=== PATIENT | male | born 1940 | race Caucasian/White ===

== ENCOUNTER 2019-11-29 11:03 | Outpatient (CLI) | payer MEDICARE, SELFPAY ==
[2019-11-29 11:53] LABS: Add Urine Microscopic? YES; Appearance Urine Clear (Clear); Bilirubin Urine Negative (Negative); Blood Urine Negative (Negative); Color Urine Straw (Yellow); Glucose Urine UA Negative (Negative); Ketones Urine Negative (Negative); Leukocyte Esterase Ur Negative LEU/UL (NEGATIVE); Mucus Urine Rare /lpf; Nitrate Urine Negative (Negative); Protein Urine 1+ mg/dL (Negative); RBC Urine 0-2 /hpf (0-2); Specific Grav Ur 1.011 (1.001-1.035); Urobilinogen Urine Negative mg/dL (<2.0); WBC Urine 0-3 /hpf (0-3)
[2019-11-29 11:54] LABS: Alanine Aminotransferase 64 U/L (4-50); Albumin Level 4.4 g/dL (3.5-5.1); Alkaline Phosphatase 71 U/L (38-126); Aspartate Amino Transferase 44 U/L (17-59); Bilirubin,Total 0.7 mg/dL (0.2-1.3); Blood Urea Nitrogen 24 mg/dL (9-20); Calcium 8.9 mg/dL (8.4-10.2); Carbon Dioxide 32 mmol/L (22-30); Chloride 99 mmol/L (98-107); Estimated Glomerular Filt Rate > 60; Glucose 104 mg/dL (75-110); Potassium 4.3 mmol/L (3.4-5.0); Sodium 137 mmol/L (137-145)
== END 2019-11-29 11:04 | disposition home or self-care (01) ==
PROVIDERS: PCP Internal Medicine; Visit Provider Internal Medicine
DX: R35.0 Frequency of micturition (principal); I10 Essential (primary) hypertension
CPT/HCPCS: 36415; 80053; 81001; 87086

== ENCOUNTER → 2019-12-20 08:16 | Outpatient (CLI) | payer MEDICARE, SELFPAY ==
--- NOTE | ~2019-12-20 | MR_ITS ---
EXAMINATION: MR lumbar spine wo con DATE: 12/20/2019 09:02 INDICATION: Low back pain. TECHNIQUE: Magnetic resonance imaging (MRI) of the lumbar spine was performed without intravenous con trast. Sequences included sagittal T2-weighted FSE, sagittal T2-weighted FS FSE, sagittal T1-weighted FSE, and axial T2-weighted FSE. COMPARISON: Lumbar spine MRI 10/18/2012 FINDINGS: There is 3 mm retrolisthesis of L1 on L2, 5 mm retrolisthesis of L2 on L3, 3 mm retrolisthe sis of L3 on L4, and 3 mm anterolisthesis of L4 on L5. There is mild chronic anterior wedging of T11- L1 vertebral bodies. There is severely decreased disc height at L2-L3, L3-L4, and L5-S1 with endplate remodeling. There is ligamentum flavum hypertrophy at the disc levels from L1-L2 through L4-L5. The distal spinal cord signal intensity is normal. The conus medullaris is at T12-L1. The following disc levels are specifically discussed: L1-L2: The disc is bulging. There is severe bilateral facet joint osteoarthritis. There is mild bilat eral neural foraminal stenosis. There is mild central canal stenosis. L2-L3: The disc is bulging and has an annular fissure. There is severe bilateral facet joint osteoart hritis. There is moderate bilateral neural foraminal stenosis. There is moderate central canal stenos is. L3-L4: The disc is bulging and has an annular fissure. There is severe bilateral facet joint osteoart hritis. There is mild right and moderate left neural foraminal stenosis. There is mild central canal stenosis. L4-L5: The disc is bulging and has an annular fissure. There is severe bilateral facet joint osteoart hritis. There is mild bilateral neural foraminal stenosis. There is severe central canal stenosis. L5-S1: The disc is bulging and has an annular fissure. There is severe right and moderate left facet joint osteoarthritis. There is mild bilateral neural foraminal stenosis. There is mild central canal stenosis. IMPRESSION: 1. Severe lumbar spondylosis, worsened from 10/18/2012. Reviewed, dictated and finalized at location A.
== END ==
PROVIDERS: Visit Provider Internal Medicine
DX: R20.0 Anesthesia of skin (principal); R20.2 Paresthesia of skin; M47.896 Other spondylosis, lumbar region
CPT/HCPCS: 72148

== ENCOUNTER 2020-12-19 14:49 | Outpatient (CLI) | payer MEDICARE, SELFPAY ==
--- NOTE | ~2020-12-19 | XR_ITS ---
XR lumbar spine 2-3V DATE: 12/19/2020 15:16 INDICATION: Back pain TECHNIQUE: Flexion and extension lateral views only COMPARISON: 12/20/2019 MRI lumbar spine FINDINGS: There is diffuse idiopathic skeletal hyperostosis of the thoracic spine. Chronic mild anterior wedging of L1. There is moderate degenerative disc disease and stable minimal retrolisthesis at L1 to and flexion an d extension. There is severe degenerative disc disease and stable mild retrolisthesis at L2-3. Mild to moderate degenerative disc disease at L3-4 and L4-5. Stable grade 1 anterolisthesis at L4-5, likely secondary to prominent degenerative change at the apop hyseal joints. Severe degenerative disc disease at L5-S1. No fracture or bone destruction of the lumbar spine is evident. IMPRESSION: Diffuse idiopathic skeletal hyperostosis of the thoracic spine Multilevel degenerative disc disease of the lumbar spine, most severe at L2-3 Grade 1 anterolisthesis at L4-5, likely due to degenerative change at the apophyseal joints Reviewed, dictated and finalized at location A. IMPRESSION: Diffuse idiopathic skeletal hyperostosis of the thoracic spine Multilevel degenerative disc disease of the lumbar spine, most severe at L2-3 Grade 1 anterolisthesis at L4-5, likely due to degenerative change at the apoph yseal joints
== END 2020-12-19 14:50 | disposition home or self-care (01) ==
PROVIDERS: Visit Provider Internal Medicine
DX: M47.817 Spondylosis without myelopathy or radiculopathy, lumbosacral region (principal)
CPT/HCPCS: 72100

== ENCOUNTER 2020-12-27 09:11 | Emergency (ER) | payer MEDICARE, SELFPAY ==
--- NOTE | ~2020-12-27 | XR_ITS ---
XR foot RT min 3V 12/27/2020 09:42 Indication: Crush injury to the right foot. Right foot pain. Procedure: 4 views right foot Comparison: No prior studies for comparison. Findings: There is mild osteoarthritis of the first MTP and IP joints. There is a healed second metat arsal fracture. There are degenerative calcaneal enthesophytes. There are fractures involving the med ial base of the second, fourth and fifth proximal phalanges. There is moderate soft tissue swelling a long the plantar aspect of the foot at the metatarsophalangeal level. Lisfranc joint is intact. Impression: 1: Mildly displaced fractures medial base right second, fourth and fifth proximal phalanges. Reviewed, dictated and finalized at location A. Impression: 1: Mildly displaced fractures medial base right second, fourth and fifth proxim al phalanges.
[2020-12-27 09:21] VITALS: BP 131/77; PULSE 55; RESP 17; TEMP 37; O2SAT 95
--- NOTE | 2020-12-27 09:40 | PC.NURSE ---
While undressing pt for assessment, pt states oh you look young, thanks for asking to take my pants off. That made my whole day. Pt informed that that those statements are not appropriate and will not be tolerated. Pt states I was just joking.
--- NOTE | 2020-12-27 10:27 | ED.LOWEXIN ---
HPI - Extremity Injury (Lower) General Chief Complaint: Extremity Injury, Lower <Katrin Maldonado PA-C - Last Filed: 12/27/20 11:47> Stated Complaint: R foot injury <REGLA Marrero Last Filed: 12/27/20 11:47> Time Seen by Provider: 12/27/20 09:37 <REGLA Marrero Last Filed: 12/27/20 11:47> Source: patient <REGLA Marrero Last Filed: 12/27/20 11:47> Mode of arrival: wheelchair <REGLA Marrero Last Filed: 12/27/20 11:47> Limitations: no limitations <REGLA Marrero Last Filed: 12/27/20 11:47> History of Present Illness HPI Narrative: This is an 80-year-old male that presents to the emergency department for right foot pain after an injury today. Reports he got the foot caught between a bucket and the machine of a skid rack loader. Reports bruising, pain and swelling to the area. Reports decreased range of motion and sensation in the foot. He is unsure if he is up to date on tetanus vaccine. Denies fever. <REGLA Marrero Last Filed: 12/27/20 11:47> Related Data Home Medications: Home Medications Medication Instructions Recorded Confirmed brimonidine 0.2 %-timolol 0.5 % 1 drop EACH EYE Q12H 04/21/19 12/20/20 eye drops latanoprost 0.005 % eye drops 1 drop EACH EYE DAILY 04/21/19 12/20/20 prednisolone acetate 1 % eye 1 drop EACH EYE Q12H 04/21/19 12/20/20 drops,suspension <REGLA Marrero Last Filed: 12/27/20 11:47> Allergies/Adverse Reactions: Allergies Allergy/AdvReac Type Severity Reaction Status Date / Time No Known Allergies Allergy Unknown Verified 12/19/20 14:09 <REGLA Marrero Last Filed: 12/27/20 11:47> Review of Systems Review of Systems: CONSTITUTIONAL: Denies fever SKIN: Reports laceration MUSCULOSKELETAL: Reports joint pain, and myalgia. NEUROLOGIC: Reports numbness <Katrin Maldonado PA-C - Last Filed: 12/27/20 11:47> All systems reviewed & are unremarkable except as noted in HPI and below <Katrin Maldonado PA-C - Last Filed: 12/27/20 11:47> [facility] Past Medical History Medical History: Medical History (Updated 12/27/20 @ 11:44 by Katrin Maldonado PA-C) Abnormal finding of blood chemistry Anxiety with depression Benign essential hypertension Blepharitis of both eyes BMI 29.0-29.9,adult BMI 30.0-30.9,adult BMI 31.0-31.9,adult Chronic back pain Chronic pain CKD (chronic kidney disease) Cognitive dysfunction Colon cancer screening DJD (degenerative joint disease), multiple sites Encounter for general adult medical examination w/o abnormal findings Encounter for Medicare annual wellness exam Encounter for special screening examination for neoplasm of prostate Glaucoma Hearing loss History of colon polyps Hyperlipidemia Hypogonadism in male Hypothyroidism (acquired) Insomnia Non-healing skin lesion On longterm drug therapy Pre-diabetes Proteinuria Urinary frequency Urinary incontinence Urine abnormality Vertigo <Katrin Maldonado PA-C - Last Filed: 12/27/20 11:47> Family History Family History: Family History Sibling Family history of malignant neoplasm of stomach Family history of malignant neoplasm Carcinoma of colon Family history of malignant neoplasm of breast in first degree relative Family history of malignant neoplasm of ovary Family history of diabetes mellitus in first degree relative Diabetes mellitus Father Family history of diabetes mellitus in first degree relative Mother Family history of malignant neoplasm of bone Other Family history of osteoarthritis <Katrin Maldonado PA-C - Last Filed: 12/27/20 11:47> Social History Social History: Social History Smoking status: Never smoker Second hand tobacco smoke exposure: No Alcohol intake: never Gender identity (if verbalized by the patient): Male <Katrin
[2020-12-27] MEDS: TETANUS,DIPHTHERIA,AC PERTUSSIS ADULT (0.5 ML) BOOSTRIX IM (10:54)
--- NOTE | 2020-12-27 10:55 | PC.NURSE ---
attempted to medicate pt, pt yelling at myself for no one getting him water. pt states I mentioned that i have extreme dry mouth and none of you will get me anything for it. Pt informed that due to his injury he cannot have water per the edp, pt begins yelling about getting him a sponge, I informed pt that yelling at staff is not acceptable and will not be tolerated, I then exited the room and informed the relief charge nurse and pa. USMAN Wilkes states oh, I forgot I told him he could have a sponge. ED relief charge nurse carol at bedside with pt.
[2020-12-27] MEDS: MORPHINE SULFATE INJ (*CRX) 10 MG/ML AMP 5 MG IM (11:37)
[2020-12-27] MEDS: ceFAZolin SODIUM 1 GM VIAL IM (11:37)
[2020-12-27] MEDS: ceFAZolin SODIUM 1 GM VIAL (11:37)
[2020-12-27] MEDS: ONDANSETRON HCL ODT 4 MG TABLET PO (11:37)
--- NOTE | 2020-12-27 11:37 | PC.NURSE ---
Provider at bedside cleansing wound and dressing, post op shoe applied by nirav tejeda.
[2020-12-27 12:06] VITALS: BP 124/77; PULSE 75; RESP 16; O2SAT 97
== END 2020-12-27 12:06 | disposition short-term general hospital (02) ==
PROVIDERS: Emergency Provider General Practice; PCP Internal Medicine
DX: S97.81XA Crushing injury of right foot, initial encounter (principal); S92.511B Displaced fracture of proximal phalanx of right lesser toe(s), initial encounter for open fracture; Z23 Encounter for immunization; I12.9 Hypertensive chronic kidney disease with stage 1 through stage 4 chronic kidney disease, or unspecified chronic kidney disease; N18.9 Chronic kidney disease, unspecified; E78.5 Hyperlipidemia, unspecified; R73.03 Prediabetes; H40.9 Unspecified glaucoma; Z86.010 Personal history of colon polyps; W31.89XA Contact with other specified machinery, initial encounter
CPT/HCPCS: 12001; 73630; 90471; 90715; 96372; 99285; A9270; J0690; J2270; J2405

== ENCOUNTER 2021-04-29 06:44 | Outpatient (CLI) | payer MEDICARE, SELFPAY ==
--- NOTE | ~2021-04-29 | MR_ITS ---
EXAMINATION: MR lumbar spine wo [facility] EXAM DATE: 04/29/2021 08:01 INDICATION: Lumbar stenosis, low back pain, bilateral hip pain, right leg pain. TECHNIQUE: Multi-sequential, multiplanar MR images of the lumbar spine were obtained without contrast . Sagittal T1, T2, T2 fat saturation images. Axial T2 weighted images. Comparison is made to prior examination from 12/20/2019. FINDINGS: There is severe disc disease L2-3, moderate to severe at L1-2, L5-S1, moderate at L3-4. The re is 2 mm retrolisthesis L1 on L2, 3 mm retrolisthesis L2 on L3 and L3 on L4, 2-3 mm anterolisthesis L4 on L5. No spondylolysis suspected. The conus medullaris terminates at the L1/2 level and has norm al signal intensity and morphology. Paraspinal soft tissue is unremarkable. Level by level evaluation: T12-L1: Disc does not extend beyond the endplate margin. Facet arthropathy: Mild. Neural foraminal stenosis: No stenosis. Central canal stenosis: No stenosis. L1-L2: There is a moderate diffuse disc bulge with moderate-sized superimposed right central extrusio n, inferior migration could be affecting traversing L2 nerve root. Facet arthropathy: Moderate. Neural foraminal stenosis: Moderate right, mild to moderate left. Central canal stenosis: Moderate to severe right lateral recess from the extrusion, mild to moderate overall. L2-L3: There is a large diffuse disc bulge. Facet arthropathy: Moderate . Ligamentum flavum enlargement . Neural foraminal stenosis: Moderate bilateral. Central canal stenosis: Moderate. L3-L4: There is a mild to moderate diffuse disc bulge. Facet arthropathy: Moderate . Ligamentum flavum enlargement. Neural foraminal stenosis: Mild to moderate left, mild right. Central canal stenosis: Mild to moderate. L4-L5: There is a moderate to large diffuse disc bulge. Facet arthropathy: Severe . Ligamentum flavum enlargement. Neural foraminal stenosis: Mild to moderate bilateral. Central canal stenosis: Severe. L5-S1: There is a moderate to large diffuse disc bulge. Facet arthropathy: Moderate. Neural foraminal stenosis: Moderate bilateral, left greater than right. Central canal stenosis: Mild to moderate. Progression of the disc disease, with development of the L1-2 right central extrusion described above . IMPRESSION: 1. L4-5 severe central canal stenosis. 2. L1-2 right central extrusion, inferior migration causing moderate to severe right lateral recess stenosis. 3. Spondylosis as detailed above. Reviewed, dictated and finalized at location A. CTOR COST
--- NOTE | ~2021-04-29 | XR_ITS ---
EXAMINATION: XR lumbar spine min 4V DATE: 04/29/2021 08:03 INDICATION: Lumbar stenosis. TECHNIQUE: 4 views of the lumbar spine standing including flexion and extension views were obtained. COMPARISON: Lumbar spine radiographs 12/19/2020 FINDINGS: There is 16 degrees levoscoliosis of thoracolumbar spine. There is 3 mm retrolisthesis of L 1 on L2 and L2 on L3 and 4 mm anterolisthesis of L4 on L5. There is mild chronic anterior wedging of T11 and L1 vertebral bodies. There is moderately decreased disc height at L1-L2, severely decreased d isc height at L2-L3, mildly decreased disc height at L3-L4, and severely decreased disc height at L5- S1 with endplate remodeling. There is no abnormal motion with flexion or extension. IMPRESSION: 1. Severe lumbar spondylosis, stable from 12/19/2020. 2. Thoracolumbar levoscoliosis. Reviewed, dictated and finalized at location A. L ROOFER
== END 2021-04-29 06:45 | disposition home or self-care (01) ==
LOC: ANHIMG 06:47
PROVIDERS: PCP Internal Medicine; Visit Provider Neurological Surgery
DX: M48.061 Spinal stenosis, lumbar region without neurogenic claudication (principal); M47.896 Other spondylosis, lumbar region; M51.26 Other intervertebral disc displacement, lumbar region
CPT/HCPCS: 72110; 72148

== ENCOUNTER 2021-06-10 16:05 | Outpatient (CLI) | payer MEDICARE, SELFPAY ==
[2021-06-10 16:40] LABS: Basophils Percent Auto 0.3 % (0.2-1.2); Eosinophils Absolute Auto 0.4 K/mm3 (0-0.3); Eosinophils Percent Auto 4.8 % (0-4.4); Hematocrit 48.1 % (42.0-52.0); Hemoglobin 16.1 g/dL (14.0-18.0); Immature Granulocyte Absolute 0.03 K/mm3 (0.00-0.031); Immature Granulocyte Percent A 0.4 % (0-0.5); Lymphocytes Absolute Auto 1.33 K/mm3 (0.9-3.2); Lymphocytes Percent Auto 17.8 % (18.3-44.2); Mean Corpuscular HGB Conc 33.5 g/dl (32-36); Mean Corpuscular Hemoglobin 32.7 pg (26-34); Mean Corpuscular Volume 97.8 fl (80-100); Mean Platelet Volume 9.1 fl (7.4-10.4); Monocytes Absolute Auto 0.6 K/mm3 (0.1-0.6); Monocytes Percent Auto 7.8 % (2.6-8.5); Neutrophils Absolute Auto 5.2 K/mm3 (1.3-6.7); Neutrophils Percent Auto 68.9 % (45.5-73.1); Platelet Count Result 156 k/mm3 (150-375); Red Blood Count 4.92 M/mm3 (4.6-6.20); Red Cell Distribution Width 13.3 % (11.5-14.5); White Blood Count 7.5 K/mm3 (4.5-10.0)
[2021-06-10 16:43] LABS: Add Urine Microscopic? NO; Appearance Urine Clear (Clear); Bilirubin Urine Negative (Negative); Blood Urine Negative (Negative); Color Urine Straw (Yellow); Glucose Urine UA Negative (Negative); Ketones Urine Negative (Negative); Leukocyte Esterase Ur Negative LEU/UL (Negative); Nitrate Urine Negative (Negative); Protein Urine Negative (Negative); Urobilinogen Urine Negative mg/dL (<2.0)
[2021-06-10 16:49] LABS: Specific Grav Ur 1.002 (1.001-1.035)
[2021-06-10 16:50] LABS: Alanine Aminotransferase 39 U/L (4-50); Albumin Level 4.6 g/dL (3.5-5.1); Alkaline Phosphatase 66 U/L (38-126); Anion Gap 9 mmol/L (8-16); Aspartate Amino Transferase 38 U/L (17-59); Bilirubin,Total 0.6 mg/dL (0.2-1.3); Blood Urea Nitrogen 15 mg/dL (9-20); Calcium 9.3 mg/dL (8.4-10.2); Carbon Dioxide 30 mmol/L (22-30); Chloride 98 mmol/L (98-107); Cholesterol 126 mg/dL (0-200); Estimated Glomerular Filt Rate 45; Glucose 122 mg/dL (65-110); HDL Direct 40 mg/dL; Potassium 4.1 mmol/L (3.4-5.0); Sodium 137 mmol/L (137-145); Triglycerides 148 mg/dL (<150)
[2021-06-10 17:01] LABS: LDL Cholesterol Direct 62 mg/dL
[2021-06-10 17:57] LABS: Folic Acid > 20.0 ng/mL (2.76->20)
[2021-06-10 18:15] LABS: Free T4 Free Thyroxine 0.86 ng/mL (0.78-2.19); Vitamin D 25 Hydroxy 53.3 ng/mL
[2021-06-10 18:31] LABS: Hemoglobin A1C 5.9 % (<5.7)
[2021-06-13 23:52] LABS: Testosterone Total 1492 ng/dL (250-1100)
== END 2021-06-10 16:06 | disposition home or self-care (01) ==
PROVIDERS: PCP Internal Medicine; Visit Provider Internal Medicine
DX: E03.9 Hypothyroidism, unspecified (principal); R25.1 Tremor, unspecified; I10 Essential (primary) hypertension; R73.03 Prediabetes; E78.2 Mixed hyperlipidemia; Z79.899 Other long term (current) drug therapy; E55.9 Vitamin D deficiency, unspecified; E53.8 Deficiency of other specified B group vitamins
CPT/HCPCS: 36415; 80053; 80061; 81003; 82306; 82607; 82746; 83036; 84403; 84439; 84443; 85025

== ENCOUNTER 2021-09-04 13:52 | Outpatient (CLI) | payer MEDICARE, SELFPAY ==
--- NOTE | ~2021-09-04 | MR_ITS ---
EXAMINATION: MR brain/brain stem wo/w con DATE: 09/04/2021 15:17 INDICATION: Other amnesia. TECHNIQUE: Magnetic resonance imaging (MRI) of the brain and brainstem was performed without and with 16 mL MultiHance intravenous contrast. Sequences included sagittal and axial T1-weighted FSE, axial diffusion-weighted FS EPI, axial T2*-weighted GRE, axial T2-weighted FLAIR Propeller, and axial T2-we ighted Propeller. Postcontrast sequences included axial and coronal T1-weighted FSE. Apparent diffusi on coefficient (ADC) maps were created. COMPARISON: Brain MRI 11/19/2010 FINDINGS: There are scattered areas of nonspecific increased T2-weighted signal intensity in the cere bral white matter. There is no intracranial hemorrhage, acute infarction, or abnormal intracranial ma ss lesion. The ventricles are normal in size. There are likely changes of ocular lens replacement celsa geries. There is mild mucosal thickening in the paranasal sinuses. IMPRESSION: 1. Worsened moderate nonspecific cerebral white matter disease, which likely represents chronic small vessel ischemic disease. Reviewed, dictated and finalized at location A. IMPRESSION: 1. Worsened moderate nonspecific cerebral white matter disease, which likely re presents chronic small vessel ischemic disease.
[2021-09-04 14:31] LABS: Alanine Aminotransferase 42 U/L (4-50); Albumin Level 4.2 g/dL (3.5-5.1); Alkaline Phosphatase 69 U/L (38-126); Anion Gap 4 mmol/L (8-16); Aspartate Amino Transferase 44 U/L (17-59); Bilirubin,Total 0.4 mg/dL (0.2-1.3); Blood Urea Nitrogen 16 mg/dL (9-20); Calcium 8.8 mg/dL (8.4-10.2); Carbon Dioxide 32 mmol/L (22-30); Chloride 100 mmol/L (98-107); Estimated Glomerular Filt Rate 58; Glucose 146 mg/dL (65-110); Potassium 3.9 mmol/L (3.4-5.0); Sodium 136 mmol/L (137-145)
[2021-09-04 15:03] LABS: Prostate Specific Antigen 1.1 ng/mL (< OR = 4.0)
[2021-09-04 15:07] LABS: Free T4 Free Thyroxine 1.02 ng/mL (0.78-2.19)
[2021-09-04 15:38] LABS: Folic Acid 19.9 ng/mL (2.76->20)
[2021-09-09 11:17] LABS: Vitamin B1 27 nmol/L (8-30)
[2021-09-10 11:21] LABS: Vitamin B2 18.9 nmol/L (6.2-39.0)
== END 2021-09-04 13:53 | disposition home or self-care (01) ==
PROVIDERS: PCP Internal Medicine; Visit Provider Internal Medicine
DX: R41.3 Other amnesia (principal); F09 Unspecified mental disorder due to known physiological condition; E03.9 Hypothyroidism, unspecified; E53.8 Deficiency of other specified B group vitamins; Z79.899 Other long term (current) drug therapy; E34.9 Endocrine disorder, unspecified; Z12.5 Encounter for screening for malignant neoplasm of prostate; R93.0 Abnormal findings on diagnostic imaging of skull and head, not elsewhere classified
CPT/HCPCS: 36415; 70553; 80053; 82607; 82746; 84153; 84252; 84425; 84439; 84443; A9577; G0103

== ENCOUNTER 2021-09-09 00:01 | Day surgery (SDC) | payer MEDICARE, SELFPAY ==
[2021-08-30 08:59] VITALS: BMI 29.9
[2021-09-09 09:44] VITALS: BP 163/94; PULSE 70; RESP 18; TEMP 36.6; O2SAT 95
[2021-09-09] MEDS: LACTATED RINGERS 1,000 ML 150 ML IV CONT (09:52)
--- NOTE | 2021-09-09 10:26 | WPDGICN ---
Assessment and Plan Assessment and plan (1) History of colon polyps: Code(s): Z86.010 - Personal history of colonic polyps Status: Acute Assessment and Plan: Patient has a prior history of colon polyps. Most recently 2019. Plan is for surveillance colonoscopy at this time. Further recommendations will be given after colonoscopy. GI Consult Note Consult date/time: 09/09/21 10:26 HPI: oSuleymane Powers is a 80 year old male Presents for screening colonoscopy. Patient's current weight appetite bowel movements are normal. He denies abdominal pain. He has had no bleeding. Patient has a prior history of colon polyps. Most recent colonoscopy by Dr. Neville García in 2019 revealed adenomatous colon polyps. Patient presents today for some surveillance colonoscopy. Review of Systems Review of Systems: All systems reviewed & are unremarkable except as noted in HPI and below PMFSH Past Medical History Medical History (Updated 09/09/21 @ 10:27 by Neville Obregon MD) Abnormal finding of blood chemistry Anxiety with depression Balance problem Benign essential hypertension Blepharitis of both eyes BMI 29.0-29.9,adult BMI 30.0-30.9,adult BMI 31.0-31.9,adult BMI 32.0-32.9,adult Chronic back pain Chronic pain CKD (chronic kidney disease) Cognitive dysfunction Colon cancer screening DJD (degenerative joint disease), multiple sites Encounter for general adult medical examination w/o abnormal findings Encounter for Medicare annual wellness exam Encounter for special screening examination for neoplasm of prostate Follow up Glaucoma Hearing loss History of colon polyps Hyperlipidemia Hypogonadism in male Hypothyroidism (acquired) Insomnia Itchy skin Memory loss Non-healing skin lesion On retirement drug therapy Pre-diabetes Proteinuria Testosterone deficiency Urinary frequency Urinary incontinence Urine abnormality Vertigo Family History Family History Sibling Family history of malignant neoplasm of stomach Family history of malignant neoplasm Carcinoma of colon Family history of malignant neoplasm of breast in first degree relative Family history of malignant neoplasm of ovary Family history of diabetes mellitus in first degree relative Diabetes mellitus Father Family history of diabetes mellitus in first degree relative Mother Family history of malignant neoplasm of bone Other Family history of osteoarthritis Social History Social History Smoking status: Never smoker Second hand tobacco smoke exposure: No Alcohol intake: current Alcohol use details: 1 drink monthly Living arrangements: alone Gender identity (if verbalized by the patient): Male Spiritual care concerns: No Meds Home Medications and Allergies Home Medications Medication Instructions Recorded Confirmed Type brimonidine 0.2 %-timolol 0.5 % 1 drop EACH EYE Q12H 04/21/19 08/30/21 History eye drops latanoprost 0.005 % eye drops 1 drop EACH EYE DAILY 04/21/19 08/30/21 History Namzaric 14 mg-10 mg capsule 1 cap PO DAILY #90 ea NS 10/18/20 08/30/21 Rx sprinkle,extended release levothyroxine 125 mcg tablet 125 mcg PO DAILY #90 tablet 11/05/20 08/30/21 Rx diclofenac sodium 75 mg 75 mg PO BID PRN #180 tablet 03/13/21 08/30/21 Rx tablet,delayed release syringe with needle 3 mL 23 x 1 #9 each 03/20/21 08/08/21 Rx trazodone 50 mg tablet See Rx Instructions .ROUTE 04/01/21 08/30/21 Rx .COMPLEX #90 tablet cyanocobalamin (vitamin B-12) 1,000 mcg IM MONTHLY #3 ml 05/03/21 08/30/21 Rx 1,000 mcg/mL injection solution gabapentin 100 mg capsule 200 mg PO TID #180 cap 06/20/21 08/30/21 Rx lorazepam 0.5 mg tablet 0.5 mg PO TID PRN #30 tablet 07/02/21 08/30/21 Rx testosterone cypionate 200 mg/mL 200 mg IM .Q2W #2 ml 07/30/21 08/30/21 Rx intramuscular oil mirabegron 25 mg tablet,extended 25
--- NOTE | 2021-09-09 10:42 | WPDANESEPPF ---
Anes - Initial Pre Proc Eval Procedure: Operation Date: 09/09/21 11:30 Proposed Procedures p Screening Colonoscopy - Neville Obregon MD Date/Time: 09/09/21 10:42 Surgeon: Neville Obregon MD Pre Op Diagnosis: hx of colon polyps Patient Data Age: 80 Gender: M Height: 1.68 m Weight: 85.1 kg Last Vital Signs Temp 97.8 F 09/09/21 09:44 Pulse 70 09/09/21 09:44 Resp 18 09/09/21 09:44 BP 163/94 H 09/09/21 09:44 Pulse Ox 95 09/09/21 09:44 Allergies Allergy/AdvReac Type Severity Reaction Status Date / Time No Known Allergies Allergy Unknown Verified 09/09/21 09:39 Home Medications Medication Instructions Recorded Confirmed Type brimonidine 0.2 %-timolol 0.5 % 1 drop EACH EYE Q12H 04/21/19 08/30/21 History eye drops latanoprost 0.005 % eye drops 1 drop EACH EYE DAILY 04/21/19 08/30/21 History Namzaric 14 mg-10 mg capsule 1 cap PO DAILY #90 ea NS 10/18/20 08/30/21 Rx sprinkle,extended release levothyroxine 125 mcg tablet 125 mcg PO DAILY #90 tablet 11/05/20 08/30/21 Rx diclofenac sodium 75 mg 75 mg PO BID PRN #180 tablet 03/13/21 08/30/21 Rx tablet,delayed release syringe with needle 3 mL 23 x 1 #9 each 03/20/21 08/08/21 Rx trazodone 50 mg tablet See Rx Instructions .ROUTE 04/01/21 08/30/21 Rx .COMPLEX #90 tablet cyanocobalamin (vitamin B-12) 1,000 mcg IM MONTHLY #3 ml 05/03/21 08/30/21 Rx 1,000 mcg/mL injection solution gabapentin 100 mg capsule 200 mg PO TID #180 cap 06/20/21 08/30/21 Rx lorazepam 0.5 mg tablet 0.5 mg PO TID PRN #30 tablet 07/02/21 08/30/21 Rx testosterone cypionate 200 mg/mL 200 mg IM .Q2W #2 ml 07/30/21 08/30/21 Rx intramuscular oil mirabegron 25 mg tablet,extended 25 mg PO DAILY 08/29/21 08/30/21 History release 24 hr amlodipine 10 mg PO DAILY 08/30/21 08/30/21 History atorvastatin 40 mg PO DAILY 08/30/21 08/30/21 History timolol maleate 1 drp EACH EYE Q12H 08/30/21 08/30/21 History tramadol 50 mg tablet See Rx Instructions PO Q6H PRN 08/30/21 09/09/21 Rx #120 tablet valsartan 320 mg PO DAILY 08/30/21 08/30/21 History ascorbic acid (vitamin C) 1,000 mg 1 g PO DAILY 09/03/21 09/09/21 History tablet docusate sodium 250 mg capsule 250 mg PO DAILY 09/03/21 09/09/21 History lactulose 10 gram/15 mL oral 10 g PO DAILY 09/03/21 09/09/21 History solution magnesium citrate 125 mg capsule 125 mg PO DAILY 09/03/21 09/09/21 History vitamin B complex 1 tablet PO DAILY 09/03/21 09/09/21 History Patient hx anesthesia problems: none Family hx anesthesia problems: none Results Review: All pre-operative results and documents have been reviewed as part of the pre-operative evaluation. [facility] Past Medical History Medical History (Updated 09/09/21 @ 10:27 by Neville Obregon MD) Abnormal finding of blood chemistry Anxiety with depression Balance problem Benign essential hypertension Blepharitis of both eyes BMI 29.0-29.9,adult BMI 30.0-30.9,adult BMI 31.0-31.9,adult BMI 32.0-32.9,adult Chronic back pain Chronic pain CKD (chronic kidney disease) Cognitive dysfunction Colon cancer screening DJD (degenerative joint disease), multiple sites Encounter for general adult medical examination w/o abnormal findings Encounter for Medicare annual wellness exam Encounter for special screening examination for neoplasm of prostate Follow up Glaucoma Hearing loss History of colon polyps Hyperlipidemia Hypogonadism in male Hypothyroidism (acquired) Insomnia Itchy skin Memory loss Non-healing skin lesion On long-term drug therapy Pre-diabetes Proteinuria Testosterone deficiency Urinary frequency Urinary incontinence Urine abnormality Vertigo Family History Family History Sibling Family history of malignant neoplasm of stomach Family history of malignant neoplasm Carcinoma of colon Family history of malignant neoplasm of breast in first degree relative Family history of malignant neoplasm of ovary
[2021-09-09 11:20] VITALS: BP 130/76; PULSE 64; RESP 18; O2SAT 95
[2021-09-09 11:30] VITALS: BP 151/74; PULSE 67; RESP 24; O2SAT 96
[2021-09-09 11:40] VITALS: BP 169/88; PULSE 65; RESP 19; O2SAT 97
== END 2021-09-09 11:56 | disposition home or self-care (01) ==
PROVIDERS: PCP Internal Medicine; Visit Provider Internal Medicine Gastroenterology
PROC: 0DJD8ZZ Inspection of Lower Intestinal Tract, Via Natural or Artificial Opening Endoscopic (ICD-10-PCS; CPT 45378; principal; 2021-09-09 11:30)
DX: Z12.11 Encounter for screening for malignant neoplasm of colon (principal); Z86.010 Personal history of colon polyps; K57.30 Diverticulosis of large intestine without perforation or abscess without bleeding; K64.8 Other hemorrhoids; I12.9 Hypertensive chronic kidney disease with stage 1 through stage 4 chronic kidney disease, or unspecified chronic kidney disease; N18.9 Chronic kidney disease, unspecified; E03.9 Hypothyroidism, unspecified; M19.90 Unspecified osteoarthritis, unspecified site; M54.9 Dorsalgia, unspecified; G89.29 Other chronic pain; R73.03 Prediabetes; H40.9 Unspecified glaucoma; F41.9 Anxiety disorder, unspecified; F32.A Depression, unspecified
CPT/HCPCS: G0105; J2704; J7120

== ENCOUNTER → 2021-12-25 16:14 | Outpatient (CLI) | payer MEDICARE, SELFPAY ==
--- NOTE | ~2021-12-25 | MR_ITS ---
EXAMINATION: MR lumbar spine wo con DATE: 12/25/2021 16:54 INDICATION: Lumbar spinal stenosis with neurogenic claudication. TECHNIQUE: Magnetic resonance imaging (MRI) of the lumbar spine was performed without intravenous con trast. Sequences included sagittal T2-weighted FSE, sagittal T2-weighted FS FSE, sagittal T1-weighted FSE, and axial T2-weighted FSE. COMPARISON: 04/29/2021 FINDINGS: 3-4 mm retrolisthesis L1 on L2 and L2 on L3, 3 mm retrolisthesis L3 on L4 and 2-3 mm anterolisthesis L4 on L5. No significant change in chronic anterior wedging with 20% anterior vertebral body height l oss at T1 and L1 and 10% anterior vertebral body height loss at T12. There disc height loss at L2-L3, moderate to severe disc height loss at L5-S1 and L1-L2, latter with right-sided predominance. Modera te left-sided and posterior predominant disc height loss at L3-L4. Mild disc height loss at L4-L5. Th ere are prominent fibrofatty and fibrovascular degenerative endplate changes at multiple endplates gr eatest at L1-L2 and L2-L3. The conus medullaris terminates at L1. There is normal signal in the cauda l spinal cord. 7 mm T2 hyperintense cyst at the upper pole of the right kidney. Paravertebral soft ti ssues are otherwise unremarkable. The following disc levels are specifically discussed: T12-L1: The disc does not extend beyond the endplate margin. There is mild bilateral facet joint oste oarthritis. There is no neural foraminal stenosis. There is no central canal stenosis. L1-L2: Disc is bulging with annular fissure and superimposed small left paracentral disc extrusion wi th disc material extending up to 7 mm caudal to the level of the superior endplate of L1. There is hy pertrophy of the ligamentum flavum. There is mild right and moderate left facet joint osteoarthritis. There is moderate left and moderate to severe right neural foraminal stenosis. There is severe centr al canal stenosis. L2-L3: Disc is bulging. There is hypertrophy of the ligamentum flavum. There is moderate bilateral fa cet joint osteoarthritis. There is moderate bilateral neural foraminal stenosis. There is severe cent ral canal stenosis. L3-L4: Disc is bulging. There is mild hypertrophy of the ligamentum flavum. There is moderate right a nd moderate to severe left facet joint osteoarthritis. There is moderate left and mild to moderate ri ght neural foraminal stenosis. There is mild to moderate central canal stenosis. L4-L5: Disc is bulging. There is hypertrophy of the ligamentum flavum. There is severe bilateral face t joint osteoarthritis. There is moderate left and mild to moderate right neural foraminal stenosis. There is severe central canal stenosis. L5-S1: Disc is bulging. There is mild hypertrophy of the ligamentum flavum. There is moderate left an d moderate to severe right facet joint osteoarthritis. There is moderate bilateral neural foraminal s tenosis. There is mild to moderate central canal stenosis. IMPRESSION: 1. Interval progression of her multilevel lumbar spondylosis with severe central canal stenosis at L1 -L2, L2-L3 and L4-L5. Reviewed, dictated and finalized at location A. IMPRESSION: 1. Interval progression of her multilevel lumbar spondylosis with severe centra l canal stenosis at L1-L2, L2-L3 and L4-L5.
== END ==
PROVIDERS: PCP Internal Medicine; Visit Provider Pain Medicine Pain Medicine
DX: M48.062 Spinal stenosis, lumbar region with neurogenic claudication (principal); M47.896 Other spondylosis, lumbar region
CPT/HCPCS: 72148

== ENCOUNTER → 2022-04-22 14:46 | Outpatient (CLI) | payer MEDICARE, SELFPAY ==
--- NOTE | ~2022-04-22 | XR_ITS ---
EXAM: XR ankle RT min 3V, [id number] DATE: 04/22/2022 15:33 HISTORY: no injury right foot and ankle pain . COMPARISON: X-ray foot 12/27/2020. FINDINGS: Normal mineralization. Oblique mildly displaced intra-articular fractures of the posterior medial aspects of the second through fourth right proximal phalanges. No lytic or blastic lesion. Ac hilles and plantar enthesopathy. Moderate degenerative changes in the tibiotalar joint. Mild degenera tive change in multiple midfoot joints and the first MTP joint. No erosion or periosteal change. Soft tissue swelling over the forefoot. Small ankle joint effusion. IMPRESSION: Oblique, mildly displaced, intra-articular fractures of the posterior medial aspect of th e second through fourth right proximal phalanges. Reviewed, dictated and finalized at location K. PRESIDENT OF PROCUREMENT IMPRESSION: Oblique, mildly displaced, intra-articular fractures of the posteri or medial aspect of the second through fourth right proximal phalanges.
== END ==
PROVIDERS: PCP Internal Medicine; Visit Provider Internal Medicine
DX: S92.511A Displaced fracture of proximal phalanx of right lesser toe(s), initial encounter for closed fracture (principal); T14.90XA Injury, unspecified, initial encounter
CPT/HCPCS: 73610; 73630

== ENCOUNTER 2022-10-08 08:16 | Outpatient (CLI) | payer MEDICARE, SELFPAY ==
--- NOTE | 2022-10-08 11:00 | NEURO_ITS ---
Impression: Patient reports a history of balance issues. 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 # Clinical correlation recommended. Nerve Conduction Studies Anti Sensory Summary Table Stim Site NR Peak (ms) P-T Amp (?V) Site1 Site2 Delta-P (ms) Dist (cm) Moy (m/s) Left Sup Fibular Anti Sensory (Ant Lat Mall) 14 cm 4.2 3.0 14 cm Ant Lat Mall 4.2 16.0 38 Right Sup Fibular Anti Sensory (Ant Lat Mall) 14 cm 4.2 6.1 14 cm Ant Lat Mall 4.2 16.0 38 Left Sural Anti Sensory (Lat Mall) Calf 4.1 10.9 Calf Lat Mall 4.1 16.0 39 Right Sural Anti Sensory (Lat Mall) Calf 4.2 5.8 Calf Lat Mall 4.2 16.0 38 Motor Summary Table Stim Site NR Onset (ms) O-P Amp (mV) Site1 Site2 Delta-0 (ms) Dist (cm) Moy (m/s) Left Peroneal Motor (Vastus Med) Ankle 5.1 1.5 Popit Ankle 10.7 39.0 36 Popit 15.8 1.2 B Fib Ankle 8.6 31.0 36 B Fib 13.7 1.2 Right Peroneal Motor (Vastus Med) Ankle 5.1 1.1 Popit Ankle 10.6 41.0 39 Popit 15.7 0.8 B Fib Ankle 8.3 30.0 36 B Fib 13.4 0.9 Left Tibial Motor (Abd Torres Brev) Ankle 4.7 1.5 Knee Ankle 10.6 41.0 39 Knee 15.3 1.3 Right Tibial Motor (Abd Torres Brev) Ankle 4.8 2.6 Knee Ankle 11.1 41.0 37 Knee 15.9 1.7 F Wave Studies NR F-Lat (ms) L-R F-Lat (ms) Left Peroneal (Mrkrs) (EDB) 62.97 1.15 Right Peroneal (Mrkrs) (EDB) 64.12 1.15 Left Tibial (Mrkrs) (Abd Hallucis) 64.68 0.24 Right Tibial (Mrkrs) (Abd Hallucis) 64.44 0.24 EMG Side Muscle Nerve Root Ins Act Fibs Amp Dur Recrt Comment Right AntTibialis Dp Br Fibular L4-5 Nml Nml Nml Nml Nml Right Gastroc Tibial S1-2 Nml Nml Nml Nml Reduced Right Fibularis Long Sup Br Fibular L5-S1 Nml Nml Nml Nml Nml Right Flex Dig Long Tibial L5-S2 Nml Nml Nml Nml Reduced Right Ext Dig Brev Dp Br Fibular L5, S1 Nml Nml Nml Nml Reduced Left AntTibialis Dp Br Fibular L4-5 Nml Nml Nml Nml Nml Left Gastroc Tibial S1-2 Nml Nml Nml Nml Reduced Left Fibularis Long Sup Br Fibular L5-S1 Nml Nml Nml Nml Nml Left Flex Dig Long Tibial L5-S2 Nml Nml Nml Nml Reduced Left Ext Dig Brev Dp Br Fibular L5, S1 Nml Nml Nml Nml Reduced MTDD
== END 2022-10-08 08:17 | disposition home or self-care (01) ==
PROVIDERS: PCP Internal Medicine; Visit Provider Student in an Organized Health Care Education/Training Program
DX: G62.9 Polyneuropathy, unspecified (principal)
CPT/HCPCS: 95886; 95910

== ENCOUNTER 2022-10-10 09:19 | Outpatient (CLI) | payer MEDICARE, SELFPAY ==
--- NOTE | ~2022-10-10 | MR_ITS ---
MRI of the brain Clinical History: Multiple falls, poor balance Technique: Axial and sagittal T1-weighted images were acquired. These were followed by axial T2-weigh shakira, diffusion weighted, gradient, and FLAIR images. COMPARISON: 09/04/2021 Findings: There is no acute infarct, intracranial hemorrhage, or mass lesion. There are moderate comfort advisor valentino white matter changes in the periventricular white matter bilaterally. Ventricles and subarachnoid spaces are mildly dilated. Orbits are unremarkable. Paranasal sinuses and mastoid air cells are clear. Major intracranial flow voids are intact. Sagittal midline structures are intact. IMPRESSION: No acute intracranial abnormality. Moderate chronic microvascular ischemic change. Reviewed, dictated and finalized at location .
== END 2022-10-10 09:20 | disposition home or self-care (01) ==
LOC: ANHIMG 09:21
PROVIDERS: PCP Internal Medicine; Visit Provider Student in an Organized Health Care Education/Training Program
DX: R26.89 Other abnormalities of gait and mobility (principal); I67.82 Cerebral ischemia
CPT/HCPCS: 70551

== ENCOUNTER 2022-12-15 12:47 | Outpatient (CLI) | payer MEDICARE, SELFPAY ==
[2022-12-15 13:05] LABS: Basophils Absolute Auto 0.1 K/mm3 (0.0-0.1); Basophils Percent Auto 0.8 % (0.2-1.2); Eosinophils Absolute Auto 0.2 K/mm3 (0-0.3); Hematocrit 51.3 % (42.0-52.0); Hemoglobin 17.3 g/dL (14.0-18.0); Immature Granulocyte Absolute 0.02 K/mm3 (0.00-0.031); Immature Granulocyte Percent A 0.3 % (0-0.5); Immature Platelet Fraction Pct 1.6 % (0.9-11.2); Lymphocytes Absolute Auto 1.37 K/mm3 (0.9-3.2); Lymphocytes Percent Auto 17.6 % (18.3-44.2); Mean Corpuscular HGB Conc 33.7 g/dl (32-36); Mean Corpuscular Hemoglobin 32.5 pg (26-34); Mean Corpuscular Volume 96.2 fl (80-100); Monocytes Absolute Auto 0.6 K/mm3 (0.1-0.6); Monocytes Percent Auto 7.1 % (2.6-8.5); Neutrophils Absolute Auto 5.5 K/mm3 (1.3-6.7); Neutrophils Percent Auto 71.2 % (45.5-73.1); Platelet Count Result 136 k/mm3 (150-375); Red Blood Count 5.33 M/mm3 (4.6-6.20); Red Cell Distribution Width 12.5 % (11.5-14.5); White Blood Count 7.8 K/mm3 (4.5-10.0)
[2022-12-15 15:04] LABS: Alanine Aminotransferase 28 U/L (6-50); Albumin Level 4.2 g/dL (3.5-5.1); Alkaline Phosphatase 69 U/L (38-126); Anion Gap 3 mmol/L (8-16); Aspartate Amino Transferase 29 U/L (17-59); Bilirubin,Total 0.7 mg/dL (0.2-1.3); Blood Urea Nitrogen 18 mg/dL (9-20); Carbon Dioxide 37 mmol/L (22-30); Chloride 98 mmol/L (98-107); Estimated Glomerular Filt Rate 42; Glucose 103 mg/dL (65-110); Potassium 4.9 mmol/L (3.4-5.0); Sodium 138 mmol/L (137-145)
[2022-12-15 18:31] LABS: Immunoglobulin A 152 mg/dL (70-400); Immunoglobulin G 929 mg/dL (700-1600)
[2022-12-15 20:13] LABS: Immunoglobulin M < 25 mg/dL (40-230)
[2022-12-18 11:59] LABS: Albumin 4.1 g/dL (3.8-4.8); Alpha 1 Globulin 0.3 g/dL (0.2-0.3); Alpha 2 Globulin 0.7 g/dL (0.5-0.9); Beta 1 Globulin 0.4 g/dL (0.4-0.6); Gamma Globulin 0.9 g/dL (0.8-1.7); Protein, Total 6.6 g/dL (6.1-8.1)
[2022-12-19 20:43] LABS: Kappa\\Lambda Light Chains 27.49 (0.26-1.65); Lambda Light Chain 13.6 mg/L (5.7-26.3)
== END 2022-12-15 12:48 | disposition home or self-care (01) ==
LOC: ANHLAB 12:51
PROVIDERS: PCP Internal Medicine; Visit Provider Internal Medicine Hematology & Oncology
DX: D72.9 Disorder of white blood cells, unspecified (principal)
CPT/HCPCS: 36415; 80053; 82784; 83883; 84155; 84165; 85025; 85055

== ENCOUNTER 2022-12-17 14:36 | Outpatient (CLI) | payer MEDICARE, SELFPAY ==
--- NOTE | ~2022-12-17 | XR_ITS ---
EXAMINATION: XR bone survey comp/metastic DATE: 12/17/2022 15:40 INDICATION: Plasma cell disorder. TECHNIQUE: 32 views of a skeletal survey were obtained. COMPARISON: None. FINDINGS: The chest demonstrates clear lungs without pneumonia, pleural effusion, or pneumothorax. Th e heart size is normal. There is internal fixation of right humerus. There is an old healed fracture deformity of distal right radius. There are old healed right rib fractures. There are changes of post erior fusion procedure at L4-L5. IMPRESSION: 1. No lytic lesions of bone to suggest multiple myeloma. Reviewed, dictated and finalized at location A.
== END 2022-12-17 14:37 | disposition home or self-care (01) ==
LOC: ANHIMG 14:42
PROVIDERS: PCP Internal Medicine; Visit Provider Internal Medicine Hematology & Oncology
DX: D72.9 Disorder of white blood cells, unspecified (principal)
CPT/HCPCS: 77075

== ENCOUNTER 2023-01-08 09:33 | Outpatient (CLI) | payer MEDICARE, SELFPAY ==
[2023-01-08 10:23] LABS: Iron 115 ug/dL (49-181)
[2023-01-08 10:32] LABS: Percent Iron Saturation 34 % (20-50)
== END 2023-01-08 09:34 | disposition home or self-care (01) ==
LOC: ANHLAB 09:33
PROVIDERS: PCP Internal Medicine; Visit Provider Internal Medicine
DX: E29.1 Testicular hypofunction (principal); R53.83 Other fatigue
CPT/HCPCS: 36415; 82728; 83540; 83550

== ENCOUNTER → 2023-02-10 12:48 | Outpatient (CLI) | payer MEDICARE, SELFPAY ==
--- NOTE | ~2023-02-10 | US_ITS ---
US soft tissue LE LT 02/10/2023 13:06 Indication: Left lower extremity pain in the popliteal fossa post twisting injury Procedure: High-resolution Limited ultrasound of the left popliteal fossa Comparison: No prior studies for comparison. Findings: In the area of palpable concern there is a hypoechoic mass with internal debris measuring 4 .4 x 1.9 x 1.1 cm. No internal vascularity. There is mobile debris internally. Impression: 1: Complex partially cystic mass of the left popliteal fossa measuring 4.4 x 1.9 x 1.1 cm with multip le internal debris. Differential diagnosis includes complicated Brennan's cyst and posttraumatic hemato ma/seroma. Recommend follow-up ultrasound as clinically indicated to assess for interval change. Reviewed, dictated and finalized at location B. Impression: 1: Complex partially cystic mass of the left popliteal fossa measuring 4.4 x 1. 9 x 1.1 cm with multiple internal debris. Differential diagnosis includes compl icated Brennan's cyst and posttraumatic hematoma/seroma. Recommend follow-up ultr asound as clinically indicated to assess for interval change.
--- NOTE | ~2023-02-10 | XR_ITS ---
Left Knee Technique: AP, lateral, and sunrise views were obtained. Clinical History: Pain Findings: No fracture or dislocation is seen. Osseous alignment is anatomic. There is mild tricompart mental degenerative change. Soft tissues are unremarkable. No joint effusion is seen. Impression: Mild tricompartmental degenerative change. Reviewed, dictated and finalized at [facility]. Impression: Mild tricompartmental degenerative change.
== END ==
PROVIDERS: PCP Internal Medicine; Visit Provider Internal Medicine
DX: M25.562 Pain in left knee (principal); M71.22 Synovial cyst of popliteal space [Baker], left knee
CPT/HCPCS: 73562; 76882

== ENCOUNTER 2023-02-13 15:27 | Outpatient (CLI) | payer MEDICARE, SELFPAY ==
--- NOTE | ~2023-02-13 | MR_ITS ---
MRI of the thoracic spine Clinical History: Preoperative evaluation Technique: Axial T2-weighted and gradient images, and sagittal T1-weighted, T2-weighted, and STIR carin ges were acquired. Findings: There is no acute fracture or subluxation of the thoracic spine. There is intraosseous kavya ngioma in the T7 vertebral body. There are probable chronic compression deformity versus Schmorl's no de at the superior plate region of T11. Intervertebral disc spaces are relatively well preserved thro ughout the thoracic spine, there is minimal degenerative disc change. No significant disc bulge or herniation seen at any thoracic level. No spinal canal stenosis or cord compression seen. No epidural mass or collection identified. No abnormal signal seen in the spinal cord. Paravertebral soft tissues are unremarkable. Impression: Mild chronic compression deformity versus Schmorl's node at T11. Intraosseous hemangioma of T7. Reviewed, dictated and finalized at [facility]. Impression: Mild chronic compression deformity versus Schmorl's node at T11. Intraosseous hemangioma of T7.
--- NOTE | ~2023-02-13 | MR_ITS ---
MRI of the lumbar spine Clinical History: Preoperative evaluation Technique: Axial T2-weighted images, and sagittal T1-weighted, T2-weighted, and and T2 fat-sat images were acquired. Following intravenous administration of 17 cc MultiHance gadolinium, T1-weighted fat- sat imaging was performed in the axial and sagittal planes. COMPARISON: 12/25/2021 Findings: There is posterior fusion hardware from L4 to L5, with bilateral rods and transpedicular sc rews present. There is probable laminectomy defect of L4 and L5. There is a 5 mm retrolisthesis of L2 over L3. There is severe degenerative disc change at L1-L2 and L 2-L3, with extensive reactive marrow edema in the L1, L2, L3 vertebral bodies. At L1-L2, there is diffuse disc bulge and moderate to advanced facet arthropathy, with moderate to se jhoan spinal canal stenosis/thecal sac compression. There is severe bilateral neural foraminal narrowi ng, right worse than left. At L2-L3, disc bulge and severe facet arthropathy result in severe spinal canal stenosis/thecal sac c ompression. There is severe bilateral neural foraminal narrowing, left worse than right. At L3-L4, disc bulge and severe facet arthropathy result in severe spinal canal stenosis/thecal sac c ompression. There is severe left neural foraminal, right, and moderate to severe right neural foramin al, right. At L4-L5, there is mild disc bulge. There is posterior decompression. No central canal stenosis. Ther e is mild bilateral neural foraminal narrowing. At L5-S1, there is diffuse disc bulge with facet arthropathy. There is posterior decompression. No ce ntral canal stenosis. There is severe left neural foraminal narrowing, and moderate to advanced right neural foraminal narrowing. Paravertebral soft tissues are unremarkable, aside from expected postoperative change. No suspicious postcontrast enhancement identified. Impression: Severe degenerative spondylosis, especially from L1 through L4. Posterior fusion and decompression at L4-L5, as detailed above. 5 mm retrolisthesis of L2 over L3. Reviewed, dictated and finalized at [facility]. Impression: Severe degenerative spondylosis, especially from L1 through L4. Posterior fusion and decompression at L4-L5, as detailed above. 5 mm retrolisthesis of L2 over L3.
== END 2023-02-13 15:28 | disposition home or self-care (01) ==
PROVIDERS: PCP Internal Medicine; Visit Provider Pain Medicine Pain Medicine
DX: Z01.818 Encounter for other preprocedural examination (principal); M47.816 Spondylosis without myelopathy or radiculopathy, lumbar region; D18.09 Hemangioma of other sites
CPT/HCPCS: 72146; 72158; A9577

== ENCOUNTER → 2023-02-18 11:49 | Outpatient (CLI) | payer MEDICARE, SELFPAY ==
--- NOTE | ~2023-02-18 | MR_ITS ---
MRI of the left knee Clinical history: Synovial cyst Technique: Coronal proton density and proton density-weighted images, sagittal proton-density and T2 fat-sat images, and axial proton-density fat-saturated images were acquired. Findings: Anterior and posterior cruciate ligaments are intact. Medial collateral ligament and the la teral collateral ligament complex are intact. Popliteus tendon is intact. There is probable radial tear near the posterior root area of the lateral meniscus. There is complex tearing of the posterior horn and body of the medial meniscus. There is with extensive moderate chondral malacia of the medial compartment. Articular cartilage in t he lateral compartment and along the femoral trochlea is relatively well-preserved. There is extensiv e moderate to high-grade chondromalacia patella. Small tricompartmental osteophytes are present. Extensor mechanism is intact. Moderate joint effusion present. Small Brennan's cyst is present, with 8 mm loose body within the Brennan's cyst. There is extensive subcutaneous soft tissue edema about the kn ee. Impression: Complex tearing of the posterior horn and body medial meniscus. Radial tear at the posterior root of the lateral meniscus. Gtrh-fz-biwqojhc tricompartmental osteoarthritis, as above. Moderate joint effusion with small Brennan's cyst. 8 mm loose body within the Brennan's cyst. Reviewed, dictated and finalized at location M. Impression: Complex tearing of the posterior horn and body medial meniscus. Radial tear at the posterior root of the lateral meniscus. [id number] tricompartmental osteoarthritis, as above. Moderate joint effusion with small Brennan's cyst. 8 mm loose body within the Omid er's cyst.
== END ==
PROVIDERS: PCP Internal Medicine; Visit Provider Internal Medicine
DX: M17.12 Unilateral primary osteoarthritis, left knee (principal); S83.282A Other tear of lateral meniscus, current injury, left knee, initial encounter; S83.232A Complex tear of medial meniscus, current injury, left knee, initial encounter; X58.XXXA Exposure to other specified factors, initial encounter; M25.462 Effusion, left knee
CPT/HCPCS: 73721

== ENCOUNTER 2023-05-01 08:51 | Outpatient (CLI) | payer MEDICARE, SELFPAY ==
--- NOTE | ~2023-05-01 | XR_ITS ---
XR chest 2V 05/01/2023 10:03 Indication: Preop screening Procedure: PA and lateral views of the chest Comparison: Comparison to multiple prior studies sequentially, with oldest reviewed study dated 03/01. Findings: Heart size normal. No focal air space disease, pulmonary edema, pleural effusion or suspect ed pneumothorax. No acute osseous abnormality. Impression: 1: No acute cardiopulmonary disease. Reviewed, dictated and finalized at location B. REMOVAL OPERATOR Impression: 1: No acute cardiopulmonary disease.
--- NOTE | 2023-05-01 09:39 | ECG_ITS ---
Measurements Intervals [place] Rate: 48 P: 59 MN: 158 QRS: -35 QRSD: 126 T: -65 QT: 483 QTc: 434 Interpretive Statements SINUS BRADYCARDIA LEFT ANTERIOR SUPERIOR HEMIBLOCK ABNORMAL ECG COMPARED TO ECG 03/31/2019 18:20:43 HEART RATE IS REDUCED/NO OTHER DIFFERENCE Electronically Signed On 05-01-2023 13:29:45 METER MAKER by Frandy Chu M.D.
[2023-05-01 09:57] LABS: Basophils Absolute Auto 0.1 K/mm3 (0.0-0.1); Basophils Percent Auto 0.8 % (0.2-1.2); Eosinophils Absolute Auto 0.3 K/mm3 (0-0.3); Eosinophils Percent Auto 4.9 % (0-4.4); Hematocrit 49.4 % (42.0-52.0); Hemoglobin 16.5 g/dL (14.0-18.0); Immature Granulocyte Absolute 0.02 K/mm3 (0.00-0.031); Immature Granulocyte Percent A 0.3 % (0-0.5); Immature Platelet Fraction Pct 2.1 % (0.9-11.2); Lymphocytes Absolute Auto 0.95 K/mm3 (0.9-3.2); Lymphocytes Percent Auto 15.1 % (18.3-44.2); Mean Corpuscular HGB Conc 33.4 g/dl (32-36); Mean Corpuscular Hemoglobin 32.7 pg (26-34); Mean Corpuscular Volume 97.8 fl (80-100); Mean Platelet Volume 9.2 fl (7.4-10.4); Monocytes Absolute Auto 0.5 K/mm3 (0.1-0.6); Monocytes Percent Auto 8.6 % (2.6-8.5); Neutrophils Absolute Auto 4.4 K/mm3 (1.3-6.7); Neutrophils Percent Auto 70.3 % (45.5-73.1); Platelet Count Result 140 k/mm3 (150-375); Red Blood Count 5.05 M/mm3 (4.6-6.20); Red Cell Distribution Width 13.2 % (11.5-14.5); White Blood Count 6.3 K/mm3 (4.5-10.0)
[2023-05-01 10:04] LABS: Cholesterol 127 mg/dL (0-200); HDL Direct 51 mg/dL; Triglycerides 78 mg/dL (<150)
[2023-05-01 10:05] LABS: Alanine Aminotransferase 46 U/L (6-50); Albumin Level 4.3 g/dL (3.5-5.1); Alkaline Phosphatase 77 U/L (38-126); Anion Gap 10 mmol/L (8-16); Aspartate Amino Transferase 50 U/L (17-59); Bilirubin,Total 0.7 mg/dL (0.2-1.3); Blood Urea Nitrogen 17 mg/dL (9-20); Calcium 9.1 mg/dL (8.4-10.2); Carbon Dioxide 31 mmol/L (22-30); Chloride 99 mmol/L (98-107); Estimated Glomerular Filt Rate 53; Glucose 102 mg/dL (65-110); Potassium 3.9 mmol/L (3.4-5.0); Sodium 140 mmol/L (137-145)
[2023-05-01 10:10] LABS: INR 0.9; Partial Thromboplastin Time 26.2 SECONDS (22.3-36.8); Prothrombin Time 12.8 Seconds (11.1-14.7)
[2023-05-01 10:15] LABS: LDL Cholesterol Direct 61 mg/dL
[2023-05-01 10:37] LABS: Prostate Specific Antigen 1.1 ng/mL (< OR = 4.0)
[2023-05-01 10:44] LABS: Hemoglobin A1C 5.6 % (<5.7)
[2023-05-01 10:58] LABS: Free T4 Free Thyroxine 1.35 ng/mL (0.78-2.19)
== END 2023-05-01 08:52 | disposition home or self-care (01) ==
PROVIDERS: PCP Internal Medicine; Referring Provider Anesthesiology Pain Medicine; Visit Provider Urology
DX: E11.9 Type 2 diabetes mellitus without complications (principal); D69.6 Thrombocytopenia, unspecified; E53.8 Deficiency of other specified B group vitamins; M48.062 Spinal stenosis, lumbar region with neurogenic claudication; E03.9 Hypothyroidism, unspecified; E78.2 Mixed hyperlipidemia; Z79.899 Other long term (current) drug therapy; Z12.5 Encounter for screening for malignant neoplasm of prostate; I12.9 Hypertensive chronic kidney disease with stage 1 through stage 4 chronic kidney disease, or unspecified chronic kidney disease; N18.9 Chronic kidney disease, unspecified
CPT/HCPCS: 36415; 71046; 80053; 80061; 83036; 84153; 84439; 84443; 85025; 85055; 85610; 85730; 93005; G0103

== ENCOUNTER 2023-05-19 00:36 | Day surgery (SDC) | payer MEDICARE, SELFPAY ==
[2023-05-14 11:03] VITALS: BMI 28.6
--- NOTE | 2023-05-14 11:14 | PC.NURSE ---
Report to the Outpatient Waiting Room, entrance under the green pavilion located off [facility], at time ___0700____ on date __05/19/23 . Planned Procedure Time: __0900 . Time changes happen often and if your time is changed the preop area will call you the afternoon before. - You and your visitor will be asked to self-screen and do not enter if you have any COVID symptoms. - A mask is optional within the hospital at this time. Patients may have clear liquids (water, carbonated beverages, clear teas, apple juice) until 3 hours prior to surgery (0600 AM) with a maximum of 20 ounces. - No food from midnight until time of surgery - Infants may have breast milk until 4 hours before surgery, infant formula 6 hours prior to surgery. - Children will be allowed to drink immediately following surgery. If applicable, please bring a bottle or sippy cup to assist with drinking. Juice, water, soda, and popsicles are readily available. For infants on formula, please bring formula the day of surgery. Pacifiers are allowed. Take the following medications with a SIP of water the morning of surgery: _GABAPENTIN, LEVOTHYROXINE, EYE DROPS, BACLOFEN, TRAMADOL, & TYLENOL IF NEEDED_ DO NOT STOP ANY OF YOUR OTHER PRESCRIPTION MEDICATIONS PRIOR TO SURGERY ?EXCEPT THE FOLLOWING Medications to discontinue DR. GARCIA/DR. GARDUNO - _ASPIRIN 7 DAYS PRIOR TO SURGERY, CAREGIVER STATES LAST DOSE TAKEN WAS 05/12/23_ Medications to discontinue ANESTHESIA - MULTIVITAMIN 3 DAYS PRIOR TO SURGERY, Date to take last dose 05/15/23_ Please no make-up, nail upper sorbian, hairspray, perfume, deodorant, or body powder the day of surgery. No jewelry (including any body piercings) or valuables the day of surgery, leave them at home. Please take a shower or bath the night before, or the morning of, surgery with an antibacterial soap. Wear comfortable, loose fitting clothing. Children are encouraged to wear pajamas. - Jewelry must be removed prior to entering the operating room. Rings and piercings that are not removed may be cut off. - The hospital will not accept responsibility for valuables. - Please leave all valuables, including medications, at home the day of surgery. If you are going home after surgery, a licensed cart driver must drive you home. - NO public transportation without another adult if you receive anesthesia. - We recommend that an adult stay with you for 24 hours following discharge. - We also recommend that you do not drive, make important decision, drink alcoholic beverages, or take any drugs that were not prescribed by your health care provider for at least 24 hours after your discharge time. For Pediatric surgeries, we recommend two adults accompany the child home. Follow any additional instructions given to you from your surgeon. If you or anyone in your household have experienced Covid symptoms in the past week, please notify your surgeon or the nurse liaison at the phone number below for possible testing. Telephone instructions given to _PT'S CAREGIVER - KRISTY_and asked if any additional questions and then verbalized understanding. Patient advised to call surgeon office or pre surgery nurse liaison [phone] if any additional questions.
[2023-05-19] VITALS (12 sets, daily range): BP systolic 140–176; BP diastolic 67–100; PULSE 45–57; RESP 12–20; TEMP 36.1–36.4; O2SAT 97–100
--- NOTE | ~2023-05-19 | XR_ITS ---
EXAMINATION: XR fluoroscopy no charge DATE: 05/19/2023 12:12 INDICATION: Spinal stenosis. TECHNIQUE: 13 intraoperative fluoroscopic views of the lumbar spine were obtained. I was not present. Fluoroscopy exposure time was 12 minutes 55 seconds. COMPARISON: Lumbar spine MRI 02/13/2023 FINDINGS: There are changes of posterior fusion procedure at L4-L5 with pedicle screws. There is emilie re lumbar spondylosis. There is mild chronic height loss of L1-L3 vertebral bodies. Images demonstrat e instruments overlying the lumbar spine. IMPRESSION: 1. Severe lumbar spondylosis. 2. Posterior fusion procedure at L4-L5. Reviewed, dictated and finalized at location E. CONDITIONING UNIT TESTER
--- NOTE | 2023-05-19 06:25 | WPDHPUPDATE1 ---
History and Physical Update Update Date/Time: 05/19/23 06:25 History and Physical has been reviewed, including an updated exam of the patient. There are NO changes in the patient's condition. Risks, benefits, and alternatives have been discussed and questions answered. Patient agrees to proceed with procedure.
[2023-05-19] MEDS: LACTATED RINGERS 1,000 ML 30 ML IV CONT ×2 (09:30→12:12)
--- NOTE | 2023-05-19 09:39 | WPDANESEPPF ---
Anes - Initial Pre Proc Eval Procedure: Operation Date: 05/19/23 11:15 Proposed Procedures p Bilateral L1-2, L2-3, L3-4 Minimally Invasive Lumbar Decompression Under Fluoroscopic Guidance with Possible Epidurogram, Intraosseous Vertebral Body Bone Biopsy at L2 for Pathlologic Diagnosis Under Fluoroscopic Guidance - Tacho Hart MD Date/Time: 05/19/23 09:39 Surgeon: Tacho Hart MD Pre Op Diagnosis: spinal stenosis Patient Data Age: 82 Gender: M Height: 1.73 m Weight: 85.45 kg Allergies Allergy/AdvReac Type Severity Reaction Status Date / Time No Known Allergies Allergy Unknown Verified 05/14/23 10:48 Home Medications Medication Instructions Recorded Confirmed Type brimonidine 0.2 %-timolol 0.5 % 1 drop ophthalmic (eye) Q12H 04/21/19 05/14/23 History eye drops (Combigan) latanoprost 0.005 % eye drops 1 drop ophthalmic (eye) DAILY 04/21/19 05/14/23 History timolol maleate 0.5 % eye drops 1 drp EACH EYE Q12H 08/30/21 05/14/23 History docusate sodium 250 mg capsule 250 mg PO BID 09/03/21 05/14/23 History (Stool Softener) ascorbic acid (vitamin C) 500 mg 500 mg PO DAILY 09/25/21 05/14/23 History capsule diphenhydramine HCl 25 mg capsule 25 mg PO QHS PRN Sleep 06/04/22 05/14/23 History (Benadryl) melatonin 10 mg capsule 10 mg PO QHS 06/04/22 05/14/23 History tramadol 50 mg tablet 50 mg PO Q6H PRN pain #90 tabs 03/26/23 05/14/23 Rx cyanocobalamin (vitamin B-12) See Rx Instructions .Route 04/09/23 05/14/23 Rx 1,000 mcg/mL injection solution .COMPLEX #3 mL syringe with needle 3 mL 18 x 1 #6 ea 04/09/23 Rx 1/2 (BD Luer-Maco Syringe) syringe with needle, safety 3 mL #9 ea 04/09/23 Rx 23 gauge x 1 (UltiCare Safety Syringe) testosterone cypionate 200 mg/mL 200 mg IM .every 2 weeks #10 mL 04/09/23 05/14/23 Rx intramuscular oil atorvastatin 40 mg tablet See Rx Instructions .Route 05/11/23 05/14/23 Rx .COMPLEX #90 tabs baclofen 10 mg tablet 10 mg PO TID PRN muscle spasm #90 05/11/23 05/14/23 Rx tabs donepezil 10 mg tablet See Rx Instructions .Route 05/11/23 05/14/23 Rx .COMPLEX #90 tabs gabapentin 300 mg capsule 300 mg PO QID 05/11/23 05/14/23 History memantine 28 mg capsule See Rx Instructions .Route 05/11/23 05/14/23 Rx sprinkle,extended release 24hr .COMPLEX #90 caps pseudoephedrine HCl 120 mg 120 mg PO DAILY #30 tabs 05/11/23 05/14/23 Rx tablet,extended release valsartan 320 mg tablet See Rx Instructions .Route 05/11/23 05/14/23 Rx .COMPLEX #90 tabs levothyroxine 125 mcg tablet See Rx Instructions .Route 05/12/23 05/14/23 Rx .COMPLEX #90 tabs solifenacin 10 mg tablet See Rx Instructions .Route 05/12/23 05/14/23 Rx .COMPLEX #90 tabs Qunol Sleep 1 tab-cap HS 05/14/23 05/14/23 History acetaminophen 500 mg tablet 1,000 mg PO Q6H PRN Pain 05/14/23 05/14/23 History aspirin 81 mg capsule 81 mg PO DAILY 05/14/23 05/14/23 History coenzyme Q10 100 mg capsule 100 mg PO DAILY 05/14/23 05/14/23 History (CoQ-10) magnesium 200 mg tablet 400 mg PO DAILY 05/14/23 05/14/23 History multivitamin 1 tablet PO DAILY 05/14/23 05/14/23 History amino acids 1 tablet PO DAILY 05/15/23 05/15/23 History cholecalciferol (vitamin D3) 125 125 mcg PO DAILY 05/15/23 05/15/23 History mcg (5,000 unit) tablet (Vitamin D3) Patient hx anesthesia problems: none Family hx anesthesia problems: none Results Review: All pre-operative results and documents have been reviewed as part of the pre-operative evaluation. [facility] Past Medical History Medical History Abnormal finding of blood chemistry Anxiety with depression Balance problem Benign essential hypertension Blepharitis of both eyes BMI 26.0-26.9,adult BMI 29.0-29.9,adult BMI 30.0-30.9,adult BMI 31.0-31.9,adult BMI 32.0-32.9,adult Bunion of right foot Chronic back pain Chronic pain CKD (chronic kidney disease) Cognitive dysfunction Colon cancer screening D
[2023-05-19] MEDS: ceFAZolin 2 GM/D5W 50 ML 2 GM/50 ML BAG IVPB (10:00)
[2023-05-19] MEDS: BUPIVACAINE/EPINEPHRINE 0.5% 50 ML VIAL 40 ML INFILTRATE (10:37)
[2023-05-19] MEDS: DICLOFENAC SODIUM 0.1% OPHTH SOLN 2.5 ML BOTTLE 1 DROP EACH EYE (13:30)
[2023-05-19] MEDS: PROPARACAINE HCL 0.5% 15 ML OPHTH SOLN 1 DROP EACH EYE (13:30)
--- NOTE | 2023-05-20 01:49 | W.PM.PROC2 ---
Procedure Note - Detailed Date of Procedure 05/20/23 Pre-op Diagnosis lumbar spinal stenosis with neurogenic claudication, abnormal findings on diagnostic imaging at L2 vertebral body pathologic fracture L2 Post-op Diagnosis Same Procedure Performed 1. Intraosseous transpedicular core bone biopsy of vertebral body at L2. 2. Bilateral L1-2, L2-3, L3-4 minimally invasive lumbar decompression under fluoroscopic guidance. Surgeon Tacho Hart MD Anesthesia General and Local Indications Patient with chronic, disabling and recalcitrant low back and lower extremity pain secondary to spinal stenosis with ligamentum flavum hypertrophy on MRI at L1-2, L2-3, L3-4 resulting in neurogenic claudication unresponsive to conservative therapies (PT, Injections, opioid and non-opioid analgesics, time, rest and cognitive/behavioral modifications) over the past 1-2 years. 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 Description of Procedure INFORMED CONSENT: Risks, benefits, and alternatives to the procedure were discussed in detail with the patient who expressed explicit understanding and consent to proceed. Risks discussed with the patient included but were not limited to risk of serious local or systemic infection, bleeding/bruising, epidural hematoma, dural puncture or tear resulting in CSF leak and acute or chronic post-dural puncture headache, scarring/deformity, immediate or delayed allergic reaction, decreased mobility, failure to treat pain, inadvertent neurologic injury resulting in increased pain, weakness/paralysis or numbness, inadvertent organ injury, need for additional surgery, allergic reaction, heart attack, stroke, seizure, coma, . Anesthetic risks were also briefly discussed by myself and the v belt coverer. The patient expressed understanding and consent to proceed, agreeing that potential benefits outweigh risk of harm. All materials required for the procedure were immediately available prior to procedure start. Site and side were confirmed with the patient, compared carefully to the patient chart and consent, and marked prior to transport to the operating room. Appropriate time out procedure was performed per protocol prior to procedure start. PROCEDURE IN DETAIL: The patient was brought to the operative suite and placed in the supine position. Appropriate ASA standard monitors were attached. Anesthesia was initiated without difficulty or event. Eyes were protected. Patient was transitioned to the prone position. Pressure points were padded with joints in neutral position. When appropriate, breasts and genitals were evaluated and protected. Eyes were checked and were free from undue pressure. Skin overlying the procedure site was marked with sterile marker. Surgical area was prepared in a typical sterile fashion with ChloraPrep and allowed to dry for at least 3 minutes prior to sterilely draping the surgical site. The lumbar spine was identified in the AP fluoroscopic view with slight cephalad tilt perfectly aligning the endplates at the targeted level with spinous processes bisecting the transpedicular plane. ?Fluoroscopy in the AP and lateral position was? used with perfect linear projections at the L2 level. Attention was turned to placement of a Jamshidi bone biopsy trocar to be introduced from a leftward approach (transpedicular approach) via a small stab skin incision using a #11 scalpel following adequate anesthesia via infiltration of a 1:1 admixture of 2% PF lidocaine with epinephrine and 0.5% PF bupivacaine through a 2 inch 27-gauge needle after negative aspiration and extended to periosteum with a 5.0 inch 20g Quincke spinal needle. An 8-gauge Jamshidi trocar with a teja tip was introduced through the skin and docked on the left posterior pedicle of L2 in t
== END 2023-05-19 15:16 | disposition home or self-care (01) ==
PROVIDERS: PCP Internal Medicine; Visit Provider Anesthesiology Pain Medicine
PROC: (CPT 0275T; principal; 2023-05-19 11:15)
DX: M48.062 Spinal stenosis, lumbar region with neurogenic claudication (principal); Z00.6 Encounter for examination for normal comparison and control in clinical research program; F41.8 Other specified anxiety disorders; I12.9 Hypertensive chronic kidney disease with stage 1 through stage 4 chronic kidney disease, or unspecified chronic kidney disease; N18.9 Chronic kidney disease, unspecified; E03.9 Hypothyroidism, unspecified; H40.9 Unspecified glaucoma; R73.03 Prediabetes; G25.81 Restless legs syndrome; Z79.890 Hormone replacement therapy
CPT/HCPCS: 0275T; 20225; 88307; 88311; 99199; A9270; C1889; J0330; J0690; J1100; J2250; J2405; J2704; J3010; J7120

== ENCOUNTER 2023-06-30 07:33 | Day surgery (SDC) | payer MEDICARE, SELFPAY ==
--- NOTE | ~2023-06-30 | XR_ITS ---
EXAMINATION: XR fluoroscopy no charge DATE: 06/30/2023 9:45 STRUCTURER INDICATION: NASH SI JT INJ . TECHNIQUE: 9 fluoroscopic images of the bilateral SI joints were obtained during bilateral SI joints injection performed by the surgeon. I was not present during the procedure. Fluoroscopy exposure time was 15.7 seconds. Air Kerma 7.35 mGy. COMPARISON: None FINDINGS: Injection needles approach the bilateral SI joints, followed by contrast injection. IMPRESSION: Fluoroscopic documentation of bilateral SI joint injection. Please refer to the operative note for co mplete procedural details . Reviewed, dictated and finalized at location K. CTURER IMPRESSION: Fluoroscopic documentation of bilateral SI joint injection. Please refer to the operative note for complete procedural details .
[2023-06-30 09:20] VITALS: BP 183/92; PULSE 53; RESP 20; TEMP 37; O2SAT 97
--- NOTE | 2023-06-30 09:21 | WPDHPUPDATE1 ---
History and Physical Update Update Date/Time: 06/30/23 09:21 History and Physical has been reviewed, including an updated exam of the patient. There are NO changes in the patient's condition. Risks, benefits, and alternatives have been discussed and questions answered. Patient agrees to proceed with procedure.
--- NOTE | 2023-06-30 09:22 | W.PM.PROC2 ---
Procedure Note - Detailed Date of Procedure 06/30/23 Pre-op Diagnosis Sacroiliitis, Low back pain Post-op Diagnosis Same Procedure Performed Bilateral intra-articular sacroiliac joint steroid injection under fluoroscopic guidance with contrast control. Surgeon Tacho Hart MD Anesthesia Local Description of Procedure INFORMED CONSENT: Risks, benefits and alternatives to the procedure were discussed in detail with the patient who expressed explicit understanding and consent to proceed. Patient was informed verbally and in written form regarding the risks associated with the procedure including the low risk of serious infection, bleeding/bruising, allergic reaction, nerve or organ injury, paralysis, procedural site pain or discomfort, worsening pain and/or mobility, failure to treat and/or disfigurement. The patient expressed explicit understanding and consent to proceed. All materials required for the procedure were available prior to procedure start. Site and side were marked prior to procedure and confirmed in the presence of the patient. PROCEDURE IN DETAIL: The patient was brought to the procedural suite and placed in the prone position. Patient was made comfortable with use of pillows under the head/chest, hips and ankles. Skin overlying the injection site on the affected side(s) was prepared broadly with ChloraPrep applicator and draped in a sterile manner. Aseptic technique was used throughout. The SI joint was identified in the AP view and contralateral oblique angulation with caudal tilt was utilized to optimize visualization of the inferior and medial joint line representing the posterior portion of the joint. Local anesthesia was established by infiltration with approximately 5 mL of 2% lidocaine via a 1-1/2 inch 27-gauge needle. A 22-gauge 3.5 inch Quincke spinal needle was advanced until the needle entered the inferior third of the joint space approximately 1cm cephalad from its most inferior point. In the AP view, 0.5 mL of Omnipaque 300 contrast medium was injected after negative aspiration for CSF, blood or other bodily fluid, showing appropriate intra-articular spread of contrast without evidence of intravascular, perineural or intrathecal placement. A 1.0 mL solution containing 3.0 mg of betamethasone in 0.5% PF bupivacaine was injected after repeat negative aspiration. Appropriate spread of the injectate was confirmed with washout of previous injected contrast. No parasthesias were elicited. Needle was removed completely intact without difficulty. The same exact procedure was repeated for all remaining levels on the contralateral side, left SI joint, modified as necessary to accommodate for the new target location with identical findings/results and no evidence of complication. Images were saved and documented in the patient chart. Patient's skin was cleansed and sterile bandage applied. The patient tolerated the procedure well. The patient was transported to the recovery area in stable condition where they were observed for an appropriate amount of time prior to discharge, without evidence of complication. The patient was instructed to avoid excessive activity for the next 48 hours, including climbing and frequent use of stairs. Showers only for 48 hours. They were instructed not to drive or operate heavy machinery for 24 hours. They are to monitor for severe headaches, fevers, chills, night sweats, erythema/swelling at the site or any other signs of infection, bleeding/bruising, bowel or bladder changes as well as new pain, weakness or numbness in the upper or lower extremity. Should they notice these changes, they are instructed to call our office immediately or report directly to the nearest Emergency Department if no answer or if after posted office hours. COMPLICATIONS: None COMMENTS: None CONTRAST WASTED: 29.0 mL Omnipaque 300. Complications None Condition Stable Disposition Same day [facility] Billing Surgery - Charge Forward:
[2023-06-30 09:55] VITALS: BP 178/87; PULSE 48; RESP 17; O2SAT 95
[2023-06-30] MEDS: BETAMETHASONE SODIUM PHOSPHATE PF INJ 6 MG/ML VIAL INFILTRATE (10:00)
[2023-06-30 10:01] VITALS: BP 167/88; PULSE 47; RESP 10; O2SAT 96
[2023-06-30] MEDS: LIDOCAINE HCL 1% PF INJ 5 ML VIAL AFFCTD EYE (10:02)
[2023-06-30] MEDS: BUPivacaine HCL 0.5% 10 ML AMP INFILTRATE (10:02)
[2023-06-30 10:08] VITALS: BP 184/95; PULSE 47; RESP 16; O2SAT 97
== END 2023-06-30 10:25 | disposition home or self-care (01) ==
PROVIDERS: PCP Internal Medicine; Visit Provider Anesthesiology Pain Medicine
PROC: (CPT G0260; principal; 2023-06-30 09:45)
DX: M46.1 Sacroiliitis, not elsewhere classified (principal); M54.59 Other low back pain
CPT/HCPCS: G0260 ×2; 27096; 99199

== ENCOUNTER 2023-10-13 08:42 | Day surgery (SDC) | payer MEDICARE, SELFPAY ==
[2023-10-09 09:04] VITALS: BMI 30.7
--- NOTE | ~2023-10-13 | XR_ITS ---
EXAMINATION: XR fluoroscopy no charge DATE: 10/13/2023 9:40 CDT INDICATION: NASH SI JT INJ . TECHNIQUE: 7 fluoroscopic images and cine clip of the SI joints were obtained during bilateral SI umu nt injections, performed by Tacho Hart MD. I was not present during the procedure. Fluoroscopy exposure time was 20.1 seconds. Air Kerma a 0.05 mGy. COMPARISON: None FINDINGS/IMPRESSION: Fluoroscopic documentation of bilateral SI joint injection. Please refer to the operative note for co mplete procedural details . Reviewed, dictated and finalized at location K.
--- NOTE | 2023-10-13 06:03 | PM.HPGS ---
History of Present Illness History of Present Illness Consent: Risks, benefits, and alternatives have been discussed and questions answered. Patient agrees to proceed with procedure. Chief complaint: Sacroiliitis Narrative: Souleymane Powers is a 83 year old male with chronic, recalcitrant and disabling bilateral sacral low back pain secondary to degenerative spondylosis /sacroiliitis with failure to respond to aggressive conservative measures including PT, oral and topical analgesics, opioid and nonopioid analgesics, rest, time and activity/behavioral modification over the past 1-2 years who presents for diagnostic/prognostic intra-articular blocks of the bilateral SI joints (#1) under fluoroscopic guidance and with contrast control. Review of Systems Review of Systems: Patient denies any new infectious, allergic, cardiopulmonary, neurologic or constitutional symptoms or changes in activity tolerance or exercise capacity including new or progressive SOB/GRIJALVA, peripheral edema, productive cough, dysuria, nausea/vomiting, diarrhea, weight change, fevers/chills/night sweats, new or progressive neurologic deficit, cognitive or mood changes since last seen, except as documented in the HPI. All systems reviewed & are unremarkable except as noted in HPI and below PMFSH Past Medical History Medical History Abnormal finding of blood chemistry Anxiety with depression Balance problem Benign essential hypertension Blepharitis of both eyes BMI 26.0-26.9,adult BMI 29.0-29.9,adult BMI 30.0-30.9,adult BMI 31.0-31.9,adult BMI 32.0-32.9,adult Bunion of right foot Chronic back pain Chronic pain CKD (chronic kidney disease) Cognitive dysfunction Colon cancer screening DJD (degenerative joint disease), multiple sites Elbow pain, left Encounter for general adult medical examination w/o abnormal findings Encounter for Medicare annual wellness exam Encounter for routine adult health examination with abnormal findings Encounter for special screening examination for neoplasm of prostate Erythrocytosis Follow up Frequent sinus infections Glaucoma Hearing loss History of colon polyps Hyperlipidemia Hypogonadism in male Hypothyroidism (acquired) Insomnia Itchy skin Left knee DJD Memory loss Non-healing skin lesion On intermodal customer service drug therapy Pedal edema Personal history of COVID-19 Pre-diabetes Prostate cancer screening Proteinuria RLS (restless legs syndrome) Sinus drainage Skin cancer screening Testosterone deficiency Urinary frequency Urinary incontinence Urine abnormality Vertigo Surgical History Surgical History History of back surgery History of shoulder surgery Family History Family History Sibling Family history of malignant neoplasm of stomach Family history of malignant neoplasm Carcinoma of colon Family history of malignant neoplasm of breast in first degree relative Family history of malignant neoplasm of ovary Family history of diabetes mellitus in first degree relative Diabetes mellitus Father Family history of diabetes mellitus in first degree relative Mother Family history of malignant neoplasm of bone Other Family history of osteoarthritis Social History Social History Smoking status: Never smoker Second hand tobacco smoke exposure: No Alcohol intake: current Alcohol use details: does not use Substance use: never Substance use type: does not use Lack of Transportation: No Lack of Food: Never True Current Housing: I Have Housing Concerned About Future Housing: No Difficulty Paying Gas/Electric Bills: No Difficulty Paying for Meds: No Currently Unemployed: No Education: High School Diploma/GED Difficulty w/ Childcare or Family Care: Decline to Answer
--- NOTE | 2023-10-13 06:07 | WPDHPUPDATE1 ---
History and Physical Update Update Date/Time: 10/13/23 06:07 History and Physical has been reviewed, including an updated exam of the patient. There are NO changes in the patient's condition. Risks, benefits, and alternatives have been discussed and questions answered. Patient agrees to proceed with procedure.
--- NOTE | 2023-10-13 06:08 | W.PM.PROC2 ---
Procedure Note - Detailed Date of Procedure 10/13/23 Pre-op Diagnosis Sacroiliitis, Lumbosacral Spondylosis, Chronic Low Back Pain Post-op Diagnosis Same Procedure Performed Diagnostic/Prognostic Block of the Bilateral Sacroiliac Joints by Intra-Articular Injection of Local Anesthetic Under Fluoroscopic Guidance and With Contrast Control. Surgeon Tacho Hart MD Anesthesia Local ([Local anesthetic infiltration] in the prone position.) Description of Procedure INFORMED CONSENT: Risks, benefits and alternatives to the procedure were discussed in detail with the patient who expressed explicit understanding and consent to proceed. Patient was informed verbally and in written form regarding the risks associated with the procedure including the low risk of serious infection, bleeding/bruising, allergic reaction, local anesthetic toxicity, nerve or organ injury, paralysis, procedural site pain or discomfort, worsening pain and/or mobility, failure to treat and/or disfigurement. The patient expressed explicit understanding and consent to proceed. All materials required for the procedure were available prior to procedure start. Site and side were marked prior to procedure and confirmed in the presence of the patient. PROCEDURE IN DETAIL: The patient was brought to the procedural suite and placed in the prone position. Patient was made comfortable with use of pillows under the head/chest, hips and ankles. Skin overlying the injection site on the affected side was prepared broadly with ChloraPrep applicator and draped in a sterile manner. Aseptic technique was used throughout. The SI joint was identified in the AP view and contralateral oblique angulation with caudal tilt was utilized to optimize visualization of the inferior and medial joint line representing the posterior joint space. Local anesthesia was established by infiltration with approximately 5 mL of 2% PF lidocaine via a 1-1/2 inch 27-gauge needle. A 22-gauge 3.5 inch Quincke spinal needle was advanced until the needle entered the inferior third of the posterior joint space approximately 1cm cephalad from its most inferior point. Appropriate final needle position was confirmed in the AP, lateral and oblique views. In the oblique view, 0.5 mL of Omnipaque 300 contrast medium was injected after negative aspiration for CSF, blood or other bodily fluid, showing appropriate intra-articular spread of contrast without evidence of intravascular, perineural or intrathecal placement. 1.5 mL of 0.5% PF bupivacaine was injected after repeat negative aspiration. Appropriate spread of the injectate was confirmed with washout of previous injected contrast. No parasthesias were elicited. Needle was removed completely intact without difficulty. The same exact procedure was repeated for all remaining levels on the contralateral side, left SI joint, modified as necessary to accommodate for the new target location with identical findings/results and no evidence of complication. Images were saved and documented in the patient chart. Patient's skin was cleansed and sterile bandage applied. The patient tolerated the procedure well. The patient was transported to the recovery area in stable condition where they were observed for an appropriate amount of time prior to discharge, without evidence of complication. The patient was instructed to avoid excessive activity for the next 48 hours, including climbing and frequent use of stairs. Showers only for 48 hours. They were instructed not to drive or operate heavy machinery for 24 hours. They are to monitor for severe headaches, fevers, chills, night sweats, erythema/swelling at the site or any other signs of infection, bleeding/bruising, bowel or bladder changes as well as new pain, weakness or numbness in the upper or lower extremity. Should they notice these changes, they are instructed to call our office immediately or report directly to the nearest Emergency Department if no answer or
[2023-10-13 09:17] VITALS: BP 179/106; PULSE 47; RESP 14; TEMP 37.2; O2SAT 98
[2023-10-13 09:19] VITALS: BMI 31.4
[2023-10-13 09:44] VITALS: BP 176/86; PULSE 50; RESP 15; O2SAT 96
[2023-10-13 09:50] VITALS: BP 174/89; PULSE 48; RESP 14; O2SAT 96
[2023-10-13] MEDS: BUPivacaine HCL 0.5% 10 ML AMP 5 ML INFILTRATE (09:50)
[2023-10-13] MEDS: LIDOCAINE HCL 1% PF INJ 5 ML VIAL INFILTRATE (09:51)
[2023-10-13 09:55] VITALS: BP 165/97; PULSE 45; RESP 16; O2SAT 97
== END 2023-10-13 10:05 | disposition home or self-care (01) ==
PROVIDERS: PCP Internal Medicine; Visit Provider Anesthesiology Pain Medicine
PROC: (CPT G0260; principal; 2023-10-13 10:00)
DX: M46.1 Sacroiliitis, not elsewhere classified (principal); M47.817 Spondylosis without myelopathy or radiculopathy, lumbosacral region; M54.59 Other low back pain
CPT/HCPCS: G0260 ×2; 27096; 99199

== ENCOUNTER 2024-01-14 10:21 | Outpatient (CLI) | payer MEDICARE, SELFPAY ==
[2024-01-14 10:39] LABS: Basophils Absolute Auto 0.1 K/mm3 (0.0-0.1); Basophils Percent Auto 0.7 % (0.2-1.2); Eosinophils Absolute Auto 0.2 K/mm3 (0-0.3); Eosinophils Percent Auto 3.1 % (0-4.4); Hematocrit 49.7 % (42.0-52.0); Hemoglobin 16.9 g/dL (14.0-18.0); Immature Granulocyte Absolute 0.02 K/mm3 (0.00-0.031); Immature Granulocyte Percent A 0.3 % (0-0.5); Lymphocytes Absolute Auto 1.22 K/mm3 (0.9-3.2); Lymphocytes Percent Auto 17.4 % (18.3-44.2); Monocytes Absolute Auto 0.6 K/mm3 (0.1-0.6); Monocytes Percent Auto 8.1 % (2.6-8.5); Neutrophils Percent Auto 70.4 % (45.5-73.1); Platelet Count Result 134 k/mm3 (150-375); Red Blood Count 4.97 M/mm3 (4.6-6.20); Red Cell Distribution Width 13.1 % (11.5-14.5)
[2024-01-14 11:08] LABS: Alanine Aminotransferase 24 U/L (6-50); Albumin Level 4.4 g/dL (3.5-5.1); Alkaline Phosphatase 60 U/L (38-126); Anion Gap 9 mmol/L (4-12); Aspartate Amino Transferase 35 U/L (17-59); Bilirubin,Total 0.8 mg/dL (0.2-1.3); Blood Urea Nitrogen 22 mg/dL (9-20); Calcium 9.2 mg/dL (8.4-10.2); Carbon Dioxide 31 mmol/L (22-30); Chloride 98 mmol/L (98-107); Estimated Glomerular Filt Rate 39; Glucose 100 mg/dL (65-110); Potassium 4.4 mmol/L (3.4-5.0); Sodium 138 mmol/L (137-145)
[2024-01-14 11:14] LABS: Immunoglobulin A 129 mg/dL (70-400); Immunoglobulin G 917 mg/dL (700-1600)
[2024-01-14 11:25] LABS: Immunoglobulin M < 25 mg/dL (40-230)
[2024-01-15 13:52] LABS: Kappa\\Lambda Light Chains 39.04 (0.26-1.65); Lambda Light Chain 14.1 mg/L (5.7-26.3)
[2024-01-16 02:09] LABS: Protein, Total 6.7 g/dL (6.1-8.1)
[2024-01-19 12:32] LABS: Albumin 4.3 g/dL (3.8-4.8); Alpha 1 Globulin 0.3 g/dL (0.2-0.3); Alpha 2 Globulin 0.6 g/dL (0.5-0.9); Beta 1 Globulin 0.4 g/dL (0.4-0.6); Gamma Globulin 0.8 g/dL (0.8-1.7)
== END 2024-01-14 10:22 | disposition home or self-care (01) ==
PROVIDERS: PCP Internal Medicine; Visit Provider Internal Medicine Hematology & Oncology
DX: D72.9 Disorder of white blood cells, unspecified (principal)
CPT/HCPCS: 36415; 80053; 82784; 83883; 84155; 84165; 85025

== ENCOUNTER 2024-01-22 10:29 | Outpatient (CLI) | payer MEDICARE, SELFPAY ==
[2024-01-22 11:31] LABS: Anion Gap 10 mmol/L (4-12); Blood Urea Nitrogen 23 mg/dL (9-20); Calcium 9.1 mg/dL (8.4-10.2); Carbon Dioxide 30 mmol/L (22-30); Chloride 99 mmol/L (98-107); Cholesterol 117 mg/dL (0-200); Estimated Glomerular Filt Rate 41; Glucose 92 mg/dL (65-110); HDL Direct 42 mg/dL; Potassium 4.4 mmol/L (3.4-5.0); Sodium 139 mmol/L (137-145); Triglycerides 141 mg/dL (<150)
[2024-01-22 11:43] LABS: LDL Cholesterol Direct 52 mg/dL
[2024-01-22 12:01] LABS: Free T4 Free Thyroxine 1.03 ng/mL (0.78-2.19)
[2024-01-26 20:20] LABS: Testosterone Total 1084 ng/dL (250-1100)
== END 2024-01-22 10:30 | disposition home or self-care (01) ==
LOC: ANHLAB 10:36
PROVIDERS: PCP Internal Medicine; Visit Provider Internal Medicine
DX: E03.9 Hypothyroidism, unspecified (principal); E34.9 Endocrine disorder, unspecified; I12.9 Hypertensive chronic kidney disease with stage 1 through stage 4 chronic kidney disease, or unspecified chronic kidney disease; N18.2 Chronic kidney disease, stage 2 (mild); E78.5 Hyperlipidemia, unspecified
CPT/HCPCS: 36415; 80048; 80061; 84403; 84439; 84443

== ENCOUNTER 2024-02-17 10:12 | Outpatient (CLI) | payer MEDICARE, SELFPAY ==
[2024-02-17 11:06] LABS: Alanine Aminotransferase 27 U/L (6-50); Albumin Level 4.7 g/dL (3.5-5.1); Alkaline Phosphatase 66 U/L (38-126); Anion Gap 8 mmol/L (4-12); Aspartate Amino Transferase 39 U/L (17-59); Blood Urea Nitrogen 29 mg/dL (9-20); Calcium 9.7 mg/dL (8.4-10.2); Carbon Dioxide 31 mmol/L (22-30); Chloride 96 mmol/L (98-107); Estimated Glomerular Filt Rate 41; Glucose 102 mg/dL (65-110); Potassium 5.1 mmol/L (3.4-5.0); Sodium 135 mmol/L (137-145)
[2024-02-17 12:41] LABS: Folic Acid 13.2 ng/mL (2.76->20)
== END 2024-02-17 10:13 | disposition home or self-care (01) ==
PROVIDERS: PCP Internal Medicine; Visit Provider Internal Medicine
DX: G62.9 Polyneuropathy, unspecified (principal); I10 Essential (primary) hypertension; E53.8 Deficiency of other specified B group vitamins
CPT/HCPCS: 36415; 80053; 82607; 82746

== ENCOUNTER 2024-03-01 13:19 | Outpatient (CLI) | payer MEDICARE, SELFPAY ==
--- NOTE | 2024-03-01 14:00 | NEURO_ITS ---
Impression: # Complains of lower back pain and ambulation difficulties. History of back surgery. 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 # Needle/EMG exam abnormal with neurogenic changes. Nerve Conduction Studies Anti Sensory Summary Table Stim Site NR Peak (ms) P-T Amp (?V) Site1 Site2 Delta-P (ms) Dist (cm) Moy (m/s) Left Sup Fibular Anti Sensory (Ant Lat Mall) NO RESPONSE 14 cm NR 14 cm Ant Lat Mall 16.0 Right Sup Fibular Anti Sensory (Ant Lat Mall) NO RESPONSE 14 cm NR 14 cm Ant Lat Mall 16.0 Left Sural Anti Sensory (Lat Mall) NO RESPONSE Calf NR Calf Lat Mall 16.0 Right Sural Anti Sensory (Lat Mall) NO RESPONSE Calf NR Calf Lat Mall 16.0 Motor Summary Table Stim Site NR Onset (ms) O-P Amp (mV) Site1 Site2 Delta-0 (ms) Dist (cm) Moy (m/s) Left Peroneal Motor (Vastus Med) Ankle 4.4 1.2 Popit Ankle 9.9 38.0 38 Popit 14.3 1.1 Right Peroneal Motor (Vastus Med) Ankle 5.0 0.5 Popit Ankle 10.4 40.0 38 Popit 15.4 0.4 Left Tibial Motor (Abd Torres Brev) Ankle 5.1 0.7 Knee Ankle 10.4 41.0 39 Knee 15.5 0.6 Right Tibial Motor (Abd Torres Brev) Ankle 5.4 1.1 Knee Ankle 10.8 43.0 40 Knee 16.2 0.6 F Wave Studies NR F-Lat (ms) L-R F-Lat (ms) Left Peroneal (Mrkrs) (EDB) 60.36 2.70 Right Peroneal (Mrkrs) (EDB) 57.66 2.70 Left Tibial (Mrkrs) (Abd Hallucis) 61.52 1.29 Right Tibial (Mrkrs) (Abd Hallucis) 62.81 1.29 EMG Side Muscle Nerve Root Ins Act Fibs Amp Dur Recrt Comment Right AntTibialis Dp Br Fibular L4-5 Nml Nml Nml >12ms +1 Right Gastroc Tibial S1-2 Nml Nml Nml >12ms +1 Right Fibularis Long Sup Br Fibular L5-S1 Nml Nml Nml >12ms +1 Right Flex Dig Long Tibial L5-S2 Nml Nml Nml >12ms +1 Right Ext Dig Brev Dp Br Fibular L5, S1 Nml Nml Nml >12ms +1 Right QuadratusFem QuadFemoris L4-5, S1 Nml Nml Nml >12ms +1 Left AntTibialis Dp Br Fibular L4-5 Nml Nml Nml >12ms +1 Left Gastroc Tibial S1-2 Nml Nml Nml >12ms +1 Left Fibularis Long Sup Br Fibular L5-S1 Nml Nml Nml >12ms +1 Left Flex Dig Long Tibial L5-S2 Nml Nml Nml >12ms +1 Left Ext Dig Brev Dp Br Fibular L5, S1 Nml Nml Nml >12ms +1 Left QuadratusFem QuadFemoris L4-5, S1 Nml Nml Nml >12ms +1 MTDD
== END 2024-03-01 13:20 | disposition home or self-care (01) ==
PROVIDERS: PCP Internal Medicine; Visit Provider Internal Medicine
DX: G62.9 Polyneuropathy, unspecified (principal); R29.6 Repeated falls; M96.1 Postlaminectomy syndrome, not elsewhere classified; M54.51 Vertebrogenic low back pain; M47.817 Spondylosis without myelopathy or radiculopathy, lumbosacral region; M48.062 Spinal stenosis, lumbar region with neurogenic claudication
CPT/HCPCS: 95886; 95910

== ENCOUNTER 2024-03-21 00:49 | Day surgery (SDC) | payer MEDICARE, SELFPAY ==
--- NOTE | 2024-03-14 09:49 | PC.NURSE ---
Report to the Outpatient Waiting Room, entrance under the green pavilion located off [facility], at time 11:30 AM on date _03/21/24 . Planned Procedure Time: _1:30 PM .? Time changes happen often and if your time is changed the preop area will call you the afternoon before. - You and your visitor will be asked to self-screen and do not enter if you have any COVID symptoms. Please call surgeon if you need to reschedule. - A mask is optional within the hospital at this time. NOTHING TO EAT OR DRINK AFTER MIDNIGHT PER DR GARDUNO Take only the following medications with a SIP of water on the morning of surgery: _AMLODIPINE,EYE DROPS,GABAPENTIN,LEVOTHYROXINE DO NOT STOP ANY OF YOUR OTHER PRESCRIPTION MEDICATIONS PRIOR TO SURGERY EXCEPT THE FOLLOWING Medications to discontinue per physician __RAJANI ABDALLA STATES HOLD ALL VITAMINS/SUPPLEMENTS/ASPIRIN 7 DAYS PRE OP PER DR GARDUNO Date to take last dose___03/13/24 Please no make-up, nail ukrainian, hairspray, perfume, deodorant, or body powder the day of surgery.? No jewelry (including any body piercings) or valuables the day of surgery, leave them at home.? Please take a shower or bath the night before,AND the morning of, surgery with an antibacterial soap.? Wear comfortable, loose fitting clothing.? Children are encouraged to wear pajamas. - Jewelry must be removed prior to entering the operating room.? Rings and piercings that are not removed may be cut off. - The hospital will not accept responsibility for valuables.? - Please leave all valuables, including medications, at home the day of surgery. If you are going home after surgery, a licensed dray truck driver must drive you home.? - NO public transportation without another adult if you receive anesthesia. - We recommend that an adult stay with you for 24 hours following discharge. - We also recommend that you do not drive, make important decision, drink alcoholic beverages, or take any drugs that were not prescribed by your health care provider for at least 24 hours after your discharge time. For Pediatric surgeries, we recommend two adults accompany the child home. Follow any additional instructions given to you from your surgeon. Telephone instructions given to ___SON RM and asked if any additional questions and then verbalized understanding. Patient advised to call surgeon office or pre surgery nurse liaison [phone] if any additional questions.
[2024-03-14 10:03] VITALS: BMI 30.4
[2024-03-21] VITALS (8 sets, daily range): BP systolic 123–163; BP diastolic 74–89; PULSE 50–71; RESP 10–18; TEMP 36.2–36.6; O2SAT 96–100; BMI 30.6
--- NOTE | ~2024-03-21 | XR_ITS ---
EXAMINATION: XR fluoroscopy no charge DATE: 03/21/2024 16:53 INDICATION: Intracerebral procedure TECHNIQUE: 40 fluoroscopic images of the lumbar spine and sacrum were obtained during procedure perfo rmed by Dr. Hart. Radiologist was not present for the imaging or procedure. The amount of fluoroscopy time used during this procedure was 6.0 minutes. Total DAP was 28.486 Gycm^2 COMPARISON: None. FINDINGS: Images demonstrate prior L4-L5 posterior spinal fusion with bilateral vertical leodan and pedicle screw fixation. Subsequent images demonstrate advancement of cannulas via transpedicular approaches the chevy ction of the vertebral body and pedicle on the left at S1, on the right at L3, left at L2 and right a t L1. Thermal ablation probes are subtly advanced through the cannulas to near the central aspect of the corresponding vertebral bodies. IMPRESSION: 1. Fluoroscopy utilized during pain management procedure at L1-L3 and S1. See procedure note for furt her detail. Reviewed, dictated and finalized at location A. IMPRESSION: 1. Fluoroscopy utilized during pain management procedure at L1-L3 and S1. See p rocedure note for further detail.
--- NOTE | 2024-03-21 13:32 | PM.HPGS ---
History of Present Illness History of Present Illness Consent: Risks, benefits, and alternatives have been discussed and questions answered. Patient agrees to proceed with procedure. 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 Review of Systems Review of Systems: Patient denies any new infectious, allergic, cardiopulmonary, neurologic or constitutional symptoms or changes in activity tolerance or exercise capacity including new or progressive SOB/GRIJALVA, peripheral edema, productive cough, dysuria, nausea/vomiting, diarrhea, weight change, fevers/chills/night sweats, new or progressive neurologic deficit, cognitive or mood changes since last seen, except as documented in the HPI. All systems reviewed & are unremarkable except as noted in HPI and below PMFSH Past Medical History Medical History (Updated 02/17/24 @ 09:21 by Gayatri Mcmahon, [facility]) Abnormal finding of blood chemistry Anxiety with depression Balance problem Benign essential hypertension Blepharitis of both eyes BMI 26.0-26.9,adult BMI 29.0-29.9,adult BMI 30.0-30.9,adult BMI 31.0-31.9,adult BMI 32.0-32.9,adult Bunion of right foot Chronic back pain Chronic pain CKD (chronic kidney disease) Cognitive dysfunction Colon cancer screening DJD (degenerative joint disease), multiple sites Elbow pain, left Encounter for general adult medical examination w/o abnormal findings Encounter for Medicare annual wellness exam Encounter for routine adult health examination with abnormal findings Encounter for routine adult health examination without abnormal findings Encounter for special screening examination for neoplasm of prostate Erythrocytosis Falls Follow up Frequent sinus infections Glaucoma Hearing loss History of colon polyps Hyperlipidemia Hypogonadism in male Hypothyroidism (acquired) Insomnia Itchy skin Left knee DJD Macular degeneration Memory loss Non-healing skin lesion 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 Pedal edema Personal history of COVID-19 Pre-diabetes Prostate cancer screening Proteinuria RLS (restless legs syndrome) Sinus drainage Skin cancer screening Testosterone deficiency Urinary frequency Urinary incontinence Urine abnormality Vertigo Surgical History Surgical History History of back surgery History of shoulder surgery Family History Family History Sibling Family history of malignant neoplasm of stomach Family history of malignant neoplasm Carcinoma of colon Family history of malignant neoplasm of breast in first degree relative Family history of malignant neoplasm of ovary Family history of diabetes mellitus in first degree relative Diabetes mellitus Father Family history of diabetes mellitus in first degree relative Mother Family history of malignant neoplasm of bone Other Family history of osteoarthritis Social History Social History Smoking status: Never smoker Second hand tobacco smoke exposure: No Alcohol intake: current Alcohol use details: does not use Substance use: never Substance use type: does not use Current Housing: Decline to Answer Concerned About Future Housing: Decline to Answer Difficulty Paying Gas/Electric Bills: Decline to Answer
--- NOTE | 2024-03-21 13:36 | WPDHPUPDATE1 ---
History and Physical Update Update Date/Time: 03/21/24 13:36 History and Physical has been reviewed, including an updated exam of the patient. There are NO changes in the patient's condition. Risks, benefits, and alternatives have been discussed and questions answered. Patient agrees to proceed with procedure.
--- NOTE | 2024-03-21 13:37 | W.PM.PROC2 ---
Procedure Note - Detailed Date of Procedure 03/21/24 Pre-op Diagnosis vertebrogenic low back pain, chronic pain Post-op Diagnosis Same Procedure Performed Percutaneous transpedicular intraosseous basivertebral nerve thermal radiofrequency ablation (Intracept procedure) at L1, L2, L3, S1 under fluoroscopic guidance. Surgeon Tacho Hart MD Service Rig Operator None. Anesthesia General (GETA] in the [prone] position with infiltration of local anesthetic. ) Description of Procedure INDICATION FOR PROCEDURE: Patient has Modic-type I/II inflammatory degenerative changes of the endplates supplied by the basivertebral nerve at each level listed (as documented on recent MRI) resulting in [id number] chronic axial low back pain that is aggravated by activity. They are significantly limited in their daily and/or work-related activities as a result, including sitting, standing, lifting/carrying and sleeping, with failure to respond to and/or tolerate extensive efforts at more conservative management (i.e. oral and topical analgesics including NSAIDs, acetaminophen and opioids, Physical Therapy and modalities, time/rest, interventional procedures/corticosteroid injections) for greater than 6 months prior to today's procedure establishing medical necessity for this well-studied and FDA-approved pain-relieving procedure. INFORMED CONSENT: Procedure was discussed in detail with the patient at a previous visit and at the time of surgery. During this discussion, the risks, benefits, and alternatives to the procedure, including doing nothing, were thoroughly described to the patient, who expressed explicit understanding and consent to proceed. Specific risks discussed with the patient included, but were not limited to the risk of serious local or systemic infection, skin burn/scarring, major or minor bleeding/bruising, allergic reaction to medications or materials, inadvertent lung or other organ injury, new or worsening spinal fracture, inadvertent thermal or mechanical nerve or spinal cord injury resulting in increased pain, weakness, numbness or loss of bowel or bladder control, the need for repeat or additional surgery, inadvertent dural puncture resulting in acute or chronic CSF leak and post-dural puncture headache, failure to treat pain, and risks associated with general anesthesia in the prone position including eye, dental, joint, nerve, spine or soft tissue injury/pain related to positioning, heart attack, respiratory failure, aspiration, pneumonia, DVT/PE or thrombosis, hemorrhagic or ischemic stroke, hypoxia, hypo- or hypertension, seizure, coma and . Patient understands these risks and agrees that the opportunity for benefit outweighs the potential risk of harm. Procedure specific informed consent form was read, reviewed, signed by the patient and surgeon and witnessed in the pre-operative area. All pertinent questions were asked and answered to the patient's satisfaction. Surgical site was pre-treated with chlorhexidine wipes. All materials required for the procedure were available and site and side of procedure was marked prior to procedure start. Appropriate timeout was conducted by all participants in the OR (patient's ID, procedure to be performed, procedure site and side, allergies and appropriate medications including pre-operative antibiotics were verified) prior to incision. PROCEDURE IN DETAIL: After full informed consent and adequate IV access was obtained without difficulty; the patient was escorted to the procedural suite. ASA standard monitors were applied and utilized throughout the case. Prophylactic antibiotics were administered prior to procedure start. GETA was initiated without difficulty or event. Eyes were protected. Patient was converted to the prone position in optimal flexion using pillows under the abdomen, hips and ankles. Pressure points were padded, cervical spine and joints were placed in neutral position. Eyes, breasts and genit
[2024-03-21] MEDS: LACTATED RINGERS 1,000 ML 30 ML IV CONT ×2 (13:45→16:45)
--- NOTE | 2024-03-21 14:01 | WPDANESEPPF ---
Anes - Initial Pre Proc Eval Procedure: Operation Date: 03/21/24 15:00 Proposed Procedures p Intracept Procedure with Fluoroscopic Guidance L3, L5 Possible L1, L2 - Tacho Hart MD Date/Time: 03/21/24 14:01 Surgeon: Tacho Hart MD Pre Op Diagnosis: vertebrogenic low back pain, chronic pain Patient Data Age: 83 Gender: M Height: 1.68 m Weight: 86.1 kg Last Vital Signs Temp 97.9 F 03/21/24 12:56 Pulse 50 L 03/21/24 12:56 Resp 16 03/21/24 12:56 BP 135/74 03/21/24 12:56 Pulse Ox 97 03/21/24 12:56 O2 Del Method Room Air 03/21/24 12:56 Allergies Allergy/AdvReac Type Severity Reaction Status Date / Time No Known Allergies Allergy Unknown Verified 03/21/24 13:40 Home Medications Medication Instructions Recorded Confirmed Type brimonidine 0.2 %-timolol 0.5 % 1 drop ophthalmic (eye) Q12H 04/21/19 02/18/24 History eye drops (Combigan) latanoprost 0.005 % eye drops 1 drop ophthalmic (eye) DAILY 04/21/19 03/14/24 History timolol maleate 0.5 % eye drops 1 drp EACH EYE Q12H 08/30/21 03/14/24 History docusate sodium 250 mg capsule 250 mg PO BID 09/03/21 03/14/24 History (Stool Softener) ascorbic acid (vitamin C) 500 mg 500 mg PO DAILY 09/25/21 03/21/24 History capsule diphenhydramine HCl 25 mg capsule 25 mg PO QHS PRN Sleep 06/04/22 03/14/24 History (Benadryl) melatonin 10 mg capsule 10 mg PO QHS 06/04/22 03/14/24 History baclofen 10 mg tablet 10 mg PO TID PRN muscle spasm #90 05/11/23 03/14/24 Rx tabs pseudoephedrine HCl 120 mg 120 mg PO DAILY #30 tabs 05/11/23 03/14/24 Rx tablet,extended release Qunol Sleep 1 tab-cap PO HS 05/14/23 03/21/24 History coenzyme Q10 100 mg capsule 100 mg PO DAILY 05/14/23 03/21/24 History (CoQ-10) magnesium 200 mg tablet 400 mg PO DAILY 05/14/23 03/21/24 History multivitamin 1 tablet PO DAILY 05/14/23 03/21/24 History cholecalciferol (vitamin D3) 125 125 mcg PO DAILY 05/15/23 03/21/24 History mcg (5,000 unit) tablet (Vitamin D3) memantine 28 mg capsule See Rx Instructions .Route 06/09/23 03/14/24 Rx sprinkle,extended release 24hr .COMPLEX #90 caps donepezil 10 mg tablet See Rx Instructions .Route 10/27/23 03/14/24 Rx .COMPLEX #90 tabs valsartan 320 mg tablet See Rx Instructions .Route 10/27/23 03/14/24 Rx .COMPLEX #90 tabs Electric Scooter Wheel Chair #1 ea 11/02/23 02/18/24 Rx testosterone cypionate 200 mg/mL 200 mg IM .every 2 weeks #10 mL 11/13/23 03/14/24 Rx intramuscular oil syringe with needle 3 mL 18 x 1 #6 ea 11/25/23 02/18/24 Rx 1/2 atorvastatin 40 mg tablet See Rx Instructions .Route 01/25/24 03/14/24 Rx .COMPLEX #90 tabs solifenacin 10 mg tablet See Rx Instructions .Route 01/25/24 03/14/24 Rx .COMPLEX #90 tabs aspirin 81 mg tablet,delayed 81 mg PO .THREE TIME WEEKLY 02/02/24 03/21/24 History release (Adult Low Dose Aspirin) cyanocobalamin (vitamin B-12) See Rx Instructions .Route 02/02/24 03/14/24 Rx 1,000 mcg/mL injection solution .COMPLEX #3 mL gabapentin 300 mg capsule 300 mg PO QID #270 caps 02/02/24 03/21/24 Rx levothyroxine 125 mcg tablet See Rx Instructions .Route 02/02/24 03/21/24 Rx .COMPLEX #90 tabs amlodipine 10 mg tablet 10 mg PO DAILY #90 tabs 02/17/24 03/21/24 Rx tramadol 50 mg tablet 100 mg PO Q8H PRN pain 30 days 03/08/24 03/14/24 Rx #180 tabs Patient hx anesthesia problems: none Family hx anesthesia problems: none Results Review: All pre-operative results and documents have been reviewed as part of the pre-operative evaluation. [facility] Past Medical History Medical History Abnormal finding of blood chemistry Anxiety with depression Balance problem Benign essential hypertension Blepharitis of both eyes BMI 26.0-26.9,adult BMI 29.0-29.9,adult BMI 30.0-30.9,adult BMI 31.0-31.9,adult BMI 32.0-32.9,adult Bunion of right foot Chronic back pain Chronic pain CKD (chronic kidney disease) Cogni
[2024-03-21] MEDS: ceFAZolin 2 GM/D5W 50 ML 2 GM/50 ML BAG IVPB (14:57)
[2024-03-21] MEDS: LIDOCAINE HCL 1% LOCAL INJ 20 ML VIAL 9 ML INFILTRATE (16:00)
[2024-03-21] MEDS: BUPIVACAINE/EPINEPHRINE 0.5% 50 ML VIAL 9 ML INFILTRATE (16:00)
== END 2024-03-21 18:19 | disposition home or self-care (01) ==
PROVIDERS: PCP Internal Medicine; Visit Provider Anesthesiology Pain Medicine
PROC: (CPT 64628; principal; 2024-03-21 15:00)
DX: M54.51 Vertebrogenic low back pain (principal); M47.817 Spondylosis without myelopathy or radiculopathy, lumbosacral region; G89.29 Other chronic pain; I12.9 Hypertensive chronic kidney disease with stage 1 through stage 4 chronic kidney disease, or unspecified chronic kidney disease; N18.9 Chronic kidney disease, unspecified; E29.1 Testicular hypofunction; F41.8 Other specified anxiety disorders; E03.9 Hypothyroidism, unspecified; G47.00 Insomnia, unspecified; M17.12 Unilateral primary osteoarthritis, left knee; H35.30 Unspecified macular degeneration; R73.03 Prediabetes; G25.81 Restless legs syndrome; R35.0 Frequency of micturition; R32 Unspecified urinary incontinence; Z79.899 Other long term (current) drug therapy; Z79.82 Long term (current) use of aspirin; Z79.891 Long term (current) use of opiate analgesic; Z98.890 Other specified postprocedural states; Z98.1 Arthrodesis status; Z86.0100 Personal history of colon polyps, unspecified; Z80.0 Family history of malignant neoplasm of digestive organs; Z80.3 Family history of malignant neoplasm of breast; Z80.41 Family history of malignant neoplasm of ovary; Z80.8 Family history of malignant neoplasm of other organs or systems
CPT/HCPCS: 64628; 64629; 99199; C1889; J0330; J0690; J1100; J1171; J2003; J2371; J2405; J2704; J3010; J7120

== ENCOUNTER 2024-04-12 10:04 | Inpatient (IN) | payer MEDICARE, SELFPAY ==
[2024-04-12] VITALS (19 sets, daily range): BP systolic 94–131; BP diastolic 57–84; PULSE 38–67; RESP 14–22; TEMP 36.5–36.7; O2SAT 91–100; BMI 30.7
--- NOTE | 2024-04-12 | ECHO_ITS ---
Patient Info Name: Souleymane Powers Age: 83 years : 1940 Gender: Male Ht: 66 in Wt: 193 lbs BSA: 2.05 m2 HR: 41 bpm BP: 105 / 65 mmHg Heart Rhythm: Bradycardia Technical Quality: Poor Exam Date: 04/12/2024 11:28 AM Exam Location: Echo Lab Patient Status: Outpatient Admit Date: 04/12/2024 Staff Ordering Physician: Renetta Saleh MD ([email or web address]) Negotiations Director: Jaime Ortiz RDCS Attending Provider: Sixto Schrader MD Referring Physician: Delfino VANG; Exam Type: CA echo doppler color flow Study Info Indications - bradycardia Complete two-dimensional, color flow and Doppler transthoracic echocardiogram is performed. Reason for Poor Study: poor patient cooperation Summary 1. Left ventricular chamber dimension is normal. 2. Left ventricular systolic function is normal, estimated at 60-65%. 3. There is mildly increased left ventricular wall thickness. 4. The left ventricular diastolic function is grade I diastolic dysfunction. 5. Right ventricular systolic function is normal. 6. Left atrial chamber dimension is moderately enlarged. 7. There is mild mitral valve regurgitation. 8. There is mild tricuspid valve regurgitation. Left Ventricle Left ventricular chamber dimension is normal. Left ventricular systolic function is normal, estimated at 60-65%. There is mildly increased left ventricular wall thickness. The left ventricular diastolic function is grade I diastolic dysfunction. Right Ventricle Right ventricular chamber dimension is normal. Right ventricular systolic function is normal. Left Atria Left atrial chamber dimension is moderately enlarged. Right Atria Right atrial chamber dimension is normal. Atrial Septum Intact interatrial septum visualized by color flow imaging. Aortic Valve The aortic valve is probable trileaflet. There is no aortic valve stenosis. There is no aortic valve regurgitation. Pulmonic Valve The pulmonic valve is not well visualized. There is no pulmonic regurgitation. Mitral Valve The mitral valve has thickened leaflets. There is mild mitral valve regurgitation. Tricuspid Valve There is mild tricuspid valve regurgitation. Pericardium/Pleural The pericardium appears epicardial fat pad. There is no pericardial effusion. Inferior Vena Cava Inferior vena cava is not well visualized. Aorta The aortic root size at the sinus of Valsalva is normal. Left Ventricular Outflow Tract Name Value Normal LVOT 2D LVOT Diameter 2.2 cm LVOT Doppler LVOT Peak Gradient 5 mmHg LVOT Mean Gradient 3 mmHg LVOT VTI 33 cm LVOT VTI/AV VTI Ratio 0.9 LVOT Stroke Volume 123 ml LVOT CO 6.8 l/min LVOT CI 3.3 l/min/m2 Mitral Valve Name Value Normal MV Doppler MV Decel Amelia 325 cm/s2 MV PHT 92 ms MV Area (PHT) 2.4 cm2 4.0-5.0 MV Regurgitation Doppler MR Peak Gradient 83 mmHg MV Diastolic Function MV E Peak Velocity 103 cm/s MV A Peak Velocity 88 cm/s MV E/A 1.2 MV Decel Time 316 ms MV Annular TDI MV E/e' (Septal) 20.2 <=8.0 MV E/e' (Lateral) 13.0 <=8.0 MV E/e' (Average) 16.6 Tricuspid Valve Name Value Normal TV Regurgitation Doppler TR Peak Velocity 184 cm/s TR Peak Gradient 14 mmHg Estimated PAP/RSVP RV Systolic Pressure 24 mmHg <36 Aortic Valve Name Value Normal AV Doppler AV Peak Velocity 158 cm/s AV Peak Gradient 10 mmHg AV Mean Gradient 6 mmHg AV VTI 38 cm AV Area (Cont Eq VTI) 3.2 cm2 >=3.0 AV Area (Cont Eq Moy) 2.7 cm2 AV Regurgitation 2D LVOT Area 3.7 cm2 Ventricles Name Value Normal LV Dimensions 2D/MM IVS Diastolic Thickness (2D) 1.1 cm 0.6-1.0 LVID Diastole (2D) 5.7 cm 4.2-5.8 LVIW Diastolic Thickness (2D) 1.1 cm 0.6-1.0 LVID Systole (2D) 3.7 cm 2.5-4.0 LVOT Diameter 2.2 cm LV Mass (2D Cubed) 256.83 g 88.00-224.00 LV Mass Index (2D Cubed) 125 g/m2 49-115 Relative Wall Thickness (2D) 0.37 LV Fractional Shortening/Ejection Fraction 2D/MM LV Fractional Shortening (2D) 35 % 25-43 LV EF (2D Teicholz) 63 % 52-72 LV Diastolic Volume (4C MOD) 118 ml LV EF (4C MOD) 50 % LV Diastolic Volume (2C MOD) 156 ml LV EF (2C MOD) 68 % LV Diastolic Volume (BP MOD) 143 ml 62-150 LV Diastolic Volume Index (BP MOD) 70 ml/m2 34-74 LV Systolic Volume (BP MOD) 55 ml 21-61 LV Systolic Volume Index (BP MOD) 27 ml/m2 11-31 LV EF (BP MOD) 62 % 52-72 LV Diastolic Length (4C) 8.3 cm LV Systolic Length (4C) 6.7 cm LV Stroke Volume (4C MOD) 59 ml Atria Name Value Normal LA Dimensions LA Volume (4C A-L) 115 ml LA Volume (BP A-L) 91 ml RA Dimensions RA Area (4C) 13.2 cm2 <=18.0 Report Signatures
--- NOTE | ~2024-04-12 | XR_ITS ---
EXAMINATION: XR chest 2V DATE: 04/14/2024 08:42 INDICATION: 24 hours postpacemaker insertion TECHNIQUE: AP and lateral views of the chest were obtained. COMPARISON: Chest radiograph dated 04/13/2024 FINDINGS: The lungs are clear with no focal airspace opacities, pulmonary edema, pleural effusion or pneumothor ax. The cardiomediastinal silhouette is normal. Dual lead pacemaker seen with leads projecting over t he expected locations of the right atrium and right ventricle. Chronic mild T12 compression fracture and bridging osteophytes at multiple levels consistent with diffuse idiopathic skeletal hyperostosis (DISH). Partially visualized intramedullary leodan fixation at the right humerus. IMPRESSION: 1. Dual-lead cardiac pacemaker in expected position. No acute cardiopulmonary disease. Reviewed, dictated and finalized at location B. FISHER IMPRESSION: 1. Dual-lead cardiac pacemaker in expected position. No acute cardiopulmonary d isease.
--- NOTE | ~2024-04-12 | XR_ITS ---
XR chest 1V portable Ordering provider: Frandy Chu MD History: 83 years Male with . pacemaker insertion . Comparison: None. FINDINGS: MEDIASTINUM: The cardiac silhouette is slightly enlarged. Congestive evonne. Left bipolar pacemaker. LUNGS: No effusions or pneumothorax. Opacification in the lower lobes more on the left side. Bilatera l interstitial changes. OTHER: No free air under the diaphragm. Degenerative changes of the spine. IMPRESSION: Bilateral basal atelectasis versus pneumonia. Bilateral interstitial changes suggestive of underlying fibrotic changes with possible superimposed p neumonitis versus pulmonary edema. Clinical correlation advised. Reviewed, dictated and finalized at location A. ETIC SHOE DESIGNER IMPRESSION: Bilateral basal atelectasis versus pneumonia. Bilateral interstitial changes suggestive of underlying fibrotic changes with p ossible superimposed pneumonitis versus pulmonary edema. Clinical correlation a dvised.
--- NOTE | ~2024-04-12 | XR_ITS ---
XR chest 1V portable Ordering provider: Jose Ramon Simpson MD History: 83 years Male with . alondra . Comparison: May 01, 2023 FINDINGS: MEDIASTINUM: The cardiac silhouette is slightly enlarged. Congestive evonne. LUNGS: No effusions or pneumothorax. Bilateral interstitial changes. Minimal opacification the left l gracia base. Opacity in the right midzone which may be focal pneumonia or nodules. 3 months follow-up ad vised. OTHER: No free air under the diaphragm. IMPRESSION: Bilateral interstitial changes suggestive of pulmonary edema versus pneumonitis. Left lower lobe atel ectasis versus pneumonia. Nodule in the right midzone. [address] follow-up advised. Reviewed, dictated and finalized at location A. ILE COLORIST FORMULATOR IMPRESSION: Bilateral interstitial changes suggestive of pulmonary edema versus pneumonitis . Left lower lobe atelectasis versus pneumonia. Nodule in the right midzone. [address] follow-up advised.
--- NOTE | 2024-04-12 10:09 | ECG_ITS ---
Test Date: 2024-04-12 10:10:50 Measurements Intervals [place] Rate: 38 P: 12 HI: 194 QRS: -33 QRSD: 125 T: -33 QT: 528 QTc: 424 Interpretive Statements SLOW SINUS BRADYCARDIA LEFT AXIS DEVIATION INTRAVENTRICULAR CONDUCTION DELAY CANNOT R/O SEPTAL INFARCT, AGE INDETERMINATE T WAVE ABNORMALITY IN ANTEROLAT/INF LEADS- CONSIDER ISCHEMIA BASELINE ARTIFACT- I, II, III, AVR, AVL, AVF, V1, V6 ABNORMAL ECG No previous ECG available for comparison Electronically Signed On 04-12-2024 10:37:42 TOOL SETTER APPRENTICE by Taco Rosado D.O.
--- NOTE | 2024-04-12 10:14 | ED_ITS ---
HPI - General Adult General Chief complaint: Arrhythmia/Palpitations Stated complaint: sinus alondra - paced History of Present Illness HPI narrative: 83-year-old male presenting to the emergency department for evaluation for unresponsiveness. Patient's son noticed the patient was not responding on the video camera so he called EMS. When EMS arrived patient was unresponsive and bradycardic. They started pacing the patient at 80 milliamps at 70 beats per minute. Once capture was achieved patient's heart rate increased and patient became responsive. Patient became more alert and appropriate during transport to the emergency department. Upon arrival emergency department patient's heart rate was in the 40s patient's blood pressure is 100/66 and patient is alert and oriented. Patient denies any chest pain or shortness of breath. Patient did recently start trazodone and son suspects the patient may have taken too much of his trazodone. Related Data Home Medications Medication Instructions Recorded Confirmed latanoprost 0.005 % eye drops 1 drop ophthalmic (eye) HS 04/21/19 04/12/24 ascorbic acid (vitamin C) 500 mg 1,000 mg PO 1200 09/25/21 04/12/24 capsule melatonin 10 mg capsule 10 mg PO QHS PRN Sleep 06/04/22 04/12/24 coenzyme Q10 100 mg capsule 100 mg PO HS 05/14/23 04/12/24 (CoQ-10) multivitamin 1 tablet PO QACLUNCH 05/14/23 04/12/24 cranberry fruit 450 mg tablet 450 mg PO HS 03/30/24 04/12/24 (cranberry) donepezil 10 mg tablet 10 mg PO HS 03/30/24 04/12/24 dorzolamide-timolol (PF) 2 %-0.5 % 1 drp EACH EYE BID 03/30/24 04/12/24 eye drops in a dropperette lactulose 10 gram/15 mL oral 15 ml PO HS PRN Constipation 03/30/24 04/12/24 solution levothyroxine 125 mcg tablet 125 mcg PO QAM 03/30/24 04/12/24 magnesium oxide 400 mg PO HS 03/30/24 04/12/24 memantine 28 mg capsule 28 mg PO HS 03/30/24 04/12/24 sprinkle,extended release 24hr solifenacin 10 mg tablet 10 mg PO DAILY 03/30/24 04/12/24 trazodone 50 mg tablet 50 mg PO HS PRN Sleep 03/30/24 04/12/24 valsartan 320 mg tablet 320 mg PO DAILY 03/30/24 04/12/24 Allergies Allergy/AdvReac Type Severity Reaction Status Date / Time No Known Allergies Allergy Unknown Verified 04/12/24 10:11 Review of Systems 2 Review of Systems: All systems reviewed & are unremarkable except as noted in HPI and below PMFSH Past Medical History Medical History Abnormal finding of blood chemistry Anxiety with depression Balance problem Benign essential hypertension Blepharitis of both eyes BMI 26.0-26.9,adult BMI 29.0-29.9,adult BMI 30.0-30.9,adult BMI 31.0-31.9,adult BMI 32.0-32.9,adult Bunion of right foot Chronic back pain Chronic pain CKD (chronic kidney disease) Cognitive dysfunction Colon cancer screening DJD (degenerative joint disease), multiple sites Elbow pain, left Encounter for general adult medical examination w/o abnormal findings Encounter for Medicare annual wellness exam Encounter for routine adult health examination with abnormal findings Encounter for routine adult health examination without abnormal findings Encounter for special screening examination for neoplasm of prostate Erythrocytosis Falls Follow up Frequent sinus infections Glaucoma Hearing loss History of colon polyps Hyperlipidemia Hypogonadism in male Hypothyroidism (acquired) Insomnia Itchy skin Left knee DJD Macular degeneration Memory loss Muscle pain Non-healing skin lesion 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 Pedal edema Personal history of COVID-19 Pre-diabetes Prostate cancer screening Proteinuria RLS (restless legs syndrome) Sinus drainage Skin cancer screening Testosterone deficiency Urinary frequency Urinary incontinence Urine abnormality Vertigo Surgical History Surgical History History of back surgery History of shoulder surgery Family History Family History Sibling Family history of malignant neoplasm of stomach Family history of malignant neoplasm Carcinoma of colon Family history of malignant neoplasm of breast in first degree relative Family history of malignant neoplasm of ovary Family history of diabetes mellitus in first degree relative Diabetes mellitus Father Family history of diabetes mellitus in first degree relative Mother Family history of malignant neoplasm of bone Other Family history of osteoarthritis Social History Social History (Reviewed 04/12/24 @ 12:01 by NEELA Salgado Smoking status: Never smoker Second hand tobacco smoke exposure: No Alcohol intake: never Alcohol use details: does not use Substance use: never Substance use type: does not use Do You Feel Safe in your Home?: Yes Lack of Transportation: No Lack of Food: Never True Current Housing: I Have Housing Concerned About Future Housing: No Difficulty Paying Gas/Electric Bills: No Difficulty Paying for Meds: No Currently Unemployed: No Education: High School Diploma/GED Difficulty w/ Childcare or Family Care: No Living arrangements: alone Occupation/Education: retired Gender identity (if verbalized by the patient): Male Spiritual care concerns: No Exam Narrative: APPEARANCE: Well appearing, no pain, no distress, well-nourished. HEAD: normocephalic, atraumatic. EYES: PERRLA/EOMI, conjunctivae clear. NOSE: Normal no drainage EARS:TMS clear with good light reflex. THROAT: Pharynx clear, no exudate. NECK: Supple. No adenopathy, no masses. RESPIRATORY: Airway patent, respirations nonlabored. Clear to auscultation bilaterally, no rales, rhonchi, wheezing. CARDIOVASCULAR: Sinus bradycardia ABDOMINAL: Soft, nontender, nondistended, normal bowel sounds MUSCULOSKELETAL: Moves all extremities. Strength/ROM intact, No edema, No calf tenderness. NEURO: Alert. Cranial nerves II through XII intact. Good gait. Good coordination SKIN: Warm, dry. Normal Color Course Vital Signs Vital signs: Vital Signs Temperature 97.8 F 04/12/24 10:02 Pulse Rate 38 L 04/12/24 10:02 Respiratory Rate 17 04/12/24 10:02 Blood Pressure 99/66 L 04/12/24 10:02 Pulse Oximetry 98 04/12/24 10:02 Oxygen Delivery Room Air 04/12/24 10:02 Temperature 97.7 F 04/12/24 16:17 Pulse Rate 50 L 04/12/24 16:17 Respiratory Rate 20 04/12/24 16:17 Blood Pressure 115/57 L 04/12/24 16:17 Pulse Oximetry 98 04/12/24 16:17 Oxygen Delivery Room Air 04/12/24 16:00 Medical Decision Making MDM Narrative Medical decision making narrative: 83-year-old male present to the emergency department for evaluation for bradycardia and being unresponsive. Shortly after arrival emergency department patient is pacing was stopped and patient's heart rate bradycardic in the 40s. Patient states that he feels at his normal baseline denies any chest pain denies any complaints. Did treat the patient again with a other mg of atropine and this had no significant effect on his heart but did make the patient feel more restless. Patient is afebrile with no leukocytosis and hemoglobin of 12.5. Patient has a normal INR, normal potassium normal chloride and normal calcium and mildly elevated magnesium. Cardiology was consulted and Dr. Saleh did come see the patient in the emergency department. Case was discussed with hospitalist patient was accepted for admission. Is anticipated that the patient will have a pacemaker placed tomorrow when Dr Chu. Patient was updated r esults of the workup and treatment plan. All questions concerns were addressed. Differential Diagnosis Differential Diagnosis: Electrolyte abnormality, ACS, sick sinus syndrome, bradycardia, junctional block Medical Records Medical records reviewed: Yes I reviewed the external patient's medical records. Vital Signs Vital Signs: Vital Signs Temperature 97.8 F 04/12/24 10:02 Pulse Rate 38 L 04/12/24 10:02 Respiratory Rate 17 04/12/24 10:02 Blood Pressure 99/66 L 04/12/24 10:02 Pulse Oximetry 98 04/12/24 10:02 Oxygen Delivery Room Air 04/12/24 10:02 Temperature 97.7 F 04/12/24 16:17 Pulse Rate 50 L 04/12/24 16:17 Respiratory Rate 20 04/12/24 16:17 Blood Pressure 115/57 L 04/12/24 16:17 Pulse Oximetry 98 04/12/24 16:17 Oxygen Delivery Room Air 04/12/24 16:00 Lab Data Lab results reviewed: Yes I reviewed the patient's lab results. 04/12/24 10:14 04/12/24 10:14 Labs: Lab Results 04/12/24 Range/Units 10:14 WBC 5.2 (4.5-10.0) K/mm3 RBC 3.77 L (4.6-6.20) M/mm3 Hgb 12.5 L (14.0-18.0) g/dL Hct 37.4 L (42.0-52.0) % MCV 99.2 (80-100) fl MCH 33.2 (26-34) pg MCHC 33.4 (32-36) g/dl RDW 11.5 (11.5-14.5) % Plt Count 219 (150-375) k/mm3 MPV 9.1 (7.4-10.4) fl Immature Gran % (Auto) 0.4 (0-0.5) % Neut % (Auto) 69.8 (45.5-73.1) % Lymph % (Auto) 16.2 L (18.3-44.2) % [place] % (Auto) 9.0 H (2.6-8.5) % Eos % (Auto) 4.2 (0-4.4) % Baso % (Auto) 0.4 (0.2-1.2) % Lymph # (Auto) 0.84 L (0.9-3.2) K/mm3 [place] # (Auto) 0.5 (0.1-0.6) K/mm3 Eos # (Auto) 0.2 (0-0.3) K/mm3 Baso # (Auto) 0.0 (0.0-0.1) K/mm3 Abs Immat Gran (auto) 0.02 (0.00-0.031) K/mm3 Absolute Neuts (auto) 3.6 (1.3-6.7) K/mm3 Absolute Nucleated RBC 0.000 (0.0-0.012) K/mm3 Nucleated RBC % 0.0 (0.0-0.2) % PT 14.0 (11.1-14.7) Seconds INR 1.0 APTT 26.0 (22.3-36.8) Seconds Sodium 139 (137-145) mmol/L Potassium 4.5 (3.4-5.0) mmol/L Chloride 103 (98-107) mmol/L Carbon Dioxide 26 (22-30) mmol/L Anion Gap 10 (4-12) mmol/L BUN 40 H (9-20) mg/dL Creatinine 2.00 H (0.7-1.3) mg/dL Estim Creat Clear Calc 26 ml/min Estimated GFR 32 L (59 - ) Glucose 119 H (65-110) mg/dL Calcium 9.1 (8.4-10.2) mg/dL Magnesium 2.9 H (1.6-2.3) mg/dL Total Bilirubin 0.4 (0.2-1.3) mg/dL AST 32 (17-59) U/L ALT 39 (6-50) U/L Alkaline Phosphatase 74 (38-126) U/L NT-Pro-B Natriuret Pep 336 H (19.9-100) pg/mL Total Protein 7.0 (6.3-8.2) g/dL Albumin 3.9 (3.5-5.1) g/dL TSH (Reflex) 2.620 (0.465-4.68) uIU/mL Imaging Data Radiologist's impression: Impressions Chest X-Ray 04/12/24 10:53 IMPRESSION: Bilateral interstitial changes suggestive of pulmonary edema versus pneumonitis. Left lower lobe atelectasis versus pneumonia. Nodule in the right midzone. [address] follow-up advised. Critical Care Time Critical Care Time Critical Care Time: Yes Total Critical Care Time: 35 Discharge Plan Discharge Clinical Impression: Bradycardia, sinus, Episode of syncope Patient Disposition: Still a Patient Condition: Serious
[2024-04-12 10:23] LABS: Basophils Percent Auto 0.4 % (0.2-1.2); Eosinophils Absolute Auto 0.2 K/mm3 (0-0.3); Eosinophils Percent Auto 4.2 % (0-4.4); Hematocrit 37.4 % (42.0-52.0); Hemoglobin 12.5 g/dL (14.0-18.0); Immature Granulocyte Absolute 0.02 K/mm3 (0.00-0.031); Immature Granulocyte Percent A 0.4 % (0-0.5); Lymphocytes Absolute Auto 0.84 K/mm3 (0.9-3.2); Lymphocytes Percent Auto 16.2 % (18.3-44.2); Mean Corpuscular HGB Conc 33.4 g/dl (32-36); Mean Corpuscular Hemoglobin 33.2 pg (26-34); Mean Corpuscular Volume 99.2 fl (80-100); Mean Platelet Volume 9.1 fl (7.4-10.4); Monocytes Absolute Auto 0.5 K/mm3 (0.1-0.6); Neutrophils Absolute Auto 3.6 K/mm3 (1.3-6.7); Neutrophils Percent Auto 69.8 % (45.5-73.1); Platelet Count Result 219 k/mm3 (150-375); Red Blood Count 3.77 M/mm3 (4.6-6.20); Red Cell Distribution Width 11.5 % (11.5-14.5); White Blood Count 5.2 K/mm3 (4.5-10.0)
[2024-04-12] MEDS: SODIUM CHLORIDE 0.9% IV 1,000 ML 999 ML IV CONT (10:23)
[2024-04-12] MEDS: ATROPINE SULFATE 1 MG/ML VIAL IV PUSH (10:28)
[2024-04-12 10:32] LABS: Alanine Aminotransferase 39 U/L (6-50); Albumin Level 3.9 g/dL (3.5-5.1); Alkaline Phosphatase 74 U/L (38-126); Anion Gap 10 mmol/L (4-12); Aspartate Amino Transferase 32 U/L (17-59); Bilirubin,Total 0.4 mg/dL (0.2-1.3); Blood Urea Nitrogen 40 mg/dL (9-20); Calcium 9.1 mg/dL (8.4-10.2); Carbon Dioxide 26 mmol/L (22-30); Chloride 103 mmol/L (98-107); Estimated CRCL calculation 26 ml/min; Estimated Glomerular Filt Rate 32; Glucose 119 mg/dL (65-110); Magnesium 2.9 mg/dL (1.6-2.3); Potassium 4.5 mmol/L (3.4-5.0); Sodium 139 mmol/L (137-145)
[2024-04-12 11:01] LABS: NT Pro B Type Natriuretic Pept 336 pg/mL (19.9-100)
--- NOTE | 2024-04-12 11:09 | PC.NURSE ---
1100 Spoke with pts son Frandy and gave him update on pts status. Told Frandy I would give him a call whenever there is an update.
--- NOTE | 2024-04-12 11:56 | P.CONCA_ITS ---
Assessment and Plan Assessment and plan (1) Bradycardia, sinus: Code(s): R00.1 - Bradycardia, unspecified Status: Acute Assessment and Plan: Symptomatic sinus bradycardia. Check TSH level. Not on any AV bee blocking agents at home. Patient currently hemodynamically stable, does not need emergent/urgent te mporary transvenous pacer. Continue telemetry monitoring and keep pacing pads on the patient. Echocardiogram ordered. Likely will need permanent pacemaker. Discussed with patient, including risks vs benefits, alternative management, etc. Patient agreeable. Will plan for permanent pacemaker placement with Dr. Chu 04/13. Patient to be NPO at midnight. (2) Hypertension: Qualifiers: Hypertension type: primary hypertension Qualified Code(s): I10 - Essential (primary) hypertension Code(s): I10 - Essential (primary) hypertension Status: Acute Assessment and Plan: Stable, avoid AV bee blocking agents (3) Hyperlipidemia: Qualifiers: Hyperlipidemia type: mixed hyperlipidemia Qualified Code(s): E78.2 - Mixed hyperlipidemia Code(s): E78.5 - Hyperlipidemia, unspecified Status: Acute Assessment and Plan: Continue statin. (4) CKD (chronic kidney disease): Qualifiers: Chronic kidney disease stage: stage 2 (mild) Qualified Code(s): N18.2 - Chronic kidney disease, stage 2 (mild) Code(s): N18.9 - Chronic kidney disease, unspecified Status: Acute Assessment and Plan: Monitor renal function (5) Hypothyroidism (acquired): Code(s): E03.9 - Hypothyroidism, unspecified Status: Acute Assessment and Plan: Check TSH level. History of Present Illness History of Present Illness Consult date/time: 04/12/24 11:56 Requesting physician: Jose Ramon Simpson MD Consult reason: Other (Bradycardia ) Reason For Visit: sinus alondra - paced Narrative: This is an 83 year old male with hypertension, hyperlipidemia, hypothyroidism, CKD, anxiety/depression, cognitive dysfunction, SAMSON who was recently discharged from rehab after being in the hospital for a fall. Patient's son called EMS because son noticed that the patient was not responding. Upon EMS arrival, patient noted to be unresponsive and bradycardic with heart rates in the 30s. They started transcutaneously pacing him, and he became responsive once his heart rates improved. In the ED, patient awake and alert, blood pressure stable. Heart rates in the 40s with EKG showing sinus bradycardia. No high grade block. He was given Atropine in the ED with no response, although, started having some intermitting muscle twitching after the Atropine. He otherwise denies any chest pain, shortness of breath, lightheadedness/dizziness. Review of Systems 2 Review of Systems: All systems reviewed & are unremarkable except as noted in HPI and below (HPI) [facility] Past Medical History Medical History Abnormal finding of blood chemistry Anxiety with depression Balance problem Benign essential hypertension Blepharitis of both eyes BMI 26.0-26.9,adult BMI 29.0-29.9,adult BMI 30.0-30.9,adult BMI 31.0-31.9,adult BMI 32.0-32.9,adult Bunion of right foot Chronic back pain Chronic pain CKD (chronic kidney disease) Cognitive dysfunction Colon cancer screening DJD (degenerative joint disease), multiple sites Elbow pain, left Encounter for general adult medical examination w/o abnormal findings Encounter for Medicare annual wellness exam Encounter for routine adult health examination with abnormal findings Encounter for routine adult health examination without abnormal findings Encounter for special screening examination for neoplasm of prostate Erythrocytosis Falls Follow up Frequent sinus infections Glaucoma Hearing loss History of colon polyps Hyperlipidemia Hypogonadism in male Hypothyroidism (acquired) Insomnia Itchy skin Left knee DJD Macular degeneration Memory loss Muscle pain Non-healing skin lesion On fpc drug therapy Pedal edema Personal history of COVID-19 Pre-diabetes Prostate cancer screening Proteinuria RLS (restless legs syndrome) Sinus drainage Skin cancer screening Testosterone deficiency Urinary frequency Urinary incontinence Urine abnormality Vertigo Surgical History Surgical History History of back surgery History of shoulder surgery Family History Family History Sibling Family history of malignant neoplasm of stomach Family history of malignant neoplasm Carcinoma of colon Family history of malignant neoplasm of breast in first degree relative Family history of malignant neoplasm of ovary Family history of diabetes mellitus in first degree relative Diabetes mellitus Father Family history of diabetes mellitus in first degree relative Mother Family history of malignant neoplasm of bone Other Family history of osteoarthritis Social History Social History Smoking status: Never smoker Second hand tobacco smoke exposure: No Alcohol intake: never Alcohol use details: does not use Substance use: never Substance use type: does not use Do You Feel Safe in your Home?: Yes Lack of Transportation: No Lack of Food: Never True Current Housing: I Have Housing Concerned About Future Housing: No Difficulty Paying Gas/Electric Bills: No Difficulty Paying for Meds: No Currently Unemployed: No Education: High School Diploma/GED Difficulty w/ Childcare or Family Care: No Living arrangements: alone Occupation/Education: retired Gender identity (if verbalized by the patient): Male Spiritual care concerns: No Meds Home Medications and Allergies Home Medications Medication Instructions Recorded Confirmed Type latanoprost 0.005 % eye drops 1 drop ophthalmic (eye) BID 04/21/19 04/11/24 History ascorbic acid (vitamin C) 500 mg 1,000 mg PO DAILY 09/25/21 04/11/24 History capsule melatonin 10 mg capsule 10 mg PO QHS PRN Sleep 06/04/22 04/11/24 History coenzyme Q10 100 mg capsule 100 mg PO HS 05/14/23 04/11/24 History (CoQ-10) multivitamin 1 tablet PO QACLUNCH 05/14/23 04/11/24 History Electric Scooter Wheel Chair #1 ea 11/02/23 04/11/24 Rx syringe with needle 3 mL 18 x 1 #6 ea 11/25/23 04/11/24 Rx 1/2 cranberry fruit 450 mg tablet 450 mg PO HS 03/30/24 04/11/24 History (cranberry) donepezil 10 mg tablet 10 mg PO HS 03/30/24 04/11/24 History dorzolamide-timolol (PF) 2 %-0.5 % 1 drp EACH EYE BID 03/30/24 04/11/24 History eye drops in a dropperette lactulose 10 gram/15 mL oral 15 ml PO HS PRN Constipation 03/30/24 04/11/24 History solution levothyroxine 125 mcg tablet 125 mcg PO QAM 03/30/24 04/11/24 History magnesium oxide 400 mg PO HS 03/30/24 04/11/24 History memantine 28 mg capsule 28 mg PO HS 03/30/24 04/11/24 History sprinkle,extended release 24hr solifenacin 10 mg tablet 10 mg PO DAILY 03/30/24 04/11/24 History trazodone 50 mg tablet 50 mg PO HS PRN Sleep 03/30/24 04/11/24 History valsartan 320 mg tablet 320 mg PO QACLUNCH 03/30/24 04/11/24 History atorvastatin 40 mg tablet 40 mg PO HS 30 days #30 tabs 04/07/24 04/11/24 Rx gabapentin 300 mg capsule 600 mg PO BID 30 days #120 caps 04/07/24 04/11/24 Rx (Neurontin) tizanidine 4 mg capsule 4 mg PO TID PRN muscle spasticity 04/11/24 04/11/24 Rx #45 caps Allergies Allergy/AdvReac Type Severity Reaction Status Date / Time No Known Allergies Allergy Unknown Verified 04/12/24 10:11 Vital Signs Vital Signs - 24 hr 04/12/24 10:02 04/12/24 10:09 04/12/24 10:30 Temperature 36.6 C Pulse Rate 38 L 41 L 41 L Respiratory Rate 17 18 Blood Pressure 99/66 L 105/64 Pulse Oximetry 98 99 Oxygen Delivery Room Air 04/12/24 10:57 Temperature Pulse Rate 44 L Respiratory Rate 16 Blood Pressure 116/84 Pulse Oximetry 98 Oxygen Delivery Exam Const: General: no acute distress HENMT: Mouth: Yes moist mucous membranes Eyes: General: appearance normal, both eyes and all related structures Sclera: sclerae normal Resp: Effort & Inspection: normal respiratory effort Cardio: Rate: bradycardic Rhythm: regular rhythm Heart sounds: no murmurs Skin: General skin exam: normal color Neuro: Speech: normal speech Psych: Mental Status: mental status grossly normal Affect: normal affect Results Labs and Meds 04/12/24 10:14 04/12/24 10:14 Lab results: Cardiac Enzymes 04/12/24 Range/Units 10:14 AST 32 (17-59) U/L Coagulation 04/12/24 Range/Units 10:14 PT 14.0 (11.1-14.7) Seconds APTT 26.0 (22.3-36.8) Seconds CBC 04/12/24 Range/Units 10:14 WBC 5.2 (4.5-10.0) K/mm3 RBC 3.77 L (4.6-6.20) M/mm3 Hgb 12.5 L (14.0-18.0) g/dL Hct 37.4 L (42.0-52.0) % Plt Count 219 (150-375) k/mm3 Lymph # (Auto) 0.84 L (0.9-3.2) K/mm3 Mobile # (Auto) 0.5 (0.1-0.6) K/mm3 Eos # (Auto) 0.2 (0-0.3) K/mm3 Baso # (Auto) 0.0 (0.0-0.1) K/mm3 Comprehensive Metabolic Panel 04/12/24 Range/Units 10:14 Sodium 139 (137-145) mmol/L Potassium 4.5 (3.4-5.0) mmol/L Chloride 103 (98-107) mmol/L Carbon Dioxide 26 (22-30) mmol/L BUN 40 H (9-20) mg/dL Creatinine 2.00 H (0.7-1.3) mg/dL Glucose 119 H (65-110) mg/dL Calcium 9.1 (8.4-10.2) mg/dL AST 32 (17-59) U/L ALT 39 (6-50) U/L Alkaline Phosphatase 74 (38-126) U/L Total Protein 7.0 (6.3-8.2) g/dL Albumin 3.9 (3.5-5.1) g/dL Intake and Output 04/11/24 04/12/24 04/12/24 23:59 07:59 15:59 Intake Total 1000 Balance 1000 Intake: IV 1000 Sodium Chloride 0.9% IV 1,000 1000 ml @ 999 mls/hr IV CONT .Q1H1M STA Rx#:[id number] Patient Weight 04/12/24 23:59 Weight 87.9 kg
--- NOTE | 2024-04-12 12:16 | PC.NURSE ---
Called and gave pts son, Frandy, an update on pts admission. Frandy expressed concerns of pt possibly taking too much trazodone and concerned if that is what is causing the pts low HR. EDP Dr. Simpson aware of concern, no new orders at this time.
--- NOTE | 2024-04-12 12:26 | P.HP_ITS ---
H&P: HPI History of Present Illness Date/Time: 04/12/24 12:26 Chief Complaint: Unresponsiveness Narrative: 83-year-old male past medical history of chronic kidney disease, hypothyroidism, and hyperlipidemia presenting emergency department for evaluation for unresponsiveness. On assessment patient is awake and oriented however is a poor historian and cannot give much details about what happened today. Per the ED notes the patient's son had knows the patient was responding on the video camera so he called 911. When EMS arrived the patient was unresponsive the bradycardic, they started patient transcutaneous pacing on the patient at 70 beats per minute and the patient became responsive. Per the ED the patient got 3 total doses of atropine. Patient denies chest pain, nausea or vomiting. Patient was seen in the emergency room by Cardiology for symptomatic bradycardia with recommendations for checking TSH level, telemetry pads and keeping the pacer pads on the patient, not currently being paced. Echocardiogram ordered patient will likely need a permanent pacemaker placed tomorrow NPO at midnight. In ED the patient's creatinine is 2.0 his baseline seems to be around 1.7, magnesium was 2.9, proBNP 336, TSH is within normal limits at 2.62. Chest x-ray shows Bilateral interstitial changes suggestive of pulmonary edema versus pneumonitis. Left lower lobe atelectasis versus pneumonia and Nodule in the right midzone. [address] follow-up advised. [facility] Past Medical History Medical History Abnormal finding of blood chemistry Anxiety with depression Balance problem Benign essential hypertension Blepharitis of both eyes BMI 26.0-26.9,adult BMI 29.0-29.9,adult BMI 30.0-30.9,adult BMI 31.0-31.9,adult BMI 32.0-32.9,adult Bunion of right foot Chronic back pain Chronic pain CKD (chronic kidney disease) Cognitive dysfunction Colon cancer screening DJD (degenerative joint disease), multiple sites Elbow pain, left Encounter for general adult medical examination w/o abnormal findings Encounter for Medicare annual wellness exam Encounter for routine adult health examination with abnormal findings Encounter for routine adult health examination without abnormal findings Encounter for special screening examination for neoplasm of prostate Erythrocytosis Falls Follow up Frequent sinus infections Glaucoma Hearing loss History of colon polyps Hyperlipidemia Hypogonadism in male Hypothyroidism (acquired) Insomnia Itchy skin Left knee DJD Macular degeneration Memory loss Muscle pain Non-healing skin lesion On terminal worker drug therapy Pedal edema Personal history of COVID-19 Pre-diabetes Prostate cancer screening Proteinuria RLS (restless legs syndrome) Sinus drainage Skin cancer screening Testosterone deficiency Urinary frequency Urinary incontinence Urine abnormality Vertigo Surgical History Surgical History History of back surgery History of shoulder surgery Family History Family History Sibling Family history of malignant neoplasm of stomach Family history of malignant neoplasm Carcinoma of colon Family history of malignant neoplasm of breast in first degree relative Family history of malignant neoplasm of ovary Family history of diabetes mellitus in first degree relative Diabetes mellitus Father Family history of diabetes mellitus in first degree relative Mother Family history of malignant neoplasm of bone Other Family history of osteoarthritis Social History Social History Smoking status: Never smoker Second hand tobacco smoke exposure: No Alcohol intake: never Alcohol use details: does not use Substance use: never Substance use type: does not use Do You Feel Safe in your Home?: Yes Lack of Transportation: No Lack of Food: Never True Current Housing: I Have Housing Concerned About Future Housing: No Difficulty Paying Gas/Electric Bills: No Difficulty Paying for Meds: No Currently Unemployed: No Education: High School Diploma/GED Difficulty w/ Childcare or Family Care: No Living arrangements: alone Occupation/Education: retired Gender identity (if verbalized by the patient): Male Spiritual care concerns: No Meds Home Medications and Allergies Home Medications Medication Instructions Recorded Confirmed Type latanoprost 0.005 % eye drops 1 drop ophthalmic (eye) BID 04/21/19 04/12/24 History ascorbic acid (vitamin C) 500 mg 1,000 mg PO 1200 09/25/21 04/12/24 History capsule melatonin 10 mg capsule 10 mg PO QHS PRN Sleep 06/04/22 04/12/24 History coenzyme Q10 100 mg capsule 100 mg PO HS 05/14/23 04/12/24 History (CoQ-10) multivitamin 1 tablet PO QACLUNCH 05/14/23 04/12/24 History Electric Scooter Wheel Chair #1 ea 11/02/23 04/12/24 Rx syringe with needle 3 mL 18 x 1 #6 ea 11/25/23 04/12/24 Rx 1/2 cranberry fruit 450 mg tablet 450 mg PO HS 03/30/24 04/12/24 History (cranberry) donepezil 10 mg tablet 10 mg PO HS 03/30/24 04/12/24 History dorzolamide-timolol (PF) 2 %-0.5 % 1 drp EACH EYE BID 03/30/24 04/12/24 History eye drops in a dropperette lactulose 10 gram/15 mL oral 15 ml PO HS PRN Constipation 03/30/24 04/12/24 History solution levothyroxine 125 mcg tablet 125 mcg PO QAM 03/30/24 04/12/24 History magnesium oxide 400 mg PO HS 03/30/24 04/12/24 History memantine 28 mg capsule 28 mg PO HS 03/30/24 04/12/24 History sprinkle,extended release 24hr solifenacin 10 mg tablet 10 mg PO DAILY 03/30/24 04/12/24 History trazodone 50 mg tablet 50 mg PO HS PRN Sleep 03/30/24 04/12/24 History valsartan 320 mg tablet 320 mg PO DAILY 03/30/24 04/12/24 History atorvastatin 40 mg tablet 40 mg PO HS 30 days #30 tabs 04/07/24 04/12/24 Rx gabapentin 300 mg capsule 600 mg PO BID 30 days #120 caps 04/07/24 04/12/24 Rx (Neurontin) tizanidine 4 mg capsule 4 mg PO TID PRN muscle spasticity 04/11/24 04/12/24 Rx #45 caps Allergies Allergy/AdvReac Type Severity Reaction Status Date / Time No Known Allergies Allergy Unknown Verified 04/12/24 10:11 Vital Signs Vital Signs - 24 hr 04/12/24 10:02 04/12/24 10:09 04/12/24 10:30 Temperature 97.8 F Pulse Rate 38 L 41 L 41 L Respiratory Rate 17 18 Blood Pressure 99/66 L 105/64 Pulse Oximetry 98 99 Oxygen Delivery Room Air 04/12/24 10:57 04/12/24 11:28 04/12/24 11:30 Temperature Pulse Rate 44 L 41 L 39 L Respiratory Rate 16 14 18 Blood Pressure 116/84 Pulse Oximetry 98 91 Oxygen Delivery 04/12/24 11:33 04/12/24 12:21 Temperature Pulse Rate 39 L 43 L Respiratory Rate 18 20 Blood Pressure 100/58 L 94/58 L Pulse Oximetry 99 96 Oxygen Delivery Exam Narrative: General: well appearing, appears stated age. HEENT: normocephalic, atraumatic. Mucous membranes moist. EOMI, PERRLA, bilateral sclera anicteric, no conjunctival injection. Neck supple without JVD, lymphadenopathy, or bruit. Respiratory: clear to ascultation bilaterally. No rales/rhonic/wheezes. Cardiovascular: Regular rate and rhythm, normal S1-S2 upon ascultation. No murmurs, rubs, or clicks. PMI is nondisplaced, capillary refill less than 3 second. Abdomen: Soft, round, no pulsatile masses, nondistended and nontender. No rebound, no guarding. No CVA tenderness, no hepatosplenomegaly. Bowel sounds present to all four quadrants. No high pitch or tinkling sounds, resonant to percussion. Extremities: No cyanosis, clubbing, or edema present. Pulses are palpable 2/2. Active ROM to all four extremities. Neuro: Alert and orientated x 2-3. PERRLA. Cranial nerves 2-12 intact without focal deficit. Skin: Warm, dry, and intact, without rash, erythema, or lesion. Psych: pleasant, cooperative, normal speech, normal affect, no hallucinations, no dysarthia H&P: Results Labs Labs: Short CBC 04/12/24 Range/Units 10:14 WBC 5.2 (4.5-10.0) K/mm3 Hgb 12.5 L (14.0-18.0) g/dL Hct 37.4 L (42.0-52.0) % Plt Count 219 (150-375) k/mm3 [facility] 04/12/24 10:14 Sodium 139 Potassium 4.5 Chloride 103 Carbon Dioxide 26 BUN 40 H Creatinine 2.00 H Glucose 119 H Calcium 9.1 Liver Function 04/12/24 Range/Units 10:14 Total Bilirubin 0.4 (0.2-1.3) mg/dL AST 32 (17-59) U/L ALT 39 (6-50) U/L Alkaline Phosphatase 74 (38-126) U/L Albumin 3.9 (3.5-5.1) g/dL Assessment and Plan Assessment and plan (1) Bradycardia, sinus: Code(s): R00.1 - Bradycardia, unspecified Status: Acute Assessment and Plan: Symptomatic bradycardia Cardiology consulted NPO at midnight for pacemaker A.m. labs and coags Telemetry and pacer pads Echocardiogram pending TSH within normal limits Avoid AV blocking agents Bedrest (2) CKD (chronic kidney disease): Qualifiers: Chronic kidney disease stage: stage 2 (mild) Qualified Code(s): N18.2 - Chronic kidney disease, stage 2 (mild) Code(s): N18.9 - Chronic kidney disease, unspecified Status: Acute Assessment and Plan: Acute on chronic Baseline around 1.6, on admission 2.0 Hold gabapentin (3) Dementia: Code(s): F03.90 - Unspecified dementia, unspecified severity, without behavioral disturbance, psychotic disturbance, mood disturbance, and anxiety Status: Acute Assessment and Plan: Continue Aricept (4) Hypertension: Qualifiers: Hypertension type: primary hypertension Qualified Code(s): I10 - Essential (primary) hypertension Code(s): I10 - Essential (primary) hypertension Status: Acute Assessment and Plan: BP on admission 115/57 Hold Valsartan ARB and atorvastatin (5) Incidental pulmonary nodule: Code(s): R91.1 - Solitary pulmonary nodule Status: Acute Assessment and Plan: Nodule in the right midzone. [address] follow-up advised. With primary care provider (6) Hypothyroidism (acquired): Code(s): E03.9 - Hypothyroidism, unspecified Status: Acute Assessment and Plan: TSH within normal limits Continue home levothyroxine Quality VTE Prophylaxis VTE prophylaxis: mechanical ordered and pharmacologic ordered Hospitalist [facility] Advance Care Plan I have confirmed that the patient's Advanced Care Plan is present, code status is documented, or surrogate decision maker is listed in patient medical record.: Yes Medication Reconciliation I have utilized all available resources to obtain, update and review the patients current medications (includes all prescriptions, OTC, herbals, cannabis, and nutritional supplements).: Yes
--- NOTE | 2024-04-12 12:59 | ADMGEN ---
This patient, Souleymane Powers, was admitted to IMU Room 207-01. Patient/family oriented to hospital policies and general routines including ID bracelet, bed and alarms, visiting hours, pain management, procedures, bathroom and other care routines, personal items, smoking policy, room service/diet, and visiting hours. Information on how to activate the Rapid Response Team has been discussed. Patient/Family are encouraged to report perceived risks to care and to ask questions if they do not understand what they are told or what they should do.
--- NOTE | 2024-04-12 17:10 | P.SEDATION_ITS ---
Moderate Sedation Note-Pt Data Patient Data Diagnosis: Sick sinus syndrome, symptomatic bradycardia Present Complaint: Syncope Procedure to be performed/Plan: Pacemaker implantation Allergies Allergy/AdvReac Type Severity Reaction Status Date / Time No Known Allergies Allergy Unknown Verified 04/12/24 10:11 Home Medications Medication Instructions Recorded Confirmed Type latanoprost 0.005 % eye drops 1 drop ophthalmic (eye) BID 04/21/19 04/12/24 History ascorbic acid (vitamin C) 500 mg 1,000 mg PO 1200 09/25/21 04/12/24 History capsule melatonin 10 mg capsule 10 mg PO QHS PRN Sleep 06/04/22 04/12/24 History coenzyme Q10 100 mg capsule 100 mg PO HS 05/14/23 04/12/24 History (CoQ-10) multivitamin 1 tablet PO QACLUNCH 05/14/23 04/12/24 History Electric Scooter Wheel Chair #1 ea 11/02/23 04/12/24 Rx syringe with needle 3 mL 18 x 1 #6 ea 11/25/23 04/12/24 Rx 1/2 cranberry fruit 450 mg tablet 450 mg PO HS 03/30/24 04/12/24 History (cranberry) donepezil 10 mg tablet 10 mg PO HS 03/30/24 04/12/24 History dorzolamide-timolol (PF) 2 %-0.5 % 1 drp EACH EYE BID 03/30/24 04/12/24 History eye drops in a dropperette lactulose 10 gram/15 mL oral 15 ml PO HS PRN Constipation 03/30/24 04/12/24 History solution levothyroxine 125 mcg tablet 125 mcg PO QAM 03/30/24 04/12/24 History magnesium oxide 400 mg PO HS 03/30/24 04/12/24 History memantine 28 mg capsule 28 mg PO HS 03/30/24 04/12/24 History sprinkle,extended release 24hr solifenacin 10 mg tablet 10 mg PO DAILY 03/30/24 04/12/24 History trazodone 50 mg tablet 50 mg PO HS PRN Sleep 03/30/24 04/12/24 History valsartan 320 mg tablet 320 mg PO DAILY 03/30/24 04/12/24 History atorvastatin 40 mg tablet 40 mg PO HS 30 days #30 tabs 04/07/24 04/12/24 Rx gabapentin 300 mg capsule 600 mg PO BID 30 days #120 caps 04/07/24 04/12/24 Rx (Neurontin) tizanidine 4 mg capsule 4 mg PO TID PRN muscle spasticity 04/11/24 04/12/24 Rx #45 caps Current Medications: Active Medications Acetaminophen (Acetaminophen 325 Mg Tablet) 650 mg PO Q4H PRN PRN Reason: Mild Pain (1-3) or Fever Hydrocodone Bitart/Acetaminophen (Hydrocodone/Acetaminophen (*Crx) 5-325 Mg Tablet) 1 tab PO Q4H PRN PRN Reason: Moderate Pain (4-6) Docusate Sodium (Docusate Sodium 100 Mg Capsule) 100 mg PO DAILY NELIA Donepezil HCl (Donepezil Hcl 10 Mg Tablet) 10 mg PO HS NELIA Dorzolamide/Timolol (Dorzolamide/Timolol Ophth Erin 10 Ml Bottle) 1 drop EACH EYE Q12HR NEL[facility] Gabapentin (Gabapentin 300 Mg Capsule) 600 mg PO BID NELIA Latanoprost (Latanoprost 0.005% Op Soln 2.5 Ml Btl) 1 drop EACH EYE BID NELIA Levothyroxine Sodium (Levothyroxine Sodium 125 Mcg Tablet) 125 mcg PO DAILY@0630 NELIA Memantine (Memantine Hcl Xr 28 Mg Cap) 28 mg PO HS NELIA Miscellaneous Information (Clarify Bid Latanoprost Dosing.) 0 each XX CLARIFY NELIA Stop: 05/12/24 00:00 Perflutren Lipid Microsphere (Perflutren Lipid Microspheres 1.5 Ml Vial Diluted To 10 Ml Total Volume) 0 ml IV PUSH ONCE PRN; Protocol PRN Reason: adequate visualization Stop: 04/15/24 10:31 Solifenacin (Solifenacin 5 Mg Tablet) 10 mg PO DAILY NELIA Sedation/Anesthesia: No previous sedation/anesthesia problems (including family history). [facility] Past Medical History Medical History Abnormal finding of blood chemistry Anxiety with depression Balance problem Benign essential hypertension Blepharitis of both eyes BMI 26.0-26.9,adult BMI 29.0-29.9,adult BMI 30.0-30.9,adult BMI 31.0-31.9,adult BMI 32.0-32.9,adult Bunion of right foot Chronic back pain Chronic pain CKD (chronic kidney disease) Cognitive dysfunction Colon cancer screening DJD (degenerative joint disease), multiple sites Elbow pain, left Encounter for general adult medical examination w/o abnormal findings Encounter for Medicare annual wellness exam Encounter for routine adult health examination with abnormal findings Encounter for routine adult health examination without abnormal findings Encounter for special screening examination for neoplasm of prostate Erythrocytosis Falls Follow up Frequent sinus infections Glaucoma Hearing loss History of colon polyps Hyperlipidemia Hypogonadism in male Hypothyroidism (acquired) Insomnia Itchy skin Left knee DJD Macular degeneration Memory loss Muscle pain Non-healing skin lesion 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 Pedal edema Personal history of COVID-19 Pre-diabetes Prostate cancer screening Proteinuria RLS (restless legs syndrome) Sinus drainage Skin cancer screening Testosterone deficiency Urinary frequency Urinary incontinence Urine abnormality Vertigo Surgical History Surgical History History of back surgery History of shoulder surgery Family History Family History Sibling Family history of malignant neoplasm of stomach Family history of malignant neoplasm Carcinoma of colon Family history of malignant neoplasm of breast in first degree relative Family history of malignant neoplasm of ovary Family history of diabetes mellitus in first degree relative Diabetes mellitus Father Family history of diabetes mellitus in first degree relative Mother Family history of malignant neoplasm of bone Other Family history of osteoarthritis Social History Social History Smoking status: Never smoker Second hand tobacco smoke exposure: No Alcohol intake: never Alcohol use details: does not use Substance use: never Substance use type: does not use Do You Feel Safe in your Home?: Yes Lack of Transportation: No Lack of Food: Never True Current Housing: I Have Housing Concerned About Future Housing: No Difficulty Paying Gas/Electric Bills: No Difficulty Paying for Meds: No Currently Unemployed: No Education: High School Diploma/GED Difficulty w/ Childcare or Family Care: No Living arrangements: alone Occupation/Education: retired Gender identity (if verbalized by the patient): Male Spiritual care concerns: No Mod Sed Physical Exam Physical Exam Pre Procedural Exam: Normal: Appearance, Neck, Throat, Airway, Lungs, Heart Si ze, Heart Rhythm and Neuro Exam and Variation: Heart Rate (Heart rate 45) Hours since solid foods: 12 Hours since liquid intake: 12 Mallampati Classification: class II Internal Medicine - PN: Obj Da Vital Signs Vital Signs: Vital Signs - 24 hr 04/12/24 10:02 04/12/24 10:09 04/12/24 10:30 Temperature 36.6 C Pulse Rate 38 L 41 L 41 L Respiratory Rate 17 18 Blood Pressure 99/66 L 105/64 Pulse Oximetry 98 99 Oxygen Delivery Room Air 04/12/24 10:57 04/12/24 11:28 04/12/24 11:30 Temperature Pulse Rate 44 L 41 L 39 L Respiratory Rate 16 14 18 Blood Pressure 116/84 Pulse Oximetry 98 91 Oxygen Delivery 04/12/24 11:33 04/12/24 12:21 04/12/24 12:56 Temperature 36.5 C Pulse Rate 39 L 43 L 42 L Respiratory Rate 18 20 22 H Blood Pressure 100/58 L 94/58 L 131/61 Pulse Oximetry 99 96 100 Oxygen Delivery 04/12/24 14:00 04/12/24 12:49 04/12/24 12:50 Temperature Pulse Rate 50 L 42 L 50 L Respiratory Rate 20 Blood Pressure Pulse Oximetry 98 Oxygen Delivery Room Air 04/12/24 16:17 04/12/24 16:00 04/12/24 16:00 Temperature 36.5 C Pulse Rate 50 L 42 L 49 L Respiratory Rate 20 22 H Blood Pressure 115/57 L Pulse Oximetry 98 100 Oxygen Delivery Room Air Intake/Output Intake/Output: Intake & Output 04/09/24 04/10/24 04/11/24 04/12/24 23:59 23:59 23:59 23:59 Intake Total 1000 Balance 1000 Meds/Results Medications: Active Medications Generic Name Dose Route Start Last Admin Trade Name Freq PRN Reason Stop Dose Admin Acetaminophen 650 mg 04/12/24 12:28 Acetaminophen 325 Mg Tablet PO Q4H PRN Mild Pain (1-3) or Fever Hydrocodone Bitart/Acetaminophen 1 tab 04/12/24 12:28 Hydrocodone/Acetaminophen (*Crx) 5-325 Mg Tablet PO Q4H PRN Moderate Pain (4-6) Docusate Sodium 100 mg 04/13/24 09:00 Docusate Sodium 100 Mg Capsule PO DAILY NELIA Donepezil HCl 10 mg 04/12/24 21:00 Donepezil Hcl 10 Mg Tablet PO HS NELIA Dorzolamide/Timolol 1 drop 04/12/24 21:00 Dorzolamide/Timolol Ophth Erin 10 Ml Bottle EACH EYE Q12HR [facility] Gabapentin 600 mg 04/12/24 17:00 Gabapentin 300 Mg Capsule PO BID [facility] Latanoprost 1 drop 04/12/24 17:00 Latanoprost 0.005% Op Soln 2.5 Ml Btl EACH EYE BID [facility] Levothyroxine Sodium 125 mcg 04/13/24 06:30 Levothyroxine Sodium 125 Mcg Tablet PO DAILY@0630 [facility] Memantine 28 mg 04/12/24 21:00 Memantine Hcl Xr 28 Mg Cap PO HS [facility] Miscellaneous Information 0 each 04/12/24 00:01 Clarify Bid Latanoprost Dosing. XX 05/12/24 00:00 CLARIFY [facility] Perflutren Lipid Microsphere 0 ml 04/12/24 10:31 Perflutren Lipid Microspheres 1.5 Ml Vial Diluted To 10 Ml Total Volume IV PUSH 04/15/24 10:31 ONCE PRN adequate visualization Protocol Solifenacin 10 mg 04/13/24 09:00 Solifenacin 5 Mg Tablet PO DAILY [facility] Radiology Results: ITS Impressions Chest X-Ray 04/12/24 10:53 IMPRESSION: Bilateral interstitial changes suggestive of pulmonary edema versus pneumonitis. Left lower lobe atelectasis versus pneumonia. Nodule in the right midzone. [address] follow-up advised. Labs 04/12/24 10:14 04/12/24 10:14 Labs: Laboratory Results - last 24 hr 04/12/24 10:14 WBC 5.2 RBC 3.77 L Hgb 12.5 L Hct 37.4 L MCV 99.2 MCH 33.2 MCHC 33.4 RDW 11.5 Plt Count 219 MPV 9.1 Immature Gran % (Auto) 0.4 Neut % (Auto) 69.8 Lymph % (Auto) 16.2 L [place] % (Auto) 9.0 H Eos % (Auto) 4.2 Baso % (Auto) 0.4 Lymph # (Auto) 0.84 L [place] # (Auto) 0.5 Eos # (Auto) 0.2 Baso # (Auto) 0.0 Abs Immat Gran (auto) 0.02 Absolute Neuts (auto) 3.6 Absolute Nucleated RBC 0.000 Nucleated RBC % 0.0 PT 14.0 INR 1.0 APTT 26.0 Sodium 139 Potassium 4.5 Chloride 103 Carbon Dioxide 26 Anion Gap 10 BUN 40 H Creatinine 2.00 H Estim Creat Clear Calc 26 Estimated GFR 32 L Glucose 119 H Calcium 9.1 Magnesium 2.9 H Total Bilirubin 0.4 AST 32 ALT 39 Alkaline Phosphatase 74 NT-Pro-B Natriuret Pep 336 H Total Protein 7.0 Albumin 3.9 TSH (Reflex) 2.620 ASA Classification/Sedation ASA Classification/Sedation ASA Class: III Emergent: No Risks: Risks, benefits and alternatives explained and patient/family accepted plan for sedation. Patient re-evaluated immediately prior to sedation.
--- NOTE | 2024-04-12 17:47 | PC.NURSE ---
Home medications returned to deonna/Frandy MEJÍA.
[2024-04-12] MEDS: DONEPEZIL HCL 10 MG TABLET PO (20:44)
[2024-04-12] MEDS: LATANOPROST 0.005% OP SOLN 2.5 ML BTL 1 DROP EACH EYE (20:44)
[2024-04-12] MEDS: MEMANTINE HCL XR 28 MG CAP PO (20:44)
[2024-04-12] MEDS: DORZOLAMIDE/TIMOLOL OPHTH SOL 10 ML BOTTLE 1 DROP EACH EYE (20:44)
[2024-04-13] VITALS (23 sets, daily range): BP systolic 127–176; BP diastolic 71–98; PULSE 48–64; RESP 13–20; TEMP 36.2–37.1; O2SAT 95–100
[2024-04-13] MEDS: MELATONIN 5 MG TABLET 10 MG PO (00:45)
[2024-04-13 04:45] LABS: Basophils Percent Auto 0.5 % (0.2-1.2); Eosinophils Absolute Auto 0.2 K/mm3 (0-0.3); Eosinophils Percent Auto 4.1 % (0-4.4); Hemoglobin 12.7 g/dL (14.0-18.0); Immature Granulocyte Absolute 0.03 K/mm3 (0.00-0.031); Immature Granulocyte Percent A 0.5 % (0-0.5); Lymphocytes Absolute Auto 1.32 K/mm3 (0.9-3.2); Lymphocytes Percent Auto 22.4 % (18.3-44.2); Mean Corpuscular HGB Conc 34.3 g/dl (32-36); Mean Corpuscular Hemoglobin 32.9 pg (26-34); Mean Corpuscular Volume 95.9 fl (80-100); Mean Platelet Volume 8.8 fl (7.4-10.4); Monocytes Absolute Auto 0.6 K/mm3 (0.1-0.6); Monocytes Percent Auto 9.7 % (2.6-8.5); Neutrophils Absolute Auto 3.7 K/mm3 (1.3-6.7); Neutrophils Percent Auto 62.8 % (45.5-73.1); Platelet Count Result 224 k/mm3 (150-375); Red Blood Count 3.86 M/mm3 (4.6-6.20); Red Cell Distribution Width 11.3 % (11.5-14.5); White Blood Count 5.9 K/mm3 (4.5-10.0)
[2024-04-13 04:54] LABS: Potassium 4.6 mmol/L (3.4-5.0)
[2024-04-13 04:56] LABS: INR 1.1; Prothrombin Time 14.8 Seconds (11.1-14.7)
[2024-04-13 04:57] LABS: Anion Gap 5 mmol/L (4-12); Blood Urea Nitrogen 35 mg/dL (9-20); Calcium 9.5 mg/dL (8.4-10.2); Carbon Dioxide 29 mmol/L (22-30); Chloride 106 mmol/L (98-107); Estimated CRCL calculation 31 ml/min; Estimated Glomerular Filt Rate 39; Glucose 103 mg/dL (65-110); Magnesium 2.6 mg/dL (1.6-2.3); Partial Thromboplastin Time 26.8 Seconds (22.3-36.8); Phosphorus 4.5 mg/dL (2.5-4.5); Sodium 140 mmol/L (137-145)
--- NOTE | 2024-04-13 07:51 | PC.NURSE ---
0700- to cardiac laborer [facility] for procedure via stretcher accompanied by RN and son
--- NOTE | 2024-04-13 08:24 | ECG_ITS ---
Test Date: 2024-04-13 09:06:43 Measurements Intervals [place] Rate: 60 P: 254 IN: 191 QRS: -34 QRSD: 137 T: 56 QT: 484 QTc: 484 Interpretive Statements ELECTRONIC ATRIAL PACEMAKER LEFT AXIS DEVIATION INTRAVENTRICULAR CONDUCTION DELAY CANNOT R/O SEPTAL INFARCT, AGE INDETERMINATE BORDERLINE ST-T WAVE ABNORMALITY- HIGH LATERAL LEADS BASELINE WANDER- I, III ABNORMAL ECG Compared to ECG 04/12/2024 10:10:50 ELECTRONIC ATRIAL PACEMAKER NOW PRESENT POSSIBLE ISCHEMIA NO LONGER PRESENT Electronically Signed On 04-13-2024 09:08:50 MOWER SHARPENER by Taco Rosado D.O.
--- NOTE | 2024-04-13 08:25 | P.PCNCC_ITS ---
Cardiac Cath Procedure Note Date of procedure:: 04/13/24 Performing physician:: Frandy Chu MD Indication:: syncope with sick sinus syndrome Brief clinical history:: this is an 83-year-old man who has had 2 syncopal episodes. Upon admission he was found to have significant sick sinus syndrome and for this pacemaker implantation has been recommended. Procedure Procedure performed:: Implantation of permanent Medtronic dual-chamber pacing system Sedation/Medication given:: fentanyl 25 mg Versed 2 mg case start time 7:30 a.m. case end time 8:16 a.m. sedation provided by Marielle Sweeney RN , trained observer Access site:: left subclavian vein Estimated blood loss:: minimal Procedure note:: patient was brought to the cardiac catheterization lab in the postabsorptive state where the left anterior chest wall was prepped and draped in the sterile fashion. 20 cc of lidocaine was infiltrated inferior to the clavicle for local anesthesia. Incision was then made midclavicular line to the deltopectoral groove about 1 in below the clavicle. Sharp and blunt dissection was used to separate the subcutaneous tissue electrocautery was used for hemostasis. Blunt dissection was then used to create a pacemaker pocket inferior to the incision this was then packed with antibiotic soaked 4 x 4. Attention was then turned to venous access. Using to 6 [employer] SafeSheath kits The left subclavian vein was punctured twice with J wires advanced under fluoroscopic visualization into the right atrial position. following this she the 2 6 Egyptian safe sheaths the pacemaker leads detailed below were placed into the anus circulation and advanced to the right atrial position. Attention was then turned to ventricular lead positioning. the stylet was withdrawn and a 3 cc syringe was used to form a J-tip on the stylet this was then placed into the lead the lead was steered to the right ventricle out to the PA position. It was with stent to the right ventricular apical position. The fixation screw was deployed upon withdrawal of the stylet the lead was fixed into position. Pacing and sensing performance was demonstrated using the analyzer. The initial threshold was somewhat high at 2.5 volt but with excellent current of injury this was accepted and attention was then turned to the atrial lead. While the atrial lead was being position the ventricular threshold was improving nicely. The stylet was removed from the atrial lead a preformed atrial J was placed this was position to the right atrial appendage. The fixation screw was deployed upon withdrawal of the stylet the lead tip was fixed into position. Again the analyzer was used to measure sensing and pacing performance with good results. The leads were then secured to the base of the pocket using suture sleeves and 2-0 silk ties. The retained sponge was removed from the pocket with then irrigated with antibiotic infused saline. The pacemaker generator was connected to the leads using the torque wrench and the entire assembly was placed into the newly created pocket which was closed in layers. 3-0 Vicryl was used in an interrupted fashion for the subcutaneous layer and 4-0 Vicryl in a running subcuticular fashion for the skin. The wound was then dressed with an Aquacel dressing a postop antibiotics chest x-ray and ECG were ordered. The procedure was well tolerated and uncomplicated. Findings:: The pacemaker device is a Medtronic dual-chamber pacemaker model W1DR01 serial number [id number]. the device is programmed in the AAIR / DDDR mode lower rate limit 60 upper rate limit 130 av delay 180/150 millisecond. The atrial lead is a Medtronic screw-in bipolar lead model 5076-52 serial number [id number]. the P-waves are sensed at 2.5 mV threshold is 0.875 volts at 0.4 milliseconds impedance 1159 Ohms the ventricular lead is a Medtronic bipolar screw-in lead model 5076-58 serial number [id number]. the R-waves are sensed at 8.9 mV threshold 1.75 volts at 0.4 milliseconds impedance 1330 Ohms. Conclusion:: 1. Successful uncomplicated implantation of permanent Medtronic dual-chamber pacing system for treatment of sick sinus syndrome with syncope in this 83-year-old patient Frandy Chu MD [facility]
--- NOTE | 2024-04-13 10:15 | PC.NURSE ---
@ 1005 returned to room - post pacemaker insertion- Left upper chest with dressing CDI- arm splint in use; +3 radial pulses- VSS
--- NOTE | 2024-04-13 10:19 | PM.IMPN ---
Progress Note: A&P Assessment and Plan (1) Episode of syncope: Code(s): R55 - Syncope and collapse Status: Acute Plan 83-year-old male past medical history of chronic kidney disease, hypothyroidism, and hyperlipidemia presenting emergency department for evaluation for unresponsiveness. On assessment patient is awake and oriented however is a poor historian and cannot give much details about what happened today. Per the ED notes the patient's son had knows the patient was responding on the video camera so he called 911. When EMS arrived the patient was unresponsive the bradycardic, they started patient transcutaneous pacing on the patient at 70 beats per minute and the patient became responsive. Per the ED the patient got 3 total doses of atropine. Cardiogenic syncope Patient was found unresponsive, and bradycardia, Symptomatic bradycardia Cardiology consulted Patient is found have sick sinus syndrome Pacemaker is placed Echocardiogram pending TSH within normal limits Avoid AV blocking agents Bedrest YASHIRA on CKD Acute on chronic Baseline around 1.6, on admission 2.0 Hold gabapentin Possible due to poor perfusion of kidney Pacemaker is placed Creatinine is trending down Dementia: Code(s): F03.90 - Unspecified dementia, unspecified severity, without behavioral disturbance, psychotic disturbance, mood disturbance, and anxiety Status: Acute Assessment and Plan: Continue Aricept Not oriented x3 Possible baseline Hypertension: Qualifiers: Hypertension type: primary hypertension Qualified Code(s): I10 - Essential (primary) hypertension Code(s): I10 - Essential (primary) hypertension Status: Acute Assessment and Plan: BP on admission 115/57 Continue Valsartan 300 mg daily p.o. and amlodipine 5 mg daily p.o. Incidental pulmonary nodule: Code(s): R91.1 - Solitary pulmonary nodule Status: Acute Assessment and Plan: Nodule in the right midzone. [address] follow-up advised. With primary care provider (6) Hypothyroidism (acquired): Code(s): E03.9 - Hypothyroidism, unspecified Status: Acute Assessment and Plan: TSH within normal limits Continue home levothyroxine Subjective Date/time seen: 04/13/24 10:19 Interval history: I saw exam patient today, patient feels comfortable, patient denies chest pain, lightheadedness, abdomen pain, headache, focal weakness Exam Narrative: GENERAL: Pleasant, in no acute distress. Well-nourished. - EYES: EOMI. Anicteric. - HENT: Moist mucous membranes. - LUNGS: Clear to auscultation bilaterally, no wheezing, rhonchi, or rales. - CARDIOVASCULAR: Regular rate and rhythm. No murmur. No JVD. Pacemaker pocket is in left chest, dressings dry and clean - ABDOMEN: Soft, non-tender and non-distended. No palpable masses. - EXTREMITIES: No edema. Peripheral pulses 2+. Non-tender. - NEUROLOGIC: No focal neurological deficits. CN II-XII grossly intact. - PSYCHIATRIC: Awake, Alert but not oriented x 3. Appropriate mood and affect. - SKIN: No rashes or lesions. Warm. - LYMPH: No cervical lymphadenopathy. Objective Data Vital Signs Vital Signs: Vital Signs - 24 hr 04/12/24 10:30 04/12/24 10:57 04/12/24 11:28 Temperature Pulse Rate 41 L 44 L 41 L Respiratory Rate 18 16 14 Blood Pressure 105/64 116/84 Pulse Oximetry 99 98 91 Oxygen Delivery 04/12/24 11:30 04/12/24 11:33 04/12/24 12:21 Temperature Pulse Rate 39 L 39 L 43 L Respiratory Rate 18 18 20 Blood Pressure 100/58 L 94/58 L Pulse Oximetry 99 96 Oxygen Delivery 04/12/24 12:56 04/12/24 14:00 04/12/24 12:49 Temperature 97.7 F Pulse Rate 42 L 50 L 42 L Respiratory Rate 22 H Blood Pressure 131/61 Pulse Oximetry 100 Oxygen Delivery 04/12/24 12:50 04/12/24 16:17 04/12/24 16:00 Temperature 97.7 F Pulse Rate 50 L 50 L 42 L Respiratory Rate 20 20 22 H Blood Pressure 115/57 L Pulse Oximetry 98 98 100 Oxygen Delivery Room Air Room Air 04/12/24 16:00 04/12/24 18:00 04/12/24 20:13 Temperature 98.0 F Pulse Rate 49 L 52 L 56 L Respiratory Rate 20 Blood Pressure 116/66 Pulse Oximetry 96 Oxygen Delivery 04/12/24 20:00 04/12/24 20:00 04/12/24 22:00 Temperature Pulse Rate 52 L 52 L 49 L Respiratory Rate 20 Blood Pressure Pulse Oximetry 96 Oxygen Delivery Room Air 04/13/24 00:25 04/13/24 00:00 04/13/24 00:00 Temperature 98.7 F Pulse Rate 51 L 50 L 50 L Respiratory Rate 20 20 Blood Pressure 153/76 H Pulse Oximetry 99 99 Oxygen Delivery Room Air 04/12/24 21:40 04/13/24 02:33 04/13/24 02:00 Temperature Pulse Rate 67 48 L Respiratory Rate Blood Pressure Pulse Oximetry 96 Oxygen Delivery Autopap Autopap 04/13/24 04:00 04/13/24 04:00 04/13/24 04:59 Temperature 98.6 F Pulse Rate 50 L 50 L 50 L Respiratory Rate 20 20 Blood Pressure 140/71 Pulse Oximetry 99 99 Oxygen Delivery Autopap 04/13/24 05:57 04/13/24 08:40 04/13/24 08:45 Temperature Pulse Rate 48 L 60 60 Respiratory Rate 17 14 Blood Pressure 176/84 H 150/94 H Pulse Oximetry 96 96 Oxygen Delivery Room Air Room Air 04/13/24 09:00 04/13/24 09:15 04/13/24 09:30 Temperature Pulse Rate 62 60 60 Respiratory Rate 19 13 20 Blood Pressure 155/91 H 144/89 H 127/86 Pulse Oximetry 96 95 96 Oxygen Delivery Room Air Room Air Room Air 04/13/24 09:44 04/13/24 10:09 04/13/24 09:36 Temperature 98.2 F Pulse Rate 60 60 Respiratory Rate 13 16 20 Blood Pressure 131/98 H 166/85 H 127/86 Pulse Oximetry 99 98 96 Oxygen Delivery Room Air Intake/Output Intake/Output: Intake & Output 04/10/24 04/11/24 04/12/24 04/13/24 23:59 23:59 23:59 23:59 Intake Total 1200 550 Output Total 650 2200 Balance 550 -1650 Meds/Results Medications: Active Medications Generic Name Dose Route Start Last Admin Trade Name Freq PRN Reason Stop Dose Admin Acetaminophen 650 mg 04/12/24 12:28 Acetaminophen 325 Mg Tablet PO Q4H PRN Mild Pain (1-3) or Fever Hydrocodone Bitart/Acetaminophen 1 tab 04/12/24 12:28 Hydrocodone/Acetaminophen (*Crx) 5-325 Mg Tablet PO Q4H PRN Moderate Pain (4-6) Docusate Sodium 100 mg 04/13/24 09:00 Docusate Sodium 100 Mg Capsule PO DAILY NELIA Donepezil HCl 10 mg 04/12/24 21:00 04/12/24 20:44 Donepezil Hcl 10 Mg Tablet PO 10 mg HS NELIA Administration Dorzolamide/Timolol 1 drop 04/12/24 21:00 04/12/24 20:44 Dorzolamide/Timolol Ophth Erin 10 Ml Bottle EACH EYE 1 drop Q12HR NELIA Administration Gabapentin 600 mg 04/12/24 17:00 Gabapentin 300 Mg Capsule PO BID NELIA Sodium Chloride 1,000 mls @ 50 mls/hr 04/13/24 08:25 Normal Saline Iv IV CONT 04/13/24 16:24 .Q20H NELIA Cefazolin Sodium 1 gm in 50 mls @ 100 mls/hr 04/13/24 14:00 Ancef 1 Gm/Ns 50 Ml IVPB 04/13/24 22:29 Q8H NELIA Latanoprost 1 drop 04/12/24 21:00 04/12/24 20:44 Latanoprost 0.005% Op Soln 2.5 Ml Btl EACH EYE 1 drop HS NELIA Administration Levothyroxine Sodium 125 mcg 04/13/24 06:30 04/13/24 06:55 Levothyroxine Sodium 125 Mcg Tablet PO Not Given DAILY@0630 NELIA Melatonin 10 mg 04/13/24 00:26 04/13/24 00:45 Melatonin 5 Mg Tablet PO 10 mg HS PRN Administration Insomnia Memantine 28 mg 04/12/24 21:00 04/12/24 20:44 Memantine Hcl Xr 28 Mg Cap PO 28 mg HS NELIA Administration Perflutren Lipid Microsphere 0 ml 04/12/24 10:31 Perflutren Lipid Microspheres 1.5 Ml Vial Diluted To 10 Ml Total Volume IV PUSH 04/15/24 10:31 ONCE PRN adequate visualization Protocol Solifenacin 10 mg 04/13/24 09:00 Solifenacin 5 Mg Tablet PO DAILY [facility] Radiology Results: ITS Impressions Chest X-Ray 04/13/24 09:09 IMPRESSION: Bilateral basal atelectasis versus pneumonia. Bilateral interstitial changes suggestive of underlying fibrotic changes with possible superimposed pneumonitis versus pulmonary edema. Clinical correlation advised. Labs Labs: Laboratory Results - last 24 hr 04/12/24 04/13/24 04/13/24 10:14 04:37 04:38 WBC 5.2 5.9 RBC 3.77 L 3.86 L Hgb 12.5 L 12.7 L Hct 37.4 L 37.0 L MCV 99.2 95.9 MCH 33.2 32.9 MCHC 33.4 34.3 RDW 11.5 11.3 L Plt Count 219 224 MPV 9.1 8.8 Immature Gran % (Auto) 0.4 0.5 Neut % (Auto) 69.8 62.8 Lymph % (Auto) 16.2 L 22.4 Finney % (Auto) 9.0 H 9.7 H Eos % (Auto) 4.2 4.1 Baso % (Auto) 0.4 0.5 Lymph # (Auto) 0.84 L 1.32 Finney # (Auto) 0.5 0.6 Eos # (Auto) 0.2 0.2 Baso # (Auto) 0.0 0.0 Abs Immat Gran (auto) 0.02 0.03 Absolute Neuts (auto) 3.6 3.7 Absolute Nucleated RBC 0.000 0.000 Nucleated RBC % 0.0 0.0 PT 14.0 14.8 H INR 1.0 1.1 APTT 26.0 26.8 Sodium 139 140 Potassium 4.5 4.6 Chloride 103 106 Carbon Dioxide 26 29 Anion Gap 10 5 BUN 40 H 35 H Creatinine 2.00 H 1.70 H Estim Creat Clear Calc 26 31 Estimated GFR 32 L 39 L Glucose 119 H 103 Calcium 9.1 9.5 Phosphorus 4.5 Magnesium 2.9 H 2.6 H Total Bilirubin 0.4 AST 32 ALT 39 Alkaline Phosphatase 74 NT-Pro-B Natriuret Pep 336 H Total Protein 7.0 Albumin 3.9 TSH (Reflex) 2.620
[2024-04-13] MEDS: SODIUM CHLORIDE 0.9% IV 1,000 ML 50 ML IV CONT (10:44)
[2024-04-13] MEDS: DORZOLAMIDE/TIMOLOL OPHTH SOL 10 ML BOTTLE 1 DROP EACH EYE ×2 (10:44→21:08)
[2024-04-13] MEDS: DOCUSATE SODIUM 100 MG CAPSULE PO (10:45)
[2024-04-13] MEDS: SOLIFENACIN 5 MG TABLET 10 MG PO (10:45)
[2024-04-13] MEDS: HYDROcodone/acetaminophen (*CRX) 5-325 MG TABLET 1 TAB PO ×2 (12:50→18:30)
[2024-04-13] MEDS: amLODIPine BESYLATE 5 MG TABLET PO (12:51)
[2024-04-13] MEDS: ceFAZolin 1 GM/NS 50 ML 1 GM/50 ML BAG IVPB ×2 (13:51→21:07)
[2024-04-13] MEDS: traZODone HCL 50 MG TABLET PO (21:07)
[2024-04-13] MEDS: MEMANTINE HCL XR 28 MG CAP PO (21:07)
[2024-04-13] MEDS: DONEPEZIL HCL 10 MG TABLET PO (21:07)
[2024-04-13] MEDS: LATANOPROST 0.005% OP SOLN 2.5 ML BTL 1 DROP EACH EYE (21:08)
[2024-04-14] VITALS (10 sets, daily range): BP systolic 143–163; BP diastolic 77–97; PULSE 60; RESP 16–24; TEMP 36.5–37.1; O2SAT 96–98
[2024-04-14] MEDS: LEVOTHYROXINE SODIUM 125 MCG TABLET PO (05:23)
[2024-04-14] MEDS: DORZOLAMIDE/TIMOLOL OPHTH SOL 10 ML BOTTLE 1 DROP EACH EYE (08:21)
[2024-04-14] MEDS: DOCUSATE SODIUM 100 MG CAPSULE PO (08:22)
[2024-04-14] MEDS: SOLIFENACIN 5 MG TABLET 10 MG PO (08:22)
[2024-04-14] MEDS: amLODIPine BESYLATE 5 MG TABLET PO (08:22)
--- NOTE | 2024-04-14 10:22 | PM.PNCARD ---
Progress Note: A&P Assessment and Plan (1) Bradycardia, sinus: Code(s): R00.1 - Bradycardia, unspecified Status: Acute Assessment and Plan: Now s/p dual chamber PPM yesterday. Uncomplicated procedure. He is feeling well this morning. Pacemaker appears to be functioning normally and his chest Xray this morning did not demonstrate any pneumothorax. He is stable for discharge today from my point of view. (2) Hypertension: Qualifiers: Hypertension type: primary hypertension Qualified Code(s): I10 - Essential (primary) hypertension Code(s): I10 - Essential (primary) hypertension Status: Acute Assessment and Plan: Stable (3) Hyperlipidemia: Qualifiers: Hyperlipidemia type: mixed hyperlipidemia Qualified Code(s): E78.2 - Mixed hyperlipidemia Code(s): E78.5 - Hyperlipidemia, unspecified Status: Acute Assessment and Plan: Continue statin. (4) CKD (chronic kidney disease): Qualifiers: Chronic kidney disease stage: stage 2 (mild) Qualified Code(s): N18.2 - Chronic kidney disease, stage 2 (mild) Code(s): N18.9 - Chronic kidney disease, unspecified Status: Acute Assessment and Plan: Monitor renal function (5) Hypothyroidism (acquired): Code(s): E03.9 - Hypothyroidism, unspecified Status: Acute Assessment and Plan: 2.620 Subjective Date/time seen: 04/14/24 10:22 Interval history: Cardiology follow up for syncope, CHB, s/p PPM Feels well this morning and has no complaints. Wants to go home. No shortness of breath or chest pain. Review of Systems Review of Systems: All systems reviewed & are unremarkable except as noted in HPI and below (HPI) Exam Const: General: no acute distress HENMT: Mouth: Yes moist mucous membranes Eyes: General: appearance normal, both eyes and all related structures Sclera: sclerae normal Chest: Other: left pectoral incision covered with sterile dressing which is clean, dry, and intact. No hematoma. Resp: Effort & Inspection: normal respiratory effort Cardio: Rate: bradycardic Rhythm: regular rhythm Heart sounds: no murmurs Skin: General skin exam: normal color Neuro: Speech: normal speech Psych: Mental Status: mental status grossly normal Affect: normal affect Objective Data Vital Signs Vital Signs: Vital Signs - 24 hr 04/13/24 14:09 04/13/24 12:30 04/13/24 14:00 Temperature 37.1 C Pulse Rate 60 60 60 Respiratory Rate 16 Blood Pressure 128/74 Pulse Oximetry 98 Oxygen Delivery 04/13/24 16:00 04/13/24 18:00 04/13/24 20:00 Temperature 36.2 C L Pulse Rate 60 60 60 Respiratory Rate 16 Blood Pressure 136/78 Pulse Oximetry 100 Oxygen Delivery 04/13/24 20:00 04/13/24 20:00 04/13/24 21:35 Temperature Pulse Rate 60 60 60 Respiratory Rate 16 Blood Pressure Pulse Oximetry 100 Oxygen Delivery Room Air 04/13/24 23:34 04/13/24 23:34 04/14/24 00:00 Temperature 36.5 C Pulse Rate 64 64 60 Respiratory Rate 16 16 Blood Pressure 150/82 H Pulse Oximetry 100 96 Oxygen Delivery Room Air 04/14/24 02:00 04/13/24 23:00 04/14/24 03:45 Temperature Pulse Rate 60 Respiratory Rate Blood Pressure Pulse Oximetry Oxygen Delivery Autopap Autopap 04/14/24 04:00 04/14/24 04:00 04/14/24 04:00 Temperature 36.6 C Pulse Rate 60 60 60 Respiratory Rate 18 18 Blood Pressure 163/97 H Pulse Oximetry 97 97 Oxygen Delivery Autopap 04/14/24 05:36 04/14/24 07:59 04/14/24 08:00 Temperature 37.1 C Pulse Rate 60 60 60 Respiratory Rate 20 20 Blood Pressure 149/77 H Pulse Oximetry 98 98 Oxygen Delivery Room Air 04/14/24 08:00 04/14/24 08:50 Temperature Pulse Rate 60 Respiratory Rate Blood Pressure Pulse Oximetry 97 Oxygen Delivery Room Air Intake/Output Intake/Output: Intake & Output 04/11/24 04/12/24 04/13/24 04/14/24 23:59 23:59 23:59 23:59 Intake Total 1200 2230 2130 Output Total 339 3400 2750 Balance 324 -9140 -188 Meds/Results Medications: Active Medications Generic Name Dose Route Start Last Admin Trade Name Freq PRN Reason Stop Dose Admin Acetaminophen 650 mg 04/12/24 12:28 Acetaminophen 325 Mg Tablet PO Q4H PRN Mild Pain (1-3) or Fever Hydrocodone Bitart/Acetaminophen 1 tab 04/12/24 12:28 04/13/24 18:30 Hydrocodone/Acetaminophen (*Crx) 5-325 Mg Tablet PO 1 tab Q4H PRN Administration Moderate Pain (4-6) Amlodipine Besylate 5 mg 04/13/24 11:40 04/14/24 08:22 Amlodipine Besylate 5 Mg Tablet PO 5 mg DAILY NELIA Administration Docusate Sodium 100 mg 04/13/24 09:00 04/14/24 08:22 Docusate Sodium 100 Mg Capsule PO 100 mg DAILY NELIA Administration Donepezil HCl 10 mg 04/12/24 21:00 04/13/24 21:07 Donepezil Hcl 10 Mg Tablet PO 10 mg HS NELIA Administration Dorzolamide/Timolol 1 drop 04/12/24 21:00 04/14/24 08:21 Dorzolamide/Timolol Ophth Erin 10 Ml Bottle EACH EYE 1 drop Q12HR NELIA Administration Gabapentin 600 mg 04/12/24 17:00 Gabapentin 300 Mg Capsule PO BID NELIA Latanoprost 1 drop 04/12/24 21:00 04/13/24 21:08 Latanoprost 0.005% Op Soln 2.5 Ml Btl EACH EYE 1 drop HS NELIA Administration Levothyroxine Sodium 125 mcg 04/13/24 06:30 04/14/24 05:23 Levothyroxine Sodium 125 Mcg Tablet PO 125 mcg DAILY@0630 NELIA Administration Melatonin 10 mg 04/13/24 00:26 04/13/24 00:45 Melatonin 5 Mg Tablet PO 10 mg HS PRN Administration Insomnia Memantine 28 mg 04/12/24 21:00 04/13/24 21:07 Memantine Hcl Xr 28 Mg Cap PO 28 mg HS NELIA Administration Perflutren Lipid Microsphere 0 ml 04/12/24 10:31 Perflutren Lipid Microspheres 1.5 Ml Vial Diluted To 10 Ml Total Volume IV PUSH 04/15/24 10:31 ONCE PRN adequate visualization Protocol Solifenacin 10 mg 04/13/24 09:00 04/14/24 08:22 Solifenacin 5 Mg Tablet PO 10 mg DAILY NELIA Administration Trazodone HCl 50 mg 04/13/24 11:36 04/13/24 21:07 Trazodone Hcl 50 Mg Tablet PO 50 mg HS PRN Administration Insomnia Radiology Results: ITS Impressions Chest X-Ray 04/14/24 08:45 IMPRESSION: 1. Dual-lead cardiac pacemaker in expected position. No acute cardiopulmonary disease. Quality VTE Prophylaxis VTE prophylaxis: mechanical ordered and pharmacologic ordered
--- NOTE | 2024-04-14 11:26 | P.PNIM_ITS ---
Progress Note: A&P Assessment and Plan (1) Episode of syncope: Code(s): R55 - Syncope and collapse Status: Acute Plan 83-year-old male past medical history of chronic kidney disease, hypothyroidism, and hyperlipidemia presenting emergency department for evaluation for unresponsiveness. On assessment patient is awake and oriented however is a poor historian and cannot give much details about what happened today. Per the ED notes the patient's son had knows the patient was responding on the video camera so he called 911. When EMS arrived the patient was unresponsive the bradycardic, they started patient transcutaneous pacing on the patient at 70 beats per minute and the patient became responsive. Per the ED the patient got 3 total doses of atropine. Cardiogenic syncope Patient was found unresponsive, and bradycardia, Symptomatic bradycardia Cardiology consulted Patient is found have sick sinus syndrome Pacemaker is placed Echocardiogram 1. Left ventricular chamber dimension is normal. 2. Left ventricular systolic function is normal, estimated at 60-65%. 3. There is mildly increased left ventricular wall thickness. 4. The left ventricular diastolic function is grade I diastolic dysfunction. 5. Right ventricular systolic function is normal. 6. Left atrial chamber dimension is moderately enlarged. 7. There is mild mitral valve regurgitation. 8. There is mild tricuspid valve regurgitation. TSH within normal limits YASHIRA on CKD Acute on chronic Baseline around 1.6, on admission 2.0 Hold gabapentin Possible due to poor perfusion of kidney Pacemaker is placed Creatinine is trending down Dementia: Code(s): F03.90 - Unspecified dementia, unspecified severity, without behavioral disturbance, psychotic disturbance, mood disturbance, and anxiety Status: Acute Assessment and Plan: Continue Aricept Not oriented x3 Possible baseline Hypertension: Qualifiers: Hypertension type: primary hypertension Qualified Code(s): I10 - Essential (primary) hypertension Code(s): I10 - Essential (primary) hypertension Status: Acute Assessment and Plan: BP on admission 115/57 Continue Valsartan 300 mg daily p.o. and amlodipine 5 mg daily p.o. Incidental pulmonary nodule: Code(s): R91.1 - Solitary pulmonary nodule Status: Acute Assessment and Plan: Nodule in the right midzone. [address] follow-up advised. With primary care provider (6) Hypothyroidism (acquired): Code(s): E03.9 - Hypothyroidism, unspecified Status: Acute Assessment and Plan: TSH within normal limits Continue home levothyroxine Subjective Date/time seen: 04/14/24 11:26 Interval history: I saw and examined patient today, patient denies chest pain, palpitation, lightheadedness, also denies abdomen pain, nausea vomiting diarrhea. Patient afebrile, blood pressure stable, Exam Narrative: GENERAL: Pleasant, in no acute distress. Well-nourished. - EYES: EOMI. Anicteric. - HENT: Moist mucous membranes. - LUNGS: Clear to auscultation bilateral ly, no wheezing, rhonchi, or rales. - CARDIOVASCULAR: Regular rate and rhyth m. No murmur. No JVD. Pacemaker pocket is in left chest, dressings dry and clean - ABDOMEN: Soft, non-tender and non-dist ended. No palpable masses. - EXTREMITIES: No edema. Peripheral puls es 2+. Non-tender. - NEUROLOGIC: No focal neurological defi cits. CN II-XII grossly intact. - PSYCHIATRIC: Awake, Alert but not juliana ented x 3. Appropriate mood and affect. - SKIN: No rashes or lesions. Warm. - LYMPH: No cervical lymphadenopathy. Objective Data Vital Signs Vital Signs: Vital Signs - 24 hr 04/13/24 14:09 04/13/24 12:30 04/13/24 14:00 Temperature 98.8 F Pulse Rate 60 60 60 Respiratory Rate 16 Blood Pressure 128/74 Pulse Oximetry 98 Oxygen Delivery 04/13/24 16:00 04/13/24 18:00 04/13/24 20:00 Temperature 97.1 F L Pulse Rate 60 60 60 Respiratory Rate 16 Blood Pressure 136/78 Pulse Oximetry 100 Oxygen Delivery 04/13/24 20:00 04/13/24 20:00 04/13/24 21:35 Temperature Pulse Rate 60 60 60 Respiratory Rate 16 Blood Pressure Pulse Oximetry 100 Oxygen Delivery Room Air 04/13/24 23:34 04/13/24 23:34 04/14/24 00:00 Temperature 97.7 F Pulse Rate 64 64 60 Respiratory Rate 16 16 Blood Pressure 150/82 H Pulse Oximetry 100 96 Oxygen Delivery Room Air 04/14/24 02:00 04/13/24 23:00 04/14/24 03:45 Temperature Pulse Rate 60 Respiratory Rate Blood Pressure Pulse Oximetry Oxygen Delivery Autopap Autopap 04/14/24 04:00 04/14/24 04:00 04/14/24 04:00 Temperature 98 F Pulse Rate 60 60 60 Respiratory Rate 18 18 Blood Pressure 163/97 H Pulse Oximetry 97 97 Oxygen Delivery Autopap 04/14/24 05:36 04/14/24 07:59 04/14/24 08:00 Temperature 98.8 F Pulse Rate 60 60 60 Respiratory Rate 20 20 Blood Pressure 149/77 H Pulse Oximetry 98 98 Oxygen Delivery Room Air 04/14/24 08:00 04/14/24 08:50 04/14/24 10:00 Temperature Pulse Rate 60 60 Respiratory Rate Blood Pressure Pulse Oximetry 97 Oxygen Delivery Room Air 04/14/24 11:17 Temperature 98.3 F Pulse Rate 60 Respiratory Rate 24 H Blood Pressure 143/82 H Pulse Oximetry 97 Oxygen Delivery Intake/Output Intake/Output: Intake & Output 04/11/24 04/12/24 04/13/24 04/14/24 23:59 23:59 23:59 23:59 Intake Total 1200 2230 2130 Output Total 650 3400 2750 Balance 550 -6528 -700 Meds/Results Medications: Active Medications Generic Name Dose Route Start Last Admin Trade Name Freq PRN Reason Stop Dose Admin Acetaminophen 650 mg 04/12/24 12:28 Acetaminophen 325 Mg Tablet PO Q4H PRN Mild Pain (1-3) or Fever Hydrocodone Bitart/Acetaminophen 1 tab 04/12/24 12:28 04/13/24 18:30 Hydrocodone/Acetaminophen (*Crx) 5-325 Mg Tablet PO 1 tab Q4H PRN Administration Moderate Pain (4-6) Amlodipine Besylate 5 mg 04/13/24 11:40 04/14/24 08:22 Amlodipine Besylate 5 Mg Tablet PO 5 mg DAILY NELIA Administration Docusate Sodium 100 mg 04/13/24 09:00 04/14/24 08:22 Docusate Sodium 100 Mg Capsule PO 100 mg DAILY NELIA Administration Donepezil HCl 10 mg 04/12/24 21:00 04/13/24 21:07 Donepezil Hcl 10 Mg Tablet PO 10 mg HS NELIA Administration Dorzolamide/Timolol 1 drop 04/12/24 21:00 04/14/24 08:21 Dorzolamide/Timolol Ophth Erin 10 Ml Bottle EACH EYE 1 drop Q12HR NELIA Administration Gabapentin 600 mg 04/12/24 17:00 Gabapentin 300 Mg Capsule PO BID NELIA Latanoprost 1 drop 04/12/24 21:00 04/13/24 21:08 Latanoprost 0.005% Op Soln 2.5 Ml Btl EACH EYE 1 drop HS NELIA Administration Levothyroxine Sodium 125 mcg 04/13/24 06:30 04/14/24 05:23 Levothyroxine Sodium 125 Mcg Tablet PO 125 mcg DAILY@0630 NELIA Administration Melatonin 10 mg 04/13/24 00:26 04/13/24 00:45 Melatonin 5 Mg Tablet PO 10 mg HS PRN Administration Insomnia Memantine 28 mg 04/12/24 21:00 04/13/24 21:07 Memantine Hcl Xr 28 Mg Cap PO 28 mg HS NELIA Administration Perflutren Lipid Microsphere 0 ml 04/12/24 10:31 Perflutren Lipid Microspheres 1.5 Ml Vial Diluted To 10 Ml Total Volume IV PUSH 04/15/24 10:31 ONCE PRN adequate visualization Protocol Solifenacin 10 mg 04/13/24 09:00 04/14/24 08:22 Solifenacin 5 Mg Tablet PO 10 mg DAILY NELIA Administration Trazodone HCl 50 mg 04/13/24 11:36 04/13/24 21:07 Trazodone Hcl 50 Mg Tablet PO 50 mg HS PRN Administration Insomnia Radiology Results: ITS Impressions Chest X-Ray 04/14/24 08:45 IMPRESSION: 1. Dual-lead cardiac pacemaker in expected position. No acute cardiopulmonary disease.
--- NOTE | 2024-04-14 11:29 | P.DS_ITS ---
DS: Admitting Diagnosis Discharge Date 04/14 Admitting Diagnosis (1) Episode of syncope: Code(s): R55 - Syncope and collapse Status: Acute DS: Discharge Diagnosis Discharge Diagnosis (1) Episode of syncope: Code(s): R55 - Syncope and collapse Status: Acute DS: Summary Hospital Course Hospital Course: 83-year-old male past medical history of chronic kidney disease, hypothyroidism, and hyperlipidemia presenting emergency department for evaluation for unresponsiveness. On assessment patient is awake and oriented however is a poor historian and cannot give much details about what happened today. Per the ED notes the patient's son had knows the patient was responding on the video camera so he called 911. When EMS arrived the patient was unresponsive the bradycardic, they started patient transcutaneous pacing on the patient at 70 beats per minute and the patient became responsive. Per the ED the patient got 3 total doses of atropine. The following med issues have been addressed during hospitalization Cardiogenic syncope Patient was found unresponsive, and bradycardia, Symptomatic bradycardia Cardiology consulted Patient is found have sick sinus syndrome Pacemaker is placed Echocardiogram 1. Left ventricular chamber dimension is normal. 2. Left ventricular systolic function is normal, estimated at 60-65%. 3. There is mildly increased left ventricular wall thickness. 4. The left ventricular diastolic function is grade I diastolic dysfunction. 5. Right ventricular systolic function is normal. 6. Left atrial chamber dimension is moderately enlarged. 7. There is mild mitral valve regurgitation. 8. There is mild tricuspid valve regurgitation. TSH within normal limits YASHIRA on CKD Acute on chronic Baseline around 1.6, on admission 2.0 Hold gabapentin Possible due to poor perfusion of kidney Pacemaker is placed Creatinine is trending down Dementia: Code(s): F03.90 - Unspecified dementia, unspecified severity, without behavioral disturbance, psychotic disturbance, mood disturbance, and anxiety Status: Acute Assessment and Plan: Continue Aricept Not oriented x3 Possible baseline Hypertension: Qualifiers: Hypertension type: primary hypertension Qualified Code(s): I10 - Essential (primary) hypertension Code(s): I10 - Essential (primary) hypertension Status: Acute Assessment and Plan: BP on admission 115/57 Continue Valsartan 300 mg daily p.o. and amlodipine 5 mg daily p.o. Incidental pulmonary nodule: Code(s): R91.1 - Solitary pulmonary nodule Status: Acute Assessment and Plan: Nodule in the right midzone. [address] follow-up advised. With primary care provider (6) Hypothyroidism (acquired): Code(s): E03.9 - Hypothyroidism, unspecified Status: Acute Assessment and Plan: TSH within normal limits Continue home levothyroxine Time Spent with Patient Time attestation: Total time spent providing and/or coordinating discharge services: Exam Narrative: GENERAL: Pleasant, in no acute distress. Well-nourished. - EYES: EOMI. Anicteric. - HENT: Moist mucous membranes. - LUNGS: Clear to auscultation bilateral ly, no wheezing, rhonchi, or rales. - CARDIOVASCULAR: Regular rate and rhyth m. No murmur. No JVD. Pacemaker pocket is in left chest, dressings dry and clean - ABDOMEN: Soft, non-tender and non-dist ended. No palpable masses. - EXTREMITIES: No edema. Peripheral puls es 2+. Non-tender. - NEUROLOGIC: No focal neurological defi cits. CN II-XII grossly intact. - PSYCHIATRIC: Awake, Alert but not juliana ented x 3. Appropriate mood and affect. - SKIN: No rashes or lesions. Warm. - LYMPH: No cervical lymphadenopathy. Discharge Plan Discharge Attending physician on discharge: Connie Collier Consulting providers: Renetta Saleh Discharging Clinician: Connie Collier Anticipated Discharge Date/Time: 04/14/24 00:29 Patient Disposition: Home, Self-Care Activity: as tolerated Diet: heart healthy Discharge Instructions: [facility] [address] [place] [address] DISCHARGE INSTRUCTIONS - POST PACEMAKER Activity 1. No driving until you are seen in the office for your incision check. 2. No lifting, pushing or pulling more than 5 pounds with affected arm for 1 MONTH 3. No lifting affected arm above shoulder height for 1 MONTH 4. Wear immobilizer/sling only if you are unable to remember the above activity restrictions. Recommend that it be worn at night. 5. You may shower AFTER you are seen for incision check but no tub baths, swimming pool or hot tub for 1MONTH Wound Care 1. Do not attempt to remove the Aquacel dressing. Leave dressing undisturbed until incision check at the office visit. Keep dressing dry. 2. When you are able to shower AFTER you are seen for your incision check in the office do not rub or scrub the incision. Pat dry after shower. NO lotions, powders, creams or ointments are to be applied to the incision 3. A small amount of tenderness, puffiness and bruising around the site is normal. Call if any significant pain, drainage, swelling, or redness around the site 4. Woman: Wear a bra to support the breast tissue and avoid pulling on the incision. Pad the bra strap if necessary with soft smooth cloth. *For any other questions please call the office at [phone]. Office hours are 8AM 4:30PM Thursday through Thursday. Patient Instructions: Antibiotic Form, Moderate Sedation (DC), Pacemaker (DC), Pacemaker (GEN) Follow-up/Referrals: Renetta Saleh MD [Physician] - (04/20/2024 at 8:00. Arrive at 7:45.) Discharge Medications: Continued melatonin 10 mg capsule 10 mg PO QHS PRN (Reason: Sleep) latanoprost 0.005 % drops 1 drop EACH EYE HS Hold Instructions: Patient no longer taking tizanidine 4 mg capsule 4 mg PO TID PRN (Reason: muscle spasticity) Qty: 45 0RF multivitamin Tablet 1 tablet PO QACLUNCH coenzyme Q10 [CoQ-10] 100 mg Capsule 100 mg PO HS amlodipine 10 mg Tablet 10 mg PO DAILY ascorbic acid (vitamin C) 500 mg capsule 1,000 mg PO 1200 (DME) Electric Scooter Wheel Chair See Rx Instructions .Route .MEDSUPPLY Qty: 1 0RF Rx Instructions: As directed (DME) syringe with needle 3 mL 18 x 1 1/2 syringe See Rx Instructions .Route Qty: 6 2RF Rx Instructions: BD syringe with needle/Use 1 syringe every 2 weeks to draw up Testosterone trazodone 50 mg Tablet 50 mg PO HS PRN (Reason: Sleep) lactulose 10 gram/15 mL Solution 15 ml PO HS PRN (Reason: Constipation) dorzolamide-timolol (PF) 2-0.5 % Dropperette 1 drp EACH EYE BID cranberry 450 mg Tablet 450 mg PO HS Rx Instructions: administer with a meal magnesium oxide 400 mg magnesium Tablet 400 mg PO HS donepezil 10 mg tablet 10 mg PO HS levothyroxine 125 mcg tablet 125 mcg PO QAM valsartan 320 mg tablet 320 mg PO DAILY solifenacin 10 mg tablet 10 mg PO DAILY memantine 28 mg capsule,sprinkle,ER 24hr 28 mg PO HS atorvastatin 40 mg Tablet 40 mg PO HS 30 Days Qty: 30 0RF gabapentin [Neurontin] 300 mg Capsule 600 mg PO BID 30 Days Qty: 120 0RF Date of admission: 04/13/24 08:24 Primary Care Provider: Gabriele Candelario Admitting Provider: Sixto Schrader Attending physician on admission: Sixto Schrader Condition: Serious
== END 2024-04-14 13:30 | disposition home or self-care (01) | DRG 243 ==
LOC: ANHED 11:46 → ANHIMU 12:13
PROVIDERS: Nurse Practitioner Gerontology; Specialist; Admitting Provider Internal Medicine; Emergency Provider Emergency Medicine; PCP Internal Medicine; Visit Provider Hospitalist
PROC: 0JH606Z Insertion of Pacemaker, Dual Chamber into Chest Subcutaneous Tissue and Fascia, Open Approach (ICD-10-PCS; CPT 33208; principal; 2024-04-13 07:00)
DX: I49.5 Sick sinus syndrome (principal); N17.9 Acute kidney failure, unspecified; R00.1 Bradycardia, unspecified; R55 Syncope and collapse; I12.9 Hypertensive chronic kidney disease with stage 1 through stage 4 chronic kidney disease, or unspecified chronic kidney disease; N18.2 Chronic kidney disease, stage 2 (mild); F03.90 Unspecified dementia, unspecified severity, without behavioral disturbance, psychotic disturbance, mood disturbance, and anxiety; R91.1 Solitary pulmonary nodule; E03.9 Hypothyroidism, unspecified; N18.9 Chronic kidney disease, unspecified; H40.9 Unspecified glaucoma; G25.81 Restless legs syndrome; H35.30 Unspecified macular degeneration; E78.5 Hyperlipidemia, unspecified; F41.8 Other specified anxiety disorders; M15.0 Primary generalized (osteo)arthritis; G47.33 Obstructive sleep apnea (adult) (pediatric); Z86.16 Personal history of COVID-19
CPT/HCPCS: 33208; 36415; 71045; 71046; 80048; 80053; 83735; 83880; 84100; 84443; 85025; 85610; 85730; 93005; 93306; 96374; 99285; A9270; C1779; C1785; G0378; J0461; J0690; J2003; J2250; J3010; J7030; J7040

== ENCOUNTER 2024-06-16 14:12 | Outpatient (CLI) | payer MEDICARE, SELFPAY ==
[2024-06-16 14:58] LABS: Basophils Absolute Auto 0.1 K/mm3 (0.0-0.1); Basophils Percent Auto 0.8 % (0.2-1.2); Eosinophils Absolute Auto 0.5 K/mm3 (0-0.3); Eosinophils Percent Auto 7.3 % (0-4.4); Hematocrit 34.6 % (42.0-52.0); Hemoglobin 11.9 g/dL (14.0-18.0); Immature Granulocyte Absolute 0.04 K/mm3 (0.00-0.031); Immature Granulocyte Percent A 0.6 % (0-0.5); Lymphocytes Percent Auto 22.3 % (18.3-44.2); Mean Corpuscular HGB Conc 34.4 g/dl (32-36); Mean Corpuscular Volume 98.9 fl (80-100); Mean Platelet Volume 9.3 fl (7.4-10.4); Monocytes Absolute Auto 0.5 K/mm3 (0.1-0.6); Monocytes Percent Auto 7.8 % (2.6-8.5); Neutrophils Absolute Auto 3.9 K/mm3 (1.3-6.7); Neutrophils Percent Auto 61.2 % (45.5-73.1); Platelet Count Result 147 k/mm3 (150-375); Red Cell Distribution Width 13.6 % (11.5-14.5); White Blood Count 6.3 K/mm3 (4.5-10.0)
[2024-06-16 15:09] LABS: Alanine Aminotransferase 26 U/L (6-50); Albumin Level 4.1 g/dL (3.5-5.1); Alkaline Phosphatase 84 U/L (38-126); Anion Gap 8 mmol/L (4-12); Aspartate Amino Transferase 33 U/L (17-59); Bilirubin,Total 0.6 mg/dL (0.2-1.3); Blood Urea Nitrogen 28 mg/dL (9-20); Calcium 9.3 mg/dL (8.4-10.2); Carbon Dioxide 26 mmol/L (22-30); Chloride 105 mmol/L (98-107); Cholesterol 142 mg/dL (0-200); Estimated Glomerular Filt Rate 37; Glucose 125 mg/dL (65-110); HDL Direct 39 mg/dL; Potassium 4.5 mmol/L (3.4-5.0); Sodium 139 mmol/L (137-145); Triglycerides 244 mg/dL (<150)
[2024-06-16 15:20] LABS: LDL Cholesterol Direct 73 mg/dL
[2024-06-16 16:15] LABS: Folic Acid 8.5 ng/mL (2.76->20)
[2024-06-16 17:38] LABS: Free T4 Free Thyroxine 1.04 ng/dL (0.78-2.19)
[2024-06-16 18:32] LABS: Hemoglobin A1C 5.3 % (<5.7)
== END 2024-06-16 14:13 | disposition home or self-care (01) ==
PROVIDERS: PCP Internal Medicine; Visit Provider Internal Medicine
DX: E55.9 Vitamin D deficiency, unspecified (principal); I12.9 Hypertensive chronic kidney disease with stage 1 through stage 4 chronic kidney disease, or unspecified chronic kidney disease; N18.2 Chronic kidney disease, stage 2 (mild); R73.03 Prediabetes; E53.8 Deficiency of other specified B group vitamins; E78.5 Hyperlipidemia, unspecified; E03.9 Hypothyroidism, unspecified; Z79.899 Other long term (current) drug therapy
CPT/HCPCS: 36415; 80053; 80061; 82306; 82607; 82746; 83036; 84439; 84443; 85025

== ENCOUNTER 2024-06-30 08:33 | Outpatient (CLI) | payer MEDICARE, SELFPAY ==
--- NOTE | ~2024-06-30 | CT_ITS ---
EXAMINATION:CT diagnostic chest wo con DATE: 06/30/2024 08:54 INDICATION: Solitary pulmonary nodule. TECHNIQUE: Computed tomography (CT) of the chest was performed without intravenous contrast. Automate d exposure control and iterative reconstruction technique were employed. The dose-length product (DLP ) was 154.03 mGy-cm. COMPARISON: Chest CT 12/26/16 FINDINGS: The lungs demonstrate mild atelectasis. There is a 2 mm nodule in left upper lobe, likely b enign. No pleural effusion. Cardiomegaly is noted. There are coronary artery calcifications. No peric ardial effusion. There is a left chest wall pacer with leads in the right atrium and right ventricle. There is internal fixation of right humerus. There are bridging endplate osteophytes at multiple lev els in the spine, consistent with diffuse idiopathic skeletal hyperostosis (DISH). There is chronic a nterior wedging of T11 and T12 vertebral bodies. There is a hemangioma in T7 vertebral body. IMPRESSION: 1. Small pulmonary nodule, likely benign. Reviewed, dictated and finalized at location [facility]. [facility]
== END 2024-06-30 08:34 | disposition home or self-care (01) ==
LOC: GOSHIMG 08:33
PROVIDERS: PCP Internal Medicine; Visit Provider Internal Medicine
DX: R91.1 Solitary pulmonary nodule (principal); R91.8 Other nonspecific abnormal finding of lung field
CPT/HCPCS: 71250

== ENCOUNTER 2024-09-06 10:52 | Emergency (ER) | payer MEDICARE, SELFPAY ==
--- NOTE | 2024-09-06 10:56 | ED_ITS ---
HPI - Fall General Chief Complaint: Head Injury Stated Complaint: Head Injury Time Seen by Provider: 09/06/24 10:52 Source: patient, RN notes reviewed and old records reviewed Mode of arrival: ambulatory Limitations: no limitations History of Present Illness HPI Narrative: 83-year-old male presents to the [facility] with a head injury. Patient has a history of dementia, not a very good historian. Presents with family friend who reports that they received a call about 945 last night, states the fall occurred in a parking lot between 8 and 9 last night. States they did clean the wound with Peroxide. Multiple abrasions noted to the right forehead with an open wound, serous sanguinous drainage noted. Unsure exactly how or why he fell, patient history of dementia, poor historian Patient is denying any pain at this time. Onset (ago): hour(s) (-) Related Data Home Medications ?Medication ?Instructions ?Recorded ?Confirmed ?Last Taken ?Type latanoprost 0.005 % eye drops 1 drop ophthalmic (eye) HS 04/21/19 06/22/24 06/22/23 History ascorbic acid (vitamin C) 500 mg 1,000 mg PO 1200 09/25/21 06/22/24 04/12/24 History capsule melatonin 10 mg capsule 10 mg PO QHS PRN Sleep 06/04/22 06/22/24 04/12/24 History coenzyme Q10 100 mg capsule 100 mg PO HS 05/14/23 06/22/24 04/12/24 History (CoQ-10) multivitamin 1 tablet PO QACLUNCH 05/14/23 06/22/24 04/12/24 History cranberry fruit 450 mg tablet 450 mg PO HS 03/30/24 06/22/24 04/12/24 History (cranberry) dorzolamide-timolol (PF) 2 %-0.5 % 1 drp EACH EYE BID 03/30/24 06/22/24 04/12/24 History eye drops in a dropperette lactulose 10 gram/15 mL oral 15 ml PO HS PRN Constipation 03/30/24 06/22/24 Unknown History solution levothyroxine 125 mcg tablet 125 mcg PO QAM 03/30/24 06/22/24 04/12/24 History magnesium oxide 400 mg PO HS 03/30/24 06/22/24 04/12/24 History trazodone 50 mg tablet 50 mg PO HS PRN Sleep 03/30/24 06/22/24 04/12/24 History Allergies Allergy/AdvReac Type Severity Reaction Status Date / Time No Known Allergies Allergy Unknown Verified 09/06/24 16:16 Review of Systems 2 Review of Systems: All systems reviewed & are unremarkable except as noted in HPI and below Constitutional: Constitutional: Reports no additional constitutional complaints ENT: Reports system reviewed and no additional complaints, except as documented Cardiovascular: Cardiovascular: Reports no additional cardiovascular complaints, Denies chest pain and Denies dyspnea Respiratory: Respiratory: Reports no additional respiratory complaints, Denies chest congestion, Denies cough and Denies dyspnea Musculoskeletal: Musculoskeletal: Reports no additional musculoskeletal complaints Integumentary/Breasts: Skin/Breast: Reports as per HPI and Reports wounds Neurologic: Reports as per HPI [facility] Past Medical History Medical History Sick sinus syndrome Muscle pain Falls Encounter for routine adult health examination without abnormal findings Macular degeneration Sinus drainage Left knee DJD Erythrocytosis Encounter for routine adult health examination with abnormal findings RLS (restless legs syndrome) Frequent sinus infections Elbow pain, left Prostate cancer screening Personal history of COVID-19 BMI 26.0-26.9,adult Bunion of right foot Pedal edema Skin cancer screening Memory loss Testosterone deficiency Follow up Itchy skin Balance problem BMI 32.0-32.9,adult Chronic back pain BMI 29.0-29.9,adult Glaucoma Blepharitis of both eyes BMI 30.0-30.9,adult CKD (chronic kidney disease) Chronic pain Encounter for Medicare annual wellness exam Hearing loss Non-healing skin lesion Proteinuria Urine abnormality History of colon polyps Abnormal finding of blood chemistry Urinary frequency Insomnia Urinary incontinence BMI 31.0-31.9,adult Encounter for special screening examination for neoplasm of prostate Pre-diabetes Colon cancer screening Anxiety with depression DJD (degenerative joint disease), multiple sites Hypogonadism in male Cognitive dysfunction Hypothyroidism (acquired) Benign essential hypertension Hyperlipidemia On intermediate frame tender drug therapy Encounter for general adult medical examination w/o abnormal findings Vertigo Surgical History Surgical History History of shoulder surgery History of back surgery Family History Family History Sibling Family history of malignant neoplasm of stomach Family history of malignant neoplasm Carcinoma of colon Family history of malignant neoplasm of breast in first degree relative Family history of malignant neoplasm of ovary Family history of diabetes mellitus in first degree relative Diabetes mellitus Father Family history of diabetes mellitus in first degree relative Mother Family history of malignant neoplasm of bone Other Family history of osteoarthritis Social History Social History Smoking status: Never smoker Second hand tobacco smoke exposure: No Alcohol intake: never Alcohol use details: does not use Substance use: never Substance use type: does not use Do You Feel Safe in your Home?: Yes Lack of Transportation: No Lack of Food: Never True Current Housing: I Have Housing Concerned About Future Housing: No Difficulty Paying Gas/Electric Bills: No Difficulty Paying for Meds: No Currently Unemployed: No Education: High School Diploma/GED Difficulty w/ Childcare or Family Care: No Living arrangements: alone Occupation/Education: retired Gender identity (if verbalized by the patient): Male Spiritual care concerns: No Comments At the time of my signature, I reviewed and agree with the nursing past medical, surgical, social, and family history. There is no relevant family history pertinent to the patient complaint. Exam 2 Const: General: cooperative, no acute distress, well developed, ill appearing chronically, tired appearing, uncomfortable and well nourished Nutritional Appearance: well nourished Orientation/consciousness: patient oriented x3 Limitations: no limitations HENMT: Head: normal to inspection Head images: 1. Mild swelling with multiple abrasions, open wound. Serous sanguinous drainage from the open wound Ears: hearing grossly normal bilaterally and external ears normal F gary/Nose/Sinus: Normal external nose present Eyes: General: appearance normal, both eyes and all related structures A lignment and Position: alignment normal Neck: Neck: normal visual inspection, full ROM, no lymphadenopathy and no meningeal signs Chest: Chest palpation & inspection: normal inspection of the chest Resp: Effort & Inspection: normal respiratory effort and able to speak in complete sentences Auscultation: clear to auscultation bilaterally, no crackles, no rales, no rhonchi, no wheezes and diminished lung sounds bilateral throughout Cardio: Rate: regular rate Back/Spine/Pelvis: Back: No back tenderness Cervical Spine: normal cervical lordosis, cervical ROM normal and No Cervical spine tenderness T horacic/Lumbar Spine: No thoracic spinal tenderness and No lumbar spinal tenderness Skin: General skin exam: normal color and no rashes or lesions noted W ounds: wounds noted (Right forehead) Neuro: General: patient oriented x3, moves all extremities and no meningeal signs Cognition (Neuro): normal cognition Speech: normal speech Gait exam (Neuro): Shuffling gait present and Other gait observations present (Slow, unsteady) Extrem: General: normal to inspection, full ROM, capillary refill normal and normal gait Psych: Speech and movement: Clear speech present Attitude: cooperative Course Course Level of Care: Express Care Visit Vital Signs Vital signs: Vital Signs Temperature 98.1 F 09/06/24 11:06 Pulse Rate 71 09/06/24 11:06 Respiratory Rate 16 09/06/24 11:06 Blood Pressure 112/74 09/06/24 11:06 Pulse Oximetry 97 09/06/24 11:06 Oxygen Delivery Room Air 09/06/24 11:06 Temperature 98.1 F 09/06/24 11:06 Pulse Rate 71 09/06/24 11:06 Respiratory Rate 16 09/06/24 11:06 Blood Pressure 112/74 09/06/24 11:06 Pulse Oximetry 97 09/06/24 11:06 Oxygen Delivery Room Air 09/06/24 11:06 Reviewed Transfer Transfered to: [place] (Per patient request) Transportation: Other (POV, declined EMS) Transfer rationale: 83-year-old male with head trauma, slow to respond, unsteady gait sending for higher level of care Accepting physician: Dr Meier [facility] Narrative Medical decision making narrative: Patient sitting in exam room. Patient was brought in post head trauma. Patient was placed in a wheelchair due to unsteady gait. Patient dozing off while being asked questions, stating that the light was too bright Sending for higher level care due to age, head trauma Transfer instructions reviewed with patient and family friend. EMS offered, declined. Family friend stated that she will drive. All questions have been answered, and the patient deny any further questions. Some parts of this dictation were generated by voice recognition software and may contain typographical and/or grammatical inaccuracies. Differential Diagnosis Differential diagnosis: Likely syncope, concussion with loss of consciousness, concussion without loss of consciousness and other Critical Care Time Critical Care Time Critical Care Time: No Discharge Plan Discharge Clinical Impression: Head trauma, Fall Patient Disposition: Acute Care Hospital Condition: Stable Instructions: Antibiotic Form Patient Language: Mohawk Prescriptions: No Action melatonin 10 mg capsule 10 mg PO QHS PRN (Reason: Sleep) latanoprost 0.005 % drops 1 drop EACH EYE HS tizanidine 4 mg capsule 4 mg PO TID PRN (Reason: muscle spasticity) Qty: 45 0RF multivitamin Tablet 1 tablet PO QACLUNCH coenzyme Q10 [CoQ-10] 100 mg Capsule 100 mg PO HS ibuprofen 600 mg tablet 600 mg PO TID PRN (Reason: pain) Qty: 30 0RF acetaminophen 500 mg capsule 1,000 mg PO Q6H PRN (Reason: pain) Qty: 30 0RF cephalexin 500 mg capsule 500 mg PO Q8H 5 Days Qty: 15 0RF ascorbic acid (vitamin C) 500 mg capsule 1,000 mg PO 1200 (DME) Electric Scooter Wheel Chair See Rx Instructions .Route .MEDSUPPLY Qty: 1 0RF Rx Instructions: As directed valsartan 320 mg tablet See Rx Instructions .ROUTE .COMPLEX Qty: 90 1RF Dose Instruction: Take 1 tablet by mouth once daily Rx Instructions: Take 1 tablet by mouth once daily donepezil 10 mg tablet See Rx Instructions .ROUTE .COMPLEX Qty: 90 1RF Dose Instruction: TAKE 1 TABLET BY MOUTH ONCE DAILY AT BEDTIME Rx Instructions: TAKE 1 TABLET BY MOUTH ONCE DAILY AT BEDTIME memantine 28 mg capsule,sprinkle,ER 24hr See Rx Instructions .ROUTE .COMPLEX Qty: 90 0RF Dose Instruction: TAKE 1 BY MOUTH ONCE DAILY AT BEDTIME Rx Instructions: TAKE 1 BY MOUTH ONCE DAILY AT BEDTIME amlodipine 10 mg tablet 10 mg PO DAILY Qty: 90 0RF solifenacin 10 mg tablet See Rx Instructions .ROUTE .COMPLEX Qty: 90 0RF Dose Instruction: Take 1 tablet by mouth once daily Rx Instructions: Take 1 tablet by mouth once daily cyanocobalamin (vitamin B-12) 1,000 mcg/mL solution See Rx Instructions .ROUTE .COMPLEX Qty: 3 1RF Dose Instruction: INJCET 1000MCG (1ML) INTRAMUSCULARLY EVERY MONTH Rx Instructions: INJCET 1000MCG (1ML) INTRAMUSCULARLY EVERY MONTH UNKOWN DAY WHEN PT TAKES IT (DME) UltiCare Safety Syringe 3 mL 23 gauge x 1 syringe See Rx Instructions .ROUTE .COMPLEX Qty: 9 0RF Dose Instruction: USE 1 SYRINGE EVERY TWO WEEKS TO ADMINISTER TESTOSTERONE AND 1 EVERY MONTH TO ADMINISTER B-12 Rx Instructions: USE 1 SYRINGE EVERY TWO WEEKS TO ADMINISTER TESTOSTERONE AND 1 EVERY MONTH TO ADMINISTER B-12 gabapentin [Neurontin] 300 mg capsule 600 mg PO BID 30 Days Qty: 120 1RF atorvastatin 40 mg tablet See Rx Instructions .ROUTE .COMPLEX Qty: 90 0RF Dose Instruction: Take 1 tablet by mouth once daily Rx Instructions: Take 1 tablet by mouth once daily tramadol 50 mg tablet See Rx Instructions PO Q6H PRN (Reason: pain) Qty: 100 0RF Rx Instructions: take 1 to 2 tabs orally every 6 hours PRN; trazodone 50 mg Tablet 50 mg PO HS PRN (Reason: Sleep) lactulose 10 gram/15 mL Solution 15 ml PO HS PRN (Reason: Constipation) dorzolamide-timolol (PF) 2-0.5 % Dropperette 1 drp EACH EYE BID cranberry 450 mg Tablet 450 mg PO HS Rx Instructions: administer with a meal magnesium oxide 400 mg magnesium Tablet 400 mg PO HS levothyroxine 125 mcg tablet 125 mcg PO QAM Follow-up/Referrals: UNKNOWN,DOCTOR [Non-Staff] -
[2024-09-06 11:06] VITALS: BP 112/74; PULSE 71; RESP 16; TEMP 36.7; O2SAT 97
== END 2024-09-06 11:09 | disposition short-term general hospital (02) ==
PROVIDERS: Emergency Provider Nurse Practitioner; PCP Internal Medicine
DX: S09.90XA Unspecified injury of head, initial encounter (principal); W19.XXXA Unspecified fall, initial encounter; I49.5 Sick sinus syndrome; E03.9 Hypothyroidism, unspecified; I12.9 Hypertensive chronic kidney disease with stage 1 through stage 4 chronic kidney disease, or unspecified chronic kidney disease; N18.9 Chronic kidney disease, unspecified; F03.90 Unspecified dementia, unspecified severity, without behavioral disturbance, psychotic disturbance, mood disturbance, and anxiety; M17.12 Unilateral primary osteoarthritis, left knee; G25.81 Restless legs syndrome; R73.03 Prediabetes; H40.9 Unspecified glaucoma; H35.30 Unspecified macular degeneration; Z86.16 Personal history of COVID-19
CPT/HCPCS: 99213; G0463

== ENCOUNTER 2024-09-06 11:34 | Emergency (ER) | payer MEDICARE, SELFPAY ==
--- NOTE | ~2024-09-06 | CT_ITS ---
CT head without contrast Indication: Head injury Technique: Serial scans were obtained through the brain without the administration of contrast. Dose reduction technique was used on this scan by utilizing automated exposure control and iterative recon struction technique. The dose-length product (DLP) was 605.33 mGy-cm. Findings: There is no evidence of intracranial hemorrhage, mass lesion, or acute infarct. The ventri cles and subarachnoid spaces are dilated, consistent with mild atrophy. Low attenuation regions are seen within the periventricular white matter bilaterally, likely representing changes from chronic mi crovascular ischemic disease. There is no evidence of edema, mass effect or midline shift. The visu alized paranasal sinuses and mastoid air cells are clear. Impression: No intracranial hemorrhage, mass, or acute infarct. Atrophy and chronic white matter changes, as above. Reviewed, dictated and finalized at location . Impression: No intracranial hemorrhage, mass, or acute infarct. Atrophy and chronic white matter changes, as above.
--- NOTE | ~2024-09-06 | CT_ITS ---
CT Facial Bones and Cervical Spine Clinical Indication: Status post fall Technique: Contiguous axial scans were obtained through the facial bones and cervical spine followed by coronal and sagittal reconstructions. Dose reduction technique was used on this scan by utilizing automated exposure control and iterative reconstruction technique. The dose-length product (DLP) was 461.95 mGy-cm. Findings: CT facial bones: No fractures are identified. The visualized paranasal sinuses are clear. Intraorbita l soft tissues appear normal. CT cervical spine: No fractures or subluxation. There is straightening of the normal cervical lordos is. There is severe degenerative disc narrowing at C4-C5 and C5-C6. There is fusion of the left C2-C3 facet joint. There is also fusion of the bilateral C4-C5 facet joints. There is severe right neural foraminal narrowing at C3-C4. There is advanced bilateral neural foraminal narrowing at C4-C5 and C5- C6. No prevertebral soft tissue swelling. Impression: No fracture is seen in the facial bones. No fracture or subluxation of the cervical spine. Degenerative spondylosis of the spine, as above. Reviewed, dictated and finalized at location . Impression: No fracture is seen in the facial bones. No fracture or subluxation of the cervical spine. Degenerative spondylosis of the spine, as above.
[2024-09-06 11:42] VITALS: BP 122/76; PULSE 96; RESP 20; TEMP 36.8; O2SAT 98
--- OUTSIDE RECORDS SUMMARY | 2024-09-06 13:07 | XMS_ITS | Clinical Summary ---
Author Organization [facility] Address [address] [place] [address] Care Team Providers Care Farm Worker Name Role Phone Gabriele Candelario MD Primary Care Provider [phone] Allergies No known active allergies Medications morphine (MSIR) 15 mg tablet Take 1 tablet (15 mg total) by mouth every 4 (four) hours as needed for pain for up to 10 doses 10 tablet 1 Active melatonin 10 mg tablet Active TiZANidine (ZANAFLEX) 4 mg capsule Take 1 capsule (4 mg total) by mouth 3 (three) times a day Active sahtqroe22-sqez -Lmfolate-algal 27 mg iron-1.13 mg-581.92 mg capsule Take by mouth Active coenzyme Q10 10 mg capsule Take 1 capsule (10 mg total) by mouth daily Active amLODIPine (NORVASC) 10 mg tablet Take 1 tablet (10 mg total) by mouth daily Active traZODone (DESYREL) 50 mg tablet Take 1 tablet (50 mg total) by mouth nightly Active cranberry extract 425 mg capsule Take by mouth Active magnesium oxide 400 mg magnesium capsule Take by mouth Active donepeziL (ARICEPT) 10 mg tablet Take 1 tablet (10 mg total) by mouth nightly Active levothyroxine (SYNTHROID) 125 mcg tablet Take 1 tablet (125 mcg total) by mouth daily Active valsartan (DIOVAN) 320 mg tablet Take 1 tablet (320 mg total) by mouth daily Active latanoprost (XALATAN) 0.005 % ophthalmic solution Administer 1 drop into affected eye(s) 2 (two) times a day Active memantine XR (NAMENDA XR) 28 mg capsule,sprinkl e,ER 24hr Take 1 capsule (28 mg total) by mouth nightly as needed Active solifenacin (VESIcare) 10 mg tablet Take 1 tablet (10 mg total) by mouth daily Active atorvastatin (LIPITOR) 40 mg tablet Take 1 tablet (40 mg total) by mouth daily Active gabapentin (NEURONTIN) 300 mg capsule Take 1 capsule (300 mg total) by mouth 4 (four) times a day Active Active Problems Problem Noted Date Diagnosed Date Sick sinus syndrome 07/08/2024 Cardiac pacemaker in situ 04/14/2024 Overview (04/14/2024): Medtronic [place] Dual Pacemaker. Dx; Sinus Node Dysfunction. DOI 04/13/2024- Vlad. [employer] remote monitoring. Mass of breast 09/20/2010 Resolved Problems Problem Noted Date Diagnosed Date Resolved Date Complete heart block 07/08/2024 025 Encounters Date Type Department Care Team Description 07/08/2024 9:15 AM FAGOT HEATER HELPER Office Visit [facility] Cardiology [address] [place] [phone] Frandy Chu MD Cardiac pacemaker in situ (Primary Dx); Sick sinus syndrome (HCC) 06/22/2024 8:30 AM FAGOT HEATER HELPER Ancillary Procedure [facility] Cardiology [address] [place] [address] [place] [phone] Cardiac pacemaker in situ; Sinus node dysfunction (HCC) 06/22/2024 Orders Only [facility] Cardiology [facility] [address] [place] [phone] Frandy Chu MD Cardiac pacemaker in situ (Primary Dx); Bradycardia; Sinus node dysfunction (HCC) 06/08/2024 Telephone [facility] Cardiology [address] [facility] [address] [place] [phone] Frandy Chu MD from Last 3 Months Surgical History Surgery Date Site/Laterality Comments CARDIAC PACEMAKER PLACEMENT 04/13/2024 Medical History Medical History Date Comments Arthritis Sick sinus syndrome (HCC) Syncope Chronic kidney disease Dementia (HCC) Hypertension Family History Medical History Relation Name Comments Heart disease Mother Relation Name Status Comments Father Mother Social History Tobacco Use Types Packs/Day Years Used Date Smoking Tobacco: Never Sex and Gender Information Value Date Recorded Sex Assigned at Not on file Legal Sex Male 7:19 PM FAGOT HEATER HELPER Gender Identity Not on file Sexual Orientation Not on file Obstetrics History Last Filed Vital Signs Vital Sign Reading Time Taken Comments Blood Pressure 106/68 07/08/2024 9:12 AM FAGOT HEATER HELPER Pulse 97 07/08/2024 9:12 AM FAGOT HEATER HELPER Temperature 36.8 C (98.2 F) 12/31/2020 1:35 PM CDT Respiratory Rate 16 12/31/2020 1:35 PM CDT Oxygen Saturation 92% 07/08/2024 9:12 AM FAGOT HEATER HELPER Inhaled Oxygen Concentration - - Weight 92.7 kg (204 lb 6.4 oz) 07/08/2024 9:12 A M FAGOT HEATER HELPER Height 167.6 cm (5' 6 ) 07/08/2024 9:12 AM FAGOT HEATER HELPER Body Mass Index 32.99 07/08/2024 9:12 AM FAGOT HEATER HELPER Plan of Treatment Health Maintenance Due Date Last Done Comments Depression Screening 1940 Fall Risk Assessment 1940 Hepatitis B Screening 1958 Pneumococcal vaccine 65+ (1 of 1 - PCV) 1990 Zoster Vaccine (1 of 2) 1990 Well Visit 65+ 2005 Influenza Vaccine (#1) 2024 5, 05/18/2013, 04/12/2012 DTaP/Tdap/Td Vaccine (2 - Td or Tdap) 12/27/2030 Procedures Procedure Name Priority Date/Time Associated Diagnosis Comments DEVICE CHECK - IN OFFICE Routine 06/22/2024 8:04 AM FAGOT HEATER HELPER Cardiac pacemaker in situ Sinus node dysfunction (HCC) from Last 3 Months Results * DEVICE CHECK - IN OFFICE (06/22/2024 8:04 AM FAGOT HEATER HELPER) Anatomical Region Laterality Modality Other Narrative 06/23/2024 2:43 PM FAGOT HEATER HELPER Medtronic [place] Dual Pacemaker. Dx; Sinus Node Dysfunction. DOI 04/13/2024-Vlad. [employer] remote monitoring. Supervising MD: Dr. Kauffman. Left pectoral incision well approximated. No redness, drainage, or edema noted. Patient c/o feeling wobbly on his feet. He stopped at information desk and a volunteer brought him to the office in a wheel chair. Office AAI<>DDD Pacemaker interrogation demonstrated appropriate device function. Appropriate lead measurements noted. Battery function: 3.16 V, 12.9 years remaining battery life to RUPINDER. Presenting rhythm: AP-VS. Underlying rhythm- Sinus Bradycardia at 40-50 beats per minute. AP- 97.9%, HOSPITAL PRODUCT SPECIALIST- <0.1%. No Atrial high rate episodes recorded. No Ventricular high rate episodes noted. Medications; none listed. Activity rate response turned on. Ventricular amplitude and minimum adapted amplitude decreased to 1.5V. See scanned report. Office pacemaker f/u scheduled 07/19/2025. [employer] remote f/u 09/28/2024. Of Note: Patient requested to stand and walk himself upstairs to his PCP office. He declined my offer to take him in the wheel chair. He ambulated while pushing the wheelchair. Daya Cho RN Frandy Chu MD CV CARDIAC SERVICES PROC EDURES Final Result from Last 3 Months Insurance MEDICARE MEDICARE [facility] MEDICARE [employer] MEDICARE SUPPLEMENT Care Teams Farm Worker Relationship Specialty Start Date End Date Gabriele Candelario MD [address] [place] [address] [facility] MEDIC[facility] [place] [id number] PCP - General Internal Medicine 04/20/24
--- OUTSIDE RECORDS SUMMARY | 2024-09-06 13:07 | XMS_ITS | Clinical Summary ---
Author Organization [facility] Wright Address [address] [place] [address] Care Team Providers Care Spring Machine Operator Name Role Phone Gabriele Candelario MD Primary Care Provider + Allergies No known active allergies Medications atorvastatin (LIPITOR) 40 mg tablet 40 mg. 1 Active losartan (COZAAR) 100 mg tablet 100 mg. 1 Active donepeziL (ARICEPT) 10 mg tablet Take 10 mg by mouth. 2 Active ascorbic acid, vitamin C, (VITAMIN C) 1,000 mg Tablet Take 1,000 mg by mouth daily. 2 Active gabapentin (NEURONTIN) 300 mg capsule Take 900 mg by mouth. 2 Active latanoprost (XALATAN) 0.005 % solution 1 Drop by Ophthalmic route 2 times daily. 2 Active solifenacin (VESICARE) 10 mg Tablet Take 10 mg by mouth daily. 2 Active timoloL maleate (TIMOPTIC) 0.5% solution 1 Drop by Ophthalmic route. 1 Active acetaminophen (TYLENOL) 500 mg tablet Take 1,000 mg by mouth every 6 hours as needed. 2 Active docusate sodium (COLACE) 100 mg capsule Take 100 mg by mouth 2 times daily. 1 Active naproxen sodium (ALEVE) 220 mg Tablet Take 220 mg by mouth. Active cyanocobalamin 1,000 mcg Tablet Take 1 Tablet by mouth daily. 2 Active Active Problems No known active problems Encounters Date Type Department Care Team Description 08/17/2024 External Device Data STL ABSTRACTION Provider, Abstract 08/06/2024 External Device Data ST[facility] ABSTRACTION Provider, Abstract 08/05/2024 External Device Data ST[facility] ABSTRACTION Provider, Abstract 07/19/2024 External Device Data ST[facility] ABSTRACTION Provider, Abstract 06/22/2024 External Device Data ST[place] ABSTRACTION Provider, Abstract 06/21/2024 External Device Data STL ABSTRACTION Provider, Abstract from Last 3 Months Family History Medical History Relation Name Comments Diabetes Father Lung Cancer Mother Relation Name Status Comments Brother Daughter 1 Alive Daughter 2 Alive Father Mother Sister Alive Son Alive Social History Tobacco Use Types Packs/Day Years Used Date Smoking Tobacco: Never Smokeless Tobacco: Never Tobacco Cessation:Counseling Given: Not Answered Alcohol Use Standard Drinks/Week Comments Yes 0 (1 standard drink = 0.6 oz pur e alcohol) rare Sex and Gender Information Value Date Recorded Sex Assigned at Not on file Legal Sex Male 9:00 AM CDT Gender Identity Not on file Sexual Orientation Not on file Last Filed Vital Signs Vital Sign Reading Time Taken Comments Blood Pressure 139/74 01/28/2024 3:42 PM CDT Pulse 50 01/28/2024 3:42 PM CDT Temperature 36.8 C (98.2 F) 01/28/2024 3:42 PM CDT Respiratory Rate 16 01/28/2024 3:42 PM CDT Oxygen Saturation 95% 01/28/2024 3:42 PM CDT Inhaled Oxygen Concentration - - Weight 89.8 kg (198 lb) 01/28/2024 3:42 PM CDT Height 167.6 cm (5' 6 ) 12/15/2022 11:54 AM CDT Body Mass Index 31.96 12/15/2022 11:54 AM CDT Plan of Treatment Upcoming Encounters Date Type Department Care Team (Late st Contact Info) Description 10/31/2024 1:00 PM CDT Office Visit [facility] Oncology and Hematology - [place] [address] [place] [address] Mir Ledesma MD [address] [facility] [address] [place] [address] Health Maintenance Due Date Last Done Comments DTAP/TDAP/TD VACCINES (1 - Tdap) 10/02/1959 PNEUMOCOCCAL VACCINE 50+ YEARS (1 of 1 - PCV) 10/01/18 91 ZOSTER VACCINE (1 of 2) 1990 RSV VACCINE (60+ or ) (1 - 1-dose 75+ series) 10/02/2015 INFLUENZA VACCINE (#1) 2023 Insurance MEDICARE PART A AND B BCBS SUPP Care Teams Spring Machine Operator Relationship Specialty Start Date End Date Gabriele Candelario MD [address] [place] [address] PCP - General Internal Medicine 12/15/22
--- OUTSIDE RECORDS SUMMARY | 2024-09-06 13:07 | XMS_ITS | Referral Summary ---
Author Organization [facility] Address [address] [place] [address] Care Team Providers Care Cloth Laminating Supervisor Name Role Phone Gabriele Candelario MD Primary Care Provider [phone] Encounters Date Type Department Care Team Description 07/08/2024 9:15 AM VP CORPORATE DEVELOPMENT Office Visit [facility] Cardiology [address] [place] [address] [place] [phone] Frandy Chu MD Cardiac pacemaker in situ (Primary Dx); Sick sinus syndrome (HCC) 06/22/[address] [facility] Cardiology [address] [place] [address] [place] [phone] Frandy Chu MD Cardiac pacemaker in situ (Primary Dx); Bradycardia; Sinus node dysfunction (HCC) 06/22/2024 8:30 AM VP CORPORATE DEVELOPMENT Ancillary Procedure [facility] Cardiology [address] [place] [address] [place] [phone] Cardiac pacemaker in situ; Sinus node dysfunction (HCC) 06/08/[address] [facility] Cardiology [address] [place] [address] [place] [phone] Frandy Chu MD from Last 3 Months Allergies No known active allergies Medications morphine (MSIR) 15 mg tablet Take 1 tablet (15 mg total) by mouth every 4 (four) hours as needed for pain for up to 10 doses 10 tablet Active melatonin 10 mg tablet Active TiZANidine (ZANAFLEX) 4 mg capsule Take 1 capsule (4 mg total) by mouth 3 (three) times a day Active [id number] -Lmfolate-algal 27 mg iron-1.13 mg-581.92 mg capsule [...] pacemaker in situ 04/14/2024 Overview (04/14/2024): Medtronic [place] Dual Pacemaker. Dx; Sinus Node Dysfunction. DOI 04/13/2024- Vlad. [employer] remote monitoring. Mass of breast 09/20/2010 Resolved Problems Problem Noted Date Diagnosed Date Resolved Date Complete heart block 07/08/2024 025 Social History Tobacco Use Types Packs/Day Years Used Date Smoking Tobacco: Never Sex and Gender Information Value Date Recorded Sex Assigned at Not on file Legal Sex Male 7:19 PM VP CORPORATE DEVELOPMENT Gender Identity Not on file Sexual Orientation Not on file Last Filed Vital Signs Vital Sign Reading Time Taken Comments Blood Pressure 106/68 07/08/2024 9:12 AM VP CORPORATE DEVELOPMENT Pulse 97 07/08/2024 9:12 AM VP CORPORATE DEVELOPMENT Temperature 36.8 C (98.2 F) 12/31/2020 1:35 PM CDT Respiratory Rate 16 12/31/2020 1:35 PM CDT Oxygen Saturation 92% 07/08/2024 9:12 AM VP CORPORATE DEVELOPMENT Inhaled Oxygen Concentration - - Weight 92.7 kg (204 lb 6.4 oz) 07/08/2024 9:12 A M VP CORPORATE DEVELOPMENT Height 167.6 cm (5' 6 ) 07/08/2024 9:12 AM VP CORPORATE DEVELOPMENT Body Mass Index 32.99 07/08/2024 9:12 AM VP CORPORATE DEVELOPMENT Plan of Treatment Not on file Procedures Procedure Name Priority Date/Time Associated Diagnosis Comments DEVICE CHECK - IN OFFICE Routine 06/22/2024 8:04 AM VP CORPORATE DEVELOPMENT Cardiac pacemaker in situ Sinus node dysfunction (HCC) from Last 3 Months Results * DEVICE CHECK - IN OFFICE (06/22/2024 8:04 AM VP CORPORATE DEVELOPMENT) Anatomical Region Laterality Modality Other Narrative 06/23/2024 2:43 PM VP CORPORATE DEVELOPMENT Medtronic [place] Dual Pacemaker. Dx; Sinus Node Dysfunction. DOI 04/13/2024-Vlad. [employer] remote monitoring. Supervising MD: Dr. Kauffman. Left [...] at 40-50 beats per minute. AP- 97.9%, STEREOTYPER HELPER- <0.1%. No Atrial high rate episodes recorded. [...] from Last 3 Months Insurance MEDICARE MEDICARE COUNTS INCLUDE 234 BEDS AT THE [facility] MEDICARE [facility] MEDICARE SUPPLEMENT Care Teams Cloth Laminating Supervisor Relationship Specialty Start Date End Date Gabriele Candelario MD [address] [place] [address] [place] [address] PCP - General Internal Medicine 04/20/24
--- OUTSIDE RECORDS SUMMARY | 2024-09-06 13:07 | XMS_ITS | Encounter Summary ---
Author Organization [facility] Address [address] [place] [address] Care Team Providers Care Water Treatment Specialist Name Role Phone Gabriele Candelario MD Primary Care Provider [phone] Encounter Details Date Type Department Care Team (Late st Contact Info) Description 08/08/2021 Prep for Procedure [facility] [place] [address] [id number] Skye Mclaughlin APNP [address] [place] [phone] Social History Tobacco Use Types Packs/Day Years Used Date Smoking Tobacco: Never Smokeless Tobacco: Never Alcohol Use Standard Drinks/Week Comments Yes 0 (1 standard drink = 0.6 oz pur e alcohol) socially Sex and Gender Information Value Date Recorded Sex Assigned at Not on file Legal Sex Male 6:02 PM CDT Gender Identity Not on file Sexual Orientation Not on file 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 Answer Date of Assessment Author Status No 01/07/2021 5:15 PM CDT Activ e * Do you have serious difficulty walking or climbing stairs? Answer Date of Assessment Author Status Yes 01/07/2021 5:15 PM Padma Infante RN Active * Do you have difficulty dressing or bathing? Answer Date of Assessment Author Status No 01/07/2021 5:15 PM Padma Infante RN Active * Because of a physical, mental, or emotional condition, do you have difficulty doing errands alone such as visiting a doctor's office or shopping? Answer Date of Assessment Author Status No 01/07/2021 5:15 PM Padma Infante RN Active documented as of this encounter Mental Status * Because of a physical, mental, or emotional condition, do you have serious difficulty concentrating, remembering, or making decisions? Answer Entry Date Author Status No 01/07/2021 5:15 PM Padma Infante RN Active documented in this encounter Plan of Treatment Not on file documented as of this encounter Goals Goal Patient Goal Type Associated Problems Recent Progress Patient-Stated? Author Health - patient able to perform ADLs independently General No Jackie Lopez RN documented as of this encounter Visit Diagnoses Not on filedocumented in this encounter Care Teams Water Treatment Specialist Relationship Specialty Start Date End Date Gabriele Candelario MD [address] [facility] [address] [facility] [address] [place] [address] PCP - General INTERNAL MEDICINE 12/26/20 documented as of this encounter
--- OUTSIDE RECORDS SUMMARY | 2024-09-06 13:07 | XMS_ITS | Clinical Summary ---
Author Organization [facility] Address [address] [place] [address] Care Team Providers Care Gate Attendant Name Role Phone Gabriele Candelario MD Primary Care Provider [phone] Allergies No known active allergies Medications latanoprost 0.005 % ophthalmic solutionIndicati ons:Glaucoma Place 1 drop into both eyes 2 (two) times daily. Indications: Glaucoma Patient take BID at home 04/03/20 22 Active atorvastatin 40 MG tabletIndication s:Hyperlipidemia Take 1 tablet (40 mg total) by mouth nightly at bedtime. Indications: High Amount of Fats in the Blood 04/03/20 22 Active levothyroxine 125 MCG tabletIndication s:Hypothyroidism Take 1 tablet (125 mcg total) by mouth every morning. Indications: Underactive Thyroid 04/03/20 22 Active traZODone 50 MG tabletIndication s:Sleep Disturbance Take 1 tablet (50 mg total) by mouth nightly as needed for Sleep. Indications: Disturbed Sleep 04/03/20 22 Active testosterone cypionate 200 MG/ML injectionIndicat ions:Decreased Plasma Testosterone Inject 1 mL (200 mg total) into the muscle every 14 (fourteen) days. Indications: Decreased Blood Testosterone Levels Next due 03/08/22, reports taking every 15 days 12/15/19 21 Active B-D 3CC LUER-CORA SYR 33VP1-2/2 18G X 1-1/2 3 ML Misc USE 1 NEEDLE EVERY 2 WEEKS TO DRAW UP TESTOSTERONE 01/29/20 Active LUER LOCK SAFETY SYRINGES 23G X 1 3 ML Misc 03/20/20 21 Active valsartan 320 MG tabletIndication s:Altered Blood Pressure Take 1 tablet (320 mg total) by mouth daily with lunch. Indications: Changes in Blood Pressure 06/29/19 22 Active solifenacin succinate (VESICARE) 10 MG TabIndications:O veractive Bladder Take 1 tablet (10 mg total) by mouth daily. Indications: Overactive Bladder vesicare 12/10/19 22 Active gabapentin (NEURONTIN) 300 MG capsuleIndicatio ns:Pain Take 1 capsule (300 mg total) by mouth 4 (four) times daily. Indications: Pain 01/14/20 22 Active Multiple Vitamin (MULTIVITAMIN ADULT OR)Indications:O ther vitamin deficiencies Take 1 tablet by mouth daily with lunch. Indications: Other vitamin deficiencies [place] Blend with iron 04/03/20 22 Active vitamin C (ASCORBIC ACID) 1000 MG tabletIndication s:Vitamin C Imbalance Take 1 tablet (1,000 mg total) by mouth daily. Indications: Excess or Deficiency of Vitamin C 04/03/20 22 Active CONSTULOSE 10 GM/15ML solutionIndicati ons:Constipation Take 15 mLs by mouth nightly as needed (constipation). Indications: Constipation 05/10/20 21 Active coenzyme Q-10 (CO Q-10) 100 MG capsuleIndicatio ns:Other vitamin deficiencies Take 1 capsule (100 mg total) by mouth nightly. Indications: Other vitamin deficiencies 04/03/20 22 Active memantine ER (NAMENDA XR) 28 MG 24 hr capsuleIndicatio ns:Dementia Take 1 capsule (28 mg total) by mouth nightly. Indications: Decline in Cognition due to a Brain Disease 02/01/20 22 Active donepezil (ARICEPT) 10 MG TabIndications:D ementia Take 1 tablet (10 mg total) by mouth nightly at bedtime. Indications: Decline in Cognition due to a Brain Disease at bedtime. 02/05/20 22 Active magnesium oxide (MAG-OX) 400 (240 Mg) MG tabletIndication s:Other vitamin deficiencies Take 1 tablet (400 mg total) by mouth nightly. Indications: Other vitamin deficiencies 04/03/20 Active cranberry 450 MG Tab tabletIndication s:Genitourinary System Take 1 tablet (450 mg total) by mouth nightly. Indications: Genitourinary System 04/03/20 Active melatonin 5 MG tabletIndication s:Sleep Disorder Take 2 tablets (10 mg total) by mouth nightly as needed (difficulty sleeping). Indications: Sleep Disorder 04/03/20 Active traMADol (ULTRAM) 50 MG tabletIndication s:Acute Pain < 7 Day Supply Take 2 tablets (100 mg total) by mouth 3 (three) times daily as needed for Pain. Indications: Acute Pain < 7 Day Supply TAKE 2 TABLETS BY MOUTH EVERY 8 HOURS NEEDED FOR PAIN. TAKE 1 TO 2 EVERY 6 TO 8 HOURS NEEDED FOR SEVERE PAIN. MAX 6 PER DAY. 04/03/20 Active amLODIPine (NORVASC) 10 MG tablet Take 1 tablet (10 mg total) by mouth daily. 02/17/20 Active cyanocobalamin (B-12) 1000 MCG/ML injection Inject 1 mL (1,000 mcg total) into the muscle every 30 (thirty) days. 02/02/20 Active dorzolamide-walter lol (COSOPT) 2-0.5 % Solution Place 1 drop into both eyes 2 (two) times daily. Active Active Problems Problem Noted Date Diagnosed Date Muscular deconditioning 03/18/2022 Spondylolisthesis at L4-L5 level 03/13/2022 Physical deconditioning 01/07/2021 Crush injury 01/03/2021 Mass of breast 09/20/2010 Immunizations Name Administration Dates Next Due PFIZER COVID-19 (MOORE CAP), MRNA, LNP-S, PF, 30 MCG/0.3 ML MARKUS-SUCROSE, IM 07/26/2020,07/05/2020 Family History Medical History Relation Comments Diabetes mellitus Father Bone cancer Mother Breast Cancer Other Colon Cancer Other Diabetes Other Ovarian Cancer Other Stomach cancer Other Relation Status Comments Father Mother Other Alive Social History Tobacco Use Types Packs/Day Years Used Date Smoking Tobacco: Never Smokeless Tobacco: Never Alcohol Use Standard Drinks/Week Comments Yes 0 (1 standard drink = 0.6 oz pur e alcohol) socially [facility] Utilities Answer Date Recorded In the past 12 months has [employer], oil, or water [email or web address] threatened to shut off services in your home? No 03/29/2024 Humiliation, Afraid, Rape, and Kick questionnair e Answer Date Recorded Within the last year, have y ou been afraid of your partner or ex-partner? No 03/29/2024 Within the last year, have y ou been humiliated or emotionally abused in other ways by your partner or ex-partner? No Within the last year, have y ou been kicked, hit, slapped, or otherwise physically hurt by your partner or ex-partner? No 03/29/2024 Within the last year, have y ou been raped or forced to have any kind of sexual activity by your partner or ex-partner? No 03/29/2024 Overall Financial Resource Strain (CARDIA) Answe r Date Recorded How hard is it for you to pa y for the very basics like food, housing, medical care, and heating? Not hard at all 03/29/2024 Hunger Vital Sign Answer Date Recorded Within the past 12 months, y ou worried that your food would run out before you got the money to buy more. Never true 03/29/20 24 Within the past 12 months, t he food you bought just didn't last and you didn't have money to get more. Never true 03/29/2024 PRAPARE - Transportation Answer Date Re corded In the past 12 months, has l ack of transportation kept you from medical appointments or from getting medications? No 03/02 In the past 12 months, has l ack of transportation kept you from meetings, work, or from getting things needed for daily living? No 03/29/2024 Housing Stability Vital Sign Answer Jonas e Recorded In the last 12 months, was t here a time when you were not able to pay the mortgage or rent on time? No 03/29/2024 In the past 12 months, how m any times have you moved where you were living? 0 03/29/2024 At any time in the past 12 m [facility], were you homeless or living in a [place] facility (including now)? 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 [employer] Not on file Not on file Not on file Last Filed Vital Signs Vital Sign Reading Time Taken Comments Blood Pressure 116/91 03/30/2024 12:04 PM CDT Pulse 57 03/30/2024 2:45 PM CDT Temperature 36.7 C (98 F) 03/30/2024 7:30 AM CDT Respiratory Rate 22 03/30/2024 2:45 PM CDT Oxygen Saturation 94% 03/30/2024 2:45 PM CDT Inhaled Oxygen Concentration - - Weight 80.2 kg (176 lb 12.9 oz) 03/29/2024 9:35 AM CDT Height 167.6 cm (5' 6 ) 03/29/2024 9:35 AM CDT Body Mass Index 28.54 03/29/2024 9:35 AM CDT Plan of Treatment Health Maintenance Due Date Last Done Comments DTaP, Tdap and Td Vaccines ( 1 - Tdap) 10/02/1959 Zoster Vaccines (1 of 2) 1990 Annual Medicare Wellness Visit 2005 Pneumococcal Vaccine: 65+ Years (1 of 1 - PCV) 2005 RSV Immunization or 60+ Years (1 - 1-dose 75+ series) 10/02/2015 COVID-19 Vaccine (3 - 2023-2 5 season) 2024 07/26/2020, 07/05/2020 Meningococcal B Vaccine Aged Out No l onger eligible based on patient's age to complete this topic Meningococcal Vaccine Aged Out No angel davon eligible based on patient's age to complete this topic RSV Immunizations Under 20 Months Aged Out No longer eligible b ased on patient's age to complete this topic Goals Goal Patient Goal Type Associated Problems Recent Progress Patient-Stated? Author Health - patient able to perform ADLs independently General No Jackie Lopez, MAKSIM Safety - demonstrates understanding of home safety measures Lifestyle No [place] RN Medical Devices Implanted Type Area Support Clerk Device Identifier Shelf Expiration Date Model / Serial / Lot Xavi Implanted:Qty : 2 on 03/13/2022 by Eliana Thompson MD at [facility] Xavi N/A: Spine Lumbar ORTHOFIX [id number] / / Description:[id number]-l5 Orthofix Set Screw Implanted:Qty : 4 on 03/13/2022 by Eliana Thompson MD at [facility] Screw N/A: Spine Lumbar ORTHOFIX [id number] / / Orthofix 6.5x50mm Screws Implanted:Qty : 4 on 03/13/2022 by Eliana Thompson MD at [facility] Screw N/A: Spine Lumbar ORTHOFIX [id number] / / Orthofix Top Loading Body Implanted:Qty : 4 on 03/13/2022 by Eliana Thompson MD at [facility] Spine Components N/A: Spine Lumbar ORTHOFIX / / Insurance MEDICARE [facility] Advance Directives * Full Code (Latest Code Status on File) Date Activated Date Inactivated Comments 04/03/2022 8:46 PM 03/29/2024 9:32 AM * Full Code Date Activated Date Inactivated Comments 03/21/2022 6:32 PM 04/01/2022 3:42 PM * Full Code Date Activated Date Inactivated Comments 03/15/2022 10:19 PM 03/17/2022 7:38 PM * Full Code Date Activated Date Inactivated Comments 01/07/2021 5:12 PM 01/14/2021 3:53 PM * Full Code Date Activated Date Inactivated Comments 01/04/2021 3:04 AM 01/07/2021 5:10 PM Care Teams Gate Attendant Relationship Specialty Start Date End Date Gabriele Candelario MD [address] - [facility] [address] [place] [address] PCP - General INTERNAL MEDICINE 12/26/20
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
--- OUTSIDE RECORDS SUMMARY | 2024-09-06 15:46 | XMS_ITS | Referral Summary ---
Author Organization [facility] Address [address] [place] [address] Care Team Providers Care Ventilator Specialist Name Role Phone Gabriele Candelario MD Primary Care Provider [phone] Encounters Date Type Department Care Team Description 07/08/2024 9:15 AM ANCHORMAN Office Visit [facility] Cardiology [address] [place] [address] [place] [phone] Frandy Chu MD Cardiac pacemaker in situ (Primary Dx); Sick sinus syndrome (HCC) 06/22/2024 Orders Only [facility] Cardiology [address] [place] [address] [place] [phone] Frandy Chu MD Cardiac pacemaker in situ (Primary Dx); Bradycardia; Sinus node dysfunction (HCC) 06/22/2024 8:30 AM ANCHORMAN Ancillary Procedure [facility] Cardiology [address] [place] [address] [place] [phone] Cardiac pacemaker in situ; Sinus node dysfunction (HCC) 06/08/2024 Telephone [facility] Cardiology [address] [place] [address] [place] [phone] Frandy Chu MD from Last 3 [...] mouth 3 (three) times a day Active [id number] -Lmfolate-algal 27 mg iron-1.13 mg-581.92 mg capsule [...] on file Legal Sex Male 7:19 PM ANCHORMAN Gender Identity Not on file Sexual Orientation Not on file Last Filed Vital Signs Vital Sign Reading Time Taken Comments Blood Pressure 106/68 07/08/2024 9:12 AM ANCHORMAN Pulse 97 07/08/2024 9:12 AM ANCHORMAN Temperature 36.8 C (98.2 F) 12/31/2020 1:35 PM CDT Respiratory Rate 16 12/31/2020 1:35 PM CDT Oxygen Saturation 92% 07/08/2024 9:12 AM ANCHORMAN Inhaled Oxygen Concentration - - Weight 92.7 kg (204 lb 6.4 oz) 07/08/2024 9:12 A M ANCHORMAN Height 167.6 cm (5' 6 ) 07/08/2024 9:12 AM ANCHORMAN Body Mass Index 32.99 07/08/2024 9:12 AM ANCHORMAN Plan of Treatment Not on file Procedures Procedure Name Priority Date/Time Associated Diagnosis Comments DEVICE CHECK - IN OFFICE Routine 06/22/2024 8:04 AM ANCHORMAN Cardiac pacemaker in situ Sinus node dysfunction (HCC) from Last 3 Months Results * DEVICE CHECK - IN OFFICE (06/22/2024 8:04 AM ANCHORMAN) Anatomical Region Laterality Modality Other Narrative 06/23/2024 2:43 PM ANCHORMAN Medtronic Linda Dual Pacemaker. Dx; Sinus Node Dysfunction. DOI 04/13/2024-Vlad. [employer] remote monitoring. Supervising MD: Dr. Kauffman. Left [...] at 40-50 beats per minute. AP- 97.9%, WEIGHT LOSS CENTRE MANAGER- <0.1%. No Atrial high rate episodes recorded. [...] from Last 3 Months Insurance MEDICARE MEDICARE [facility] MEDICARE [facility] MEDICARE SUPPLEMENT Care Teams Ventilator Specialist Relationship Specialty Start Date End Date Gabriele Candelario MD [address] [place] [address] PCP - General Internal Medicine 04/20/24
--- OUTSIDE RECORDS SUMMARY | 2024-09-06 15:46 | XMS_ITS | Clinical Summary ---
Author Organization [facility] Address [address] [place] [address] Care Team Providers Care Health Care Facilities Inspector Name Role Phone Gabriele Candelario MD Primary Care Provider [phone] Allergies No known active allergies Medications latanoprost [...] 12/15/19 21 Active B-D 3CC LUER-CORA SYR 13BX8-0/2 18G X 1-1/2 3 ML Misc USE [...] daily with lunch. Indications: Other vitamin deficiencies [place] Blend with iron 04/03/20 22 Active [...] = 0.6 oz pur e alcohol) socially [facility] Utilities Answer Date Recorded In the past 12 months has IOCS, oil, or water [employer] threatened to shut off services in your [...] any time in the past 12 m [facility], were you homeless or living in a penitentiary (including now)? 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 Not on file Not on file Not [...] Gamboa RN Medical Devices Implanted Type Area Animation Producer Device Identifier Shelf Expiration Date Model / Serial / Lot Xavi Implanted:Qty : 2 on 03/13/2022 by Eliana Thompson MD at [facility] [place] Xavi N/A: Spine Lumbar ORTHOFIX [id number] / / Description:[id number]-l5 Orthofix Set Screw Implanted:Qty : 4 on 03/13/2022 by Eliana Thompson MD at [facility] Screw N/A: Spine Lumbar ORTHOFIX [id number] / / Orthofix 6.5x50mm Screws Implanted:Qty : 4 on 03/13/2022 by Eliana Thompson MD at [facility] Screw N/A: Spine Lumbar ORTHOFIX [id number] / / Orthofix Top Loading Body Implanted:Qty : 4 on 03/13/2022 by Eliana Thompson MD at [facility] Spine Components N/A: Spine Lumbar ORTHOFIX / / Insurance MEDICARE [facility] Advance Directives * Full Code (Latest [...] 3:04 AM 01/07/2021 5:10 PM Care Teams Health Care Facilities Inspector Relationship Specialty Start Date End Date Gabriele Candelario MD [address] - [facility] [address] [place] [address] PCP - General INTERNAL MEDICINE 12/26/20
--- OUTSIDE RECORDS SUMMARY | 2024-09-06 15:46 | XMS_ITS | Clinical Summary ---
Author Organization [facility] Chris Wright Address [address] [place] [address] Care Team Providers Care Concrete Stone Fabricator Name Role Phone Gabriele Candelario MD Primary [...] Description 10/31/2024 1:00 PM CDT Office Visit [facility] Oncology and Hematology - [place] [address] [place] [address] Mir Ledesma MD [address] [facility] [address] [place] [address] Health Maintenance Due Date Last Done Comments DTAP/TDAP/TD VACCINES (1 - Tdap) 10/02/1959 PNEUMOCOCCAL VACCINE 50+ YEARS (1 of 1 - PCV) 10/01/18 91 ZOSTER VACCINE (1 of 2) 1990 RSV VACCINE (60+ or ) (1 - 1-dose 75+ series) 10/02/2015 INFLUENZA VACCINE (#1) 2023 Insurance MEDICARE PART A AND B BCBS SUPP Care Teams Concrete Stone Fabricator Relationship Specialty Start Date End Date Gabriele Candelario MD [address] [place] [address] PCP - General Internal Medicine 12/15/22
--- OUTSIDE RECORDS SUMMARY | 2024-09-06 15:46 | XMS_ITS | Encounter Summary ---
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
--- OUTSIDE RECORDS SUMMARY | 2024-09-06 15:46 | XMS_ITS | Clinical Summary ---
Author Organization [facility] Address [address] [place] [address] Care Team Providers Care Management Trainee Name Role Phone Gabriele Candelario MD Primary Care Provider [phone] Allergies No known active allergies Medications morphine (MSIR) 15 mg tablet Take 1 tablet (15 mg total) by mouth every 4 (four) hours as needed for pain for up to 10 doses 10 tablet 1 Active melatonin 10 mg tablet Active TiZANidine (ZANAFLEX) 4 mg capsule Take 1 capsule (4 mg total) by mouth 3 (three) times a day Active eilhoqul37-bghp -Lmfolate-algal 27 mg iron-1.13 mg-581.92 mg capsule [...] pacemaker in situ 04/14/2024 Overview (04/14/2024): Medtronic [place] Dual Pacemaker. Dx; Sinus Node Dysfunction. DOI 04/13/2024- Vlad. Poly Adaptive remote monitoring. Mass of breast 09/20/2010 Resolved Problems Problem Noted Date Diagnosed Date Resolved Date Complete heart block 07/08/2024 025 Encounters Date Type Department Care Team Description 07/08/2024 9:15 AM ARTS MANAGER Office Visit [facility] Cardiology [address] [place] [phone] Frandy Chu MD Cardiac pacemaker in situ (Primary Dx); Sick sinus syndrome (HCC) 06/22/2024 8:30 AM ARTS MANAGER Ancillary Procedure [facility] [address] [place] [address] [place] [phone] Cardiac pacemaker in situ; Sinus node dysfunction (HCC) 06/22/2024 Orders Only [facility] Cardiology [facility] [address] [place] [phone] Frandy Chu MD Cardiac pacemaker in situ (Primary Dx); Bradycardia; Sinus node dysfunction (HCC) 06/08/2024 Telephone [facility] [address] [facility] [address] [place] [phone] Frandy Chu MD from Last 3 [...] on file Legal Sex Male 7:19 PM ARTS MANAGER Gender Identity Not on file Sexual Orientation Not on file Obstetrics History Last Filed Vital Signs Vital Sign Reading Time Taken Comments Blood Pressure 106/68 07/08/2024 9:12 AM ARTS MANAGER Pulse 97 07/08/2024 9:12 AM ARTS MANAGER Temperature 36.8 C (98.2 F) 12/31/2020 1:35 PM CDT Respiratory Rate 16 12/31/2020 1:35 PM CDT Oxygen Saturation 92% 07/08/2024 9:12 AM ARTS MANAGER Inhaled Oxygen Concentration - - Weight 92.7 kg (204 lb 6.4 oz) 07/08/2024 9:12 A M ARTS MANAGER Height 167.6 cm (5' 6 ) 07/08/2024 9:12 AM ARTS MANAGER Body Mass Index 32.99 07/08/2024 9:12 AM ARTS MANAGER Plan of Treatment Health Maintenance Due Date [...] - IN OFFICE Routine 06/22/2024 8:04 AM ARTS MANAGER Cardiac pacemaker in situ Sinus node dysfunction (HCC) from Last 3 Months Results * DEVICE CHECK - IN OFFICE (06/22/2024 8:04 AM ARTS MANAGER) Anatomical Region Laterality Modality Other Narrative 06/23/2024 2:43 PM ARTS MANAGER Medtronic Linda Dual Pacemaker. Dx; Sinus Node [...] at 40-50 beats per minute. AP- 97.9%, MAGNET MAKER- <0.1%. No Atrial high rate episodes recorded. [...] from Last 3 Months Insurance MEDICARE MEDICARE [facility] MEDICARE BLUE CROSS MEDICARE SUPPLEMENT Care Teams Management Trainee Relationship Specialty Start Date End Date Gabriele Candelario MD [address] [place] [address] MEDICINE [place] [id number] PCP - General Internal Medicine 04/20/24
[2024-09-06 16:17] VITALS: BP 127/83; PULSE 60; RESP 21; O2SAT 97
[2024-09-06] MEDS: HYDROcodone/acetaminophen (*CRX) 5-325 MG TABLET 1 TAB PO (17:54)
[2024-09-06 17:55] VITALS: BP 135/87; PULSE 60; RESP 12; O2SAT 97
[2024-09-06] MEDS: CEPHALEXIN 500 MG CAPSULE PO (18:47)
[2024-09-06 18:55] VITALS: BP 115/62; PULSE 60; RESP 16; TEMP 36.7; O2SAT 96
== END 2024-09-06 18:57 | disposition home or self-care (01) ==
PROVIDERS: Emergency Provider Student in an Organized Health Care Education/Training Program; PCP Internal Medicine
DX: S01.81XA Laceration without foreign body of other part of head, initial encounter (principal); G25.81 Restless legs syndrome; I12.9 Hypertensive chronic kidney disease with stage 1 through stage 4 chronic kidney disease, or unspecified chronic kidney disease; N18.9 Chronic kidney disease, unspecified; F41.9 Anxiety disorder, unspecified; F32.A Depression, unspecified; E03.9 Hypothyroidism, unspecified; E78.5 Hyperlipidemia, unspecified; V48.2XXA Person on outside of car injured in noncollision transport accident in nontraffic accident, initial encounter
CPT/HCPCS: 12002; 70450; 70486; 72125; 99284; A9270; J2003

== ENCOUNTER 2024-10-31 10:11 | Outpatient (CLI) | payer MEDICARE, SELFPAY ==
--- OUTSIDE RECORDS SUMMARY | 2024-10-31 10:54 | XMS_ITS | Clinical Summary ---
Author Organization [facility] Chris Wright Address [address] [place] [address] Care Team Providers Care Construction Teacher Name Role Phone Gabriele Candelario MD Primary [...] Encounters Date Type Department Care Team Description 10/25/2024 External Device Data STL ABSTRACTION Provider, Abstract 10/20/2024 External Device Data STL ABSTRACTION Provider, Abstract 10/18/2024 External Device Data STL ABSTRACTION Provider, Abstract 08/17/2024 External Device Data STL ABSTRACTION Provider, [...] 3:42 PM CDT Height 167.6 cm (5' 6) 12/15/2022 11:54 AM CDT Body Mass Index 31.96 12/15/2022 11:54 AM CDT Plan of Treatment Upcoming Encounters Date Type Department Care Team (Late st Contact Info) Description 01/04/2025 2:45 PM CDT Office Visit [facility] Oncology and Hematology - [place] [address] [place] [address] Mir Ledesma MD [address] [facility] [address] [place] [address] Health Maintenance Due Date Last Done Comments DTAP/TDAP/TD VACCINES (1 - Tdap) 10/02/1959 Traditional Medicare (ACO) Annual Wellness Visit 10/01 PNEUMOCOCCAL VACCINE 50+ YEARS (1 of 1 - PCV) 10/01/18 91 ZOSTER VACCINE (1 of 2) 1990 RSV VACCINE (60+ or ) (1 - 1-dose 75+ series) 10/02/2015 INFLUENZA VACCINE (#1) 2023 Insurance MEDICARE PART A AND B BCBS SUPP Care Teams Construction Teacher Relationship Specialty Start Date End Date Gabriele Candelario MD [address] [place] [phone] PCP - General Internal Medicine 12/15/22
--- OUTSIDE RECORDS SUMMARY | 2024-10-31 10:54 | XMS_ITS | Referral Summary ---
Author Organization [facility] Address [address] [place] [address] Care Team Providers Care Barker Operator Name Role Phone Gabriele Candelario MD Primary Care Provider [phone] Encounters Date Type Department Care Team Description 09/27/2024 10:15 AM CDT Ancillary Procedure [facility] Cardiology [address] [place] [phone] Cardiac pacemaker in situ; Sinus node dysfunction (HCC) from Last 3 Months Allergies No known [...] mouth 3 (three) times a day Active gwqnxabz32-aykh -Lmfolate-algal 27 mg iron-1.13 mg-581.92 mg capsule [...] Dx; Sinus Node Dysfunction. DOI 04/13/2024- Vlad. The Dodo remote monitoring. Mass of breast 09/20/2010 Resolved Problems Problem Noted Date Diagnosed Date Resolved Date Complete heart block 07/08/2024 025 Social History Tobacco Use Types Packs/Day Years Used Date Smoking Tobacco: Never Sex and Gender Information Value Date Recorded Sex Assigned at Not on file Legal Sex Male 7:19 PM AGRICULTURIST Gender Identity Not on file Sexual Orientation Not on file Last Filed Vital Signs Vital Sign Reading Time Taken Comments Blood Pressure 106/68 07/08/2024 9:12 AM AGRICULTURIST Pulse 97 07/08/2024 9:12 AM AGRICULTURIST Temperature 36.8 C (98.2 F) 12/31/2020 1:35 PM CDT Respiratory Rate 16 12/31/2020 1:35 PM CDT Oxygen Saturation 92% 07/08/2024 9:12 AM AGRICULTURIST Inhaled Oxygen Concentration - - Weight 92.7 kg (204 lb 6.4 oz) 07/08/2024 9:12 A M AGRICULTURIST Height 167.6 cm (5' 6) 07/08/2024 9:12 AM AGRICULTURIST Body Mass Index 32.99 07/08/2024 9:12 AM AGRICULTURIST Plan of Treatment Not on file Procedures Procedure Name Priority Date/Time Associated Diagnosis Comments DEVICE CHECK - REMOTE Routine 10/03/2024 12:35 PM CDT Cardiac pacemaker in situ Sinus node dysfunction (HCC) from Last 3 Months Results * DEVICE CHECK - REMOTE (10/03/2024 12:35 PM CDT) Anatomical Region Laterality Modality Other Narrative 10/31/2024 6:49 AM CDT Medtronic [place] Dual Pacemaker. Dx; Sinus Node Dysfunction. DOI 04/13/2024-Vlad. Carelink remote monitoring. Carelink remote Interrogation of the patients device demonstrates that the DDD pacemaker is functioning appropriately according to the timber spotter's recommendations with appropriate battery voltage, lead impedances, stable atrial and ventricular pacing and sensing thresholds. There were no atrial or ventricular arrhythmias noted. See scanned report. Office pacemaker follow-up scheduled 07/19/2025. Next Carelink is scheduled for 01/04/2025. Daya Cho RN Frandy Chu MD CV CARDIAC SERVICES PROC EDURES Final Result from Last 3 Months Insurance MEDICARE MEDICARE [facility] MEDICARE BLUE CROSS MEDICARE SUPPLEMENT Care Teams Barker Operator Relationship Specialty Start Date End Date Gabriele Candelario MD [address] [place] [address] INTERNAL MEDICINE [place], [place] [phone] PCP - General Internal Medicine 04/20/24
--- OUTSIDE RECORDS SUMMARY | 2024-10-31 10:54 | XMS_ITS | Clinical Summary ---
Author Organization [facility] Address [address] [place] [address] Care Team Providers Care Assessor Name Role Phone Gabriele Candelario MD Primary Care Provider [phone] Allergies No known active allergies Medications morphine (MSIR) 15 mg tablet Take 1 tablet (15 mg total) by mouth every 4 (four) hours as needed for pain for up to 10 doses 10 tablet 1 Active melatonin 10 mg tablet Active TiZANidine (ZANAFLEX) 4 mg capsule Take 1 capsule (4 mg total) by mouth 3 (three) times a day Active rorqdjqn98-hnwa -Lmfolate-algal 27 mg iron-1.13 mg-581.92 mg capsule [...] pacemaker in situ 04/14/2024 Overview (04/14/2024): Medtronic Ele[place] Dual Pacemaker. Dx; Sinus Node Dysfunction. DOI 04/13/2024- [place]. [facility] remote monitoring. Mass of breast 09/20/2010 Resolved Problems Problem Noted Date Diagnosed Date Resolved Date Complete heart block 07/08/2024 025 Encounters Date Type Department Care Team Description 09/27/2024 10:15 AM CDT Ancillary Procedure [facility] Cardiology [address] [place] [phone] Cardiac pacemaker in situ; Sinus node dysfunction (HCC) from Last 3 Months Surgical History Surgery [...] on file Legal Sex Male 7:19 PM PRIVATE DUTY LPN Gender Identity Not on file Sexual Orientation Not on file Obstetrics History Last Filed Vital Signs Vital Sign Reading Time Taken Comments Blood Pressure 106/68 07/08/2024 9:12 AM PRIVATE DUTY LPN Pulse 97 07/08/2024 9:12 AM PRIVATE DUTY LPN Temperature 36.8 C (98.2 F) 12/31/2020 1:35 PM CDT Respiratory Rate 16 12/31/2020 1:35 PM CDT Oxygen Saturation 92% 07/08/2024 9:12 AM PRIVATE DUTY LPN Inhaled Oxygen Concentration - - Weight 92.7 kg (204 lb 6.4 oz) 07/08/2024 9:12 A M PRIVATE DUTY LPN Height 167.6 cm (5' 6) 07/08/2024 9:12 AM PRIVATE DUTY LPN Body Mass Index 32.99 07/08/2024 9:12 AM PRIVATE DUTY LPN Plan of Treatment Health Maintenance Due Date Last Done Comments Depression Screening 1940 Fall Risk Assessment 1940 Hepatitis B Screening 1958 Pneumococcal vaccine 65+ (1 of 1 - PCV) 1990 Zoster Vaccine (1 of 2) 1990 Well Visit 65+ 2005 Influenza Vaccine (Season Ended) 2025 06/05/2014, 05/18/2013, 04/12/2012 DTaP/Tdap/Td Vaccine (2 - Td or Tdap) 12/27/2030 Procedures Procedure Name Priority Date/Time Associated Diagnosis Comments DEVICE CHECK - REMOTE Routine 10/03/2024 12:35 PM CDT Cardiac pacemaker in situ Sinus node dysfunction (HCC) from Last 3 Months Results * DEVICE CHECK - REMOTE (10/03/2024 12:35 PM CDT) Anatomical Region Laterality Modality Other Narrative 10/31/2024 6:49 AM CDT Medtronic Linda Dual Pacemaker. Dx; Sinus Node Dysfunction. DOI 04/13/2024-Vlad. Carelink remote monitoring. Carelink remote Interrogation of the patients device demonstrates that the DDD pacemaker is functioning appropriately according to the school plant consultant's recommendations with appropriate battery voltage, lead impedances, stable atrial and ventricular pacing and sensing thresholds. There were no atrial or ventricular arrhythmias noted. See scanned report. Office pacemaker follow-up scheduled 07/19/2025. Next Carelink is scheduled for 01/04/2025. Daya Cho RN Frandy Chu MD CV CARDIAC SERVICES PROC EDURES Final Result from Last 3 Months Insurance MEDICARE MEDICARE [facility] MEDICARE [facility] MEDICARE SUPPLEMENT Care Teams Assessor Relationship Specialty Start Date End Date Gabriele Candelario MD [address] [facility] [address] [place] [address] PCP - General Internal Medicine 04/20/24
[2024-10-31 11:10] LABS: Basophils Absolute Auto 0.1 K/mm3 (0.0-0.1); Basophils Percent Auto 0.7 % (0.2-1.2); Eosinophils Absolute Auto 0.3 K/mm3 (0-0.3); Eosinophils Percent Auto 4.2 % (0-4.4); Hematocrit 39.1 % (42.0-52.0); Hemoglobin 12.8 g/dL (14.0-18.0); Immature Granulocyte Absolute 0.03 K/mm3 (0.00-0.031); Immature Granulocyte Percent A 0.4 % (0-0.5); Lymphocytes Absolute Auto 1.21 K/mm3 (0.9-3.2); Mean Corpuscular HGB Conc 32.7 g/dl (32-36); Mean Corpuscular Hemoglobin 32.5 pg (26-34); Mean Corpuscular Volume 99.2 fl (80-100); Mean Platelet Volume 8.5 fl (7.4-10.4); Monocytes Absolute Auto 0.6 K/mm3 (0.1-0.6); Monocytes Percent Auto 8.8 % (2.6-8.5); Neutrophils Absolute Auto 4.6 K/mm3 (1.3-6.7); Neutrophils Percent Auto 67.9 % (45.5-73.1); Platelet Count Result 171 k/mm3 (150-375); Red Blood Count 3.94 M/mm3 (4.6-6.20); Red Cell Distribution Width 12.4 % (11.5-14.5); White Blood Count 6.7 K/mm3 (4.5-10.0)
[2024-10-31 11:19] LABS: Alanine Aminotransferase 29 U/L (6-50); Albumin Level 4.5 g/dL (3.5-5.1); Alkaline Phosphatase 100 U/L (38-126); Anion Gap 7 mmol/L (4-12); Aspartate Amino Transferase 38 U/L (17-59); Bilirubin,Total 0.4 mg/dL (0.2-1.3); Blood Urea Nitrogen 27 mg/dL (9-20); Calcium 9.6 mg/dL (8.4-10.2); Carbon Dioxide 30 mmol/L (22-30); Chloride 102 mmol/L (98-107); Cholesterol 181 mg/dL (0-200); Estimated Glomerular Filt Rate 41; Glucose 109 mg/dL (65-110); HDL Direct 51 mg/dL; Potassium 4.4 mmol/L (3.4-5.0); Sodium 139 mmol/L (137-145); Triglycerides 349 mg/dL (<150)
[2024-10-31 11:31] LABS: LDL Cholesterol Direct 70 mg/dL
[2024-10-31 11:37] LABS: Immunoglobulin A 170 mg/dL (70-400); Immunoglobulin G 1170 mg/dL (700-1600); Immunoglobulin M 31 mg/dL (40-230)
[2024-10-31 11:42] LABS: Hemoglobin A1C 5.7 % (<5.7)
[2024-10-31 11:44] LABS: Free T4 Free Thyroxine 0.99 ng/dL (0.78-2.19)
[2024-11-01 11:38] LABS: Kappa\\Lambda Light Chains 27.46 (0.26-1.65); Lambda Light Chain 18.8 mg/L (5.7-26.3)
[2024-11-02 08:49] LABS: Albumin 4.3 g/dL (3.8-4.8); Alpha 1 Globulin 0.3 g/dL (0.2-0.3); Alpha 2 Globulin 0.7 g/dL (0.5-0.9); Beta 1 Globulin 0.4 g/dL (0.4-0.6)
== END 2024-10-31 10:12 | disposition home or self-care (01) ==
PROVIDERS: PCP Internal Medicine; Referring Provider Internal Medicine; Visit Provider Internal Medicine Hematology & Oncology
DX: D72.9 Disorder of white blood cells, unspecified (principal); R73.03 Prediabetes; E03.9 Hypothyroidism, unspecified; E78.2 Mixed hyperlipidemia; I10 Essential (primary) hypertension
CPT/HCPCS: 36415; 80053; 80061; 82784; 83036; 83883; 84155; 84165; 84439; 84443; 85025

== ENCOUNTER 2024-12-26 08:28 | Outpatient (CLI) | payer MEDICARE, SELFPAY ==
[2024-12-26 08:55] LABS: Hematocrit 36.8 % (42.0-52.0); Hemoglobin 12.3 g/dL (14.0-18.0); Immature Granulocyte Percent A 0.2 % (0-0.5); Lymphocytes Absolute Auto 1.33 K/mm3 (0.9-3.2); Mean Corpuscular HGB Conc 33.4 g/dl (32-36); Mean Corpuscular Hemoglobin 32.5 pg (26-34); Mean Corpuscular Volume 97.1 fl (80-100); Nucleated Red Blood Cells Absolute Auto 0.000 K/mm3 (0.0-0.012); Nucleated Red Blood Cells Perc 0.0 % (0.0-0.2); Platelet Count Result 160 k/mm3 (150-375); Red Blood Count 3.79 M/mm3 (4.6-6.20); White Blood Count 5.8 K/mm3 (4.5-10.0)
[2024-12-26 09:34] LABS: Alanine Aminotransferase 21 U/L (6-50); Albumin Level 4.1 g/dL (3.5-5.1); Alkaline Phosphatase 97 U/L (38-126); Anion Gap 10 mmol/L (4-12); Aspartate Amino Transferase 31 U/L (17-59); Bilirubin,Total 0.4 mg/dL (0.2-1.3); Blood Urea Nitrogen 26 mg/dL (9-20); Calcium 9.5 mg/dL (8.4-10.2); Carbon Dioxide 27 mmol/L (22-30); Chloride 105 mmol/L (98-107); Estimated Glomerular Filt Rate 35; Glucose 114 mg/dL (65-110); Potassium 4.0 mmol/L (3.4-5.0); Sodium 142 mmol/L (137-145); Total Protein 7.2 g/dL (6.3-8.2)
[2024-12-26 09:43] LABS: Immunoglobulin A 142 mg/dL (70-400); Immunoglobulin G 1097 mg/dL (700-1600); Immunoglobulin M 26 mg/dL (40-230)
[2024-12-27 13:08] LABS: Free Lambda Lt Chains, Serum 21.1 mg/L (5.7-26.3); Kappa/Lambda Ratio, Serum 24.07 (0.26-1.65)
[2024-12-27 14:08] LABS: Albumin 3.6 g/dL (2.9-4.4); Alpha-1-Globulin 0.3 g/dL (0.0-0.4); Alpha-2-Globulin 0.8 g/dL (0.4-1.0); Gamma Globulin 1.0 g/dL (0.4-1.8)
== END 2024-12-26 08:29 | disposition home or self-care (01) ==
LOC: ANHLAB 08:29
PROVIDERS: PCP Internal Medicine; Visit Provider Internal Medicine Hematology & Oncology
DX: D72.9 Disorder of white blood cells, unspecified (principal)
CPT/HCPCS: 36415; 80053; 82784; 84165; 85025

== ENCOUNTER 2025-01-09 09:47 | Outpatient (CLI) | payer MEDICARE, SELFPAY ==
--- OUTSIDE RECORDS SUMMARY | 2025-01-09 09:58 | XMS_ITS | Clinical Summary ---
Author Organization [facility] Chris Wright Address [address] [place] [address] Care Team Providers Care Tour Escort Name Role Phone Gabriele Candelario MD Primary [...] Encounters Date Type Department Care Team Description 01/09/2025 9:15 AM CDT Office Visit [facility] Oncology and Hematology - [place] [address] [place] [address] Mir Ledesma MD Chronic anemia (Primary Dx) 01/04/2025 External Device Data STL ABSTRACTION Provider, Abstract 12/28/2024 Orders Only [facility] Oncology and Hematology - [place] [address] [place] [address] Mir Ledesma MD 12/27/2024 Orders Only [facility] Oncology and Hematology - [place] [address] [place] [address] Mir Ledesma MD 12/14/2024 External Device Data STL ABSTRACTION Provider, Abstract 12/14/2024 External Device Data STL ABSTRACTION Provider, Abstract 12/14/2024 External Device Data STL ABSTRACTION Provider, Abstract 12/13/2024 External Device Data STL ABSTRACTION Provider, Abstract 11/15/2024 External Device Data STL ABSTRACTION Provider, Abstract 11/02/2024 Orders Only [facility] Oncology and Hematology - [place] [address] [place] [address] Scanning, Provider 11/01/2024 Orders Only [facility] Oncology and Hematology - [place] [address] [place] [address] Mir Ledesma MD 10/25/2024 External Device Data STL ABSTRACTION Provider, [...] Sign Reading Time Taken Comments Blood Pressure 153/71 01/09/2025 9:20 AM CDT Pulse 91 01/09/2025 9:14 AM CDT Temperature 36.8 C (98.3 F) 01/09/2025 9:14 AM CDT Respiratory Rate 16 01/28/2024 3:42 PM CDT Oxygen Saturation 95% 01/09/2025 9:14 AM CDT Inhaled Oxygen Concentration - - Weight 96.6 kg (213 lb) 01/09/2025 9:14 AM CDT Height 167.6 cm (5' 6) 01/09/2025 9:14 AM CDT Body Mass Index 34.38 01/09/2025 9:14 AM CDT Plan of Treatment Upcoming Encounters Date Type Department Care Team (Late st Contact Info) Description 01/16/2025 4:30 PM CDT Telephone Check Up [facility] Oncology and [place] [address] [place] [address] Mir Ledesma MD [address] [place] [address] [place] [phone] 07/14/2025 9:45 AM FARMWORKER Office Visit [facility] Oncology [facility] [address] [place] [address] Mir Ledesma MD [address] [place] [phone] Health Maintenance Due Date Last Done Comments DTAP/TDAP/TD VACCINES (1 - Tdap) 10/02/1959 Traditional Medicare (ACO) Annual Wellness Visit 10/01 PNEUMOCOCCAL VACCINE 50+ YEARS (1 of 1 - PCV) 10/01/18 91 ZOSTER VACCINE (1 of 2) 1990 RSV VACCINE (60+ or ) (1 - 1-dose 75+ series) 10/02/2015 INFLUENZA VACCINE (#1) 2024 Procedures Procedure Name Priority Date/Time Associated Diagnosis Comments COMPREHENSIVE METABOLIC PANEL Routine 12/26/2024 4:10 PM CDT KAPPA/LAMBDA LIGHT CHAINS Routine 2024 12:45 PM CDT PROTEIN ELECTROPHORESIS, CSF Routine 10/31/2024 1:41 PM CDT IGG Routine 10/31/2024 12:52 PM CDT COMPREHENSIVE METABOLIC PANEL Routine 10/31/2024 12:50 PM CDT KAPPA/LAMBDA LIGHT CHAINS Routine 2024 11:05 AM CDT from Last 3 Months Results * COMPREHENSIVE METABOLIC PANEL (12/26/2024 4:10 PM CDT) Only the most recent of2 resultswithin the time period is included. Blood us Mir Ledesma MD CHEMISTRY ORDERABLES Final Resu lt * KAPPA/LAMBDA, FREE LIGHT CHAINS (12/26/2024 12:45 PM CDT) Only the most recent of2 resultswithin the time period is included. Blood us Mir Ledesma MD CHEMISTRY ORDERABLES Final Resu lt * PROTEIN ELECTROPHORESIS, CSF (10/31/2024 1:41 PM CDT) Cerebrospinal fluid CEREBROSPINAL FLUID / Unknown us Mir Ledesma MD BODY FLUIDS AND STOOLS Final Re sult * IGG (10/31/2024 12:52 PM CDT) Blood us Mir Ledesma MD CHEMISTRY ORDERABLES Final Resu lt from Last 3 Months Insurance MEDICARE PART A AND B BS SUPP Care Teams Tour Escort Relationship Specialty Start Date End Date Gabriele Candelario MD [address] [place] [phone] PCP - General Internal Medicine 12/15/22
--- OUTSIDE RECORDS SUMMARY | 2025-01-09 09:58 | XMS_ITS | Clinical Summary ---
Author Organization [facility] Address [address] [place] [address] Care Team Providers Care Transitional Living Specialist Name Role Phone Gabriele Candelario MD Primary Care Provider [phone] Allergies No known active allergies Medications latanoprost [...] 12/15/19 21 Active B-D 3CC LUER-CORA SYR 00NL8-0/2 18G X 1-1/2 3 ML Misc USE [...] daily with lunch. Indications: Other vitamin deficiencies [place] Blend with iron 04/03/20 22 Active vitamin C (ASCORBIC ACID) 1000 MG tabletIndication s:Vitamin C Imbalance (Inactive) Take 1 tablet (1,000 mg total) by [...] injury 01/03/2021 Mass of breast 09/20/2010 Immunizations Immunization Administration Dates Next Due PFIZER COVID-19 (MOORE [...] = 0.6 oz pur e alcohol) socially [facility] Utilities Answer Date Recorded In the past 12 months has [employer], [employer], or [employer] threatened to shut off services in your [...] any time in the past 12 [facility], were you homeless or living in a nursing home (including now)? 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 Not on file Not on file Not [...] 9:35 AM CDT Height 167.6 cm (5' 6) 03/29/2024 9:35 AM CDT Body Mass Index 28.54 03/29/2024 9:35 AM CDT Plan of Treatment Health Maintenance Due Date Last Done Comments DTaP, Tdap and Td Vaccines ( 1 - Tdap) 10[birth year]02/1959 Pneumococcal Vaccine: 50+ Years (1 of 1 - PCV) 1990 Zoster Vaccines (1 of 2) 1990 Annual Medicare Wellness Visit 2005 RSV Immunization or 60+ Years (1 - 1-dose 75+ series) 10/02/2015 COVID-19 Vaccine (2023-2 5 season) 2024 07/26/2020, 07/05/2020 Meningococcal B [...] perform ADLs independently General No Jackie Lopez, RN Safety - demonstrates understanding of home safety measures Lifestyle No [place] RN Medical Devices Implanted Type Area Striper Spray Gun Device Identifier Shelf Expiration Date Model / Serial / Lot Xavi Implanted:Qty : 2 on 03/13/2022 by Eliana Thompson MD at [facility] Xavi N/A: Spine Lumbar ORTHOFIX [id number] / / Description:[id number]-l5 Orthofix Set Screw Implanted:Qty : 4 on 03/13/2022 by Eliana Thompson MD at [facility] Screw N/A: Spine Lumbar ORTHOFIX [id number] / / Orthofix 6.5x50mm Screws Implanted:Qty : 4 on 03/13/2022 by Eliana Thompson MD at [facility] Screw N/A: Spine Lumbar ORTHOFIX [id number] / / Orthofix Top Loading Body Implanted:Qty : 4 on 03/13/2022 by Eliana Thompson MD at [facility] Spine Components N/A: Spine Lumbar ORTHOFIX / / Insurance MEDICARE [facility] Advance Directives * Full Code (Latest Code [...] 3:04 AM 01/07/2021 5:10 PM Care Teams Transitional Living Specialist Relationship Specialty Start Date End Date Gabriele Candelario MD [address] - [facility] [address] [place] [address] PCP - General INTERNAL MEDICINE 12/26/20
--- OUTSIDE RECORDS SUMMARY | 2025-01-09 09:58 | XMS_ITS | Clinical Summary ---
Author Organization [facility] Address [address] [place] [address] Care Team Providers Care Seasonal Package Handler Name Role Phone Gabriele Candelario MD Primary Care Provider [phone] Allergies No known active allergies Medications morphine (MSIR) 15 mg tablet Take 1 tablet (15 mg total) by mouth every 4 (four) hours as needed for pain for up to 10 doses 10 tablet 1 Active melatonin 10 mg tablet Active TiZANidine (ZANAFLEX) 4 mg capsule Take 1 capsule (4 mg total) by mouth 3 (three) times a day Active [id number] -Lmfolate-algal 27 mg iron-1.13 mg-581.92 mg capsule [...] pacemaker in situ 04/14/2024 Overview (04/14/2024): Medtronic [place] Dual Pacemaker. Dx; Sinus Node Dysfunction. DOI 04/13/2024- Vlad. [employer] remote monitoring. Mass of breast 09/20/2010 Resolved Problems Problem Noted Date Diagnosed Date Resolved Date Complete heart block 07/08/2024 025 Surgical History Surgery Date Site/Laterality Comments CARDIAC [...] on file Legal Sex Male 7:19 PM ELECTRICAL MAINTENANCE MECHANIC Gender Identity Not on file Sexual Orientation Not on file Obstetrics History Last Filed Vital Signs Vital Sign Reading Time Taken Comments Blood Pressure 106/68 07/08/2024 9:12 AM ELECTRICAL MAINTENANCE MECHANIC Pulse 97 07/08/2024 9:12 AM ELECTRICAL MAINTENANCE MECHANIC Temperature 36.8 C (98.2 F) 12/31/2020 1:35 PM CDT Respiratory Rate 16 12/31/2020 1:35 PM CDT Oxygen Saturation 92% 07/08/2024 9:12 AM ELECTRICAL MAINTENANCE MECHANIC Inhaled Oxygen Concentration - - Weight 92.7 kg (204 lb 6.4 oz) 07/08/2024 9:12 A M ELECTRICAL MAINTENANCE MECHANIC Height 167.6 cm (5' 6) 07/08/2024 9:12 AM ELECTRICAL MAINTENANCE MECHANIC Body Mass Index 32.99 07/08/2024 9:12 AM ELECTRICAL MAINTENANCE MECHANIC Plan of Treatment Health Maintenance Due Date Last Done Comments Depression Screening 1940 Fall Risk Assessment 1940 Hepatitis B Screening 1958 Pneumococcal vaccine 65+ (1 of 1 - PCV) 1990 Zoster Vaccine (1 of 2) 1990 Well Visit 65+ 2005 Influenza Vaccine (#1) 2025 5, 05/18/2013, 04/12/2012 DTaP/Tdap/Td Vaccine (2 - Td or Tdap) 12/27/2030 Insurance MEDICARE [facility] MEDICARE [facility] MEDICARE SUPPLEMENT Care Teams Seasonal Package Handler Relationship Specialty Start Date End Date Gabriele Candelario MD [address] [place] [address] INTERNAL MEDICINE [place], [place] [phone] PCP - General Internal Medicine 04/20/24
--- OUTSIDE RECORDS SUMMARY | 2025-01-09 09:58 | XMS_ITS | Encounter Summary ---
Author Organization [facility] Address [address] [place] [address] Care Team Providers Care Plasterer Helper Name Role Phone Gabriele Candelario MD Primary Care Provider Encounter Details Date Type Department Care Team (Late st Contact Info) Description 08/08/2021 Prep for Procedure [facility] [place] [phone] [phone] Skye Mclaughlin NP [address] 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
--- OUTSIDE RECORDS SUMMARY | 2025-01-09 09:58 | XMS_ITS | Encounter Summary ---
Author Organization [facility] [employer] [facility] Address [address] [place] [address] Care Team Providers Care Binder Sorter Name Role Phone Gabriele Candelario MD Primary Care Provider + Reason for Visit * Reason Comments Follow Up Encounter Details Date Type Department Care Team (Late st Contact Info) Description 01/09/2025 9:15 AM CDT Office Visit [facility] Oncology and Hematology - [place] [address] [facility] [address] [place] [address] Mir Ledesma MD [address] [facility] [address] [place] [address] Chronic anemia (Primary Dx) Social History Tobacco Use Types Packs/Day Years Used Date Smoking Tobacco: Never Smokeless Tobacco: Never Alcohol Use Standard Drinks/Week Comments Yes 0 (1 standard drink = 0.6 oz pur e alcohol) rare Sex and Gender Information Value Date Recorded Sex Assigned at Not on file Legal Sex Male 9:00 AM CDT Gender Identity Not on file Sexual Orientation Not on file documented as of this encounter Last Filed Vital Signs Vital Sign Reading Time Taken Comments Blood Pressure 153/71 01/09/2025 9:20 AM CDT Pulse 91 01/09/2025 9:14 AM CDT Temperature 36.8 C (98.3 F) 01/09/2025 9:14 AM CDT Respiratory Rate - - Oxygen Saturation 95% 01/09/2025 9:14 AM CDT Inhaled Oxygen Concentration - - Weight 96.6 kg (213 lb) 01/09/2025 9:14 AM CDT Height 167.6 cm (5' 6) 01/09/2025 9:14 AM CDT Body Mass Index 34.38 01/09/2025 9:14 AM CDT documented in this encounter Progress Notes * Mir Ledesma MD - 01/09/2025 9:54 AM CDT HEMATOLOGY / ONCOLOGY PROGRESS NOTE Patient Identification: Name: Souleymane Powers Age: 84 y.o. Sex: male : 1940 DIAGNOSIS Erythrocytosis MGUS CURRENT TREATMENT Baby aspirin 3 times a week TREATMENT HISTORY SUBJECTIVE Patient came to the office for follow-up visit. Is been complaining of generalized musculoskeletal discomfort and especially the lower spine with some neuropathic pain. He is off the narcotics and has been seen by the pain service. He is has gained 15 pound weight. No other new complaints. Review of system Constitutional: Patient did not mention fevers, sweats, 15 pound weight gain with mild tiredness and fatigue HEENT: Patient did not mention sinus congestion, hearing or vision problems Respiratory: Patient did not mention cough, dyspnea, wheeze Cardiovascular: Patient did not mention chest pain, exertional chest pressure/discomfort, nausea, syncope, shortness of breath GI: Patient did not mention constipation, diarrhea, dsyphagia, reflux symptoms, vomiting, melena : Patient did not mention dysuria, frequency, incontinence, urgency Integumentary system: no lymphadenopathy, sweats, flushing Musculoskeletal: Patient not mention: myalgia, arthralgia, complain of lower back pain Neurological: Patient did not mention blurry or disturbed vision, numbness/weakness, dizziness Skin: No lumps, bumps or rashes. 12 point review of system was reviewed Objective: Vital signs in last 24 hours: As per nursing note Exam: General appearance: alert, cooperative, no distress, appears stated age Head: normocephalic, without obvious abnormality, atraumatic Eyes: conjunctivae/corneas clear, EOM's intact Ears: normal external ear canals AU Nose: Nares normal. Septum midline. Mucosa normal. No drainage or sinus tenderness Throat: Lips, mucosa, and tongue normal. Teeth and gums normal Neck: supple, symmetrical, trachea midline. Lungs: clear to auscultation bilaterally Heart: regular rate and rhythm, S1, S2 normal, no murmur, click, rub or gallop Abdomen: soft, non-tender. Bowel sounds normal. No masses, No organomegaly Extremities: extremities normal, atraumatic, no cyanosis or edema Skin: Skin color, texture, turgor normal. No rashes or lesions Lymph nodes: No lymphadenopathy Neuro: No obvious focal deficit Exam as above PATH LABS Labs from December 15 showed kappa light chain 373 lambda light chain 27.4 ratio 13.6 creatinine 1.6 calcium 9.0 WBC 7.8 hematocrit 51.3 serum protein electrophoresis showed no M spike IgM less than 25 IgG 929 IgA 152 Labs from July 16 showed WBC 7.2 hemoglobin 16.9 hematocrit 50.7 platelet 132,000 creatinine 1.6 Labs from January 13 showed kappa light chain 550 lambda 15.1 ratio 39 hemoglobin 16.9 hematocrit 49.7 creatinine 1.7 GFR 39 IgM less than 25 IgG 917 serum protein electrophoresis showed no monoclonalspike Labs from December 26 showed creatinine 1.8 GFR 35 WBC 5.8 hemoglobin 12.3 platelet 160 IgM 26 IgG 1097IgA 142 [place] light chain 507 lambda 21 ratio 24 no M spike seen Assessment: Plan: There are no active problems to display for this patient. MGUS. Patient is clinically asymptomatic. Back pain is secondary to previous back surgery and spinal stenosis. He is off the narcotic and has been evaluated by the pain service for pain pump placement. Other labs showed improvement in the kappa light chain and no monoclonal spike. No need for bone marrow biopsy. I will repeat myeloma testing in 1 year. 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 He has discontinued testosterone therapy more than 1 year ago. Hemoglobin has dropped and he is more anemic. I will check workup for anemia today and phone visit in 1 week. Chronic kidney disease. Creatinine is stable. He will follow-up with the primary care physician. Testosterone deficiency. He has been off the testosterone therapy for 1 year duration. Phone visit in 1 week and follow-up in 6 months with repeat labs. 01/09/2025 Mir Ledesma MD documented in this encounter Plan of Treatment Upcoming Encounters Date Type Department Care Team (Late st Contact Info) Description 01/16/2025 4:30 PM CDT Telephone Check Up [facility] Oncology and Hematology - [place] [address] [place] [address] Mir Ledesma MD [address] [facility] [employer] [address] [place] [address] 07/14/2025 9:45 AM MASTER CONTROL TECHNICIAN Office Visit [facility] Oncology and Hematology [facility] [address] [place] [address] Mir Ledesma MD [address] [facility] [employer] [address] [place] [address] Scheduled Orders Name Type Priority Associated Diagnoses Orde r Schedule FERRITIN Lab Routine Chronic anemia Expected: 01/09/2025, Expires: 01/09/2026 IRON, TIBC, AND PERCENT SATURATION Lab Routine Chronic anemia Expected: 01/09/2025, Expires: 01/09/2026 VITAMIN B12 AND FOLATE Lab Routine Chronic anemia Expected: 01/09/2025, Expires: 01/09/2026 CBC WITH DIFFERENTIAL Lab Stat Chronic anemia Expected: 07/12/2025, Expires: 01/09/2026 COMPREHENSIVE METABOLIC PANEL Lab Stat Chronic anemia Expected: 07/12/2025, Expires: 01/09/2026 documented as of this encounter Visit Diagnoses Diagnosis Chronic anemia- Primary Anemia, unspecified documented in this encounter Care Teams Binder Sorter Relationship Specialty Start Date End Date Gabriele Candelario MD [address] [place] [address] PCP - General Internal Medicine 12/15/22 documented as of this encounter
[2025-01-09 11:34] LABS: Iron 83 ug/dL (49-181)
[2025-01-09 11:49] LABS: Percent Iron Saturation 28 % (20-50)
[2025-01-09 12:16] LABS: Ferritin 265.00 ng/mL (11.1-264)
[2025-01-09 12:39] LABS: Vitamin B12 290.0 pg/mL (239-931)
== END 2025-01-09 09:48 | disposition home or self-care (01) ==
LOC: ANHLAB 09:49
PROVIDERS: PCP Internal Medicine; Visit Provider Internal Medicine Hematology & Oncology
DX: D64.9 Anemia, unspecified (principal)
CPT/HCPCS: 36415; 82607; 82728; 82746; 83540; 83550

== ENCOUNTER 2025-01-18 13:16 | Outpatient (CLI) | payer MEDICARE, SELFPAY ==
--- OUTSIDE RECORDS SUMMARY | 2025-01-16 16:30 | XMS_ITS | Encounter Summary ---
Author Organization [facility] [employer] [facility] Address [address] [place] [address] Care Team Providers Care Tie Buyer Name Role Phone Gabriele Candelario MD Primary Care Provider + Encounter Details Date Type Department Care Team (Late st Contact Info) Description 01/16/2025 4:30 PM CDT Telephone Check Up [facility] Oncology and Hematology - [place] [address] [place] [address] [address] [place] [address] Mir Ledesma MD [address] [facility] [address] [place] [address] Chronic anemia (Primary Dx) Social [...] on file documented as of this encounter Progress Notes * Mir Ledesma MD - 01/16/2025 4:48 PM CDT HEMATOLOGY / ONCOLOGY PROGRESS NOTE Patient Identification: Name: Souleymane Powers Age: 84 y.o. Sex: male : 1940 DIAGNOSIS Erythrocytosis MGUS CURRENT TREATMENT Baby aspirin 3 times a week TREATMENT HISTORY SUBJECTIVE This is a phone visit with patient. He has been on pain pump for his musculoskeletal discomfort andhaving some pain from drug withdrawal. He denies any other new complaint. Review of system Constitutional: Patient did not mention fevers, sweats, complain of mild tiredness and fatigue HEENT: Patient did [...] 24 hours: As per nursing note Exam: This is a phone visit PATH LABS Labs from December 15 showed [...] platelet 160 IgM 26 IgG 1097IgA 142 [place] light chain 507 lambda 21 ratio 24 no M spike seen Labs from January 09 showed iron 83 saturation 28 ferritin 265 B12 290 Assessment: Plan: There are no active problems [...] has dropped and he is more anemic. Anemia workup was done due to drop in the hemoglobin that showed normal iron studies and slightly low B12. Patient restarted B12 injections at home after the last blood was done that he will continueon a monthly basis. I will repeat labs again in 6 months. CKD. Stable. Testosterone deficiency. He has been off the testosterone therapy for 1 year. Follow-up with labs in 6 months. 01/16/2025 Mir Ledesma MD Patient's identity confirmed yes Patient gave verbal consent to have these services billed to their insurance and expressed understanding that co-insurance and deductible may apply: yes Patient was located at home. This encounter was completed via two-way synchronous audio only communication. Video technology available to provider, but patient not capable of, or doesn't consent to, use of video. Time spent in discussion with patient: 15 minutes. documented in this encounter Plan of Treatment Upcoming Encounters Date Type Department Care Team (Late st Contact Info) Description 07/14/2025 9:45 AM MED SPA MANAGER Office Visit [facility] Oncology and Hematology - [place] [address] [place] [address] [address] [place] [address] [place] [address] [address] [place] [address] Scheduled Orders Name Type Priority Associated Diagnoses Orde r Schedule CBC WITH DIFFERENTIAL Lab Stat Chronic anemia Expected: 07/19/2025, Expires: 01/16/2026 COMPREHENSIVE METABOLIC PANEL Lab Stat Chronic anemia Expected: 07/19/2025, Expires: 01/16/2026 FERRITIN Lab Routine Chronic anemia Expected: 07/19/2025, Expires: 01/16/2026 IRON, TIBC, AND PERCENT SATURATION Lab Routine Chronic anemia Expected: 07/19/2025, Expires: 01/16/2026 VITAMIN B12 AND FOLATE Lab Routine Chronic anemia Expected: 07/19/2025, Expires: 01/16/2026 documented as of this encounter Visit Diagnoses Diagnosis Chronic anemia- Primary Anemia, unspecified documented in this encounter Care Teams Tie Buyer Relationship Specialty Start Date End Date Gabriele Candelario MD [address] [place] [address] PCP - General Internal Medicine 12/15/22 documented as of this encounter
--- NOTE | ~2025-01-18 | XR_ITS ---
XR chest 2V 01/18/2025 14:07 Indication: Chronic chest pain Procedure: 2 view chest Comparison: Comparison to multiple prior studies sequentially, with oldest reviewed study dated 05/01/2023. Findings: Borderline heart size. Shallow inspiration with crowding of the pulmonary vessels. No focal air space disease, pulmonary edema, pleural effusion or suspected pneumothorax. Pacemaker leads are in expected position. Impression: 1: No acute cardiopulmonary disease. Reviewed, dictated and finalized at location A. Impression: 1: No acute cardiopulmonary disease.
--- OUTSIDE RECORDS SUMMARY | 2025-01-18 13:36 | XMS_ITS | Encounter Summary ---
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
--- OUTSIDE RECORDS SUMMARY | 2025-01-18 13:36 | XMS_ITS | Encounter Summary ---
Author Organization [facility] Address [address] [place] [address] Care Team Providers Care Agriculture Technician Name Role Phone Gabriele Candelario MD Primary Care Provider + Encounter Details Date Type Department Care Team (Late st Contact Info) Description 01/17/2025 External Device Data STL ABSTRACTION Provider, Abstract NO ADDRESS ON FILE Social History Tobacco Use Types Packs/Day Years [...] on file documented as of this encounter Plan of Treatment Upcoming Encounters Date Type Department Care Team (Late st Contact Info) Description 07/14/2025 9:45 AM NURSING UNIT MANAGER Office Visit [facility] Oncology and Hematology - [place] [address] [address] Mir Ledesma MD [address] [facility] [address] [place] [address] documented as of this encounter Visit Diagnoses Not on filedocumented in this encounter Care Teams Agriculture Technician Relationship Specialty Start Date End Date Gabriele Candelario MD [address] [place] [address] PCP - General Internal Medicine 12/15/22 documented as of this encounter
--- OUTSIDE RECORDS SUMMARY | 2025-01-18 13:36 | XMS_ITS | Encounter Summary ---
Author Organization [facility] Address [address] [place] [address] Care Team Providers Care Assembler Semiconductor Name Role Phone Gabriele Candelario MD Primary [...] st Contact Info) Description 07/14/2025 9:45 AM EMERGENCY MANAGEMENT DIRECTOR Office Visit [facility] Oncology and Hematology - [place] [address] [address] Mir Ledesma MD [address] [facility] [address] [place] [address] documented as of this encounter Visit Diagnoses Not on filedocumented in this encounter Care Teams Assembler Semiconductor Relationship Specialty Start Date End Date Gabriele Candelario MD [address] [place] [address] PCP - General Internal Medicine 12/15/22 documented as of this encounter
--- OUTSIDE RECORDS SUMMARY | 2025-01-18 13:37 | XMS_ITS | Clinical Summary ---
Author Organization [facility] Address [address] [place] [address] Care Team Providers Care J2Ee Programmer Name Role Phone Gabriele Candelario MD Primary [...] Encounters Date Type Department Care Team Description 01/17/2025 External Device Data STL ABSTRACTION Provider, Abstract 01/17/2025 External Device Data STL ABSTRACTION Provider, Abstract 01/16/2025 4:30 PM CDT Telephone Check Up [facility] Oncology and Hematology - [place] [address] [place] [address] Mir Ledesma MD Chronic anemia (Primary Dx) 01/10/2025 Orders Only [facility] Oncology and Hematology - [place] [address] [place] [address] Mir Ledesma MD 01/09/2025 9:15 AM CDT Office Visit [facility] Oncology and Hematology - [place] [address] [place] [address] Mir Ledesma MD Chronic anemia (Primary Dx) 01/04/2025 External Device Data STL ABSTRACTION Provider, Abstract 12/28/2024 Orders Only [facility] Oncology and Hematology - [place] [address] [place] [address] Mir Ledesma MD 12/27/2024 Orders Only [facility] Oncology and Hematology - [place] [address] [place] [address] Mir Ledesma MD 12/14/2024 External Device Data STL ABSTRACTION Provider, Abstract 12/14/2024 External Device Data STL ABSTRACTION Provider, Abstract 12/14/2024 External Device Data STL ABSTRACTION Provider, Abstract 12/13/2024 External Device Data STL ABSTRACTION Provider, Abstract 11/15/2024 External Device Data STL ABSTRACTION Provider, Abstract 11/02/2024 Orders Only [facility] Oncology and Hematology - [place] [address] [place] [address] Scanning, Provider 11/01/2024 Orders Only [facility] Oncology and Hematology - [place] [address] [place] [address] Mir Ledesma MD 10/25/2024 External Device Data [...] st Contact Info) Description 07/14/2025 9:45 AM HORSE FARM MANAGER Office Visit [facility] Oncology and Hematology - [place] [address] [facility] [address] [place] [address] Mir Ledesma MD [address] [facility] [address] [place] [address] Health Maintenance Due Date Last Done Comments DTAP/TDAP/TD VACCINES (1 - Tdap) 10/02/1959 PNEUMOCOCCAL VACCINE 50+ YEARS (1 of 1 - PCV) 10/01/18 ZOSTER VACCINE (1 of 2) 1990 RSV VACCINE (60+ or ) (1 - 1-dose 75+ series) 10/02/2015 INFLUENZA VACCINE (#1) 2024 Procedures Procedure Name Priority Date/Time Associated Diagnosis Comments IRON, TIBC, AND PERCENT SATURATION Routine 01/09/2025 12:24 PM CDT COMPREHENSIVE METABOLIC PANEL Routine 12/26/2024 4:10 PM CDT KAPPA/LAMBDA LIGHT CHAINS Routine 2024 12:45 PM CDT PROTEIN ELECTROPHORESIS, CSF Routine 10/31/2024 1:41 PM CDT IGG Routine 10/31/2024 12:52 PM CDT COMPREHENSIVE METABOLIC PANEL Routine 10/31/2024 12:50 PM CDT KAPPA/LAMBDA LIGHT CHAINS Routine 2024 11:05 AM CDT from Last 3 Months Results * IRON, TIBC, AND PERCENT SATURATION (01/09/2025 12:24 PM CDT) Blood us Mir Ledesma MD CHEMISTRY ORDERABLES Final Resu lt * COMPREHENSIVE METABOLIC PANEL (12/26/2024 4:10 PM [...] Months Insurance MEDICARE PART A AND B BCBS SUPP Care Teams J2Ee Programmer Relationship Specialty Start Date End Date Gabriele Candelario MD [address] [place] [address] PCP - General Internal Medicine 12/15/22
--- OUTSIDE RECORDS SUMMARY | 2025-01-18 13:37 | XMS_ITS | Clinical Summary ---
Author Organization [facility] Address [address] [place] [address] Care Team Providers Care Computer Programmer Name Role Phone Gabriele Candelario MD Primary Care Provider [phone] Allergies No known active allergies Medications morphine (MSIR) 15 mg tablet Take 1 tablet (15 mg total) by mouth every 4 (four) hours as needed for pain for up to 10 doses 10 tablet 1 Active melatonin 10 mg tablet Active TiZANidine (ZANAFLEX) 4 mg capsule Take 1 capsule (4 mg total) by mouth 3 (three) times a day Active iggpfrbl99-ebld -Lmfolate-algal 27 mg iron-1.13 mg-581.92 mg capsule [...] pacemaker in situ 04/14/2024 Overview (04/14/2024): Medtronic [place] Dual Pacemaker. Dx; Sinus Node Dysfunction. DOI 04/13/2024- Fleissner. [employer] remote monitoring. Mass of breast 09/20/2010 Resolved Problems Problem Noted Date Diagnosed Date Resolved Date Complete heart block 07/08/2024 025 Encounters Date Type Department Care Team Description 01/10/2025 7:00 AM CDT Ancillary Procedure [facility] Cardiology [address] [place] [address] Cardiac pacemaker in situ; Sinus node [...] on file Legal Sex Male 7:19 PM BED TEACHER Gender Identity Not on file Sexual Orientation Not on file Obstetrics History Last Filed Vital Signs Vital Sign Reading Time Taken Comments Blood Pressure 106/68 07/08/2024 9:12 AM BED TEACHER Pulse 97 07/08/2024 9:12 AM BED TEACHER Temperature 36.8 C (98.2 F) 12/31/2020 1:35 PM CDT Respiratory Rate 16 12/31/2020 1:35 PM CDT Oxygen Saturation 92% 07/08/2024 9:12 AM BED TEACHER Inhaled Oxygen Concentration - - Weight 92.7 kg (204 lb 6.4 oz) 07/08/2024 9:12 A M BED TEACHER Height 167.6 cm (5' 6) 07/08/2024 9:12 AM BED TEACHER Body Mass Index 32.99 07/08/2024 9:12 AM BED TEACHER Plan of Treatment Health Maintenance Due Date Last Done Comments Depression Screening 1940 Fall Risk Assessment 1940 Hepatitis B Screening 1958 Pneumococcal vaccine 65+ (1 of 1 - PCV) 1990 Zoster Vaccine (1 of 2) 1990 Well Visit 65+ 2005 Influenza Vaccine (#1) 2025 5, 05/18/2013, 04/12/2012 DTaP/Tdap/Td Vaccine (2 - Td or Tdap) 12/27/2030 Insurance MEDICARE MEDICARE [facility] MEDICARE BLUE CROSS MEDICARE SUPPLEMENT Care Teams Computer Programmer Relationship Specialty Start Date End Date Gabriele Candelario MD [address] [place] [address] [place] [address] PCP - General Internal Medicine 04/20/24
--- OUTSIDE RECORDS SUMMARY | 2025-01-18 13:37 | XMS_ITS | Clinical Summary ---
Author Organization [facility] Address [address] [place] [address] Care Team Providers Care Cryogenic Transport Driver Name Role Phone Gabriele Candelario MD Primary Care Provider [phone] Allergies No known active allergies Medications latanoprost [...] 12/15/19 21 Active B-D 3CC LUER-CORA SYR 22FQ6-0/2 18G X 1-1/2 3 ML Misc USE [...] daily with lunch. Indications: Other vitamin deficiencies [place] Earth Blend with iron 04/03/20 22 Active [...] = 0.6 oz pur e alcohol) socially [facility] Utilities Answer Date Recorded In the past 12 months has [employer], [employer], or [employer] threatened to shut off services in your [...] any time in the past 12 m [facility], were you homeless or living in a snf (including now)? 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 Xavi N/A: Spine Lumbar ORTHOFIX 71-0905 / / Description:l4-l5 Orthofix Set Screw Implanted:Qty : 4 on 03/13/2022 by Eliana Thompson MD at [facility] Screw N/A: Spine Lumbar ORTHOFIX 36-2000 / / Orthofix 6.5x50mm Screws Implanted:Qty : 4 on 03/13/2022 by Eliana Thompson MD at [facility] Screw N/A: Spine Lumbar ORTHOFIX 44-5650 / / Orthofix Top Loading Body Implanted:Qty : 4 on 03/13/2022 by Eliana Thompson MD at [facility] Spine Components N/A: Spine Lumbar ORTHOFIX / [...] 3:04 AM 01/07/2021 5:10 PM Care Teams Cryogenic Transport Driver Relationship Specialty Start Date End Date Gabriele Candelario MD [address] - [facility] [address] [place] [address] PCP - General INTERNAL MEDICINE 12/26/20
[2025-01-18 14:50] LABS: Hematocrit 37.2 % (42.0-52.0); Hemoglobin 12.6 g/dL (14.0-18.0); Immature Granulocyte Percent A 0.3 % (0-0.5); Lymphocytes Absolute Auto 1.29 K/mm3 (0.9-3.2); Mean Corpuscular HGB Conc 33.9 g/dl (32-36); Mean Corpuscular Hemoglobin 33.2 pg (26-34); Mean Corpuscular Volume 97.9 fl (80-100); Nucleated Red Blood Cells Absolute Auto 0.000 K/mm3 (0.0-0.012); Nucleated Red Blood Cells Perc 0.0 % (0.0-0.2); Platelet Count Result 168 k/mm3 (150-375); Red Blood Count 3.80 M/mm3 (4.6-6.20); White Blood Count 6.2 K/mm3 (4.5-10.0)
[2025-01-18 15:01] LABS: Hemoglobin A1C 5.9 % (<5.7)
[2025-01-18 15:10] LABS: Anion Gap 7 mmol/L (4-12); Blood Urea Nitrogen 29 mg/dL (9-20); Calcium 9.6 mg/dL (8.4-10.2); Carbon Dioxide 29 mmol/L (22-30); Chloride 102 mmol/L (98-107); Cholesterol 157 mg/dL (0-200); Estimated Glomerular Filt Rate 38; Glucose 115 mg/dL (65-110); HDL Direct 39 mg/dL; Potassium 4.9 mmol/L (3.4-5.0); Sodium 138 mmol/L (137-145); Triglycerides 258 mg/dL (<150)
[2025-01-18 15:27] LABS: Free T4 Free Thyroxine 0.96 ng/dL (0.78-2.19)
[2025-01-18 15:42] LABS: Thyroid Stimulating Hormone 1.110 uIU/mL (0.465-4.680)
== END 2025-01-18 13:17 | disposition home or self-care (01) ==
PROVIDERS: PCP Internal Medicine; Visit Provider Internal Medicine
DX: E03.9 Hypothyroidism, unspecified (principal); I10 Essential (primary) hypertension; R73.03 Prediabetes; E78.2 Mixed hyperlipidemia; G89.29 Other chronic pain
CPT/HCPCS: 36415; 71046; 80048; 80061; 83036; 84439; 84443; 85025

== ENCOUNTER 2025-01-26 08:45 | Outpatient (CLI) | payer MEDICARE, SELFPAY ==
--- OUTSIDE RECORDS SUMMARY | 2025-01-26 08:04 | XMS_ITS | Encounter Summary ---
Author Organization [facility] Address [address] [place] [address] Care Team Providers Care Ethnology Teacher Name Role Phone Gabriele Candelario MD Primary Care Provider [phone] Encounter Details Date Type Department Care Team (Late st Contact Info) Description 01/25/2025 Telephone [facility] Cardiology [address] [place] [address] Frandy Chu MD [address] [place] [address] Social History Tobacco Use Types Packs/Day Years Used Date Smoking Tobacco: Never Sex and Gender Information Value Date Recorded Sex Assigned at Not on file 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 * Telephone Encounter - Kaley Byrd - 01/25/2025 3:11 PM CDT Junie with Interventional pain specialist states pt is scheduled for a pain pump trial on 01/31. They need pre op clearance prior to 01/31 and states pt needs to be seen this week. CT and [facility] do not have availabilty in [place], [place], or [place]. Requesting we call Frandy to coordinate appt with. Contact: Opt 6 documented in this encounter Plan of Treatment Not on file documented as of this encounter Visit Diagnoses Not on filedocumented in this encounter Care Teams Ethnology Teacher Relationship Specialty Start Date End Date Gabriele Candelario MD [address] [facility] [address] [facility] [address] [place] [address] PCP - General Internal Medicine 04/20/24 documented as of this encounter
--- OUTSIDE RECORDS SUMMARY | 2025-01-26 08:04 | XMS_ITS | Clinical Summary ---
Author Organization [facility] Address [address] [place] [address] Care Team Providers Care Geriatric Case Manager Name Role Phone Gabriele Candelario MD Primary [...] 01/16/2025 4:30 PM CDT Telephone Check Up [facility] Oncology and Hematology - [address] [place] [phone] Mir Ledesma MD Chronic anemia (Primary Dx) 01/10/2025 Orders Only [facility] Oncology and Hematology - [address] [place] [address] Mir Ledesma MD 01/09/2025 9:15 AM CDT Office Visit [facility] Oncology and Hematology - [address] [place] [address] Mir Ledesma MD Chronic anemia (Primary Dx) 01/04/2025 External Device Data STL ABSTRACTION Provider, Abstract 12/28/2024 Orders Only [facility] Oncology and Hematology - [address] [place] [phone] Mir Ledesma MD 12/27/2024 Orders Only [facility] Oncology and Hematology - [address] [place] [address] Mir Ledesma MD 12/14/2024 External Device Data STL ABSTRACTION Provider, Abstract 12/14/2024 External Device Data STL ABSTRACTION Provider, Abstract 12/14/2024 External Device Data STL ABSTRACTION Provider, Abstract 12/13/2024 External Device Data STL ABSTRACTION Provider, Abstract 11/15/2024 External Device Data STL ABSTRACTION Provider, Abstract 11/02/2024 Orders Only [facility] Oncology and Hematology - [address] [place] [phone] Scanning, Provider 11/01/2024 Orders Only [facility] Oncology and Hematology - [address] [place] [phone] Mir Ledesma MD from Last 3 Months Family History Medical [...] st Contact Info) Description 07/14/2025 9:45 AM STUDENT NURSE Office Visit [facility] Oncology and Hematology [facility] [address] [facility] [address] [place] [address] Mir Ledesma MD [address] [facility] [address] [place] [address] Health Maintenance Due Date Last [...] A AND B BCBS SUPP Care Teams Geriatric Case Manager Relationship Specialty Start Date End Date Gabriele Candelario MD [address] [place] [address] PCP - General Internal Medicine 12/15/22
--- OUTSIDE RECORDS SUMMARY | 2025-01-26 08:04 | XMS_ITS | Encounter Summary ---
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
--- OUTSIDE RECORDS SUMMARY | 2025-01-26 08:04 | XMS_ITS | Clinical Summary ---
Author Organization [facility] Address [address] [place] [address] Care Team Providers Care Water Safety Teacher Name Role Phone Gabriele Candelario MD Primary Care Provider [phone] Allergies No known active allergies Medications latanoprost [...] 12/15/19 21 Active B-D 3CC LUER-CORA SYR 03UF4-4/2 18G X 1-1/2 3 ML Misc USE [...] daily with lunch. Indications: Other vitamin deficiencies [place] Earth Blend with iron 04/03/20 22 Active [...] = 0.6 oz pur e alcohol) socially [facility] Utilities Answer Date Recorded In the past 12 months has [employer], [employer], or [employer] threatened to shut off services in your [...] any time in the past [address] [facility], were you homeless or living in a [place] [facility] (including now)? 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 [employer] Not on file Not [...] Gamboa RN Medical Devices Implanted Type Area Steward/Stewardess Wine Device Identifier Shelf Expiration Date Model / Serial / Lot Xavi Implanted:Qty : 2 on 03/13/2022 by Eliana Thompson MD at [facility] Xavi N/A: Spine Lumbar ORTHOFIX 23-1982 / / Description:l4-l5 Orthofix Set Screw Implanted:Qty : 4 on 03/13/2022 by Eliana Thompson MD at [facility] Screw N/A: Spine Lumbar ORTHOFIX 36-2000 / / Orthofix 6.5x50mm Screws Implanted:Qty : 4 on 03/13/2022 by Eliana Thompson MD at [facility] Screw N/A: Spine Lumbar ORTHOFIX 44-5650 / / Orthofix Top Loading Body Implanted:Qty : 4 on 03/13/2022 by Eliana Thompson MD at [facility] Spine Components N/A: Spine Lumbar ORTHOFIX / / Insurance MEDICARE [facility] Advance Directives * Full Code (Latest Code [...] 3:04 AM 01/07/2021 5:10 PM Care Teams Water Safety Teacher Relationship Specialty Start Date End Date Gabriele Candelario MD [address] - [facility] [address] [place] [address] PCP - General INTERNAL MEDICINE 12/26/20
--- OUTSIDE RECORDS SUMMARY | 2025-01-26 08:04 | XMS_ITS | Clinical Summary ---
Author Organization [facility] Address [address] [place] [address] Care Team Providers Care Railroad Baggage Porter Name Role Phone Gabriele Candelario MD Primary Care Provider [phone] Allergies No known active allergies Medications morphine (MSIR) 15 mg tablet Take 1 tablet (15 mg total) by mouth every 4 (four) hours as needed for pain for up to 10 doses 10 tablet 1 Active melatonin 10 mg tablet Active TiZANidine (ZANAFLEX) 4 mg capsule Take 1 capsule (4 mg total) by mouth 3 (three) times a day Active -buci -Lmfolate-algal 27 mg iron-1.13 mg-581.92 mg capsule [...] pacemaker in situ 04/14/2024 Overview (04/14/2024): Medtronic [place] Dual Pacemaker. Dx; Sinus Node Dysfunction. DOI 04/13/2024- Vlad. [employer] remote monitoring. 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 Gender Identity Not on file Sexual Orientation Not on file Obstetrics History Last Filed Vital Signs Vital Sign Reading Time Taken Comments Blood Pressure 106/68 07/08/2024 9:12 AM TRUCK ENGINE TECHNICIAN Pulse 97 07/08/2024 9:12 AM TRUCK ENGINE TECHNICIAN Temperature 36.8 C (98.2 F) 12/31/2020 1:35 PM CDT Respiratory Rate 16 12/31/2020 1:35 PM CDT Oxygen Saturation 92% 07/08/2024 9:12 AM TRUCK ENGINE TECHNICIAN Inhaled Oxygen Concentration - - Weight 92.7 kg (204 lb 6.4 oz) 07/08/2024 9:12 A M TRUCK ENGINE TECHNICIAN Height 167.6 cm (5' 6) 07/08/2024 9:12 AM TRUCK ENGINE TECHNICIAN Body Mass Index 32.99 07/08/2024 9:12 AM TRUCK ENGINE TECHNICIAN Plan of Treatment Health Maintenance Due Date Last Done Comments Depression Screening 1940 Fall Risk Assessment 1940 Hepatitis B Screening 1958 Pneumococcal vaccine 65+ (1 of 1 - PCV) 1990 Zoster Vaccine (1 of 2) 1990 Well Visit 65+ 2005 Influenza Vaccine (#1) 2025 5, 05/18/2013, 04/12/2012 DTaP/Tdap/Td Vaccine (2 - Td or Tdap) 12/27/2030 Insurance MEDICARE MEDICARE [facility] MEDICARE BLUE CROSS MEDICARE SUPPLEMENT Care Teams Railroad Baggage Porter Relationship Specialty Start Date End Date Gabriele Candelario MD [address] [facility] [address] [facility] [address] [place] [address] PCP - General Internal Medicine 04/20/24
--- OUTSIDE RECORDS SUMMARY | 2025-01-26 08:50 | XMS_ITS | Encounter Summary ---
Author Organization [facility] Address [address] [place] [address] Care Team Providers Care Crop Pest Control Specialist Name Role Phone Gabriele Candelario MD Primary Care Provider [phone] Encounter Details Date Type Department Care Team (Late st Contact Info) Description 01/25/[address] 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 * Telephone Encounter [...] on filedocumented in this encounter Care Teams Crop Pest Control Specialist Relationship Specialty Start Date End Date Gabriele Candelario MD [address] [facility] [address] [facility] [address] [place] [address] PCP - General Internal Medicine 04/20/24 documented as of this encounter
--- OUTSIDE RECORDS SUMMARY | 2025-01-26 08:50 | XMS_ITS | Clinical Summary ---
Author Organization [facility] Address [address] [place] [address] Care Team Providers Care Emblem Drawer In Name Role Phone Gabriele Candelario MD Primary [...] 4:30 PM CDT Telephone Check Up [facility] Oncology and Hematology - [address] [place] [phone] Mir Ledesma MD Chronic anemia (Primary Dx) 01/10/2025 Orders Only [facility] Oncology and Hematology - [address] [place] [address] Mir Ledesma MD 01/09/2025 9:15 AM CDT Office Visit [facility] Oncology and Hematology - [address] [place] [address] Mir Ledesma MD Chronic anemia (Primary Dx) 01/04/2025 External Device Data STL ABSTRACTION Provider, Abstract 12/28/2024 Orders Only [facility] Oncology and Hematology - [address] [place] [phone] Mir Ledesma MD 12/27/2024 Orders Only [facility] Oncology and Hematology - [address] [place] [phone] Mir Ledesma MD 12/14/2024 External Device Data STL ABSTRACTION Provider, Abstract 12/14/2024 External Device Data STL ABSTRACTION Provider, Abstract 12/14/2024 External Device Data STL ABSTRACTION Provider, Abstract 12/13/2024 External Device Data STL ABSTRACTION Provider, Abstract 11/15/2024 External Device Data STL ABSTRACTION Provider, Abstract 11/02/2024 Orders Only [facility] Oncology and Hematology - [address] [place] [phone] Scanning, Provider 11/01/2024 Orders Only [facility] Oncology and Hematology - [address] [place] [phone] Mir Ledesma MD from Last 3 Months [...] st Contact Info) Description 07/14/2025 9:45 AM PROJECT MANAGEMENT PROFESSOR Office Visit [facility] Oncology and Hematology [facility] [address] [facility] [address] [place] [address] Mir Ledesma MD [address] [facility] [address] [place] [address] Health Maintenance Due Date Last [...] A AND B BCBS SUPP Care Teams Emblem Drawer In Relationship Specialty Start Date End Date Gabriele Candelario MD [address] [place] [address] PCP - General Internal Medicine 12/15/22
--- OUTSIDE RECORDS SUMMARY | 2025-01-26 08:50 | XMS_ITS | Clinical Summary ---
Author Organization [facility] Address [address] [place] [address] Care Team Providers Care Underlay Stitcher Name Role Phone Gabriele Candelario MD Primary Care Provider [phone] Allergies No known active allergies Medications morphine (MSIR) 15 mg tablet Take 1 tablet (15 mg total) by mouth every 4 (four) hours as needed for pain for up to 10 doses 10 tablet 1 Active melatonin 10 mg tablet Active TiZANidine (ZANAFLEX) 4 mg capsule Take 1 capsule (4 mg total) by mouth 3 (three) times a day Active mytslysb75-bdxe -Lmfolate-algal 27 mg iron-1.13 mg-581.92 mg capsule [...] pacemaker in situ 04/14/2024 Overview (04/14/2024): Medtronic [place] Dual Pacemaker. Dx; Sinus Node Dysfunction. DOI 04/13/2024- Vlad. [employer] remote monitoring. 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 [employer] Gender Identity Not on file Sexual Orientation Not on file Obstetrics History Last Filed Vital Signs Vital Sign Reading Time Taken Comments Blood Pressure 106/68 07/08/2024 9:12 AM LABORER [employer] Pulse 97 07/08/2024 9:12 AM LABORER [employer] Temperature 36.8 C (98.2 F) 12/31/2020 1:35 PM CDT Respiratory Rate 16 12/31/2020 1:35 PM CDT Oxygen Saturation 92% 07/08/2024 9:12 AM LABORER [employer] Inhaled Oxygen Concentration - - Weight 92.7 kg (204 lb 6.4 oz) 07/08/2024 9:12 A M LABORER [employer] Height 167.6 cm (5' 6) 07/08/2024 9:12 AM LABORER [employer] Body Mass Index 32.99 07/08/2024 9:12 AM LABORER [employer]ARM Plan of Treatment Health Maintenance Due Date Last Done Comments Depression Screening 1940 Fall Risk Assessment 1940 Hepatitis B Screening 1958 Pneumococcal vaccine 65+ (1 of 1 - PCV) 1990 Zoster Vaccine (1 of 2) 1990 Well Visit 65+ 2005 Influenza Vaccine (#1) 2025 5, 05/18/2013, 04/12/2012 DTaP/Tdap/Td Vaccine (2 - Td or Tdap) 12/27/2030 Insurance MEDICARE MEDICARE [facility] MEDICARE BLUE CROSS MEDICARE SUPPLEMENT Care Teams Underlay Stitcher Relationship Specialty Start Date End Date Gabriele Candelario MD [address] [facility] [address] [facility] [address] [place] [address] PCP - General Internal Medicine 04/20/24
[2025-01-26 09:54] LABS: INR 1.0; Prothrombin Time 12.8 Seconds (11.1-14.7)
[2025-01-26 09:55] LABS: Partial Thromboplastin Time 24.9 Seconds (22.3-36.8)
== END 2025-01-26 08:46 | disposition home or self-care (01) ==
PROVIDERS: PCP Internal Medicine; Visit Provider Anesthesiology Pain Medicine
DX: D69.8 Other specified hemorrhagic conditions (principal); Z01.818 Encounter for other preprocedural examination
CPT/HCPCS: 36415; 85610; 85730

== ENCOUNTER 2025-01-31 06:20 | Day surgery (SDC) | payer MEDICARE, SELFPAY ==
--- NOTE | 2025-01-17 12:36 | PC.NURSE ---
PRE-OPERATIVE [address] [address] 1. Report to the Surgery Center Waiting Room, the entrance is the first door on the right after passing through the automatic sliding doors, at time __629___on [id number]__. OR Time:__729__ . - Time changes happen often and if your time is changed the preop area will call you the afternoon before. - You and your visitor will be asked to self-screen and do not enter if you have any COVID symptoms. - Two visitors over, age 16 and older, are allowed.? NO children visitors are allowed at this time. - A mask is optional within the hospital at this time. 2. Patients may have light breakfast until 529 3. Take the following medications with a SIP of water the morning of surgery: 1. take all meds as prescribed 2. 3. Medications to discontinue per physician order: 1. patient instructed to contact [facility]'s office about stopping or continuing celebrex date to discontinue: 4. No make-up, nail northern irish, hairspray, perfume, deodorant, or body powder the day of surgery. No jewelry (including any body piercings) or valuables the day of surgery. Please take a shower or bath the night before, or the morning of, surgery with an antibacterial soap. Wear comfortable, loose fitting clothing. Children are encouraged to wear pajamas. - Jewelry must be removed prior to entering the operating room. Rings and piercings that are not removed will be cut off. The center will not accept responsibility for valuables. Please leave all valuables, including medications, at home the day of surgery. 5. When going home after surgery, a licensed water taxi driver must drive you home. NO public transportation without another adult. We recommend someone to stay with you, no alcoholic beverages, driving or important decision making for 24 hours after surgery. For pediatric surgeries, we recommend two adults to accompany a child home. 6. Follow any additional instructions given by your physician. Telephone instructions given to: patient and asked if any additional questions and then verbalized understanding. Patient advised to call surgeon office or the surgery center at [phone] if any additional questions.
--- NOTE | 2025-01-25 15:25 | SUR.PREOP ---
1450; CALLED DR GARDUNO'S OFFICE AND SPOKE WITH DAIJA GALLARDO. INFORMED HER OF NO CARDIAC CLEARANCE AT THIS TIME. 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 PT IN FACT HAD A PACEMAKER PLACED IN APRIL OF 2024. DAIJA WILL OBTAIN CARD CLEARANCE. 1500; CALLED PT AND PT'S SON. BOTH INFORMED OF NEED FOR CARD CLEARANCE AND PT/PT/INR. PT WILL GO TO [facility] TODAY. PT'S SON STATED PT DID NOT NEED HIS PACEMAKER AND TO LET DR GARDUNO KNOW HIS DAD IF FINE. INFORMED HIM THAT PAULINA CHOE WITH DR GARDUNO'S OFFICE WILL BE SPEAKING WITH HIM SOON.
[2025-01-31] VITALS (7 sets, daily range): BP systolic 102–137; BP diastolic 60–90; PULSE 59–82; RESP 15–18; TEMP 36.6; O2SAT 97–100
--- NOTE | ~2025-01-31 | XR_ITS ---
EXAM: XR fluoroscopy no charge - 01/31/2025 7:35 CDT History: 84 years old Male with INTRATHECAL EPIDURAL ACCESS SINGLE BOLUS TRIAL Fluoroscopy time: 17.1 seconds FINDINGS/ IMPRESSION: Multiple fluoroscopic images of thoracolumbar spine for epidural access. Reviewed, dictated and finalized at location N.
--- NOTE | 2025-01-31 07:23 | PM.HPGS ---
History of Present Illness History of Present Illness Consent: Risks, benefits, and alternatives have been discussed and questions answered. Patient agrees to proceed with procedure. Chief complaint: Other Chronic Pain Narrative: Bertin Powers is a 84 year old male with chronic, recalcitrant and disabling bilateral low back and multifocal joint pain secondary to degenerative spondylosis, osteoarthritis, lumbar spondylosis with radiculopathy with failure to respond to aggressive conservative measures including PT, oral and topical analgesics, opioid and nonopioid analgesics, rest, time and activity/behavioral modification over the past 1-2 years who presents for prognostic neuraxial opioid bolus trial (pump trial) under fluoroscopic guidance with contrast control. Review of Systems Review of Systems: All systems reviewed & are unremarkable except as noted in HPI and below PMFSH Past Medical History Medical History (Updated 01/26/25 @ 08:34 by Junie Mcdowell MA) Sick sinus syndrome Muscle pain Falls Encounter for routine adult health examination without abnormal findings Macular degeneration Sinus drainage Left knee DJD Erythrocytosis RLS (restless legs syndrome) Frequent sinus infections Elbow pain, left Prostate cancer screening Personal history of COVID-19 BMI 26.0-26.9,adult Bunion of right foot Pedal edema Skin cancer screening Memory loss Testosterone deficiency Itchy skin Balance problem BMI 32.0-32.9,adult Chronic back pain BMI 29.0-29.9,adult Glaucoma Blepharitis of both eyes BMI 30.0-30.9,adult CKD (chronic kidney disease) Chronic pain Hearing loss Non-healing skin lesion Proteinuria Urine abnormality History of colon polyps Abnormal finding of blood chemistry Urinary frequency Insomnia Urinary incontinence BMI 31.0-31.9,adult Encounter for special screening examination for neoplasm of prostate Pre-diabetes Colon cancer screening Anxiety with depression DJD (degenerative joint disease), multiple sites Hypogonadism in male Cognitive dysfunction Hypothyroidism (acquired) Benign essential hypertension Hyperlipidemia On [facility] drug therapy Vertigo Surgical History Surgical History History of shoulder surgery History of back surgery Family History Family History Sibling Family history of malignant neoplasm of stomach Family history of malignant neoplasm Carcinoma of colon Family history of malignant neoplasm of breast in first degree relative Family history of malignant neoplasm of ovary Family history of diabetes mellitus in first degree relative Diabetes mellitus Father Family history of diabetes mellitus in first degree relative Mother Family history of malignant neoplasm of bone Other Family history of osteoarthritis Social History Social History Smoking status: Never smoker Second hand tobacco smoke exposure: No Alcohol intake: never Drinks per week: 1 Alcohol use details: does not use Substance use: never Substance use type: does not use Do You Feel Safe in your Home?: Yes Lack of Transportation: No Lack of Food: Never True Current Housing: I Have Housing Concerned About Future Housing: No Difficulty Paying Gas/Electric Bills: No Difficulty Paying for Meds: No Currently Unemployed: No Education: High School Diploma/GED Difficulty w/ Childcare or Family Care: No Living arrangements: alone Occupation/Education: retired Gender identity (if verbalized by the patient): Male Spiritual care concerns: No Meds Home Medications and Allergies Home Medications ?Medication ?Instructions ?Recorded ?Confirmed ?Type latanoprost 0.005 % eye drops 1 drop ophthalmic (eye) HS 04/21/19 01/31/25 History ascorbic acid (vitamin C) 500 mg 1,000 mg PO 1200 09/25/21 01/31/25 History capsule melatonin 10 mg capsule 10 mg PO QHS PRN Sleep 06/04/22 01/31/25 History coenzyme Q10 100 mg capsule 100 mg PO HS 05/14/23 01/31/25 History (CoQ-10) multivitamin 1 tablet PO QACLUNCH 05/14/23 01/31/25 History Electric Scooter Wheel Chair #1 ea 11/02/23 01/26/25 Rx cranberry fruit 450 mg tablet 450 mg PO HS 03/30/24 01/31/25 History (cranberry) dorzolamide-timolol (PF) 2 %-0.5 % 1 drp EACH EYE BID 03/30/24 01/31/25 History eye drops in a dropperette lactulose 10 gram/15 mL oral 15 ml PO HS PRN Constipation 03/30/24 01/31/25 History solution magnesium oxide 400 mg PO HS 03/30/24 01/31/25 History trazodone 50 mg tablet 50 mg PO HS PRN Sleep 03/30/24 01/31/25 History tizanidine 4 mg capsule 4 mg PO TID PRN muscle spasticity 04/11/24 01/31/25 Rx #45 caps cyanocobalamin (vitamin B-12) See Rx Instructions .Route 08/01/24 01/31/25 Rx 1,000 mcg/mL injection solution .COMPLEX #3 mL syringe with needle, safety 3 mL #9 ea 08/01/24 01/26/25 Rx 23 gauge x 1 (UltiCare Safety Syringe) acetaminophen 500 mg capsule 1,000 mg (2 x 500 mg) PO Q6H PRN 09/06/24 01/31/25 Rx Held on 01/26/25. pain #30 caps Instructions: gatting pain pump donepezil 10 mg tablet See Rx Instructions .Route 11/23/24 01/31/25 Rx .COMPLEX #90 tabs memantine 28 mg capsule See Rx Instructions .Route 12/13/24 01/31/25 Rx sprinkle,extended release 24hr .COMPLEX #90 caps atorvastatin 40 mg tablet See Rx Instructions .Route 12/15/24 01/31/25 Rx .COMPLEX #90 tabs celecoxib 100 mg capsule (Celebrex) 100 mg PO BID #60 caps 12/16/24 01/31/25 Rx amlodipine 10 mg tablet See Rx Instructions .Route 01/10/25 01/31/25 Rx .COMPLEX #90 tabs solifenacin 10 mg tablet See Rx Instructions .Route 01/13/25 01/31/25 Rx .COMPLEX #90 tabs valsartan 320 mg tablet See Rx Instructions .Route 01/13/25 01/31/25 Rx .COMPLEX #90 tabs levothyroxine 137 mcg tablet 137 mcg PO DAILY #30 tabs 01/19/25 01/31/25 Rx (Synthroid) gabapentin 300 mg capsule See Rx Instructions .Route 01/31/25 Rx .COMPLEX #120 caps Allergies Allergy/AdvReac Type Severity Reaction Status Date / Time No Known Allergies Allergy Unknown Verified 01/31/25 06:40 Vital Signs Vital Signs - 24 hr 01/31/25 06:43 Temperature 98 F Pulse Rate 82 Respiratory Rate 16 Blood Pressure 122/90 Pulse Oximetry 97 Oxygen Delivery Room Air Exam Narrative: The patient's physical exam is essentially unchanged from prior examination on [ ]. Specifically, patient demonstrates normal lung capacity, tidal volume and respiratory rate without wheezes, crackles, rales or rubs. Heart rate and rhythm are regular without murmurs, gallops or rubs. No JVD. Pulses 2+ globally without increasing peripheral edema. AAOx3 with no evidence of confusion, intoxication or altered mental state, NC/AT without acute distress or altered consciousness. Speech, cognition, mood, insight and judgment at baseline and within normal limits. Assessment and Plan Assessment and plan (1) Postlaminectomy syndrome of lumbosacral region: Code(s): M96.1 - Postlaminectomy syndrome, not elsewhere classified Status: Acute Assessment and Plan: Proceed as planned with prognostic neuraxial opioid bolus trial (pump trial) under fluoroscopic guidance with contrast control. (2) Spinal stenosis, lumbar region with neurogenic claudication: Code(s): M48.062 - Spinal stenosis, lumbar region with neurogenic claudication Status: Acute (3) Lumbosacral radiculopathy: Code(s): M54.17 - Radiculopathy, lumbosacral region Status: Acute (4) Chronic low back pain with bilateral sciatica: Qualifiers: Back pain laterality: unspecified Qualified Code(s): M54.41 - Lumbago with sciatica, right side; M54.42 - Lumbago with sciatica, left side; G89.29 - Other chronic pain Code(s): M54.41 - Lumbago with sciatica, right side; M54.42 - Lumbago with sciatica, left side; G89.29 - Other chronic pain Status: Acute (5) DJD (degenerative joint disease), multiple sites: Qualifiers: Osteoarthritis type: primary Qualified Code(s): M15.0 - Primary generalized (osteo)arthritis Code(s): M15.9 - Polyosteoarthritis, unspecified Status: Acute (6) Chronic pain: Qualifiers: Chronic pain type: other chronic pain Qualified Code(s): G89.29 - Other chronic pain Code(s): G89.29 - Other chronic pain Status: Acute
--- NOTE | 2025-01-31 07:26 | WPDHPUPDATE1 ---
History and Physical Update Update Date/Time: 01/31/25 07:26 History and Physical has been reviewed, including an updated exam of the patient. There are NO changes in the patient's condition. Risks, benefits, and alternatives have been discussed and questions answered. Patient agrees to proceed with procedure.
--- NOTE | 2025-01-31 07:28 | P.OP_ITS ---
Procedure Note - Detailed Date of Procedure 01/31/25 Pre-op Diagnosis Other Chronic Pain Post-op Diagnosis Same Procedure Performed Thoracolumbar Interlaminar Epidural Needle Placement at [T11-12] for Single Prognostic Epidural Bolus of Opioid Analgesic (Pump Trial) under Fluoroscopic Guidance with Contrast Control. Surgeon Tacho Hart MD Rf Test Technician None. Anesthesia Local Description of Procedure INFORMED CONSENT: Risks, benefits and alternatives to the procedure were discussed in detail with the patient who expressed explicit understanding and consent to proceed. Patient was informed verbally and in written form regarding the risks associated with the procedure including the low risk of inadvertent dural puncture resulting in CSF leak and subsequent acute or chronic spinal headache, serious systemic or local infection requiring additional surgery, bleeding/bruising or blood clot, allergic reaction, nerve /spinal cord or organ injury resulting in temporary or permanent weakness, paralysis, numbness, pain, deformity or bowel or bladder incontinence, procedural site pain or discomfort, worsening pain and/or mobility, failure to treat and/or disfigurement, as well as the risk of opioid overdose resulting in sedation, cognitive impairment, hypoxia, coma, , or under dose causing withdrawal symptoms or untreated pain. The patient expressed explicit understanding and consent to proceed despite the potential risks with the agreement that potential benefits far outweigh potential for harm. All materials required for the procedure were available prior to procedure start. Site and side were marked prior to procedure and confirmed in the presence of the patient. PROCEDURE IN DETAIL: The patient was brought to the procedural suite and placed in the prone position. Patient was made comfortable with use of pillows under th e head/chest, hips and ankles. Appropriate monitoring initiated. Skin overlying the injection site was prepared broadly with ChloraPrep applicator and draped in a sterile manner. Aseptic technique was employed throughout. The endplates of the vertebral body at the site of interest were aligned in the AP view. Slight caudal tilt and ipsilateral oblique angulation was utilized to optimize visualization of the targeted posterior intervertebral foramen at T12-L1. Local anesthesia was established by infiltration with approximately 5 mL of 0.5% lidocaine via a 1-1/2 inch 27-gauge needle. A 20-gauge 4-inch Tuohy epidural needle was advanced intermittently until appropriate loss of resistance to air was identified via plastic loss of resistance syringe. Lateral view was used to confirm the appropriate positioning of the needle tip within the posterior epidural space. In the AP view, 2.0 mL of Omnipaque 300 contrast medium was injected after negative aspiration for CSF, blood or other bodily fluid, showing appropriate epidural spread of contrast without evidence of intravascular or intrathecal placement. A 3.0ml test dose of 1.5% lidocaine with epinephrine was injected via the epidural needle and patient was monitored for no less than 2 minutes to assess for signs intrathecal or intravascular placement. Blood Pressure, heart rate, lower extremity sensation and motor strength were tested and compared to baseline without significant change. 2 ml of a 0.25mg/ml aqueous solution of preservative free hydromorphone labeled for IT/Epidural use was injected after negative repeat aspiration. Appropriate spread of the injectate was confirmed with washout of previously injected contrast. No parasthesias were elicited. Needle was removed intact and without difficulty. Site was cleaned and sterile bandage was applied. The patient tolerated the procedure well with no evidence of complication. Images were saved and documented in the patient chart. Patient's skin was cleaned and sterile bandage applied. The patient tolerated the procedure well. The patient was transported to the recovery area in stable condition where they were observed and monitored (RR, HR, BP, O2 Sats, Pain level) for an appropriate amount of time prior to discharge (no less than 1 hour), without evidence of complication. After approximately one hour, the patient was evaluated for neurologic deficit, pain relief and side effects with results as below. Patient instructed to remain in the presence of a responsible adult to monitor for the next 72 hours. The patient was instructed to avoid excessive activity for the next 48 hours, including climbing and frequent use of stairs. Showers only for 48 hours. They were instructed not to drive or operate heavy machinery for 72 hours. They are to monitor for pruritus, sedation/confusion, severe headaches, fevers, chills, night sweats, erythema/swelling at the site or any other signs of infection, bleeding/bruising, bowel or bladder changes as well as new pain, weakness or numbness in the upper or lower extremity. Should they notice these changes, they are instructed to call our office immediately or report directly to the nearest Emergency Department if no answer or if after posted office hours. COMPLICATIONS: None COMMENTS: Total dose: 0.5 mg hydromorphone. No side effects of nausea, pruritus, somnolence, hallucinations noted. None CONTRAST WASTED: 26mL Omnipaque 300. Complications No immediate complications Condition Stable Disposition Same day ( Extended stay greater than 1 hour.) [facility] Billing Surgery - Charge Forward: Surgery Billing
[2025-01-31] MEDS: LIDOCAINE 1% PF INJ 5 ML VIAL INFILTRATE (07:49)
[2025-01-31] MEDS: HYDROMORPHONE (08:05)
== END 2025-01-31 09:05 | disposition home or self-care (01) ==
PROVIDERS: PCP Internal Medicine; Visit Provider Anesthesiology Pain Medicine
PROC: (CPT 62323; principal; 2025-01-31 07:30)
DX: M47.26 Other spondylosis with radiculopathy, lumbar region (principal); M96.1 Postlaminectomy syndrome, not elsewhere classified; M48.062 Spinal stenosis, lumbar region with neurogenic claudication; G89.29 Other chronic pain
CPT/HCPCS: 62323; 99199

== ENCOUNTER 2025-02-14 09:46 | Outpatient (CLI) | payer MEDICARE, SELFPAY ==
--- NOTE | 2025-02-14 10:06 | ECG_ITS ---
Test Date: 2025-02-14 10:22:44 Measurements Intervals [place] Rate: 83 P: 246 [place]: 235 QRS: -30 QRSD: 127 T: 47 QT: 387 QTc: 456 Interpretive Statements ELECTRONIC ATRIAL PACEMAKER POSSIBLE ANTERIOR MYOCARDIAL INFARCTION [30 ms Q WAVE IN V3/V4, OR R < 0.2 mV IN V4], OF INDETERMINATE AGE ABNORMAL ECG Compared to ECG 04/13/2024 09:06:43 Left-axis deviation no longer present Intraventricular conduction delay no longer present Myocardial infarct finding still present Electronically Signed On 02-14-2025 12:09:45 CDT by Marky Amos M.D.
--- OUTSIDE RECORDS SUMMARY | 2025-02-14 11:15 | XMS_ITS | Clinical Summary ---
Author Organization [facility] Address [address] [place] [address] Care Team Providers Care Java Architect Name Role Phone Gabriele Candelario MD Primary Care Provider [phone] Allergies No known active allergies Medications latanoprost [...] 12/15/19 21 Active B-D 3CC LUER-CORA SYR 92AZ4-0/2 18G X 1-1/2 3 ML Misc USE [...] daily with lunch. Indications: Other vitamin deficiencies [employer] Blend with iron 04/03/20 22 Active [...] = 0.6 oz pur e alcohol) socially [facility] Utilities Answer Date Recorded In the past 12 months has [employer], or [employer] threatened to shut off services in your [...] any time in the past 12 m [facility], were you homeless or living in a senior care (including now)? 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 Xavi N/A: Spine Lumbar ORTHOFIX [id number] / / Description:l4-l5 Orthofix Set Screw Implanted:Qty : 4 on 03/13/2022 by Eliana Thompson MD at [facility] Screw N/A: Spine Lumbar ORTHOFIX [id number] / / Orthofix 6.5x50mm Screws Implanted:Qty : 4 on 03/13/2022 by Eliana Thompson MD at [facility] Screw N/A: Spine Lumbar ORTHOFIX [id number] / / Orthofix Top Loading Body Implanted:Qty : 4 on 03/13/2022 by Eliana Thompson MD at [facility] Spine Components N/A: Spine Lumbar ORTHOFIX / / Insurance MEDICARE [facility] Advance Directives * Full Code (Latest Code [...] 3:04 AM 01/07/2021 5:10 PM Care Teams Java Architect Relationship Specialty Start Date End Date Gabriele Candelario MD [address] - [facility] [address] [place] [address] PCP - General INTERNAL MEDICINE 12/26/20
--- OUTSIDE RECORDS SUMMARY | 2025-02-14 11:15 | XMS_ITS | Encounter Summary ---
Author Organization [facility] Address [address] [place] [address] Care Team Providers Care Nuclear Reactor Engineer Name Role Phone Gabriele Candelaroi MD Primary Care Provider [phone] Encounter Details Date Type Department Care Team (Late st Contact Info) Description 02/13/2025 Telephone [facility] Cardiology [address] [facility] [address] [place] [address] Frandy Chu MD [address] [place], [place] [id number] Social History Tobacco Use Types Packs/Day Years Used Date Smoking Tobacco: Never Sex and Gender Information Value Date Recorded Sex Assigned at Not on file Legal Sex Male 7:19 PM TRANSITION NURSE Gender Identity Not on file Sexual Orientation Not on file documented as of this encounter Miscellaneous Notes * Telephone Encounter - Citlali Carlos MA - 02/13/2025 12:00 PM CDT Faxed via [employer] * Telephone Encounter - Kaley Byrd - 02/13/2025 11:47 AM CDT Ary with [facility] dept requesting most recent pacemaker interrogation report be faxed to their office. Thank you. P: [phone] F: [phone] documented in this encounter Plan of Treatment Not on file documented as of this encounter Visit Diagnoses Not on filedocumented in this encounter Care Teams Nuclear Reactor Engineer Relationship Specialty Start Date End Date Gabriele Candelario MD [address] [place] [address] PCP - General Internal Medicine 04/20/24 documented as of this encounter
--- OUTSIDE RECORDS SUMMARY | 2025-02-14 11:15 | XMS_ITS | Clinical Summary ---
Author Organization [facility] Address [address] [place] [address] Care Team Providers Care Herbarium Curator Name Role Phone Gabriele Candelario MD Primary [...] 01/16/2025 4:30 PM CDT Telephone Check Up [facility] Oncology and Hematology [facility] [address] [place] [address] Mir Ledesma MD Chronic anemia (Primary Dx) 01/10/2025 Orders Only [facility] Oncology and Hematology - [place] [address] [place] [address] Mir Ledesma MD 01/09/2025 9:15 AM CDT Office Visit [facility] Oncology and Hematology - [place] [address] [place] [address] Mir Ledesma MD Chronic anemia (Primary Dx) 01/04/2025 External Device Data STL ABSTRACTION Provider, Abstract 12/28/2024 Orders Only [facility] Oncology and Hematology - [place] [address] [place] [address] Mir Ledesma MD 12/27/2024 Orders Only [facility] Oncology and Hematology - [place] [address] [place] [address] Mir Ledesma MD 12/14/2024 External Device Data [...] st Contact Info) Description 07/14/2025 9:45 AM PARAMEDIC INSTRUCTOR Office Visit [facility] Oncology and Hematology - [place] [address] [facility] [address] [place] [address] Mir Ledesma MD [address] [facility] [address] [place] [address] Health Maintenance Due Date Last [...] LIGHT CHAINS Routine 2024 12:45 PM CDT from Last 3 Months Results * IRON, TIBC, AND PERCENT SATURATION (01/09/2025 12:24 PM CDT) Blood Mir Ledesma MD CHEMISTRY ORDERABLES Final Resu lt * COMPREHENSIVE METABOLIC PANEL (12/26/2024 4:10 PM CDT) Blood Mir Ledesma MD CHEMISTRY ORDERABLES Final Resu lt * KAPPA/LAMBDA, FREE LIGHT CHAINS (12/26/2024 12:45 PM CDT) Blood Mir Ledesma MD CHEMISTRY ORDERABLES Final Resu lt from Last 3 Months Insurance MEDICARE PART A AND B BS SUPP Care Teams Herbarium Curator Relationship Specialty Start Date End Date Gabriele Candelario MD [address] [place] [id number] PCP - General Internal Medicine 12/15/22
--- OUTSIDE RECORDS SUMMARY | 2025-02-14 11:15 | XMS_ITS | Clinical Summary ---
Author Organization [facility] Address [address] [place] [address] Care Team Providers Care Unit Assembler Name Role Phone Gabriele Candelario MD Primary Care Provider Allergies No known active allergies Medications morphine (MSIR) 15 mg tablet Take 1 tablet (15 mg total) by mouth every 4 (four) hours as needed for pain for up to 10 doses 10 tablet 1 Active melatonin 10 mg tablet Active TiZANidine (ZANAFLEX) 4 mg capsule Take 1 capsule (4 mg total) by mouth 3 (three) times a day Active [id number] -Lmfolate-algal 27 mg iron-1.13 mg-581.92 mg capsule [...] Encounters Date Type Department Care Team Description 02/13/2025 Telephone [facility] Medical Group Cardiology [address] [place] [address] Frandy Chu MD 01/25/2025 Telephone [facility] Cardiology [address] [facility] [address] [place] [address] Frandy Chu MD 01/10/2025 7:00 AM CDT Ancillary Procedure [facility] Medical [facility]5 [facility] [address] [place] [phone] Cardiac pacemaker in situ; Sinus node [...] on file Legal Sex Male 7:19 PM SMOKE JUMPER Gender Identity Not on file Sexual Orientation Not on file Obstetrics History Last Filed Vital Signs Vital Sign Reading Time Taken Comments Blood Pressure 106/68 07/08/2024 9:12 AM SMOKE JUMPER Pulse 97 07/08/2024 9:12 AM SMOKE JUMPER Temperature 36.8 C (98.2 F) 12/31/2020 1:35 PM CDT Respiratory Rate 16 12/31/2020 1:35 PM CDT Oxygen Saturation 92% 07/08/2024 9:12 AM SMOKE JUMPER Inhaled Oxygen Concentration - - Weight 92.7 kg (204 lb 6.4 oz) 07/08/2024 9:12 A M SMOKE JUMPER Height 167.6 cm (5' 6) 07/08/2024 9:12 AM SMOKE JUMPER Body Mass Index 32.99 07/08/2024 9:12 AM SMOKE JUMPER Plan of Treatment Health Maintenance Due Date [...] Diagnosis Comments DEVICE CHECK - REMOTE Routine 01/10/2025 2:32 PM CDT Cardiac pacemaker in situ Sinus node dysfunction (HCC) from Last 3 Months Results * DEVICE CHECK - REMOTE (01/10/2025 2:32 PM CDT) Anatomical Region Laterality Modality Other Narrative 02/03/2025 12:40 PM CDT Medtronic Linda Dual Pacemaker. Dx; Sinus Node Dysfunction. DOI 04/13/2024-Vlad. Carelink remote monitoring. Routine AAIR <> DDDR Pacemaker Remote. Transmission attached. Battery status: 3.06 V , 12.1 years remaining battery life to RUPINDER. Stable lead impedances, pacing and sensing thresholds. Presenting rhythm: AP/VS AP-99.9%, CAN LABELER-< 0.1% No AT/AF episodes noted. 1 Ventricular high rate episodes detected, IEGM demonstrates 2 seconds of PSVT. Medications: Amlodipine 10 mg, valsartan 320 mg See scanned report. Office pacemaker follow up: 07/19/25 [facility]Link remote f/u 04/19/25. Tony Kate RN Frandy Chu MD CV CARDIAC SERVICES PROC EDURES Final Result from Last 3 Months Insurance MEDICARE MEDICARE [facility] MEDICARE [facility] MEDICARE SUPPLEMENT Member Subscriber Plan / Payer (Ef fective 2005-Present) Name:Souleymane Powers Relation to Subscriber:Self Name:Souleymane Powers Payer ID:[id number] Type:COMMERCIAL Address: [address] [place] [id number] Care Teams Unit Assembler Relationship Specialty Start Date End Date Gabriele Candelario MD [address] [place] [address] PCP - General Internal Medicine 04/20/24
--- OUTSIDE RECORDS SUMMARY | 2025-02-14 11:15 | XMS_ITS | Encounter Summary ---
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
--- OUTSIDE RECORDS SUMMARY | 2025-02-14 11:15 | XMS_ITS | Encounter Summary ---
Author Organization [facility] Healthcare Address [address] [place] [address] Care Team Providers Care Wool Handler Name Role Phone Gabriele Candelario MD Primary Care Provider [phone] Encounter Details Date Type Department Care Team (Late st Contact Info) Description 01/25/[address] [facility] Medical Group Cardiology [address] [place] [address] Frandy Chu MD [address] [place] [address] Social History Tobacco Use Types Packs/Day Years Used Date Smoking Tobacco: Never Sex and Gender Information Value Date Recorded Sex Assigned at Not on file Legal Sex Male 7:19 PM GLASS SCULLION Gender Identity Not on file Sexual Orientation Not on file documented as of this encounter Miscellaneous Notes * Telephone Encounter - Fiona Aragon RN - 01/25/2025 3:34 PM CDT Spoke with Junie-we received clearance and will ask [facility] to address tomorrow. * Telephone Encounter [...] on filedocumented in this encounter Care Teams Wool Handler Relationship Specialty Start Date End Date Gabriele Candelario MD [address] [facility] [address] [place] [address] PCP - General Internal Medicine 04/20/24 documented as of this encounter
== END 2025-02-14 09:47 | disposition home or self-care (01) ==
PROVIDERS: PCP Internal Medicine; Visit Provider Anesthesiology Pain Medicine
DX: I10 Essential (primary) hypertension (principal); Z01.818 Encounter for other preprocedural examination; R94.31 Abnormal electrocardiogram [ECG] [EKG]
CPT/HCPCS: 93005

== ENCOUNTER 2025-02-21 00:52 | Day surgery (SDC) | payer MEDICARE, SELFPAY ==
--- OUTSIDE RECORDS SUMMARY | 2000-06-10 09:45 | XMS_ITS | Continuity of Care Document ---
Author Organization Formerly [facility] Address [address] [place] [address] Phone Care Team Providers Care Jack Frame Tender Name Role Phone Nickolas Bahena Unavailable Unavailable Advance Directives Directive Yes / No Effective Date File Name No Information Encounters Encounter Description Practice Location Reason(s) For Visit Diagnoses Date Provider Providers Copied on Encounter Formerly [facility], [address] [place], [place], [id number], [place] tel:[phone] [facility] No Information 0-200 1 Doisy Edward. [address] , [address], [place], [address], [place]. tel:[phone] Family History Family Member Type Diagnosis Age At Onset No Information Payers Payer name Insurance type Covered alliance party ID Authoriza tion(s) No Information Social History Type Description Quantity Date Captured Comments Sex Male Smoking Status No Information Chief Complaint And Reason For Visit No Information Reason For Referral Reason For Referral No Information History Of Present Illness Encounter Date Complaint History Of Prese nt Illness No Information Functional Status Date Functional Assessmen t No Information Instructions Date Instruction Additional Infor mation No Information Assessments Type Assessment Date No Information Patient Care Teams Name Effective Dates (start - stop) Status Members No Information
--- OUTSIDE RECORDS SUMMARY | 2022-09-11 07:30 | XMS_ITS | Continuity of Care Document ---
Author Organization [employer] [facility] Address [address] [facility] [address] [place] [id number] Phone Care Team Providers Care Websphere Consultant Name Role Phone Yonny Desir Unavailable Unavailable Procedures Procedure Date Therapeutic Activities Therapeutic Exercise Neuromuscular Re-Ed Therapeutic Activities Neuromuscular Re-Ed Therapeutic Activities Therapeutic Activities Neuromuscular Re-Ed Therapeutic Activities Neuromuscular Re-Ed Therapeutic Activities Neuromuscular Re-Ed Therapeutic Activities Neuromuscular Re-Ed Therapeutic Exercise Therapeutic Activities Neuromuscular Re-Ed Therapeutic Activities Neuromuscular Re-Ed Therapeutic Exercise Progress Note Therapeutic Activities Neuromuscular Re-Ed Therapeutic Activities Neuromuscular Re-Ed Therapeutic Activities Neuromuscular Re-Ed Therapeutic Activities Neuromuscular Re-Ed Therapeutic Activities Neuromuscular Re-Ed Therapeutic Activities Neuromuscular Re-Ed Therapeutic Activities Neuromuscular Re-Ed Progress Note Therapeutic Activities Neuromuscular Re-Ed Therapeutic Exercise Therapeutic Activities Neuromuscular Re-Ed Therapeutic Activities Neuromuscular Re-Ed Therapeutic Activities Neuromuscular Re-Ed Progress Note Neuromuscular Re-Ed Therapeutic Activities Therapeutic Activities Neuromuscular Re-Ed Therapeutic Activities Neuromuscular Re-Ed Therapeutic Activities Neuromuscular Re-Ed Therapeutic Activities Neuromuscular Re-Ed Therapeutic Activities Neuromuscular Re-Ed Therapeutic Exercise Therapeutic Activities Neuromuscular Re-Ed Doc neg elder mal no plan PT Re-evaluation Therapeutic Activities Neuromuscular Re-Ed Therapeutic Activities Neuromuscular Re-Ed Therapeutic Activities Neuromuscular Re-Ed Therapeutic Exercise Therapeutic Activities Neuromuscular Re-Ed Therapeutic Activities Neuromuscular Re-Ed Therapeutic Activities Neuromuscular Re-Ed Therapeutic Activities Neuromuscular Re-Ed Therapeutic Activities Therapeutic Activities Neuromuscular Re-Ed Progress Note Therapeutic Activities Neuromuscular Re-Ed Therapeutic Activities Neuromuscular Re-Ed Manual Therapy Therapeutic Activities Neuromuscular Re-Ed Therapeutic Activities Neuromuscular Re-Ed Manual Therapy Therapeutic Activities Neuromuscular Re-Ed Therapeutic Exercise Manual Therapy Therapeutic Activities Neuromuscular Re-Ed Manual Therapy Hot or Cold Pack Therapeutic Activities Neuromuscular Re-Ed Therapeutic Activities Neuromuscular Re-Ed Manual Therapy Therapeutic Activities Neuromuscular Re-Ed Therapeutic Exercise Doc neg elder mal no plan PT Evaluation Moderate Complexity Therapeutic Activities Neuromuscular Re-Ed Neuromuscular Re-Ed Therapeutic Activities Manual Therapy Therapeutic Exercise Manual Therapy Therapeutic Exercise Neuromuscular Re-Ed Therapeutic Activities Hot or Cold Pack Therapeutic Activities Therapeutic Exercise Manual Therapy Hot or Cold Pack Manual Therapy Therapeutic Exercise Therapeutic Activities Hot or Cold Pack Doc neg elder mal no plan Therapeutic Exercise Neuromuscular Re-Ed PT Evaluation Low Complexity Advance Directives Directive Yes / No Effective Date File Name No Information Encounters Encounter Description Practice Location Reason(s) For Visit Diagnoses Date Provider Providers Copied on Encounter [facility] [address], [place], [place], [id number], [place] tel:[phone] [place] No Information 3 [employer] Blancas. [address] [facility], [address], [place], [address], [place]. tel:[phone] Referring Provider: Shena Vill[address]os [address], [place], [address]. tel:[phone], [id number], tel:[phone] [place] No Information Apr-1 0-202 3 Muehl Yonny. [address] [place] [address], [facility] [address], [place], [facility], . tel: [phone] Referring Provider: Shena Vill[address], [place], [address]. tel:[phone], [id number], tel:[phone] [place] No Information Apr-0 6-202 3 Muehl Yonny. [address] [place] [address], [facility] [address], [place], [facility], . tel:[phone] Referring Provider: Shena Villal[address]os [address] , [place], [address]. tel:[phone], [id number], tel:[phone] [place] No Information Apr-0 3-202 3 Muehl Yonny. [address] [place] [address], [address], [facility], . tel:[phone] Referring Provider: Shena Vill[address], [place], [address]. tel:[phone], [id number], tel:[phone] [place] No Information Mar-3 0-202 3 Muehl Yonny. [address] [place] [address], [address], [place], [place], [facility], . tel:[phone] Referring Provider: Shena Villalobos DR [address] [place] [address], [address]. tel:[phone] [address] [place] [address], [id number], tel:[phone] [place] No Information Mar-2 8-202 3 Muehl Yonny. [address] [place] [address], [address] [place] [address], [facility], . tel: [phone] Referring Provider: Shena Vill[address], [place], [address]. tel:[phone] [place] [address], [id number], tel:[phone] [place] No Information Mar-2 4-202 3 Muehl Yonny. [address] [place] [address], [address] [place] [address], [facility], . tel: [phone] Referring Provider: Shena Villal[address] , [place], [address]. tel:[phone] [place] [address], [id number], tel:[phone] [place] No Information Mar-2 0-202 3 Muehl Yonny. [address] [place] [address], [address] [place] [address], [facility], . tel: [phone] Referring Provider: Shena Vill[address], [place], [address]. tel:[phone] [place] [address], [id number], tel:[phone] [place] No Information Mar-1 6-202 3 Muehl Yonny. [address] [place] [address], [address], [facility], . tel: [phone] Referring Provider: Shena Vill[address], [place], [address]. tel:[phone] [place] [address], [id number], tel:[phone] [place] No Information Mar-1 3-202 3 Muehl Yonny. [address] [place] [address], [address] [place] [address], [facility], . tel: [phone] Referring Provider: Eliana Thompson, [address], [place], [address]. tel:[phone] [place] [address], [id number], tel:[phone] [place] No Information Mar-0 9- 3 Muehl Yonny. [address] [place] [address], [address], [facility], . tel: [phone] Referring Provider: Shena Villal[address] , [place], [address]. tel:[phone] [address] [place] [address], [id number], tel:[phone] [place] No Information Mar-0 6- 3 Muehl Yonny. [address] [place] [address], [address] [place] [address], [facility], . tel: [phone] Referring Provider: Shena Villalobos [address], [place], [address]. tel:[phone], [id number], tel:[phone] [place] No Information Mar-0 1-202 3 Muehl Yonny. [address] [place] [address], [address], [facility], . tel: [phone] Referring Provider: Shena Villalobos [address], [place], [address]. tel:[phone] [facility] [address], [id number], tel:[phone] [place] No Information 3 Muehl Yonny. [address] [place] [address], [facility] [address], [facility], . tel: [phone] Referring Provider: Shena Vill[address], [place], [address]. tel:[phone], [id number], tel:[phone] [place] No Information 3 Muehl Yonny. [address] [place] [address], [facility] [address], [address], [place]. tel: [phone] Referring Provider: Shena Villal[address]os [address] , [place], [address]. tel:[phone], [id number], tel:[phone] [place] No Information 3 Muehl Yonny. [address] [place] [address], [address], [place], [address], [place]. tel: [phone] Referring Provider: Shena Villal[address] , [place], [address]. tel:[phone] [address] [place] [address], [id number], [place] tel:[phone] [place] No Information 3 Muehl Yonny. [address] [place] [address], [address], [address], [place]. tel:[phone] Referring Provider: Shena Vill[address], [place], [address]. tel:[phone] [address], [place], [place], [id number], tel:[phone] [place] No Information Feb-1 5-202 3 Muehl Yonny. [address] [place] [address], [address], [place], [facility], . tel:[phone] Referring Provider: Shena Villal[address]os [address] , [place], [address]. tel:[phone], [place], [place], [id number], tel:[phone] [place] No Information Feb1 0-202 3 Muehl Yonny. [address] [place] [address], [address], [place], [facility], [place]. tel:[phone] Referring Provider: Shena Vill[address], [place], [address]. tel:[phone] [address], [place], [place], [id number], [place] tel:[phone] [place] No Information Feb-0 8- 3 Muehl Yonny. [address] [place] [address], [address], [facility], [place]. tel:[phone] Referring Provider: Shena Vill[address], [place], [address]. tel:[phone] [address] [address], [place], [place], [id number], tel:[phone] [place] No Information Feb0 6- 3 Muehl Yonny. [address] [place] [address], [address], [place], [facility], [place]. tel:[phone] Referring Provider: Shena Vill[address], [place], [address]. tel:[phone], [place], [place], [id number], tel:[phone] [place] No Information Feb-0 3-202 3 Muehl Yonny. [address] [place] [address], [address], [place], [facility], [place]. tel:[phone] Referring Provider: Shena Vill[address], [place], [address]. tel:[phone], [id number], tel:[phone] [place] No Information 3 Muehl Yonny. [address] [place] [address], [facility] [address], [facility], . tel: [phone] Referring Provider: Shena Vill[address], [place], [address]. tel:[phone], [id number], tel:[phone] [place] No Information 3 Muehl Yonny. [address] [place] [address], [facility] [address], [facility], . tel: [phone] Referring Provider: Shena Vill[address], [place], [address]. tel:[phone], [id number], tel:[phone] [place] No Information 3 Muehl Yonny. [address] [place] [address], [address], [facility], . tel:[phone] Referring Provider: Shena Vill[address], [place], [address]. tel:[phone], [id number], tel:[phone] [place] No Information 3 Muehl Yonny. [address] [place] [address], [address], [facility], . tel:[phone] Referring Provider: Shena Villalobos [address], [place], [address]. tel:[phone] [address] [place] [address], [id number], tel:[phone] [place] No Information 3 Muehl Yonny. [address] [place] [address], [address], [facility], . tel: [phone] Referring Provider: Shena Villalob[address], [place], [address]. tel:[phone], [id number], [place] tel:[phone] [place] No Information 3 Muehl Yonny. [address] [place] [address], [address], [facility], . tel: [phone] Referring Provider: Shena Villalobos [address] , [place], [address]. tel:[phone] [address] [place] [address], [id number], [place] tel:[phone] [place] No Information 3 Muehl Yonny. [address] [place] [address], [address], [facility], . tel: [phone] Referring Provider: Shena Villalob[address], [place], [address]. tel:[phone] [address] [place] [address], [id number], [place] tel:[phone] [place] No Information 3 Muehl Yonny. [address] [place] [address], [address], [facility], . tel: [phone] Referring Provider: Shena Vill[address], [place], [address]. tel:[phone] [address], [place], [place], [id number], tel:[phone] [place] No Information 3 Muehl Yonny. [address] [place] [address], [address], [facility], . tel: [phone] Referring Provider: Shena Vill[address]ob[address], [place], [address]. tel:[phone] [address], [place], [id number], [place] tel:[phone] [place] No Information 3 Da Contreras. . Referring Provider: Shena Villalobos [address], [place], [address]. tel:[phone] [address] [place] [address], [id number], tel:[phone] [place] No Information 3 Muehl Yonny. [address] [place] [address], [address], [place], [facility], . tel: [phone] Referring Provider: Shena Villal[address], [place], [address]. tel:[phone] [address] [address], [id number], [place] tel:[phone] [place] No Information 3 Muehl Yonny. [address] [place] [address], [address], [place], [facility], . tel: [phone] Referring Provider: Shena Villalobos [address], [place], [address]. tel:[phone] [address], [place], [place], [id number], tel:[phone] [place] No Information 0 2 Sikp Magana. . Referring Provider: Shena Vill[address], [place], [address]. tel:[phone], [id number], tel:[phone] [place] No Information May- 2 Muehl Yonny. [address] [place] [address], [address], [facility], . tel: [phone] Referring Provider: Shena Villal[address] , [place], [address]. tel:[phone], [id number], tel:[phone] [place] No Information 2 Muehl Yonny. [address] [place] [address], [facility] [address], [place], [facility], . tel: [phone] Referring Provider: Shena Villal[address] , [place], [address]. tel:[phone], [id number], tel:[phone] [place] No Information May- 2 Muehl Yonny. [address] [place] [address], [address], [facility], . tel: [phone] Referring Provider: Shena Vill[address]ob[address], [place], [address]. tel:[phone] [address] [place] [address], [id number], tel:[phone] [place] No Information May- 2 Muehl Yonny. [address] [place] [address], [address], [place], [facility], . tel: [phone] Referring Provider: Shena Vill[address], [place], [address]. tel:[phone] [address] [place] [address], [id number], tel:[phone] [place] No Information 2 Muehl Yonny. [address] [place] [address], [address], [facility], . tel: [phone] Referring Provider: Shena Vill[address], [place], [address]. tel:[phone] [address] [place] [address], [id number], tel:[phone] [place] No Information 2 Muehl Yonny. [address] [place] [address], [address] [place] [address], [facility], . tel: [phone] Referring Provider: Shena Vill[address], [place], [address]. tel:[phone] [place] [address], [id number], [place] tel:[phone] [place] No Information 2 Muehl Yonny. [address] [place] [address], [address], [facility], [place]. tel: [phone] Referring Provider: Shena Villal[address], [place], [address]. tel:[phone] [address] [place] [address], [id number], [place] tel:[phone] [place] No Information 2 Muehl Yonny. [address] [place] [address], [address], [facility], . tel: [phone] Referring Provider: Shena Vill[address], [place], [address]. tel:[phone] [address] [address], [facility] [place], [id number], [phone] [place] No Information May-0 2 Muehl Yonny. [address] [facility], [address], [facility], . tel: [phone] Referring Provider: Eliana Thompson, [address] [facility], [place], [address]. tel:[phone], [id number], tel:[phone] [place] No Information May-0 2 Muehl Yonny. [address] [place] [address], [address], [facility], . tel: [phone] Referring Provider: Eliana Thompson, Shena [facility], [place], [address]. tel:[phone], [id number], tel:[phone] [place] No Information 0 2 Muehl Yonny. [address] [place] [address], [address], [facility], . tel: [phone] Referring Provider: Eliana Thompson, Shena [address] [facility], [place], [address]. tel:[phone], [id number], tel:[phone] [place] No Information 2 Flakito Wise. . Referring Provider: Kaleb Barrera [address], [place], [address]. tel:[phone], [id number], tel:[phone] [place] No Information 2 Flakito Wise. . Referring Provider: Kaleb Barrera [address] , [place], [address]. tel:[phone] [address] [address], [place], [place], [id number], tel:[phone] [place] No Information September- 2-202 2 Flakito Wise. . Referring Provider: Gabriele Candelario [address] [place] [address] 162 [facility] [address], [address]. tel:[phone], [place], [place], [id number], tel:[phone] [place] No Information September- 0-202 2 Flakito Wise. . Referring Provider: Gabriele Candelario [address] [place] [address] 162 [facility] [address], [address]. tel:[phone], [id number], tel:[phone] [place] No Information September-0 5-202 2 Flakito Wise. . Referring Provider: Gabriele Candelario [address] [place] [address], [address]. tel:[phone] Family History Family Member Type Diagnosis Age At Onset No Information Payers Payer name Insurance type Covered republican ID Authoriza tidoris(s) Medicare [place] MB [id number] [facility] [id number] Social History Type Description Quantity Date Captured Comments Sex Male Smoking Status No Information Chief Complaint And Reason For Visit No Information Reason For Referral Reason For Referral No Information History Of Present Illness Encounter Date Complaint History Of Prese nt Illness No Information Functional Status Date Functional Assessmen t No Information Instructions Date Instruction Additional Infor mation Prescribed activity/exercise edu cation Related to Overweight Dietary needs education Related to Overweight Dietary needs education Related to Overweight Prescribed activity/exercise edu cation Related to Overweight Assessments Type Assessment Date No Information Patient Care Teams Name Effective Dates (start - stop) Status Members No Information
--- NOTE | 2025-02-13 10:16 | PC.NURSE ---
Report to the Outpatient Waiting Room, entrance under the green pavilion located off [facility], at time _6 AM on date 02/21/25 . Planned Procedure Time: __7:30 AM .? Time changes happen often and if your time is changed the preop area will call you the afternoon before. - You and your visitor will be asked to self-screen and do not enter if you have any COVID symptoms. Please call surgeon if you need to reschedule. - A mask is optional within the hospital at this time. NOTHING TO EAT OR DRINK AFTER MIDNIGHT PER DR GARDUNO Take only the following medications with a SIP of water on the morning of surgery: _AMLODIPINE, EYE DROPS,GABAPENTIN,LEVOTHYROXINE DO NOT STOP ANY OF YOUR OTHER PRESCRIPTION MEDICATIONS PRIOR TO SURGERY EXCEPT THE FOLLOWING Hold all vitamins and supplements for 3 days per anesthesiologist.LAST DOSE 02/17/25 Medications to discontinue per physician Date to take last dose Please no make-up, nail slovenian, hairspray, perfume, deodorant, or body powder the day of surgery.? No jewelry (including any body piercings) or valuables the day of surgery, leave them at home.? Please take a shower or bath the night before, AND the morning of, surgery with an antibacterial soap.? Wear comfortable, loose fitting clothing.? Children are encouraged to wear pajamas. - Jewelry must be removed prior to entering the operating room.? Rings and piercings that are not removed may be cut off. - The hospital will not accept responsibility for valuables.? - Please leave all valuables, including medications, at home the day of surgery. If you are going home after surgery, a licensed bulk delivery driver must drive you home.? - NO public transportation without another adult if you receive anesthesia. - We recommend that an adult stay with you for 24 hours following discharge. - We also recommend that you do not drive, make important decision, drink alcoholic beverages, or take any drugs that were not prescribed by your health care provider for at least 24 hours after your discharge time. For Pediatric surgeries, we recommend two adults accompany the child home. Follow any additional instructions given to you from your surgeon. Telephone instructions given to __PATIENT and asked if any additional questions and then verbalized understanding. Patient advised to call surgeon office or pre surgery nurse liaison [phone] if any additional questions.
[2025-02-13 10:42] VITALS: BMI 31.9
[2025-02-21] VITALS (8 sets, daily range): BP systolic 106–147; BP diastolic 60–93; PULSE 59–72; RESP 10–15; TEMP 36.1–36.3; O2SAT 95–100
--- NOTE | ~2025-02-21 | XR_ITS ---
XR fluoroscopy no charge Indication:Permanent implantation of pain pump TECHNIQUE: Fluoroscopy used during Permanent implantation of pain pump performed by [Tacho Hart MD] on 02/21/2025. 1 minute 10 seconds of fluoroscopy time with 6 fluoroscopic images captured. FINDINGS: Correlate with procedure note. IMPRESSION: Fluoroscopy used during Permanent implantation of pain pump. Reviewed, dictated and finalized at location O.
--- OUTSIDE RECORDS SUMMARY | 2025-02-21 00:57 | XMS_ITS | Clinical Summary ---
Author Organization [facility] Address [address] [place] [address] Care Team Providers Care Outreach Associate Name Role Phone Gabriele Candelario MD Primary Care Provider [phone] Allergies No known active allergies Medications latanoprost [...] 12/15/19 21 Active B-D 3CC LUER-CORA SYR 09UQ1-8/2 18G X 1-1/2 3 ML Misc USE [...] daily with lunch. Indications: Other vitamin deficiencies [employer] with iron 04/03/20 22 Active [...] = 0.6 oz pur e alcohol) socially [facility] Utilities Answer Date Recorded In the past 12 months has [employer], [employer], or [employer] threatened to shut off services in your [...] any time in the past [address] [facility], were you homeless or living in a prison (including now)? 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 Not on file Not on file Not [...] Gamboa RN Medical Devices Implanted Type Area Air Export Operations Agent Device Identifier Shelf Expiration Date Model / Serial / Lot Xavi Implanted:Qty : 2 on 03/13/2022 by Eliana Thompson MD at [facility] Xavi N/A: Spine Lumbar ORTHOFIX [id number] / / Description:l4-l5 Orthofix Set Screw Implanted:Qty : 4 on 03/13/2022 by Eliana Thompson MD at [facility] Screw N/A: Spine Lumbar ORTHOFIX 36-2000 / / Orthofix 6.5x50mm Screws Implanted:Qty : 4 on 03/13/2022 by Eliana Thompson MD at [facility] Screw N/A: Spine Lumbar ORTHOFIX [id number] / / Orthofix Top Loading Body Implanted:Qty : 4 on 03/13/2022 by Eliana Thompson MD at [facility] Spine Components N/A: Spine Lumbar ORTHOFIX / / Insurance MEDICARE [facility] Advance Directives * Full Code (Latest [...] 3:04 AM 01/07/2021 5:10 PM Care Teams Outreach Associate Relationship Specialty Start Date End Date Gabriele Candelario MD [address] - [facility] [address] [place] [address] PCP - General INTERNAL MEDICINE 12/26/20
--- OUTSIDE RECORDS SUMMARY | 2025-02-21 00:57 | XMS_ITS | Encounter Summary ---
Author Organization [facility] Healthcare Address [address] [place] [address] Care Team Providers Care Supervisor Sunglasses Name Role Phone Gabriele Candelario MD Primary Care Provider [phone] Encounter Details Date Type Department Care Team (Late st Contact Info) Description 01/25/2025 Telephone [facility] Medical Group Cardiology [address] [place] [address] Frandy Chu MD [address] [place] [address] Social History Tobacco Use Types Packs/Day Years Used Date Smoking Tobacco: Never Sex and Gender Information Value Date Recorded Sex Assigned at Not on file Legal Sex Male 7:19 PM ROLL TENSION TESTER Gender Identity Not on file Sexual Orientation Not on file documented as of this encounter Miscellaneous Notes * Telephone Encounter - Fiona Aragon RN - 01/25/2025 3:34 PM CDT Spoke with Junie-we received clearance and will ask [facility] to address tomorrow. * Telephone Encounter [...] on filedocumented in this encounter Care Teams Supervisor Sunglasses Relationship Specialty Start Date End Date Gabriele Candelario MD [address] [facility] [address] [place] [address] PCP - General Internal Medicine 04/20/24 documented as of this encounter
--- OUTSIDE RECORDS SUMMARY | 2025-02-21 00:57 | XMS_ITS | Clinical Summary ---
Author Organization [facility] Address [address] [place] [address] Care Team Providers Care Job Cost Estimator Name Role Phone Gabriele Candelario MD Primary [...] Encounters Date Type Department Care Team Description 02/14/2025 External Device Data STL ABSTRACTION Provider, Abstract 02/14/2025 External Device Data STL ABSTRACTION Provider, Abstract 01/17/2025 External Device Data STL ABSTRACTION Provider, Abstract 01/17/2025 External Device Data STL ABSTRACTION Provider, Abstract 01/16/2025 4:30 PM CDT Telephone Check Up [facility] Oncology and Hematology [facility] [address] [place] [address] Mir Ledesma MD Chronic anemia (Primary Dx) 01/10/2025 Orders Only [facility] Oncology and Hematology - [place] [address] [place] [address] Mir Ledesma MD 01/09/2025 9:15 AM CDT Office Visit [facility] Oncology and Hematology [facility] [address] [place] [address] Mir Ledesma MD Chronic anemia (Primary Dx) 01/04/2025 External Device Data STL ABSTRACTION Provider, Abstract 12/28/2024 Orders Only [facility] Oncology and Hematology - [place] [address] [place] [address] Mir Ledesma MD 12/27/2024 Orders Only [facility] Oncology and Hematology - [place] [address] [place] [address] Mir Ledesma MD 12/14/2024 External Device Data [...] st Contact Info) Description 07/14/2025 9:45 AM LICENSED PSYCHOLOGIST DIRECTOR Office Visit [facility] Oncology and Hematology - [place] [address] [place] [address] [facility] [address] [place] [address] Mir Ledesma MD [address] [facility] [address] [place] [address] Health Maintenance Due Date Last [...] Months Insurance MEDICARE PART A AND B [facility] SUPP Care Teams Job Cost Estimator Relationship Specialty Start Date End Date Gabriele Candelario MD [address] [place] [address] PCP - General Internal Medicine 12/15/22
--- OUTSIDE RECORDS SUMMARY | 2025-02-21 00:57 | XMS_ITS | Encounter Summary ---
Author Organization [facility] Address [address] [place] [address] Care Team Providers Care Center Manager Name Role Phone Gabriele Candelario MD Primary Care Provider Encounter Details Date Type Department Care Team (Late st Contact Info) Description 08/08/[address] 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
--- OUTSIDE RECORDS SUMMARY | 2025-02-21 00:58 | XMS_ITS | Clinical Summary ---
Author Organization [facility] Address [address] [place] [address] Care Team Providers Care Glass Sagger Name Role Phone Gabriele Candelario MD Primary Care Provider [phone] Allergies No known active allergies Medications morphine (MSIR) 15 mg tablet Take 1 tablet (15 mg total) by mouth every 4 (four) hours as needed for pain for up to 10 doses 10 tablet 1 Active melatonin 10 mg tablet Active TiZANidine (ZANAFLEX) 4 mg capsule Take 1 capsule (4 mg total) by mouth 3 (three) times a day Active [id number]-gxpv -Lmfolate-algal 27 mg iron-1.13 mg-581.92 mg capsule [...] Type Department Care Team Description 02/13/2025 Telephone [facility] Medical Group Cardiology [address] [place] [phone] Frandy Chu MD 01/25/2025 Telephone [facility] Cardiology [address] [facility] [address] [place] [phone] Frandy Chu MD 01/10/2025 7:00 AM CDT Ancillary Procedure [facility] Medical [facility] Cardiology [facility]5 [facility] [address] [place] [address] Cardiac pacemaker in situ; Sinus node [...] on file 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 Gender Identity Not on file Sexual Orientation Not on file Obstetrics History Last Filed Vital Signs Vital Sign Reading Time Taken Comments Blood Pressure 106/68 07/08/2024 9:12 AM LAND USE PLANNER Pulse 97 07/08/2024 9:12 AM LAND USE PLANNER Temperature 36.8 C (98.2 F) 12/31/2020 1:35 PM CDT Respiratory Rate 16 12/31/2020 1:35 PM CDT Oxygen Saturation 92% 07/08/2024 9:12 AM LAND USE PLANNER Inhaled Oxygen Concentration - - Weight 92.7 kg (204 lb 6.4 oz) 07/08/2024 9:12 A M LAND USE PLANNER Height 167.6 cm (5' 6) 07/08/2024 9:12 AM LAND USE PLANNER Body Mass Index 32.99 07/08/2024 9:12 AM LAND USE PLANNER Plan of Treatment Health Maintenance Due Date [...] and sensing thresholds. Presenting rhythm: AP/VS AP-99.9%, CLINICAL CODER-< 0.1% No AT/AF episodes noted. 1 Ventricular high rate episodes detected, IEGM demonstrates 2 seconds of PSVT. Medications: Amlodipine 10 mg, valsartan 320 mg See scanned report. Office pacemaker follow up: 07/19/25 [facility]Link remote f/u 04/19/25. Tony Kate RN Frandy Chu MD CV CARDIAC SERVICES PROC EDURES Final Result from Last 3 Months Insurance MEDICARE MEDICARE [facility] MEDICARE [facility] MEDICARE SUPPLEMENT Member Subscriber Plan / Payer (Ef fective 2005-Present) Name:Souleymane Powers Relation to Subscriber:Self Name:Souleymane Powers Payer ID:[id number] Type:COMMERCIAL Address: [address] [place] [id number] Care Teams Glass Sagger Relationship Specialty Start Date End Date Gabriele Candelario MD [address] [place] [address] PCP - General Internal Medicine 04/20/24
--- OUTSIDE RECORDS SUMMARY | 2025-02-21 00:58 | XMS_ITS | Encounter Summary ---
Author Organization [facility] Healthcare Address [address] [place] [address] Care Team Providers Care Algorithm Design Engineer Name Role Phone Gabriele Candelario MD Primary Care Provider [phone] Encounter Details Date Type Department Care Team (Late st Contact Info) Description 02/13/2025 Telephone [facility] Medical Group Cardiology [address] [facility] [address] [place] [address] Frandy Chu MD [address] [place], [place] [phone] Social History Tobacco Use Types Packs/Day Years Used Date Smoking Tobacco: Never Sex and Gender Information Value Date Recorded Sex Assigned at Not on file 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 Thank you. P: [phone] F: [phone] documented in this encounter Plan of Treatment Not on file documented as of this encounter Visit Diagnoses Not on filedocumented in this encounter Care Teams Algorithm Design Engineer Relationship Specialty Start Date End Date Gabriele Candelario MD [address] [place] [address] PCP - General Internal Medicine 04/20/24 documented as of this encounter
--- NOTE | 2025-02-21 08:08 | WPDHPUPDATE1 ---
History and Physical Update Update Date/Time: 02/21/25 08:08 History and Physical has been reviewed, including an updated exam of the patient. There are NO changes in the patient's condition. Risks, benefits, and alternatives have been discussed and questions answered. Patient agrees to proceed with procedure.
--- NOTE | 2025-02-21 08:10 | W.PM.PROC2 ---
Procedure Note - Detailed Date of Procedure 02/21/25 Pre-op Diagnosis other chronic pain Post-op Diagnosis Same Procedure Performed Permanent implantation of Medtronic SynchroMed III 20 mL intrathecal pain pump and percutaneous, tunneled Ascenda intrathecal catheter for chronic targeted drug delivery under fluoroscopic guidance. Surgeon Tacho Hart MD Anesthesia General ([General anesthesia] in the [left lateral decubitus] position [via LMA] with local anesthetic infiltration. ) Description of Procedure INFORMED CONSENT, EDUCATION AND PREPARATION: Procedure was discussed in detail with the patient at a previous visit and at the time of surgery. The risks, benefits, and alternatives to the procedure, including doing nothing, were discussed in detail with the patient, who expressed explicit understanding and consent to proceed. Specific risks discussed with the patient included, but were not limited to the risk of serious local or systemic infection, major or minor bleeding/bruising, allergic reaction to medications or materials, inadvertent lung or other organ injury, inadvertent nerve or spinal cord injury resulting in, amongst other changes, increased pain, weakness, numbness or loss of bowel or bladder control, programming or technical error leading to unintentional overdose or underdose of medications resulting in sedation, respiratory depression, hypoxic brain injury and/or or major or minor withdrawal symptoms, device malfunction and inability to treat pain, device migration or malfunction resulting in the need for repeat or additional surgery, acute or chronic/persistent CSF leak and post-dural puncture headache, eye or dental injury, joint, nerve, spine or soft tissue injury/pain related to positioning, heart attack, hemorrhagic or ischemic stroke, seizure, coma and . Patient understands these risks and agrees that the opportunity for benefit outweighs the potential risk of harm. Informed Consent form was read, reviewed and signed. All pertinent questions were asked and answered to the patient's satisfaction. Surgical site was pre-treated with chlorhexidine wipes. All materials required for implantation were available and site and side of implant were marked prior to procedure start. Appropriate timeout was conducted prior to incision. PROCEDURE IN DETAIL: The patient indicated their completion of a 4% chlorhexidine shower at home and surgical site was pre-treated with chlorhexidine wipes in pre-operative holding. IV prophylactic antibiotics were initiated in holding. The patient was brought to the operative suite and placed in the supine position. ASA standard monitors were attached. General anesthesia was initiated via ETT without difficulty or event. The patient's eyes were protected. The patient was transitioned into the left lateral decubitus position. Joints were placed in neutral position, pressure points were padded and breast/genitals were evaluated and protected as appropriate. Skin overlying the planned incision sites were marked with sterile skin marker. Surgical site was prepared in the typical sterile fashion with 67% isopropyl alcohol pre-treatment and Chloraprep solution which was allowed to dry completely for greater than 3 minutes. The patient was then draped in a typical sterile fashion. Aseptic technique was utilized throughout. In the AP view relative to the patient, L1-L2 interspace was identified. Skin overlying the needle entry site was anesthetized with approximately 10 mL of a 1:1 admixture of 0.5% preservative-free bupivacaine with epinephrine and 2.0% preservative-free lidocaine with epinephrine via a 27-gauge needle after negative aspiration. Anesthesia was extended to the vertebral lamina at the level of interest through the injection of an additional 5 mL of the above local anesthetic admixture via a 22-gauge Quincke spinal needle after negative aspiration. A 2 cm incision was made in the skin at the thoracolumbar level just right of midline. The wound was dissected to thoracolumbar fascia using a combination of electrocautery and blunt dissection. Hemostasis was obtained with electrocautery and confirmed. A 17-gauge spinal needle was advanced toward the midline until periosteum was contacted at the right L2 lamina. Needle was walked off superiorly, medially and anteriorly until reaching the epidural space where appropriate loss of resistance to air was observed using a plastic loss of resistance syringe. Appropriate needle depth within the posterior epidural space was identified in the lateral view. Needle was rotated so that bevel was in a vertical plane. Needle was advanced slowly and intermittently until a tactile dural puncture was achieved and clear CSF was visualized returning from the needle, which was then occluded. Less than 5ml of CSF was lost at time of puncture and throughout the case. [employer] Ascenda catheter was advanced at the midline in the posterior intrathecal space until the radiopaque tip was adjacent to the T8-T9 interspace in the AP view. Appropriate positioning was then confirmed and recorded in both the AP and lateral views. The stylet was removed from the catheter and free-flowing, clear CSF was identified from the distal tip. Catheter was secured and re-occluded with a rubber-shod clamp. A single 0 Ethibond suture was placed in a purse-string fashion around the needle shaft within the thoracolumbar fascia. An additional 2 x 0 Ethibond sutures were placed left and right of the needle shaft and were secured to thoracolumbar fascia. Needle was then withdrawn over the catheter under live fluoroscopy to ensure lack of catheter migration. [place] were removed intact and without difficulty. No visible blood or CSF was noted emanating from catheter entry site. The purse-string suture was secured around the catheter to limit risk of CSF extravasation. A deployable winged friction anchor was placed over the catheter, such that the proximal end of the anchor was buried within fascia, without evidence of catheter migration on lateral fluoroscopic view. Catheter was then secured to thoracolumbar fascia via the winged anchor and previously placed 0 Ethibond sutures. Free flow clear CSF was again observed from the distal tip of the catheter which was then re-occluded. This was intermittently confirmed throughout the duration of the case. Attention was then turned to creation of the pump pocket in the right periumbilical region. After appropriate anesthesia by infiltration with additional 10 mL of the above local anesthetic admixture via 27-gauge needle after negative aspiration, an 8 cm horizontal incision was made with a #15 scalpel, and hemostasis obtained with electrocautery. A combination of blunt dissection and electrocautery was used to create an appropriately sized subcutaneous, supra-fascial pocket in the patient's right lower quadrant. Hemostasis was obtained with electrocautery and confirmed. 4 x 0 Ethibond sutures were placed in all 4 quadrants of the pocket and secured to abdominal fascia. Using the resource recovery engineer-supplied tunneling device, the catheter was tunneled from the inferior pole of the midline thoracolumbar incision to the superolateral portion of the newly created pocket without difficulty. An appropriately sized stress relieving loop was maintained at the catheter entry site. Free flow clear CSF was again documented from the distal catheter. On the back table, sterile saline was withdrawn from the pump through the pump refill port using a sterile 24 g non-coring needle and aseptic, sterile technique. 20 mL of solution containing 0.1 mcg/milliliter PF hydromorphone, 5 mg/milliliter PF bupivacaine and 200 mcg/milliliter clonidine was instilled into the pump through a 0.2 micron filter prior to implantation. Catheter was carefully and securely attached to the suture-less connector. The connector was then attached to the ejection port on the pump without difficulty. A firm, reliable connection was tested and confirmed. Clear CSF was then aspirated from the catheter access port on the pump using a 24 g non-coring needle, confirming patent communication with the intrathecal space and continuity of the complete system. Excess catheter was then coiled behind the pump and the pump was placed within the pocket, so that the catheter access port was pointing towards the umbilicus and the pump refill port was facing externally. Pump was then secured to the abdominal fascia using the previously placed 0 Ethibond sutures. Each incision site was then irrigated with copious amounts of IrriCept 0.5% CHG irrigation solution. 500mg of powdered vancomycin was placed, proportionately divided between the lead insertion site and the pocket, prior to closure. Hemostasis was observed and confirmed. Each wound was then closed in a layered fashion using 2-0 antimicrobial vicryl interrupted sutures for the deeper layers and a continuous antimicrobial 4-0 Monocryl for superficial layers. Epidermis was sealed with wound glue. Once wound glue had dried, the wound was then covered with Telfa and Tegaderm dressing. The pump was programmed to deliver 0.025 mg hydromorphone in 24 hours in a continuous fashion. No PTM was established. The patient was converted to the supine position and anesthesia was reversed without difficulty. The patient was transported to the recovery area in stable condition, neurologically intact with no evidence of complication and with pain appropriately controlled. The patient was instructed to avoid heavy or repetitive lifting, bending at the waist, lifting and twisting, reaching or overhead work for the next 4-6 weeks. Patient and available family members/caregivers were instructed verbally regarding appropriate postoperative activity restrictions and wound care, both in the immediate preoperative period and in the postoperative period. Instructions were both reviewed with and provided to the patient in written form prior to discharge and included: Patient to remain in the present of a responsible adult for at least 48 hours. Patient was instructed to keep previously prescribed unexpired IM/IN narcan within ready access to both patient and caregiver(s) until follow up and at each dose adjustment. Patient, amongst other requirements, was instructed to avoid driving or soaking/submerging incisions until released and to monitor for signs of infection including fevers, chills, night sweats, any redness, warmth or discharge around the incision sites, increased pain, opening/bleeding of the wound, new pain, weakness, or numbness in the neck, back or upper and lower extremities, loss of bowel or bladder control, confusion or headaches that are persistent, severe or new. Patient expressed understanding prior to leaving the hospital. Signs and symptoms of infection, epidural abscess or hematoma, intracranial hypotension, opioid withdrawal or overdose and post-dural puncture headache were described to the patient who was instructed to call if these symptoms present, and in the case of spinal headache to remain recumbent when possible, hydrate as tolerated based on medical conditions to the point of passing clear or mostly clear urine every 2-3 hours, caffeinated beverages and [id number] analgesics as able and tolerated. Patient will monitor for all signs/symptoms and call our office immediately should they occur or report directly to the nearest Emergency Department if after hours or no immediate response. Immediate follow up was planned by telephone in 2-3 days and in person in 7-10 days. COMMENTS: None. COMPLICATIONS: None. ESTIMATED BLOOD LOSS: 20 mL IV FLUIDS: On chart. SPECIMEN: None. DRAINS: None. [facility] Billing Surgery - Charge Forward: Surgery Billing
[2025-02-21] MEDS: LACTATED RINGERS 1,000 ML 30 ML IV CONT ×2 (08:55→11:47)
--- NOTE | 2025-02-21 09:22 | WPDANESEPPF ---
Anes - Initial Pre Proc Eval Procedure: Operation Date: 02/21/25 09:30 Proposed Procedures p Permanent Implantation of Medtronic Ascenda Intrathecal Catheter and Synchromed Implantable Pain Pump Under Fluoroscopic Guidance for Targeted Drug Delivery - Tacho Hart MD Date/Time: 02/21/25 09:22 Surgeon: Tacho Hart MD Pre Op Diagnosis: other chronic pain Patient Data Age: 84 Gender: M Height: 1.73 m Weight: 95.7 kg Last Vital Signs Temp 97.3 F L 02/21/25 08:17 Pulse 72 02/21/25 08:17 Resp 14 02/21/25 08:17 BP 129/84 02/21/25 08:17 Pulse Ox 97 02/21/25 08:17 O2 Del Method Room Air 02/21/25 08:17 Allergies Allergy/AdvReac Type Severity Reaction Status Date / Time No Known Allergies Allergy Unknown Verified 02/21/25 08:47 Home Medications ?Medication ?Instructions ?Recorded ?Confirmed ?Type latanoprost 0.005 % eye drops 1 drop ophthalmic (eye) HS 04/21/19 02/21/25 History ascorbic acid (vitamin C) 500 mg 1,000 mg PO 1200 09/25/21 02/21/25 History capsule melatonin 10 mg capsule 10 mg PO QHS PRN Sleep 06/04/22 02/13/25 History coenzyme Q10 100 mg capsule 100 mg PO HS 05/14/23 02/21/25 History (CoQ-10) multivitamin 1 tablet PO QACLUNCH 05/14/23 02/21/25 History Electric Scooter Wheel Chair #1 ea 11/02/23 01/26/25 Rx cranberry fruit 450 mg tablet 450 mg PO HS 03/30/24 02/21/25 History (cranberry) dorzolamide-timolol (PF) 2 %-0.5 % 1 drp EACH EYE BID 03/30/24 02/21/25 History eye drops in a dropperette lactulose 10 gram/15 mL oral 15 ml PO HS PRN Constipation 03/30/24 02/13/25 History solution magnesium oxide 400 mg PO HS 03/30/24 02/21/25 History trazodone 50 mg tablet 50 mg PO HS PRN Sleep 03/30/24 02/13/25 History tizanidine 4 mg capsule 4 mg PO TID PRN muscle spasticity 04/11/24 02/13/25 Rx #45 caps cyanocobalamin (vitamin B-12) See Rx Instructions .Route 08/01/24 02/13/25 Rx 1,000 mcg/mL injection solution .COMPLEX #3 mL syringe with needle, safety 3 mL #9 ea 08/01/24 01/26/25 Rx 23 gauge x 1 (UltiCare Safety Syringe) acetaminophen 500 mg capsule 1,000 mg (2 x 500 mg) PO Q6H PRN 09/06/24 02/13/25 Rx pain #30 caps donepezil 10 mg tablet See Rx Instructions .Route 11/23/24 02/21/25 Rx .COMPLEX #90 tabs memantine 28 mg capsule See Rx Instructions .Route 12/13/24 02/21/25 Rx sprinkle,extended release 24hr .COMPLEX #90 caps atorvastatin 40 mg tablet See Rx Instructions .Route 12/15/24 02/21/25 Rx .COMPLEX #90 tabs celecoxib 100 mg capsule (Celebrex) 100 mg PO BID #60 caps 12/16/24 02/13/25 Rx Held on 02/21/25. Instructions: Resume on 02/23/25. x 48 hours amlodipine 10 mg tablet See Rx Instructions .Route 01/10/25 02/21/25 Rx .COMPLEX #90 tabs solifenacin 10 mg tablet See Rx Instructions .Route 01/13/25 02/21/25 Rx .COMPLEX #90 tabs valsartan 320 mg tablet See Rx Instructions .Route 01/13/25 02/21/25 Rx .COMPLEX #90 tabs levothyroxine 137 mcg tablet 137 mcg PO DAILY #30 tabs 01/19/25 02/21/25 Rx (Synthroid) gabapentin 300 mg capsule See Rx Instructions .Route 01/31/25 02/21/25 Rx .COMPLEX #120 caps hydrocodone 5 mg-acetaminophen 325 1 tablet PO Q4-6H PRN pain 7 days 02/21/25 Rx mg tablet #28 tabs Patient hx anesthesia problems: none Family hx anesthesia problems: none Results Review: All pre-operative results and documents have been reviewed as part of the pre-operative evaluation. [facility] Past Medical History Medical History Sick sinus syndrome Muscle pain Falls Encounter for routine adult health examination without abnormal findings Macular degeneration Sinus drainage Left knee DJD Erythrocytosis RLS (restless legs syndrome) Frequent sinus infections Elbow pain, left Prostate cancer screening Personal history of COVID-19 BMI 26.0-26.9,adult Bunion of right foot Pedal edema Skin cancer screening Memory loss Testosterone deficiency Itchy skin Balance problem BMI 32.0-32.9,adult Chronic back pain BMI 29.0-29.9,adult Glaucoma Blepharitis of both eyes BMI 30.0-30.9,adult CKD (chronic kidney disease) Chronic pain Hearing loss Non-healing skin lesion Proteinuria Urine abnormality History of colon polyps Abnormal finding of blood chemistry Urinary frequency Insomnia Urinary incontinence BMI 31.0-31.9,adult Encounter for special screening examination for neoplasm of prostate Pre-diabetes Colon cancer screening Anxiety with depression DJD (degenerative joint disease), multiple sites Hypogonadism in male Cognitive dysfunction Hypothyroidism (acquired) Benign essential hypertension Hyperlipidemia On focus puller drug therapy Vertigo Surgical History Surgical History History of shoulder surgery History of back surgery Family History Family History Sibling Family history of malignant neoplasm of stomach Family history of malignant neoplasm Carcinoma of colon Family history of malignant neoplasm of breast in first degree relative Family history of malignant neoplasm of ovary Family history of diabetes mellitus in first degree relative Diabetes mellitus Father Family history of diabetes mellitus in first degree relative Mother Family history of malignant neoplasm of bone Other Family history of osteoarthritis Social History Social History Smoking status: Never smoker Second hand tobacco smoke exposure: No Alcohol intake: never Drinks per week: 1 Substance use: never Substance use type: does not use Do You Feel Safe in your Home?: Yes Lack of Transportation: No Lack of Food: Never True Current Housing: I Have Housing Concerned About Future Housing: No Difficulty Paying Gas/Electric Bills: No Difficulty Paying for Meds: No Currently Unemployed: No Education: High School Diploma/GED Difficulty w/ Childcare or Family Care: No Living arrangements: alone Occupation/Education: retired Gender identity (if verbalized by the patient): Male Spiritual care concerns: No Anes - Eval Final PreProcedure Day of Procedure 02/21/25 09:22 Patient weight: obese Lungs: normal air movement Airway: Mallampati scale class II Neurological: alert and oriented Last oral intake: >/= 8 hours ASA classification: III Emergent: no Anesthetic plan: proceed Anesthesia type and monitoring: general ETT and standard monitoring Results Review: All pre-operative results and documents have been reviewed as part of the pre-operative evaluation. Complicated hx reviewed w pt and his son and discussed w Dr Hart. ECHO 2023 w nml LVEF, no . Informed Consent: The patient's anesthetic plan and its attendant risks and benefits were discussed with the patient/family/POA. Questions were solicited and answers provided to the satisfaction of the patient/family/POA.
[2025-02-21] MEDS: ceFAZolin 2 GM in SODIUM CHLORIDE 0.9% IV 50 ML 100 ML IVPB (09:26)
[2025-02-21] MEDS: LIDOCAINE 2% LOCAL INJ 20 ML VIAL INFILTRATE (10:23)
[2025-02-21] MEDS: BUPivacaine HCL 0.5% 10 ML AMP 20 ML INFILTRATE (10:23)
[2025-02-21] MEDS: HYDROMORPHONE XX (10:41)
[2025-02-21] MEDS: BUPIVACAINE XX (10:41)
[2025-02-21] MEDS: CLONIDINE XX (10:41)
[2025-02-21] MEDS: IRRISEPT 450 ML IRRIGATION BOTTLE IRRIGATION (10:42)
[2025-02-21] MEDS: VANCOMYCIN HCL 1,000 MG VIAL 1000 MG TOPICAL (11:19)
[2025-02-21] MEDS: fentaNYL CITRATE INJ (*CRX) 100 MCG/2 ML VIAL 25 MCG IV PUSH ×3 (12:02→12:31)
[2025-02-21] MEDS: oxyCODONE HCL (*CRX) 5 MG TAB IR PO (12:55)
== END 2025-02-21 13:46 | disposition home or self-care (01) ==
PROVIDERS: PCP Internal Medicine; Visit Provider Anesthesiology Pain Medicine
PROC: (CPT 62362; principal; 2025-02-21 09:30)
DX: M48.062 Spinal stenosis, lumbar region with neurogenic claudication (principal); M47.817 Spondylosis without myelopathy or radiculopathy, lumbosacral region; M96.1 Postlaminectomy syndrome, not elsewhere classified; G89.18 Other acute postprocedural pain; E03.9 Hypothyroidism, unspecified; G89.29 Other chronic pain; E55.9 Vitamin D deficiency, unspecified; I49.5 Sick sinus syndrome; M17.12 Unilateral primary osteoarthritis, left knee; E34.9 Endocrine disorder, unspecified; M46.1 Sacroiliitis, not elsewhere classified; G25.81 Restless legs syndrome; E29.1 Testicular hypofunction; E11.22 Type 2 diabetes mellitus with diabetic chronic kidney disease; I12.9 Hypertensive chronic kidney disease with stage 1 through stage 4 chronic kidney disease, or unspecified chronic kidney disease; N18.9 Chronic kidney disease, unspecified; R41.3 Other amnesia; R35.0 Frequency of micturition; G47.00 Insomnia, unspecified; R32 Unspecified urinary incontinence; F41.8 Other specified anxiety disorders; E66.9 Obesity, unspecified; Z68.32 Body mass index [BMI] 32.0-32.9, adult; Z79.1 Long term (current) use of non-steroidal anti-inflammatories (NSAID); Z79.891 Long term (current) use of opiate analgesic; Z79.899 Other long term (current) drug therapy; Z98.890 Other specified postprocedural states; Z98.1 Arthrodesis status; Z86.0100 Personal history of colon polyps, unspecified; Z80.0 Family history of malignant neoplasm of digestive organs; Z80.3 Family history of malignant neoplasm of breast; Z80.41 Family history of malignant neoplasm of ovary; Z80.8 Family history of malignant neoplasm of other organs or systems
CPT/HCPCS: 62362; 62350; 99199; J0690; A9270; C1755; J1100; J2003; J2405; J2704; J3010; J3373; J7120

== ENCOUNTER 2025-02-24 16:31 | Emergency (ER) | payer MEDICARE, SELFPAY ==
--- OUTSIDE RECORDS SUMMARY | 2022-09-11 07:30 | XMS_ITS | Continuity of Care Document ---
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 Name Role Phone Yonny Desir Unavailable Unavailable Procedures Procedure Date Therapeutic Activities Neuromuscular Re-Ed Therapeutic Exercise Therapeutic Activities Neuromuscular Re-Ed Therapeutic Activities Therapeutic [...] Evaluation Moderate Complexity Therapeutic Activities Neuromuscular Re-Ed Therapeutic Activities Neuromuscular Re-Ed Manual Therapy Therapeutic Exercise Therapeutic Exercise Therapeutic Activities Manual Therapy Neuromuscular Re-Ed Hot or Cold Pack Therapeutic Activities Therapeutic Exercise Manual Therapy Hot or Cold Pack Therapeutic Activities Therapeutic Exercise Manual Therapy Hot or Cold Pack Doc neg elder mal no plan Neuromuscular Re-Ed Therapeutic Exercise PT Evaluation Low Complexity Advance Directives Directive Yes / No Effective Date File Name No Information Encounters Encounter Description Practice Location Reason(s) For Visit Diagnoses Date Provider Providers Copied on Encounter [facility] [facility] [address], [place], [place], [id number], [place] tel:[phone] [place] No Information 3 [employer] Blancas. [address] [facility], [address], [place], [address], [place]. tel:[phone] Referring Provider: Shena Villalobos [address], [place], [address]. tel:[phone], [id number], tel:[phone] [place] No Information Apr-1 0-202 3 Muehl Yonny. [address] [place] [address], [facility] [address], [place], [facility], . tel: [phone] Referring Provider: Shena Vill[address]os [address], [place], [address]. tel:[phone], [id number], tel:[phone] [place] No Information Apr-0 6-202 3 Muehl Yonny. [address] [place] [address], [facility] [address], [place], [facility], . tel:[phone] Referring Provider: Shena Villal[address]os [address] , [place], [address]. tel:[phone], [id number], tel:[phone] [place] No Information Apr-0 3-202 3 Muehl Yonny. [address] [place] [address], [address], [place], [facility], . tel:[phone] Referring Provider: Shena Villalob[address], [place], [address]. tel:[phone], [id number], tel:[phone] [place] No Information Mar-3 0-202 3 Muehl Oynny. [address] [place] [address], [address], [place], [facility], . tel:[phone] Referring Provider: Shena Villalobos DR [address] [place] [address], [address]. tel:[phone] [address] [place] [address], [id number], tel:[phone] [place] No Information Mar-2 8-202 3 Muehl Yonny. [address] [place] [address], [address] [place] [address], [facility], . tel: [phone] Referring Provider: Shena Vill[address], [place], [address]. tel:[phone] [place] [address], [id number], tel:[phone] [place] No Information Mar-2 4-202 3 Muehl Yonny. [address] [place] [address], [address] [place] [address], [facility], . tel: [phone] Referring Provider: Shena Villalobos [address] , [place], [address]. tel:[phone] [address] [place] [address], [id number], tel:[phone] [place] No Information Mar-2 0-202 3 Muehl Yonny. [address] [place] [address], [address] [place] [address], [facility], . tel: [phone] Referring Provider: Shena Villalobos [address], [place], [address]. tel:[phone] [address] [place] [address], [id number], tel:[phone] [place] No Information Mar-1 6-202 3 Muehl Yonny. [address] [place] [address], [address], [place], [facility], . tel: [phone] Referring Provider: Shena Villalobos [address], [place], [address]. tel:[phone] [place] [address], [id number], tel:[phone] [place] No Information Mar-1 3-202 3 Muehl Yonny. [address] [place] [address], [address] [place] [address], [facility], . tel: [phone] Referring Provider: Eliana Thompson, Shena [address], [place], [address]. tel:[phone] [address] [place] [address], [id number], tel:[phone] [place] No Information Mar-0 9- 3 Muehl Yonny. [address] [place] [address], [address], [facility], . tel: [phone] Referring Provider: Shena Villalobos [address] , [place], [address]. tel:[phone] [place] [address], [id number], tel:[phone] [place] No Information Mar-0 6- 3 Muehl Yonny. [address] [place] [address], [address] [place] [address], [facility], . tel: [phone] Referring Provider: Shena Villalobos DR, [place], [address]. tel:[phone], [id number], tel:[phone] [place] No Information Mar-0 1-202 3 Muehl Yonny. [address] [place] [address], [address], [facility], . tel: [phone] Referring Provider: Shena Villalobos DR, [place], [address]. tel:[phone] [facility] [address], [id number], tel:[phone] [place] No Information 3 Muehl Yonny. [address] [place] [address], [facility] [address], [facility], . tel: [phone] Referring Provider: Shena Villalobos [address], [place], [address]. tel:[phone], [id number], tel:[phone] [place] No Information 3 Muehl Yonny. [address] [place] [address], [facility] [address], [place], [address], [place]. tel: [phone] Referring Provider: Shena Villalobos [address] , [place], [address]. tel:[phone], [id number], tel:[phone] [place] No Information 3 Muehl Yonny. [address] [place] [address], [address], [place], [address], [place]. tel: [phone] Referring Provider: Shena Villalobos [address] , [place], [address]. tel:[phone] [address] [place] [address], [id number], [place] tel:[phone] [place] No Information 3 Muehl Yonny. [address] [place] [address], [address], [place], [address], [place]. tel:[phone] Referring Provider: Shena Villalob[address], [place], [address]. tel:[phone] [address], [place], [place], [id number], tel:[phone] [place] No Information Feb-1 5-202 3 Muehl Yonny. [address] [place] [address], [address], [place], [facility], . tel:[phone] Referring Provider: Shena Villalobos [address] , [place], [address]. tel:[phone], [place], [place], [id number], tel:[phone] [place] No Information Feb1 0-202 3 Muehl Yonny. [address] [place] [address], [address], [place], [facility], [place]. tel:[phone] Referring Provider: Shena Villalobos [address], [place], [address]. tel:[phone] [address], [place], [place], [id number], [place] tel:[phone] [place] No Information Feb-0 8- 3 Muehl Yonny. [address] [place] [address], [address], [facility], [place]. tel:[phone] Referring Provider: Shena Villalob[address], [place], [address]. tel:[phone] [address] [address], [place], [place], [id number], tel:[phone] [place] No Information Feb0 6- 3 Muehl Yonny. [address] [place] [address], [address], [place], [facility], [place]. tel:[phone] Referring Provider: Shena Villalob[address], [place], [address]. tel:[phone], [place], [place], [id number], tel:[phone] [place] No Information Feb-0 3-202 3 Muehl Yonny. [address] [place] [address], [address], [place], [facility], [place]. tel:[phone] Referring Provider: Shena Villalobos [address], [place], [address]. tel:[phone], [id number], tel:[phone] [place] No Information 3 Muehl Yonny. [address] [place] [address], [facility] [address], [place], [facility], . tel: [phone] Referring Provider: Shena Villal[address], [place], [address]. tel:[phone], [id number], tel:[phone] [place] No Information 3 Muehl Yonny. [address] [place] [address], [facility] [address], [place], [facility], . tel: [phone] Referring Provider: Shena Villalobos [address], [place], [address]. tel:[phone], [id number], tel:[phone] [place] No Information 3 Muehl Yonny. [address] [place] [address], [address], [facility], . tel:[phone] Referring Provider: Shena Villalobos [address], [place], [address]. tel:[phone], [id number], tel:[phone] [place] No Information 3 Muehl Yonny. [address] [place] [address], [address], [place], [facility], . tel:[phone] Referring Provider: Shena Villalobos DR, [place], [address]. tel:[phone] [address] [place] [address], [id number], tel:[phone] [place] No Information 3 Muehl Yonny. [address] [place] [address], [address], [facility], . tel: [phone] Referring Provider: Shena Villalobos [address], [place], [address]. tel:[phone], [id number], [place] tel:[phone] [place] No Information 3 Muehl Yonny. [address] [place] [address], [address], [facility], . tel: [phone] Referring Provider: Shena Villalobos [address] , [place], [address]. tel:[phone] [place] [address], [id number], [place] tel:[phone] [place] No Information 3 Muehl Yonny. [address] [place] [address], [address], [place], [facility], . tel: [phone] Referring Provider: Shena Villalobos [address], [place], [address]. tel:[phone] [address] [place] [address], [id number], [place] tel:[phone] [place] No Information 3 Muehl Yonny. [address] [place] [address], [address], [facility], . tel: [phone] Referring Provider: Shena Villalobos [address], [place], [address]. tel:[phone] [address], [place], [place], [id number], tel:[phone] [place] No Information 3 Muehl Yonny. [address] [place] [address], [address], [facility], . tel: [phone] Referring Provider: Shena Villalobos [address], [place], [address]. tel:[phone] [address], [place], [place], [id number], [place] tel:[phone] [place] No Information 3 Da Contreras. . Referring Provider: Shena Villalobos DR, [place], [address]. tel:[phone] [address] [place] [address], [id number], tel:[phone] [place] No Information 3 Muehl Yonny. [address] [place] [address], [address], [place], [facility], . tel: [phone] Referring Provider: Shena Villalobos [address], [place], [address]. tel:[phone] [address] [address], [place], [id number], [place] tel:[phone] [place] No Information 3 Muehl Yonny. [address] [place] [address], [address], [place], [facility], . tel: [phone] Referring Provider: Shena Villalobos [address], [place], [address]. tel:[phone] [address], [place], [place], [id number], tel:[phone] [place] No Information 0 2 Skip Magana. . Referring Provider: Shena Villalobos [address], [place], [address]. tel:[phone], [id number], tel:[phone] [place] No Information May- 2 Muehl Yonny. [address] [place] [address], [address], [place], [facility], . tel: [phone] Referring Provider: Shena Villalobos [address] , [place], [address]. tel:[phone], [id number], tel:[phone] [place] No Information 2 Muehl Yonny. [address] [place] [address], [facility] [address], [place], [facility], . tel: [phone] Referring Provider: Shena Villalobos [address] , [place], [address]. tel:[phone], [id number], tel:[phone] [place] No Information May- 2 Muehl Yonny. [address] [place] [address], [address], [facility], . tel: [phone] Referring Provider: Shena Villalobos [address], [place], [address]. tel:[phone] [address] [place] [address], [id number], tel:[phone] [place] No Information May- 2 Muehl Yonny. [address] [place] [address], [address], [place], [facility], . tel: [phone] Referring Provider: Shena Villalobos [address], [place], [address]. tel:[phone] [address] [place] [address], [id number], tel:[phone] [place] No Information 2 Muehl Yonny. [address] [place] [address], [address], [place], [facility], . tel: [phone] Referring Provider: Shena Villalobos [address], [place], [address]. tel:[phone] [address] [place] [address], [id number], tel:[phone] [place] No Information 2 Muehl Yonny. [address] [place] [address], [address] [place] [address], [facility], . tel: [phone] Referring Provider: Shena Villalobos [address], [place], [address]. tel:[phone] [address] [place] [address], [id number], [place] tel:[phone] [place] No Information 2 Muehl Yonny. [address] [place] [address], [address], [facility], [place]. tel: [phone] Referring Provider: Shena Villalobos [address], [place], [address]. tel:[phone] [address] [place] [address], [id number], [place] tel:[phone] [place] No Information 2 Muehl Yonny. [address] [place] [address], [address], [place], [facility], . tel: [phone] Referring Provider: Shena Villalobos [address], [place], [address]. tel:[phone] [address] [address], [facility] [place], [id number], [phone] [place] No Information May-0 2 Muehl Yonny. [address] [facility], [address], [place], [facility], . tel: [phone] Referring Provider: Eliana Thompson, [address] [facility] 12, [place], [address]. tel:[phone], [id number], tel:[phone] [place] No Information May-0 2 Muehl Yonny. [address] [place] [address], [address], [place], [facility], . tel: [phone] Referring Provider: Eliana Thompson, Shena [facility], [place], [address]. tel:[phone], [id number], tel:[phone] [place] No Information 0 2 Muehl Yonny. [address] [place] [address], [address], [place], [facility], . tel: [phone] Referring Provider: Eliana Thompson, Shena [address] [facility], [place], [address]. tel:[phone], [id number], tel:[phone] [place] No Information 2 Flakito Wise. . Referring Provider: Kaleb Barrera [address], [place], [address]. tel:[phone], [id number], tel:[phone] [place] No Information 2 Flakito Wise. . Referring Provider: Kaleb Barrera [address] , [place], [address]. tel:[phone] [address] [address], [place], [place], [id number], tel:[phone] [place] No Information September- 2-202 2 Flakito Wise. . Referring Provider: Gabriele Candelario [address] [place] [address] [address] [facility] [address], [address]. tel:[phone], [place], [place], [id number], tel:[phone] [place] No Information September- 0-202 2 Flakito Wise. . Referring Provider: Gabriele Candelario [address] [place] [address] [address] [facility] [address], [address]. tel:[phone], [id number], tel:[phone] [place] No Information September-0 5-202 2 Flakito Wise. . Referring Provider: Gabriele Candelario [address] [place] [address], [address]. tel:[phone] Family History Family Member Type Diagnosis Age At Onset No Information Payers Payer name Insurance type Covered democrat ID Authoriza tidoris(s) Medicare [place] MB [id number] [facility] [id number] Social History Type Description Quantity Date Captured [...]
--- NOTE | ~2025-02-24 | CT_ITS ---
EXAMINATION: CT brain wo con DATE: 02/24/2025 19:34 INDICATION: Altered mental status TECHNIQUE: Computed tomography (CT) of the head was performed without intravenous contrast. The dose-length product was 681.00 mGy-cm. Automated exposure control and iterative reconstruction technique were employed. COMPARISON: CT dated 09/06/2024 FINDINGS: Generalized atrophy. There are scattered moderate periventricular and subcortical white matter changes, most likely related to small vessel ischemic disease (microangiopathy). No ventriculomegaly or midline shift. Basilar cisterns are patent. No acute hemorrhage, infarction, mass or mass effect. Paranasal sinuses and mastoids are pneumatized. No depressed skull fractures. IMPRESSION: 1. No acute intracranial abnormality. Reviewed, dictated and finalized at location O.
--- NOTE | ~2025-02-24 | XR_ITS ---
EXAMINATION: XR chest 2V 02/24/2025 19:40 INDICATION: Weakness PROCEDURE: AP view of the chest COMPARISON: Comparison to multiple prior studies sequentially, with oldest reviewed study dated 04/12/2024. FINDINGS: The lungs are clear. Shallow inspiration with elevation the right diaphragm. Cardiomegaly. Pacemaker leads are stable. There is an intramedullary leodan in the right humerus with proximal interlocking screw visualized. There are no pleural effusions. There is no pneumothorax suspected. IMPRESSION: 1: NO ACUTE CARDIOPULMONARY DISEASE. Reviewed, dictated and finalized at location O.
--- OUTSIDE RECORDS SUMMARY | 2025-02-24 16:33 | XMS_ITS | Encounter Summary ---
Author Organization [facility] Healthcare Address [address] [place] [address] Care Team Providers Care Library Assistant Name Role Phone Gabriele Candelario MD Primary Care Provider [phone] Encounter Details Date Type Department Care Team (Late st Contact Info) Description 01/25/2025 Telephone [facility] Medical Group Cardiology [address] [place] [address] Frandy Chu MD [address] [place] [address] Social History Tobacco Use Types Packs/Day Years Used Date Smoking Tobacco: Never Sex and Gender Information Value Date Recorded Sex Assigned at Not on file 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 * Telephone Encounter - Kaley Bryd - 01/25/2025 3:11 PM CDT Junie with [...] on filedocumented in this encounter Care Teams Library Assistant Relationship Specialty Start Date End Date Gabriele Candelario MD [address] [facility] [address] [address] [address] [place] [address] PCP - General Internal Medicine 04/20/24 documented as of this encounter
--- OUTSIDE RECORDS SUMMARY | 2025-02-24 16:33 | XMS_ITS | Encounter Summary ---
Author Organization [facility] Healthcare Address [address] [place] [address] Care Team Providers Care Brattice Builder Name Role Phone Gabriele Candelario MD Primary Care Provider [phone] Encounter Details Date Type Department Care Team (Late st Contact Info) Description 02/13/2025 Telephone [facility] Medical Group Cardiology [address] [place] [address] Frandy Chu MD [address] [place], [place] [id number] Social History Tobacco Use Types Packs/Day Years Used Date Smoking Tobacco: Never Sex and Gender Information Value Date Recorded Sex Assigned at Not on file 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 Thank you. P: [phone] F: [phone] documented in this encounter Plan of Treatment Not on file documented as of this encounter Visit Diagnoses Not on filedocumented in this encounter Care Teams Brattice Builder Relationship Specialty Start Date End Date Gabriele Candelario MD [address] [place] [address] PCP - General Internal Medicine 04/20/24 documented as of this encounter
--- OUTSIDE RECORDS SUMMARY | 2025-02-24 16:33 | XMS_ITS | Encounter Summary ---
Author Organization [facility] Address [address] [place] [address] Care Team Providers Care Stone Processing Machine Operator Name Role Phone Gabriele Candelario MD Primary Care Provider [phone] Encounter Details Date Type Department Care Team (Late st Contact Info) Description 08/08/[address] 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
--- OUTSIDE RECORDS SUMMARY | 2025-02-24 16:33 | XMS_ITS | Clinical Summary ---
Author Organization [facility] Chris Wright Address [address] [place] [address] Care Team Providers Care Manager Architectural Name Role Phone Gabriele Candelario MD Primary [...] 01/16/2025 4:30 PM CDT Telephone Check Up [facility] Oncology and Hematology [facility] [address] [place] [address] Mir Ledesma MD Chronic anemia (Primary Dx) 01/10/2025 Orders Only [facility] Oncology and Hematology - [place]toniel [address] [place] [address] Mir Ledesma MD 01/09/2025 9:15 AM CDT Office Visit [facility] On[facility]ematology [facility] [address] [place] [address] Mir Ledesma MD Chronic anemia (Primary Dx) 01/04/2025 External Device Data STL ABSTRACTION Provider, Abstract 12/28/2024 Orders Only [facility] Oncology and Hematology - [place]iel [address] [place] [address] Mir Ledesma MD 12/27/2024 Orders Only [facility] Oncology and Hematology - [place]iel [address] [place] [address] Mir Ledesma MD 12/14/2024 External Device Data [...] st Contact Info) Description 07/14/2025 9:45 AM INDUSTRIAL REAL ESTATE AGENT Office Visit [facility] Oncology and Hematology - [place] [address] [place] [address] [facility] [address] [place] [address] Mir Ledesma MD [address] [facility] [address] [place] [address] Health Maintenance Due Date Last [...] Months Insurance MEDICARE PART A AND B [facility] SUPP Care Teams Manager Architectural Relationship Specialty Start Date End Date Gabriele Candelario MD [address] [place] [address] PCP - General Internal Medicine 12/15/22
--- OUTSIDE RECORDS SUMMARY | 2025-02-24 16:33 | XMS_ITS | Clinical Summary ---
Author Organization [facility] Address [address] [place] [address] Care Team Providers Care Grinder Carbon Plant Name Role Phone Gabriele Candelario MD Primary Care Provider [phone] Allergies No known active allergies Medications latanoprost [...] 12/15/19 21 Active B-D 3CC LUER-CORA SYR 60TN3-7/2 18G X 1-1/2 3 ML Misc USE [...] daily with lunch. Indications: Other vitamin deficiencies [employer] Blend with iron 04/03/20 22 Active [...] = 0.6 oz pur e alcohol) socially [facility] Utilities Answer Date Recorded In the past 12 months has [email or web address], or [employer] threatened to shut off services in your [...] any time in the past 12 [facility], were you homeless or living in a [facility] (including now)? 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 Xavi N/A: Spine Lumbar ORTHOFIX [id number] / / Description:l4-l5 Orthofix Set Screw Implanted:Qty : 4 on 03/13/2022 by Eliana Thompson MD at [facility] Screw N/A: Spine Lumbar ORTHOFIX 36-2000 / / Orthofix 6.5x50mm Screws Implanted:Qty : 4 on 03/13/2022 by Eliana Thompson MD at [facility] Screw N/A: Spine Lumbar ORTHOFIX [id number] / / Orthofix Top Loading Body Implanted:Qty : 4 on 03/13/2022 by Eliana Thompson MD at [facility] Spine Components N/A: Spine Lumbar ORTHOFIX / / Insurance MEDICARE [facility] Advance Directives * Full Code (Latest Code [...] 3:04 AM 01/07/2021 5:10 PM Care Teams Grinder Carbon Plant Relationship Specialty Start Date End Date Gabriele Candelario MD [address] - [facility] [address] [place] [address] PCP - General INTERNAL MEDICINE 12/26/20
--- OUTSIDE RECORDS SUMMARY | 2025-02-24 16:33 | XMS_ITS | Clinical Summary ---
Author Organization [facility] Address [address] [place] [address] Care Team Providers Care Kapok Machine Operator Name Role Phone Gabriele Candelario MD Primary Care Provider [phone] Allergies No known active allergies Medications morphine (MSIR) 15 mg tablet Take 1 tablet (15 mg total) by mouth every 4 (four) hours as needed for pain for up to 10 doses 10 tablet 1 Active melatonin 10 mg tablet Active TiZANidine (ZANAFLEX) 4 mg capsule Take 1 capsule (4 mg total) by mouth 3 (three) times a day Active [id number] -Lmfolate-algal 27 mg iron-1.13 mg-581.92 mg capsule [...] Type Department Care Team Description 02/13/2025 Telephone [facility] Medical [facility] Cardiology [address] [place] [address] Frandy Chu MD 01/25/2025 Telephone [facility] Cardiology [address] [facility] [address] [place] [phone] Frandy Chu MD 01/10/2025 7:00 AM CDT Ancillary Procedure [facility] Medical [facility] Cardiology [facility] [address] [place] [phone] Cardiac pacemaker in situ; Sinus node [...] on file Legal Sex Male 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 PM 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 STICK 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 Gender Identity Not on file Sexual Orientation Not on file Obstetrics History Last Filed Vital Signs Vital Sign Reading Time Taken Comments Blood Pressure 106/68 07/08/2024 9:12 AM HOT STICK MAN Pulse 97 07/08/2024 9:12 AM HOT STICK MAN Temperature 36.8 C (98.2 F) 12/31/2020 1:35 PM CDT Respiratory Rate 16 12/31/2020 1:35 PM CDT Oxygen Saturation 92% 07/08/2024 9:12 AM HOT STICK MAN Inhaled Oxygen Concentration - - Weight 92.7 kg (204 lb 6.4 oz) 07/08/2024 9:12 A M HOT STICK MAN Height 167.6 cm (5' 6) 07/08/2024 9:12 AM HOT STICK MAN Body Mass Index 32.99 07/08/2024 9:12 AM HOT STICK MAN Plan of Treatment Health Maintenance Due Date [...] and sensing thresholds. Presenting rhythm: AP/VS AP-99.9%, FIREBOAT OPERATOR-< 0.1% No AT/AF episodes noted. 1 Ventricular high rate episodes detected, IEGM demonstrates 2 seconds of PSVT. Medications: Amlodipine 10 mg, valsartan 320 mg See scanned report. Office pacemaker follow up: 07/19/25 [facility] remote f/u 04/19/25. Tony Kate RN Frandy Chu MD [facility] CARDIAC SERVICES PROC EDURES Final Result from Last 3 Months Insurance MEDICARE MEDICARE [facility] MEDICARE [facility] MEDICARE SUPPLEMENT Member Subscriber Plan / Payer (Ef fective 2005-Present) Name:Souleymane Powers Relation to Subscriber:Self Name:Souleymane Powers Payer ID:[id number] Type:COMMERCIAL Address: [address] [place] [id number] Care Teams Kapok Machine Operator Relationship Specialty Start Date End Date Gabriele Candelario MD [address] [place] [address] [place] [address] PCP - General Internal Medicine 04/20/24
[2025-02-24 16:38] VITALS: BP 101/62; PULSE 85; RESP 18; TEMP 36.2; O2SAT 92
--- NOTE | 2025-02-24 18:02 | ED_ITS ---
HPI - Weakness General Chief complaint: Weakness <Katrin Maldonado PA-C - Last Filed: 02/27/25 10:07> Stated complaint: weakness <Katrin Maldonado PA-C - Last Filed: 02/27/25 10:07> Time Seen by Provider: 02/24/25 18:02 <Katrin Maldonado PA-C - Last Filed: 02/27/25 10:07> Focused HPI: This is a 84 year old male that presents to the ER for altered mental status. Reports he had a pain pump placed a couple of days ago. Reports hallucinations, weakness, barely able to walk. Reports urinary frequency, hasn't been sleeping well, no energy. GENERAL: Elderly, well-nourished, and in no acute distress. HEAD: Normocephalic, atraumatic. CHEST: Clear to auscultation. ?No respiratory distress. HEART: Regular rate and rhythm.? NEURO: ?Alert and oriented x3. Patient screened in triage and initial orders placed.? ?Additional care and disposition to be based upon?diagnostic testing and treatment. <Katrin Maldonado PA-C - Last Filed: 02/27/25 10:07> History of Present Illness HPI Narrative: Agree with HPI. Poor oral intake. Occasional falls. <Tee Little MD - Last Filed: 02/24/25 22:19> Related Data Home medications: Home Medications ?Medication ?Instructions ?Recorded ?Confirmed ?Last Taken ?Type latanoprost 0.005 % eye drops 1 drop ophthalmic (eye) HS 04/21/19 02/21/25 02/20/25 History ascorbic acid (vitamin C) 500 mg 1,000 mg PO 1200 08/3102/21/25 02/17/25 History capsule melatonin 10 mg capsule 10 mg PO QHS PRN Sleep 06/0402/13/25 04/12/24 History coenzyme Q10 100 mg capsule 100 mg PO HS 05/14/2301/3102/17/25 History (CoQ-10) multivitamin 1 tablet PO QACLUNCH 3 02/21/25 02/17/25 History cranberry fruit 450 mg tablet 450 mg PO HS 03/30/2402/17/25 History (cranberry) dorzolamide-timolol (PF) 2 %-0.5 % 1 drp EACH EYE BID 03/30/24 02/21/25 02/21/25 History eye drops in a dropperette lactulose 10 gram/15 mL oral 15 ml PO HS PRN Constipat ion 03/30/24 02/13/25 Unknown History solution magnesium oxide 400 mg PO HS 03/30/2402/20/25 History trazodone 50 mg tablet 50 mg PO HS PRN Sleep 02/13/25 04/12/24 History <Katrin Maldonado PA-C - Last Filed: 02/27/25 10:07> Allergies/Adverse reactions: Allergies Allergy/AdvReac Type Severity Reaction Status Date / Time No Known Allergies Allergy Unknown Verified 02/21/25 08:47 <Katrin Maldonado PA-C - Last Filed: 02/27/25 10:07> Review of Systems 2 Review of Systems: All systems reviewed & are unremarkable except as noted in HPI and below <Tee Little MD - Last Filed: 02/24/25 22:19> Constitutional: Constitutional: Reports no additional constitutional complaints <Tee Little MD - Last Filed: 02/24/25 22:19> Cardiovascular: Cardiovascular: Reports no additional cardiovascular complaints <Tee Little MD - Last Filed: 02/24/25 22:19> Respiratory: Respiratory: Reports no additional respiratory complaints < Tee Little MD - Last Filed: 02/24/25 22:19> Gastrointestinal: Gastrointestinal: Reports no additional gastrointestinal complaints <Tee Little MD - Last Filed: 02/24/25 22:19> Musculoskeletal: Musculoskeletal: Reports no additional musculoskeletal complaints <Tee Little MD - Last Filed: 02/24/25 22:19> [facility] Past Medical History Medical History: Medical History Sick sinus syndrome Muscle pain Falls Encounter for routine adult health examination without abnormal findings Macular degeneration Sinus drainage Left knee DJD Erythrocytosis RLS (restless legs syndrome) Frequent sinus infections Elbow pain, left Prostate cancer screening Personal history of COVID-19 BMI 26.0-26.9,adult Bunion of right foot Pedal edema Skin cancer screening Memory loss Testosterone deficiency Itchy skin Balance problem BMI 32.0-32.9,adult Chronic back pain BMI 29.0-29.9,adult Glaucoma Blepharitis of both eyes BMI 30.0-30.9,adult CKD (chronic kidney disease) Chronic pain Hearing loss Non-healing skin lesion Proteinuria Urine abnormality History of colon polyps Abnormal finding of blood chemistry Urinary frequency Insomnia Urinary incontinence BMI 31.0-31.9,adult Encounter for special screening examination for neoplasm of prostate Pre-diabetes Colon cancer screening Anxiety with depression DJD (degenerative joint disease), multiple sites Hypogonadism in male Cognitive dysfunction Hypothyroidism (acquired) Benign essential hypertension Hyperlipidemia On [facility] drug therapy Vertigo <Katrin Maldonado PA-C - Last Filed: 02/27/25 10:07> Surgical History Surgical History: Surgical History History of shoulder surgery History of back surgery <Katrin Maldonado PA-C - Last Filed: 02/27/25 10:07> Family History Family History: Family History Sibling Family history of malignant neoplasm of stomach Family history of malignant neoplasm Carcinoma of colon Family history of malignant neoplasm of breast in first degree relative Family history of malignant neoplasm of ovary Family history of diabetes mellitus in first degree relative Diabetes mellitus Father Family history of diabetes mellitus in first degree relative Mother Family history of malignant neoplasm of bone Other Family history of osteoarthritis <Katrin Maldonado PA-C - Last Filed: 02/27/25 10:07> Social History Social History: Social History Smoking status: Never smoker Second hand tobacco smoke exposure: No Alcohol intake: never Drinks per week: 1 Substance use: never Substance use type: does not use Do You Feel Safe in your Home?: Yes Lack of Transportation: No Lack of Food: Never True Current Housing: I Have Housing Concerned About Future Housing: No Difficulty Paying Gas/Electric Bills: No Difficulty Paying for Meds: No Currently Unemployed: No Education: High School Diploma/GED Difficulty w/ Childcare or Family Care: No Living arrangements: alone Occupation/Education: retired Gender identity (if verbalized by the patient): Male Spiritual care concerns: No <Katrni Maldonado PA-C - Last Filed: 02/27/25 10:07> Exam 2 Narrative: GENERAL: Well-appearing, well-nourished, and in no acute distress. HEAD: Normocephalic, atraumatic. ENT: Mucous membranes moist. CHEST: Clear to auscultation. No respiratory distress. HEART: Regular rate and rhythm. Normal peripheral pulses. ABDOMEN: Soft, nontender, nondistended. Well-healing surgical site right lower abdomen. BACK: Well-healing surgical site low back. No midline tenderness. EXTREMITIES: Normal range of motion. No edema. SKIN: Warm, dry, no rash. NEURO: Alert and oriented x3. <Tee Little MD - Last Filed: 02/24/25 22:19> Course Course Emergency Course: Patient received IV fluid. Up and ambulatory without issue. Gave reassurance and recommend he asked for help from his family at home. Suspect he is having some delirium other day when he was having hallucinations but has not had any today. <Tee Little MD - Last Filed: 02/24/25 22:19> Vital Signs Vital signs: Vital Signs Temperature 97.2 F L 02/24/25 16:38 Pulse Rate 85 02/24/25 16:38 Respiratory Rate 18 02/24/25 16:38 Blood Pressure 101/62 02/24/25 16:38 Pulse Oximetry 92 02/24/25 16:38 Temperature 97.2 F L 02/24/25 16:38 Pulse Rate 88 02/24/25 22:30 Respiratory Rate 18 02/24/25 22:30 Blood Pressure 104/68 02/24/25 22:30 Pulse Oximetry 93 02/24/25 22:30 <Katrin Maldonado PA-C - Last Filed: 02/27/25 10:07> Vital Signs Temperature 97.2 F L 02/24/25 16:38 Pulse Rate 85 02/24/25 16:38 Respiratory Rate 18 02/24/25 16:38 Blood Pressure 101/62 02/24/25 16:38 Pulse Oximetry 92 02/24/25 16:38 Temperature 97.2 F L 02/24/25 16:38 Pulse Rate 88 02/24/25 22:30 Respiratory Rate 18 02/24/25 22:30 Blood Pressure 104/68 02/24/25 22:30 Pulse Oximetry 93 02/24/25 22:30 <Tee Little MD - Last Filed: 02/24/25 22:19> MDM - Weakness Lab Data Result diagrams: 02/24/25 18:52 02/24/25 18:52 <Katrin Maldonado PA-C - Last Filed: 02/27/25 10:07> Labs: Lab Results 02/24/25 02/24/25 Range/Units 18:52 20:04 WBC 7.4 (4.5-10.0) K/mm3 RBC 3.55 L (4.6-6.20) M/mm3 Hgb 11.4 L (14.0-18.0) g/dL Hct 34.7 L (42.0-52.0) % MCV 97.7 (80-100) fl MCH 32.1 (26-34) pg MCHC 32.9 (32-36) g/dl RDW 12.5 (11.5-14.5) % Plt Count 165 (150-375) k/mm3 MPV 9.3 (7.4-10.4) fl Immature Gran % (Auto) 0.3 (0-0.5) % Neut % (Auto) 60.4 (45.5-73.1) % Lymph % (Auto) 22.6 (18.3-44.2) % Appling % (Auto) 11.2 H (2.6-8.5) % Eos % (Auto) 5.0 H (0-4.4) % Baso % (Auto) 0.5 (0.2-1.2) % Lymph # (Auto) 1.68 (0.9-3.2) K/mm3 Appling # (Auto) 0.8 H (0.1-0.6) K/mm3 Eos # (Auto) 0.4 H (0-0.3) K/mm3 Baso # (Auto) 0.0 (0.0-0.1) K/mm3 Abs Immat Gran (auto) 0.02 (0.00-0.031) K/mm3 Absolute Neuts (auto) 4.5 (1.3-6.7) K/mm3 Absolute Nucleated RBC 0.000 (0.0-0.012) K/mm3 Nucleated RBC % 0.0 (0.0-0.2) % PT 13.4 (11.1-14.7) Seconds INR 1.0 APTT 28.8 (22.3-36.8) Seconds Sodium 137 (137-145) mmol/L Potassium 3.9 (3.4-5.0) mmol/L Chloride 101 (98-107) mmol/L Carbon Dioxide 27 (22-30) mmol/L Anion Gap 9 (4-12) mmol/L BUN 43 H D (9-20) mg/dL Creatinine 1.76 H (0.7-1.3) mg/dL Estim Creat Clear Calc 32 ml/min Estimated GFR 37 L (59 - ) Glucose 136 H (65-110) mg/dL Calcium 9.5 (8.4-10.2) mg/dL Total Bilirubin 0.6 (0.2-1.3) mg/dL AST 34 (17-59) U/L ALT 29 (6-50) U/L Alkaline Phosphatase 110 (38-126) U/L Total Protein 7.4 (6.3-8.2) g/dL Albumin 4.2 (3.5-5.1) g/dL Urine Color Yellow (Yellow) Urine Appearance Clear (Clear) Urine pH 5.5 (5.0-9.0) Ur Specific Nunda 1.017 (1.001-1.035) Urine Protein Trace (Negative) mg/dL Urine Glucose (UA) Negative (Negative) mg/dL Urine Ketones Negative (Negative) mg/dL Ur Blood (Man) Negative (Negative) Urine Nitrate Negative (Negative) Urine Bilirubin Negative (Negative) Urine Urobilinogen 1.0 (<2.0) mg/dL Leukocyte Esterase Rfl Negative (Negative) AUGUSTIN/UL Urine RBC 0-2 (0-2) /hpf Urine WBC 0-5 (0-3) /hpf Ur Squamous Epith Cells None seen (Few) /hpf Urine Bacteria None seen /hpf Urine Casts 0-2 <Katrin Maldonado PA-C - Last Filed: 02/27/25 10:07> Lab Results 02/24/25 02/24/25 Range/Units 18:52 20:04 WBC 7.4 (4.5-10.0) K/mm3 RBC 3.55 L (4.6-6.20) M/mm3 Hgb 11.4 L (14.0-18.0) g/dL Hct 34.7 L (42.0-52.0) % MCV 97.7 (80-100) fl MCH 32.1 (26-34) pg MCHC 32.9 (32-36) g/dl RDW 12.5 (11.5-14.5) % Plt Count 165 (150-375) k/mm3 MPV 9.3 (7.4-10.4) fl Immature Gran % (Auto) 0.3 (0-0.5) % Neut % (Auto) 60.4 (45.5-73.1) % Lymph % (Auto) 22.6 (18.3-44.2) % Appling % (Auto) 11.2 H (2.6-8.5) % Eos % (Auto) 5.0 H (0-4.4) % Baso % (Auto) 0.5 (0.2-1.2) % Lymph # (Auto) 1.68 (0.9-3.2) K/mm3 Appling # (Auto) 0.8 H (0.1-0.6) K/mm3 Eos # (Auto) 0.4 H (0-0.3) K/mm3 Baso # (Auto) 0.0 (0.0-0.1) K/mm3 Abs Immat Gran (auto) 0.02 (0.00-0.031) K/mm3 Absolute Neuts (auto) 4.5 (1.3-6.7) K/mm3 Absolute Nucleated RBC 0.000 (0.0-0.012) K/mm3 Nucleated RBC % 0.0 (0.0-0.2) % PT 13.4 (11.1-14.7) Seconds INR 1.0 APTT 28.8 (22.3-36.8) Seconds Sodium 137 (137-145) mmol/L Potassium 3.9 (3.4-5.0) mmol/L Chloride 101 (98-107) mmol/L Carbon Dioxide 27 (22-30) mmol/L Anion Gap 9 (4-12) mmol/L BUN 43 H D (9-20) mg/dL Creatinine 1.76 H (0.7-1.3) mg/dL Estim Creat Clear Calc 32 ml/min Estimated GFR 37 L (59 - ) Glucose 136 H (65-110) mg/dL Calcium 9.5 (8.4-10.2) mg/dL Total Bilirubin 0.6 (0.2-1.3) mg/dL AST 34 (17-59) U/L ALT 29 (6-50) U/L Alkaline Phosphatase 110 (38-126) U/L Total Protein 7.4 (6.3-8.2) g/dL Albumin 4.2 (3.5-5.1) g/dL Urine Color Yellow (Yellow) Urine Appearance Clear (Clear) Urine pH 5.5 (5.0-9.0) Ur Specific Nunda 1.017 (1.001-1.035) Urine Protein Trace (Negative) mg/dL Urine Glucose (UA) Negative (Negative) mg/dL Urine Ketones Negative (Negative) mg/dL Ur Blood (Man) Negative (Negative) Urine Nitrate Negative (Negative) Urine Bilirubin Negative (Negative) Urine Urobilinogen 1.0 (<2.0) mg/dL Leukocyte Esterase Rfl Negative (Negative) AUGUSTIN/UL Urine RBC 0-2 (0-2) /hpf Urine WBC 0-5 (0-3) /hpf Ur Squamous Epith Cells None seen (Few) /hpf Urine Bacteria None seen /hpf Urine Casts 0-2 <Tee Little MD - Last Filed: 02/24/25 22:19> Imaging Data Radiologist's impression: ITS Impressions Head CT 02/24/25 19:36 IMPRESSION: 1. No acute intracranial abnormality. Chest X-Ray 02/24/25 19:44 IMPRESSION: 1: NO ACUTE CARDIOPULMONARY DISEASE. <Tee Little MD - Last Filed: 02/24/25 22:19> Critical Care Time Critical Care Time Critical Care Time: No <Katrin Maldonado PA-C - Last Filed: 02/27/25 10:07> Discharge Plan Discharge Clinical Impression: Dehydration <Katrin Maldonado PA-C - Last Filed: 02/27/25 10:07> Patient Disposition: Home <Katrin Maldonado PA-C - Last Filed: 02/27/25 10:07> Condition: Stable <Katrin Maldonado PA-C - Last Filed: 02/27/25 10:07> Instructions: Dehydration (ED) <Katrin Maldonado PA-C - Last Filed: 02/27/25 10:07> Additional Instructions: Return ER if you have fever 100.4? F, you fall and injure yourself, or you have additional concerns. <Katrin Maldonado PA-C - Last Filed: 02/27/25 10:07> Patient Language: Danish <Katrin Maldonado PA-C - Last Filed: 02/27/25 10:07> Prescriptions: No Action melatonin 10 mg capsule 10 mg PO QHS PRN (Reason: Sleep) celecoxib [Celebrex] 100 mg capsule 100 mg PO BID Qty: 60 1RF latanoprost 0.005 % drops 1 drop EACH EYE HS tizanidine 4 mg capsule 4 mg PO TID PRN (Reason: muscle spasticity) Qty: 45 0RF multivitamin Tablet 1 tablet PO QACLUNCH coenzyme Q10 [CoQ-10] 100 mg Capsule 100 mg PO HS acetaminophen 500 mg capsule 1,000 mg PO Q6H PRN (Reason: pain) Qty: 30 0RF hydrocodone-acetaminophen 5-325 mg tablet 1 tablet PO Q4-6H PRN (Reason: pain) 7 Days Qty: 28 0RF Rx Instructions: Take 1 tab p.o. as needed every 4-6 hours for severe pain, maximum 4 per day. Do not take with tramadol. ascorbic acid (vitamin C) 500 mg capsule 1,000 mg PO 1200 (DME) Electric Scooter Wheel Chair See Rx Instructions .Route .MEDSUPPLY Qty: 1 0RF Rx Instructions: As directed cyanocobalamin (vitamin B-12) 1,000 mcg/mL solution See Rx Instructions .ROUTE .COMPLEX Qty: 3 1RF Dose Instruction: INJCET 1000MCG (1ML) INTRAMUSCULARLY EVERY MONTH Rx Instructions: INJCET 1000MCG (1ML) INTRAMUSCULARLY EVERY MONTH UNKOWN DAY WHEN PT TAKES IT (DME) UltiCare Safety Syringe 3 mL 23 gauge x 1 syringe See Rx Instructions .ROUTE .COMPLEX Qty: 9 0RF Dose Instruction: USE 1 SYRINGE EVERY TWO WEEKS TO ADMINISTER TESTOSTERONE AND 1 EVERY MONTH TO ADMINISTER B-12 Rx Instructions: USE 1 SYRINGE EVERY TWO WEEKS TO ADMINISTER TESTOSTERONE AND 1 EVERY MONTH TO ADMINISTER B-12 donepezil 10 mg tablet See Rx Instructions .ROUTE .COMPLEX Qty: 90 1RF Dose Instruction: TAKE 1 TABLET BY MOUTH ONCE DAILY AT BEDTIME Rx Instructions: TAKE 1 TABLET BY MOUTH ONCE DAILY AT BEDTIME memantine 28 mg capsule,sprinkle,ER 24hr See Rx Instructions .ROUTE .COMPLEX Qty: 90 0RF Dose Instruction: TAKE 1 BY MOUTH ONCE DAILY AT BEDTIME Rx Instructions: TAKE 1 BY MOUTH ONCE DAILY AT BEDTIME atorvastatin 40 mg tablet See Rx Instructions .ROUTE .COMPLEX Qty: 90 1RF Dose Instruction: Take 1 tablet by mouth once daily Rx Instructions: Take 1 tablet by mouth once daily amlodipine 10 mg tablet See Rx Instructions .ROUTE .COMPLEX Qty: 90 0RF Dose Instruction: Take 1 tablet by mouth once daily Rx Instructions: Take 1 tablet by mouth once daily solifenacin 10 mg tablet See Rx Instructions .ROUTE .COMPLEX Qty: 90 0RF Dose Instruction: Take 1 tablet by mouth once daily Rx Instructions: Take 1 tablet by mouth once daily valsartan 320 mg tablet See Rx Instructions .ROUTE .COMPLEX Qty: 90 0RF Dose Instruction: Take 1 tablet by mouth once daily Rx Instructions: Take 1 tablet by mouth once daily levothyroxine [Synthroid] 137 mcg tablet 137 mcg PO DAILY Qty: 30 0RF gabapentin 300 mg capsule See Rx Instructions .ROUTE .COMPLEX Qty: 120 0RF Dose Instruction: Take 2 capsules by mouth twice daily Rx Instructions: Take 2 capsules by mouth twice daily trazodone 50 mg Tablet 50 mg PO HS PRN (Reason: Sleep) lactulose 10 gram/15 mL Solution 15 ml PO HS PRN (Reason: Constipation) dorzolamide-timolol (PF) 2-0.5 % Dropperette 1 drp EACH EYE BID cranberry 450 mg Tablet 450 mg PO HS Rx Instructions: administer with a meal magnesium oxide 400 mg magnesium Tablet 400 mg PO HS <Katrin Maldonado PA-C - Last Filed: 02/27/25 10:07> Follow-up/Referrals: Gabriele Candelario MD [Primary Care Provider, Internal Medicine] - 1 Week <Katrin Maldonado PA-C - Last Filed: 02/27/25 10:07>
--- NOTE | 2025-02-24 18:04 | ECG_ITS ---
Test Date: 2025-02-24 20:20:41 Measurements Intervals Lillian Rate: 60 P: 232 DE: 198 QRS: -25 QRSD: 132 T: -6 QT: 436 QTc: 436 Interpretive Statements ELECTRONIC ATRIAL PACEMAKER INTRAVENTRICULAR CONDUCTION DELAY [130+ ms QRS DURATION] Electronically Signed On 02-25-2025 00:36:47 CDT by Clark Dillon M.D.
[2025-02-24 18:45] VITALS: BP 107/61; PULSE 71; PULSE 88; RESP 18; O2SAT 93
[2025-02-24 19:00] LABS: Hematocrit 34.7 % (42.0-52.0); Hemoglobin 11.4 g/dL (14.0-18.0); Immature Granulocyte Percent A 0.3 % (0-0.5); Lymphocytes Absolute Auto 1.68 K/mm3 (0.9-3.2); Mean Corpuscular HGB Conc 32.9 g/dl (32-36); Mean Corpuscular Hemoglobin 32.1 pg (26-34); Mean Corpuscular Volume 97.7 fl (80-100); Nucleated Red Blood Cells Absolute Auto 0.000 K/mm3 (0.0-0.012); Nucleated Red Blood Cells Perc 0.0 % (0.0-0.2); Platelet Count Result 165 k/mm3 (150-375); Red Blood Count 3.55 M/mm3 (4.6-6.20); White Blood Count 7.4 K/mm3 (4.5-10.0)
[2025-02-24 19:10] LABS: Alanine Aminotransferase 29 U/L (6-50); Albumin Level 4.2 g/dL (3.5-5.1); Alkaline Phosphatase 110 U/L (38-126); Anion Gap 9 mmol/L (4-12); Aspartate Amino Transferase 34 U/L (17-59); Bilirubin,Total 0.6 mg/dL (0.2-1.3); Blood Urea Nitrogen 43 mg/dL (9-20); Calcium 9.5 mg/dL (8.4-10.2); Carbon Dioxide 27 mmol/L (22-30); Chloride 101 mmol/L (98-107); Estimated CRCL calculation 32 ml/min; Estimated Glomerular Filt Rate 37; Glucose 136 mg/dL (65-110); Potassium 3.9 mmol/L (3.4-5.0); Sodium 137 mmol/L (137-145); Total Protein 7.4 g/dL (6.3-8.2)
[2025-02-24 19:13] LABS: INR 1.0; Prothrombin Time 13.4 Seconds (11.1-14.7)
[2025-02-24 19:14] LABS: Partial Thromboplastin Time 28.8 Seconds (22.3-36.8)
[2025-02-24] MEDS: SODIUM CHLORIDE 0.9% IV 1,000 ML 999 ML IV CONT (20:05)
[2025-02-24 20:15] LABS: Add Urine Microscopic? YES; Appearance Urine Clear (Clear); Glucose Urine UA Negative (Negative); Leukocyte Esterase Ur Negative LEU/UL (Negative); Nitrate Urine Negative (Negative); Non Pathogenic Casts 0-2; Specific Grav Ur 1.017 (1.001-1.035)
[2025-02-24 22:30] VITALS: BP 104/68; PULSE 88; RESP 18; O2SAT 93
== END 2025-02-24 22:30 | disposition home or self-care (01) ==
PROVIDERS: Physician Assistant; Emergency Provider Emergency Medicine; PCP Internal Medicine
DX: E86.0 Dehydration (principal)
CPT/HCPCS: 36415; 70450; 71046; 80053; 81001; 85025; 85610; 85730; 93005; 96360; 99284; J7030

== ENCOUNTER 2025-05-12 15:10 | Outpatient (CLI) | payer MEDICARE, SELFPAY ==
--- NOTE | ~2025-05-12 | XR_ITS ---
EXAMINATION: XR chest 2V, 05/12/2025 15:49 TEST LEAD HISTORY: Z86.16 - Personal history of COVID-19 COMPARISON: No comparisons available. Technique: 2 views obtained. Findings: Moderate pulmonary venous congestion. No pneumothorax. Moderate cardiomegaly. Mediastinal and hilar contours are within normal limits. Bony thorax no acute abnormality. Left pacemaker. Impression: CHF Reviewed, dictated and finalized at location P. LEAD Impression: CHF
[2025-05-12 12:59] LABS: Hematocrit 34.9 % (42.0-52.0); Hemoglobin 11.7 g/dL (14.0-18.0); Immature Granulocyte Percent A 0.3 % (0-0.5); Lymphocytes Absolute Auto 1.11 K/mm3 (0.9-3.2); Mean Corpuscular HGB Conc 33.5 g/dl (32-36); Mean Corpuscular Hemoglobin 31.3 pg (26-34); Mean Corpuscular Volume 93.3 fl (80-100); Nucleated Red Blood Cells Absolute Auto 0.000 K/mm3 (0.0-0.012); Nucleated Red Blood Cells Perc 0.0 % (0.0-0.2); Platelet Count Result 168 k/mm3 (150-375); Red Blood Count 3.74 M/mm3 (4.6-6.20); White Blood Count 5.9 K/mm3 (4.5-10.0)
[2025-05-12 13:49] LABS: Alanine Aminotransferase 19 U/L (6-50); Albumin Level 4.3 g/dL (3.5-5.1); Alkaline Phosphatase 97 U/L (38-126); Anion Gap 7 mmol/L (4-12); Aspartate Amino Transferase 28 U/L (17-59); Bilirubin,Total 0.5 mg/dL (0.2-1.3); Blood Urea Nitrogen 47 mg/dL (9-20); Calcium 9.9 mg/dL (8.4-10.2); Carbon Dioxide 27 mmol/L (22-30); Chloride 100 mmol/L (98-107); Estimated Glomerular Filt Rate 30; Glucose 116 mg/dL (65-110); Potassium 4.4 mmol/L (3.4-5.0); Sodium 134 mmol/L (137-145); Total Protein 7.6 g/dL (6.3-8.2)
[2025-05-12 14:06] LABS: Free T4 Free Thyroxine 1.07 ng/dL (0.78-2.19)
[2025-05-12 14:20] LABS: Thyroid Stimulating Hormone 1.840 uIU/mL (0.465-4.680)
--- NOTE | 2025-05-12 15:29 | ECG_ITS ---
Test Date: 2025-05-12 15:39:33 Measurements Intervals [place] Rate: 61 P: 238 MA: 222 QRS: -41 QRSD: 132 T: -5 QT: 464 QTc: 468 Interpretive Statements ELECTRONIC ATRIAL PACEMAKER LEFT AXIS DEVIATION INTRAVENTRICULAR CONDUCTION DELAY POOR R WAVE PROGRESSION BORDERLINE T WAVE ABNORMALITY- ANTEROLAT/INF LEADS BASELINE ARTIFACT- I, II, III, V1, V3-V6 BORDERLINE ECG Compared to ECG 02/24/2025 20:20:41 NO SIGNIFICANT CHANGE Electronically Signed On 05-12-2025 16:07:43 ASPHALT PAVER OPERATOR by Taco Rosado D.O.
[2025-05-12 16:40] LABS: Add Urine Microscopic? NO; Appearance Urine Clear (Clear); Glucose Urine UA Negative (Negative); Leukocyte Esterase Ur Negative LEU/UL (Negative); Nitrate Urine Negative (Negative); Specific Grav Ur 1.010 (1.001-1.035)
== END 2025-05-12 15:11 | disposition home or self-care (01) ==
PROVIDERS: PCP Internal Medicine; Referring Provider Internal Medicine; Visit Provider Anesthesiology Pain Medicine
DX: R41.82 Altered mental status, unspecified (principal); N39.0 Urinary tract infection, site not specified; R94.31 Abnormal electrocardiogram [ECG] [EKG]; I11.0 Hypertensive heart disease with heart failure; I50.9 Heart failure, unspecified; Z79.899 Other long term (current) drug therapy; Z86.16 Personal history of COVID-19
CPT/HCPCS: 36415; 71046; 80053; 81003; 84439; 84443; 85025; 93005

== ENCOUNTER 2025-05-23 13:39 | Emergency (ER) | payer MEDICARE, SELFPAY ==
--- NOTE | ~2025-05-23 | XR_ITS ---
Examination: XR chest 2V Clinical History: sob Comparison: 05/12/2025 Technique: PA and Lateral Findings: Left pacemaker. Cardiomegaly. Mild diffuse interstitial markings. Trace effusions not excluded. No acute bony abnormality. IMPRESSION: 1. Mild interstitial pulmonary edema. Reviewed, dictated and finalized at location [facility]
--- NOTE | ~2025-05-23 | CT_ITS ---
EXAMINATION: CT BRAIN W/O DATE: 05/23/2025 15:22 INDICATION: Altered mental status TECHNIQUE: Computed tomography (CT) of the head was performed without intravenous contrast. The dose-length product was 605.33 mGy-cm. Automated exposure control and iterative reconstruction technique were employed. COMPARISON: No prior studies for comparison. FINDINGS: Normal brain parenchymal volume for age. Normal munoz-white differentiation. No acute intracranial hemorrhage, infarction, mass or mass effect. There is intracranial atherosclerosis. There are scattered mild periventricular and subcortical white matter changes, most likely related to small vessel ischemic disease (microangiopathy). No ventriculomegaly or midline shift. Midline sagittal images demonstrate a normal corpus callosum, craniovertebral junction and sella turcica. Basilar cisterns are patent. Paranasal sinuses and mastoids are pneumatized. No depressed skull fractures. IMPRESSION: 1. No acute intracranial abnormality. Reviewed, dictated and finalized at location [facility]
--- OUTSIDE RECORDS SUMMARY | 2025-05-23 13:41 | XMS_ITS | Clinical Summary ---
Author Organization [facility] Address [address] [place] [address] Care Team Providers Care Pipelaying Fitter Name Role Phone Gabriele Candelario MD Primary Care Provider [phone] Allergies No known active allergies Medications latanoprost [...] 12/15/19 21 Active B-D 3CC LUER-CORA SYR 44ZF7-5/2 18G X 1-1/2 3 ML Misc USE [...] daily with lunch. Indications: Other vitamin deficiencies [place] Blend with iron 04/03/20 22 Active [...] = 0.6 oz pur e alcohol) socially [facility] Utilities Answer Date Recorded In the past 12 months has [employer], [employer], or [employer] threatened to shut off services in your [...] any time in the past 12 m [facility], were you homeless or living in a usp (including now)? 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 Not on file Not [...] - 1-dose 75+ series) 10/02/2015 COVID-19 Vaccine (2024-2 6 season) 2025 07/26/2020, 07/05/2020 Influenza Adult (#1) 2025 Hepatitis A Vaccines Aged Out No long er eligible based on patient's age to complete this topic Meningococcal B Vaccine Aged Out No l [...] Gamboa RN Medical Devices Implanted Type Area Automotive Glass Mechanic Device Identifier Shelf Expiration Date Model / Serial / Lot Xavi Implanted:Qty : 2 on 03/13/20[facility] Xavi N/A: Spine Lumbar ORTHOFIX 52-6040 / / Description:l4-l5 Orthofix Set Screw Implanted:Qty : 4 on 03/13/2022 by Eliana Thompson MD at [facility] Screw N/A: Spine Lumbar ORTHOFIX 36-2001 / / Orthofix 6.5x50mm Screws Implanted:Qty : 4 on 03/13/2022 by Eliana Thompson MD at [facility] Screw N/A: Spine Lumbar ORTHOFIX 44-5650 / / Orthofix Top Loading Body Implanted:Qty : 4 on 03/13/2022 by Eliana Thompson MD at [facility] Spine Components N/A: Spine Lumbar ORTHOFIX 36-2100 / / Insurance [facility] Advance Directives * Full Code [...] 3:04 AM 01/07/2021 5:10 PM Care Teams Pipelaying Fitter Relationship Specialty Start Date End Date Gabriele Candelario MD [address] [facility] [address] [place] [phone] PCP - General INTERNAL MEDICINE 12/26/20
--- OUTSIDE RECORDS SUMMARY | 2025-05-23 13:41 | XMS_ITS | Encounter Summary ---
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
--- OUTSIDE RECORDS SUMMARY | 2025-05-23 13:41 | XMS_ITS | Clinical Summary ---
Author Organization [facility] Chris Wright Address [address] [place] [address] Care Team Providers Care Rasper Machine Operator Name Role Phone aGbriele Candelario MD Primary Care Provider + Allergies [...] Encounters Date Type Department Care Team Description 05/02/2025 External Device Data STL ABSTRACTION Provider, Abstract 05/02/2025 External Device Data STL ABSTRACTION Provider, Abstract 03/29/2025 External Device Data STL ABSTRACTION Provider, Abstract 03/28/2025 External Device Data STL ABSTRACTION Provider, Abstract 03/22/2025 External Device Data STL ABSTRACTION Provider, Abstract 03/21/2025 External Device Data STL ABSTRACTION Provider, Abstract [...] st Contact Info) Description 07/14/2025 9:45 AM ASSISTANT BROKER Office Visit [facility] Oncology and Hematology - [place]toniel [address] [facility] [address] [place] [address] Mir Ledesma MD [address] [facility] [address] [place] [address] Health Maintenance Due Date Last Done Comments DTAP/TDAP/TD VACCINES (1 - Tdap) 10/02/1959 PNEUMOCOCCAL VACCINE 50+ YEARS (1 of 1 - PCV) 10/01/18 91 ZOSTER VACCINE (1 of 2) 1990 RSV VACCINE (60+ or ) (1 - 1-dose 75+ series) 10/02/2015 INFLUENZA VACCINE (#1) 2024 Insurance MEDICARE PART A AND B BCBS SUPP Care Teams Rasper Machine Operator Relationship Specialty Start Date End Date Gabriele Candelario MD [address] [place] [address] PCP - General Internal Medicine 12/15/22
--- OUTSIDE RECORDS SUMMARY | 2025-05-23 13:41 | XMS_ITS | Clinical Summary ---
Author Organization [facility] Address [address] [place] [address] Care Team Providers Care Catering Sales Manager Name Role Phone Gabriele Candelario MD Primary Care Provider [phone] Allergies No known active allergies Medications morphine (MSIR) 15 mg tablet Take 1 tablet (15 mg total) by mouth every 4 (four) hours as needed for pain for up to 10 doses 10 tablet 1 Active melatonin 10 mg tablet Active TiZANidine (ZANAFLEX) 4 mg capsule Take 1 capsule (4 mg total) by mouth 3 (three) times a day Active zxajifdj21-wbsq -Lmfolate-algal 27 mg iron-1.13 mg-581.92 mg capsule [...] pacemaker in situ 04/14/2024 Overview (04/14/2024): Medtronic [place] Dual Pacemaker. Dx; Sinus Node Dysfunction. DOI 04/13/2024- [employer]. [employer] remote monitoring. Mass of breast 09/20/2010 Resolved Problems Problem Noted Date Diagnosed Date Resolved Date Complete heart block 07/08/2024 025 Encounters Date Type Department Care Team Description 04/18/2025 7:00 AM BOWLING BALL ASSEMBLER Ancillary Procedure [facility] Cardiology [address] [place] [phone] Cardiac pacemaker in situ; Sinus node [...] on file Legal Sex Male 7:19 PM BOWLING BALL ASSEMBLER Gender Identity Not on file Sexual Orientation Not on file Last Filed Vital Signs Vital Sign Reading Time Taken Comments Blood Pressure 106/68 07/08/2024 9:12 AM BOWLING BALL ASSEMBLER Pulse 97 07/08/2024 9:12 AM BOWLING BALL ASSEMBLER Temperature 36.8 C (98.2 F) 12/31/2020 1:35 PM CDT Respiratory Rate 16 12/31/2020 1:35 PM CDT Oxygen Saturation 92% 07/08/2024 9:12 AM BOWLING BALL ASSEMBLER Inhaled Oxygen Concentration - - Weight 92.7 kg (204 lb 6.4 oz) 07/08/2024 9:12 A M BOWLING BALL ASSEMBLER Height 167.6 cm (5' 6) 07/08/2024 9:12 AM BOWLING BALL ASSEMBLER Body Mass Index 32.99 07/08/2024 9:12 AM BOWLING BALL ASSEMBLER Plan of Treatment Health Maintenance Due Date Last Done Comments Depression Screening 1940 Fall Risk Assessment 1940 Hepatitis B Screening 1958 Pneumococcal vaccine 65+ (1 of 1 - PCV) 1990 Zoster Vaccine (1 of 2) 1990 Well Visit 65+ 2005 Covid-19 Vaccine (3 - season) 2025, 07/05/2020 Influenza Vaccine (#1) 2025 5, 05/18/2013, 04/12/2012 DTaP/Tdap/Td Vaccine (2 - Td or Tdap) 12/27/2030 Procedures Procedure Name Priority Date/Time Associated Diagnosis Comments DEVICE CHECK - REMOTE Routine 04/19/2025 6:32 AM BOWLING BALL ASSEMBLER Cardiac pacemaker in situ Sinus node dysfunction (HCC) from Last 3 Months Results * DEVICE CHECK - REMOTE (04/19/2025 6:32 AM BOWLING BALL ASSEMBLER) Anatomical Region Laterality Modality Other Narrative 04/21/2025 1:22 PM BOWLING BALL ASSEMBLER Medtronic [place] Dual Pacemaker. Dx; Sinus Node Dysfunction. DOI 04/13/2024-Vlad. Carelink remote monitoring. Routine AAIR <> DDDR Pacemaker Remote. Transmission attached. Battery status: 3.04 V , 11.6 years remaining battery life to RUPINDER. Stable lead impedances, pacing and sensing thresholds. Presenting rhythm: AP/VS AP-99.8%, STUDY HALL SUPERVISOR-< 0.1% No AT/AF episodes noted. No Ventricular high rate episodes detected. Medications: Amlodipine 10 mg, valsartan 320 mg See scanned report. Office pacemaker follow up: 07/19/25 CareLink remote f/u 6 months. Tony Bairon Humble, RN Frandy Chu MD CV CARDIAC SERVICES PROC EDURES Final Result from Last 3 Months Insurance MEDICARE MEDICARE [facility] MEDICARE [facility] MEDICARE SUPPLEMENT Care Teams Catering Sales Manager Relationship Specialty Start Date End Date Gabriele Candelario MD PCP - General Internal Medicine 04/20/24
[2025-05-23 13:51] VITALS: BP 93/59; PULSE 66; RESP 18; TEMP 36.6; O2SAT 94
[2025-05-23 13:55] VITALS: BP 93/60
--- NOTE | 2025-05-23 13:58 | ECG_ITS ---
Test Date: 2025-05-23 14:08:24 Measurements Intervals [place] Rate: 60 P: 183 DE: 221 QRS: -40 QRSD: 137 T: 8 QT: 451 QTc: 451 Interpretive Statements ELECTRONIC ATRIAL PACEMAKER LEFT AXIS DEVIATION INTRAVENTRICULAR CONDUCTION DELAY CANNOT R/O SEPTAL INFARCT, AGE INDETERMINATE BORDERLINE ST-T WAVE ABNORMALITY- INF/HIGH LAT LEADS BASELINE ARTIFACT- I, II, III ABNORMAL ECG Compared to ECG 05/12/2025 15:39:33 NO SIGNIFICANT CHANGE Electronically Signed On 05-23-2025 14:13:39 MEDICATION ASSISTANT by Taco Rosado D.O.
[2025-05-23 14:13] LABS: Hematocrit 32.5 % (42.0-52.0); Hemoglobin 11.2 g/dL (14.0-18.0); Immature Granulocyte Percent A 0.2 % (0-0.5); Lymphocytes Absolute Auto 1.31 K/mm3 (0.9-3.2); Mean Corpuscular HGB Conc 34.5 g/dl (32-36); Mean Corpuscular Hemoglobin 31.6 pg (26-34); Mean Corpuscular Volume 91.8 fl (80-100); Nucleated Red Blood Cells Absolute Auto 0.000 K/mm3 (0.0-0.012); Nucleated Red Blood Cells Perc 0.0 % (0.0-0.2); Platelet Count Result 144 k/mm3 (150-375); Red Blood Count 3.54 M/mm3 (4.6-6.20); White Blood Count 5.1 K/mm3 (4.5-10.0)
--- NOTE | 2025-05-23 14:21 | PC.NURSE ---
lab called to add on trop 1 and BNP
--- OUTSIDE RECORDS SUMMARY | 2025-05-23 14:21 | XMS_ITS | Clinical Summary ---
Author Organization [facility] Address [address] [place] [address] Care Team Providers Care Foot Specialist Name Role Phone Gabriele Candelario MD Primary Care Provider [phone] Allergies No known active allergies Medications latanoprost [...] 12/15/19 21 Active B-D 3CC LUER-CORA SYR 90KX0-3/2 18G X 1-1/2 3 ML Misc USE [...] daily with lunch. Indications: Other vitamin deficiencies [place] [employer] Blend with iron 04/03/20 22 Active [...] = 0.6 oz pur e alcohol) socially [facility] Utilities Answer Date Recorded In the past 12 months has [employer], [employer], or [employer] threatened to shut off services in your [...] time in the past 12 m [facility], were you homeless or living in a retirement (including now)? 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 Not on file Not on file Not [...] Gamboa RN Medical Devices Implanted Type Area Money Manager Device Identifier Shelf Expiration Date Model / Serial / Lot Xavi Implanted:Qty : 2 on 03/13/2022 by [facility] Xavi N/A: Spine Lumbar ORTHOFIX 52-6040 / / Description:l4-l5 Orthofix Set Screw Implanted:Qty : 4 on 03/13/2022 by Eliana Thmopson MD at [facility] Screw N/A: Spine Lumbar ORTHOFIX 36-2001 / / Orthofix 6.5x50mm Screws Implanted:Qty : 4 on 03/13/2022 by Eliana Thompson MD at [facility] Screw N/A: Spine Lumbar ORTHOFIX 44-5650 / / Orthofix Top Loading Body Implanted:Qty : 4 on 03/13/2022 by Eliana Thompson MD at [facility] Spine Components N/A: Spine Lumbar ORTHOFIX 36-2100 / / Insurance [facility] Advance Directives * Full [...] 3:04 AM 01/07/2021 5:10 PM Care Teams Foot Specialist Relationship Specialty Start Date End Date Gabriele Candelario MD [address] [facility] [address] [place] [phone] PCP - General INTERNAL MEDICINE 12/26/20
--- OUTSIDE RECORDS SUMMARY | 2025-05-23 14:21 | XMS_ITS | Encounter Summary ---
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
--- OUTSIDE RECORDS SUMMARY | 2025-05-23 14:21 | XMS_ITS | Clinical Summary ---
Author Organization [facility] Chris Wright Address [address] [place] [address] Care Team Providers Care Track Repairer Name Role Phone Gabriele Candelario MD Primary [...] st Contact Info) Description 07/14/2025 9:45 AM SENIOR INTERNATIONAL TAX MANAGER Office Visit [facility] Oncology and Hematology - [place]toniel [address] [facility] [address] [place] [address] Mir Ledesma MD [address] [facility] [address] [place] [address] Health Maintenance Due Date Last Done Comments DTAP/TDAP/TD VACCINES (1 - Tdap) 10/02/1959 PNEUMOCOCCAL VACCINE 50+ YEARS (1 of 1 - PCV) 10/01/18 91 ZOSTER VACCINE (1 of 2) 1990 RSV VACCINE (60+ or ) (1 - 1-dose 75+ series) 10/02/2015 INFLUENZA VACCINE (#1) 2024 Insurance MEDICARE PART A AND B BCBS SUPP Care Teams Track Repairer Relationship Specialty Start Date End Date Gabriele Candelario MD [address] [place] [address] PCP - General Internal Medicine 12/15/22
--- OUTSIDE RECORDS SUMMARY | 2025-05-23 14:21 | XMS_ITS | Clinical Summary ---
Author Organization [facility] Address [address] [place] [address] Care Team Providers Care Icu Registered Nurse Name Role Phone Gabriele Candelario MD Primary Care Provider [phone] Allergies No known active allergies Medications morphine (MSIR) 15 mg tablet Take 1 tablet (15 mg total) by mouth every 4 (four) hours as needed for pain for up to 10 doses 10 tablet 1 Active melatonin 10 mg tablet Active TiZANidine (ZANAFLEX) 4 mg capsule Take 1 capsule (4 mg total) by mouth 3 (three) times a day Active purihkfv15-nnca -Lmfolate-algal 27 mg iron-1.13 mg-581.92 mg capsule [...] pacemaker in situ 04/14/2024 Overview (04/14/2024): Medtronic [place] Dual Pacemaker. Dx; Sinus Node Dysfunction. DOI 04/13/2024- [employer]ner. [employer] remote monitoring. Mass of breast 09/20/2010 Resolved Problems Problem Noted Date Diagnosed Date Resolved Date Complete heart block 07/08/2024 025 Encounters Date Type Department Care Team Description 04/18/2025 7:00 AM MAIL TECHNICIAN Ancillary Procedure [facility] Cardiology [address] [place] [phone] Cardiac pacemaker in situ; Sinus node [...] on file Legal Sex Male 7:19 PM MAIL TECHNICIAN Gender Identity Not on file Sexual Orientation Not on file Last Filed Vital Signs Vital Sign Reading Time Taken Comments Blood Pressure 106/68 07/08/2024 9:12 AM MAIL TECHNICIAN Pulse 97 07/08/2024 9:12 AM MAIL TECHNICIAN Temperature 36.8 C (98.2 F) 12/31/2020 1:35 PM CDT Respiratory Rate 16 12/31/2020 1:35 PM CDT Oxygen Saturation 92% 07/08/2024 9:12 AM MAIL TECHNICIAN Inhaled Oxygen Concentration - - Weight 92.7 kg (204 lb 6.4 oz) 07/08/2024 9:12 A M MAIL TECHNICIAN Height 167.6 cm (5' 6) 07/08/2024 9:12 AM MAIL TECHNICIAN Body Mass Index 32.99 07/08/2024 9:12 AM MAIL TECHNICIAN Plan of Treatment Health Maintenance Due [...] CHECK - REMOTE Routine 04/19/2025 6:32 AM MAIL TECHNICIAN Cardiac pacemaker in situ Sinus node dysfunction (HCC) from Last 3 Months Results * DEVICE CHECK - REMOTE (04/19/2025 6:32 AM MAIL TECHNICIAN) Anatomical Region Laterality Modality Other Narrative 04/21/2025 1:22 PM MAIL TECHNICIAN Medtronic Reliance Dual Pacemaker. Dx; Sinus Node Dysfunction. DOI 04/13/2024-Vlad. Carelink remote monitoring. Routine AAIR <> DDDR Pacemaker Remote. Transmission attached. Battery status: 3.04 V , 11.6 years remaining battery life to RUPINDER. Stable lead impedances, pacing and sensing thresholds. Presenting rhythm: AP/VS AP-99.8%, ELECTRICAL SYSTEMS DESIGN ENGINEER-< 0.1% No AT/AF episodes noted. No Ventricular high rate episodes detected. Medications: Amlodipine 10 mg, valsartan 320 mg See scanned report. Office pacemaker follow up: 07/19/25 CareLink remote f/u 6 months. Tony Bairon Humble, RN Frandy Chu MD CV CARDIAC SERVICES PROC EDURES Final Result from Last 3 Months Insurance MEDICARE MEDICARE [facility] MEDICARE [facility] MEDICARE SUPPLEMENT Care Teams Icu Registered Nurse Relationship Specialty Start Date End Date Gabriele Candelario MD PCP - General Internal Medicine 04/20/24
--- NOTE | 2025-05-23 14:23 | PC.NURSE ---
pt to XR at this time
[2025-05-23 14:26] LABS: Alanine Aminotransferase 19 U/L (6-50); Albumin Level 4.1 g/dL (3.5-5.1); Alkaline Phosphatase 96 U/L (38-126); Anion Gap 8 mmol/L (4-12); Aspartate Amino Transferase 27 U/L (17-59); Bilirubin,Total 0.6 mg/dL (0.2-1.3); Blood Urea Nitrogen 32 mg/dL (9-20); Calcium 9.4 mg/dL (8.4-10.2); Carbon Dioxide 24 mmol/L (22-30); Chloride 103 mmol/L (98-107); Estimated CRCL calculation 27 ml/min; Estimated Glomerular Filt Rate 31; Glucose 134 mg/dL (65-110); Potassium 3.8 mmol/L (3.4-5.0); Sodium 135 mmol/L (137-145); Total Protein 7.1 g/dL (6.3-8.2)
[2025-05-23 14:46] LABS: NT Pro B Type Natriuretic Pept 421 pg/mL (19.9-100); Troponin I < 0.012 ng/mL (0.000-0.034)
[2025-05-23 14:50] VITALS: BP 88/71; PULSE 60; RESP 12; O2SAT 94; O2SAT 96
--- NOTE | 2025-05-23 15:01 | ED.GENADULT ---
HPI - General Adult General Chief complaint: Shortness of Breath/Dyspnea Stated complaint: sob Time Seen by Provider: 05/23/25 14:15 History of Present Illness HPI narrative: 84 old male presents emergency department for evaluation for increased generalized fatigue. Patient did have a pain pump that is maintained by Dr. Hart pain pump contains: Hydromorphone 125 mcg/mL; Secondary Drug: Bupivacaine 5 mg/mL; Tertiary Drug: Clonidine 200 mcg/mL. Related Data Home Medications ?Medication ?Instructions ?Recorded ?Confirmed ?Last Taken ?Type latanoprost 0.005 % eye drops 1 drop ophthalmic (eye) HS 04/21/19 04/11/25 02/20/25 History multivitamin 1 tablet PO QACLUNCH 05/14/23 04/11/25 02/17/25 History cranberry fruit 450 mg tablet 450 mg PO HS 03/30/24 04/11/25 02/17/25 History (cranberry) dorzolamide-timolol (PF) 2 %-0.5 % 1 drp EACH EYE BID 03/30/24 04/11/25 02/21/25 History eye drops in a dropperette lactulose 10 gram/15 mL oral 15 ml PO HS PRN Constipation 03/30/24 04/11/25 Unknown History solution magnesium oxide 400 mg PO HS 03/30/24 04/11/25 02/20/25 History Allergies Allergy/AdvReac Type Severity Reaction Status Date / Time No Known Allergies Allergy Unknown Verified 05/23/25 13:32 [facility] Past Medical History Medical History BMI 33.0-33.9,adult BMI 34.0-34.9,adult Sick sinus syndrome Muscle pain Falls Encounter for routine adult health examination without abnormal findings Macular degeneration Sinus drainage Left knee DJD Erythrocytosis RLS (restless legs syndrome) Frequent sinus infections Elbow pain, left Prostate cancer screening Personal history of COVID-19 BMI 26.0-26.9,adult Bunion of right foot Pedal edema Skin cancer screening Memory loss Testosterone deficiency Itchy skin Balance problem BMI 32.0-32.9,adult Chronic back pain BMI 29.0-29.9,adult Glaucoma Blepharitis of both eyes BMI 30.0-30.9,adult CKD (chronic kidney disease) Chronic pain Hearing loss Non-healing skin lesion Proteinuria Urine abnormality History of colon polyps Abnormal finding of blood chemistry Urinary frequency Insomnia Urinary incontinence BMI 31.0-31.9,adult Encounter for special screening examination for neoplasm of prostate Pre-diabetes Colon cancer screening Anxiety with depression DJD (degenerative joint disease), multiple sites Hypogonadism in male Cognitive dysfunction Hypothyroidism (acquired) Benign essential hypertension Hyperlipidemia On care home drug therapy Vertigo Surgical History Surgical History History of shoulder surgery History of back surgery Family History Family History Sibling Family history of malignant neoplasm of stomach Family history of malignant neoplasm Carcinoma of colon Family history of malignant neoplasm of breast in first degree relative Family history of malignant neoplasm of ovary Family history of diabetes mellitus in first degree relative Diabetes mellitus Father Family history of diabetes mellitus in first degree relative Mother Family history of malignant neoplasm of bone Other Family history of osteoarthritis Social History Social History Smoking status: Never smoker Second hand tobacco smoke exposure: No Alcohol intake: never Drinks per week: 1 Substance use: never Substance use type: does not use Lack of Transportation: No Lack of Food: Never True Current Housing: I Have Housing Concerned About Future Housing: No Difficulty Paying Gas/Electric Bills: No Difficulty Paying for Meds: No Currently Unemployed: No Education: High School Diploma/GED Difficulty w/ Childcare or Family Care: No Living arrangements: alone Occupation/Education: retired Gender identity (if verbalized by the patient): Male Spiritual care concerns: No Course Vital Signs Vital signs: Vital Signs Temperature 97.9 F 05/23/25 13:51 Pulse Rate 66 05/23/25 13:51 Respiratory Rate 18 05/23/25 13:51 Blood Pressure 93/59 L 05/23/25 13:51 Pulse Oximetry 94 05/23/25 13:51 Oxygen Delivery Room Air 05/23/25 13:51 Temperature 97.9 F 05/23/25 13:51 Pulse Rate 60 05/23/25 14:50 Respiratory Rate 12 05/23/25 14:50 Blood Pressure 88/71 L 05/23/25 14:50 Pulse Oximetry 94 05/23/25 14:50 Oxygen Delivery Room Air 05/23/25 14:50 MDM MDM Narrative Medical decision making narrative: 84-year-old male presented to the emergency department for evaluation for increased generalized weakness. Patient is currently afebrile leukocytosis and hemoglobin 11.2. Patient's creatinine is 2.05 which is higher than his baseline. He I believe patient has appropriately diuresed. Patient had negative troponin. Patient's pro BNP is 421 which is similar to his baseline. Patient was negative [place] flu RSV and for COVID. Head CT was negative for acute intracranial abnormality. Chest x-ray shows mild pulmonary edema. Suspect the patient's increased lethargy secondary to his pain pump. Low concern for CHF exacerbation. Patient denies any shortness of breath or exertional shortness of breath but just feels somnolent. Patient's pupils are pinpoint. Patient did have his pain pump decreased today and it will take approximately 50 hours for this decreased to take affect. Patient was offered admission if he felt he was unable to ambulate and take care for self at home but patient states he feels he is able to care for himself at home. Patient does prefer to be discharged. Patient was advised on reasons to return to the emergency department. All questions concerns were addressed. Patient and family were comfortable the plan for discharge. Following was extracted from the EMR Per Dr Hart As time has gone on he has become less activity tolerant despite recent pump increase (20% 2 weeks prior). As result, we increased his dose by an additional 40% as he felt he was getting no net benefit. however he then began to complain of increased daytime tiredness and exhaustion. He described heaviness and weight in his legs. Uncertain whether this was related to the medication increase however additional workup was performed Including EKG, urinalysis, CBC and CMP none of which revealed obvious changes. However chest x-ray and CMP revealed reduced renal function / GFR as well as increase in pulmonary vascular congestion consistent with possible worsening of CHF. I have encouraged him to discuss this with his primary care provider. He was apparently started on a diuretic although he does not appear to have been on this for long period we have removed clonidine from his infusion to reduce the risk of somnolence. May need to reduce bupivacaine as well. We will keep his current opioid doses the same for now. In 50 hours, the pump segment and catheter segment will clear. We should notice improvement in energy levels at this point if this is the culprit. However this continues to be decline in his cardiac function and/or renal function, he may need additional optimization his primary care provider and the symptoms may not be related at all to his pump. Differential Diagnosis Differential Diagnosis: Subdural hematoma, subarachnoid hemorrhage, CHF, altered mental status, UTI, COVID, RSV, influenza Medical Records I have reviewed the following patient records and this information was taken into consideration when formulating the assessment and plan.: previous clinic visits Lab Data MDM Lab Attestation statement: I personally reviewed the patient's lab results. 05/23/25 14:06 05/23/25 14:06 Labs: Lab Results 05/23/25 05/23/25 Range/Units 14:06 14:24 WBC 5.1 (4.5-10.0) K/mm3 RBC 3.54 L (4.6-6.20) M/mm3 Hgb 11.2 L (14.0-18.0) g/dL Hct 32.5 L (42.0-52.0) % MCV 91.8 (80-100) fl MCH 31.6 (26-34) pg MCHC 34.5 (32-36) g/dl RDW 12.9 (11.5-14.5) % Plt Count 144 L (150-375) k/mm3 MPV 8.9 (7.4-10.4) fl Immature Gran % (Auto) 0.2 (0-0.5) % Neut % (Auto) 54.5 (45.5-73.1) % Lymph % (Auto) 25.6 (18.3-44.2) % Cataño % (Auto) 10.7 H (2.6-8.5) % Eos % (Auto) 8.4 H (0-4.4) % Baso % (Auto) 0.6 (0.2-1.2) % Lymph # (Auto) 1.31 (0.9-3.2) K/mm3 Cataño # (Auto) 0.6 (0.1-0.6) K/mm3 Eos # (Auto) 0.4 H (0-0.3) K/mm3 Baso # (Auto) 0.0 (0.0-0.1) K/mm3 Abs Immat Gran (auto) 0.01 (0.00-0.031) K/mm3 Absolute Neuts (auto) 2.8 (1.3-6.7) K/mm3 Absolute Nucleated RBC 0.000 (0.0-0.012) K/mm3 Nucleated RBC % 0.0 (0.0-0.2) % Sodium 135 L (137-145) mmol/L Potassium 3.8 (3.4-5.0) mmol/L Chloride 103 (98-107) mmol/L Carbon Dioxide 24 (22-30) mmol/L Anion Gap 8 (4-12) mmol/L BUN 32 H D (9-20) mg/dL Creatinine 2.05 H (0.7-1.3) mg/dL Estim Creat Clear Calc 27 ml/min Estimated GFR 31 L (59 - ) Glucose 134 H (65-110) mg/dL Calcium 9.4 (8.4-10.2) mg/dL Total Bilirubin 0.6 (0.2-1.3) mg/dL AST 27 (17-59) U/L ALT 19 (6-50) U/L Alkaline Phosphatase 96 (38-126) U/L Troponin I < 0.012 (0.000-0.034) ng/mL NT-Pro-B Natriuret Pep 421 H (19.9-100) pg/mL Total Protein 7.1 (6.3-8.2) g/dL Albumin 4.1 (3.5-5.1) g/dL Influenza A (RT-PCR) Negative (Negative) Influenza B (RT-PCR) Negative (Negative) RSV (RT-PCR) Negative (Negative) SARS-CoV-2 RNA (RT-PCR) Negative (Negative) Imaging Data Radiologist's impression: ITS Impressions Chest X-Ray 05/23/25 14:33 IMPRESSION: 1. Mild interstitial pulmonary edema. Head CT 05/23/25 15:40 IMPRESSION: 1. No acute intracranial abnormality. Discharge Plan Discharge Clinical Impression: Generalized weakness, Adverse drug reaction Patient Disposition: Home Condition: Stable Instructions: Antibiotic Form Additional Instructions: You were offered admission for further evaluation for generalized weakness. I believe this may be secondary to your pain pump. Pain pump medications were decreased today and the effect will take place over the next 50 hours. If you do not feel improved or if you feel like you have worsening symptoms please call or return to the emergency department. Have close follow-up with your primary care physician. Patient Language: Setswana Prescriptions: No Action hydrochlorothiazide 25 mg tablet 25 mg PO DAILY Qty: 30 4RF amlodipine 5 mg tablet 5 mg PO DAILY Qty: 90 1RF Rx Instructions: Please D/C the Amlodipine 10mg. Thank you latanoprost 0.005 % drops 1 drop EACH EYE HS tizanidine 4 mg capsule 4 mg PO TID PRN (Reason: muscle spasticity) Qty: 45 0RF trazodone 50 mg tablet See Rx Instructions PO HS PRN (Reason: Sleep) Qty: 180 1RF Rx Instructions: Take 1-2 tablets by oral route at bedtime for sleep PRN; lidocaine HCl 10 mg/mL (1 %) solution 0.5 ml subcut ONCE PRN (Reason: not used) Qty: 10 0RF multivitamin Tablet 1 tablet PO QACLUNCH acetaminophen 500 mg capsule 1,000 mg PO Q6H PRN (Reason: pain) Qty: 30 0RF hydrocodone-acetaminophen 5-325 mg tablet 1 tablet PO Q4-6H PRN (Reason: pain) 7 Days Qty: 28 0RF Rx Instructions: Take 1 tab p.o. as needed every 4-6 hours for severe pain, maximum 4 per day. Do not take with tramadol. (DME) Electric Scooter Wheel Chair See Rx Instructions .Route .MEDSUPPLY Qty: 1 0RF Rx Instructions: As directed cyanocobalamin (vitamin B-12) 1,000 mcg/mL solution See Rx Instructions .ROUTE .COMPLEX Qty: 3 1RF Dose Instruction: INJCET 1000MCG (1ML) INTRAMUSCULARLY EVERY MONTH Rx Instructions: INJCET 1000MCG (1ML) INTRAMUSCULARLY EVERY MONTH UNKOWN DAY WHEN PT TAKES IT (DME) UltiCare Safety Syringe 3 mL 23 gauge x 1 syringe See Rx Instructions .ROUTE .COMPLEX Qty: 9 0RF Dose Instruction: USE 1 SYRINGE EVERY TWO WEEKS TO ADMINISTER TESTOSTERONE AND 1 EVERY MONTH TO ADMINISTER B-12 Rx Instructions: USE 1 SYRINGE EVERY TWO WEEKS TO ADMINISTER TESTOSTERONE AND 1 EVERY MONTH TO ADMINISTER B-12 donepezil 10 mg tablet See Rx Instructions .ROUTE .COMPLEX Qty: 90 1RF Dose Instruction: TAKE 1 TABLET BY MOUTH ONCE DAILY AT BEDTIME Rx Instructions: TAKE 1 TABLET BY MOUTH ONCE DAILY AT BEDTIME levothyroxine [Synthroid] 137 mcg tablet 137 mcg PO DAILY Qty: 90 1RF memantine 28 mg capsule,sprinkle,ER 24hr See Rx Instructions .ROUTE .COMPLEX Qty: 90 1RF Dose Instruction: TAKE 1 BY MOUTH ONCE DAILY AT BEDTIME Rx Instructions: TAKE 1 BY MOUTH ONCE DAILY AT BEDTIME gabapentin 300 mg capsule See Rx Instructions .ROUTE .COMPLEX Qty: 120 0RF Dose Instruction: Take 2 capsules by mouth twice daily Rx Instructions: Take 2 capsules by mouth twice daily celecoxib [Celebrex] 100 mg capsule 100 mg PO BID Qty: 60 1RF atorvastatin 40 mg tablet See Rx Instructions .ROUTE .COMPLEX Qty: 90 1RF Dose Instruction: Take 1 tablet by mouth once daily Rx Instructions: Take 1 tablet by mouth once daily solifenacin 10 mg tablet See Rx Instructions .ROUTE .COMPLEX Qty: 90 0RF Dose Instruction: Take 1 tablet by mouth once daily Rx Instructions: Take 1 tablet by mouth once daily valsartan 320 mg tablet See Rx Instructions .ROUTE .COMPLEX Qty: 90 1RF Dose Instruction: Take 1 tablet by mouth once daily Rx Instructions: Take 1 tablet by mouth once daily lactulose 10 gram/15 mL Solution 15 ml PO HS PRN (Reason: Constipation) dorzolamide-timolol (PF) 2-0.5 % Dropperette 1 drp EACH EYE BID cranberry 450 mg Tablet 450 mg PO HS Rx Instructions: administer with a meal magnesium oxide 400 mg magnesium Tablet 400 mg PO HS Follow-up/Referrals: Gabriele Candelario MD [Primary Care Provider, Internal Medicine]
[2025-05-23 15:05] LABS: Influenza A QL RT-PCR Negative (Negative); Influenza B QL RT-PCR Negative (Negative); RSV RNA, RT-PCR Negative (Negative); SARS-CoV-2 RNA PCR Negative (Negative)
== END 2025-05-23 17:09 | disposition home or self-care (01) ==
PROVIDERS: Emergency Provider Emergency Medicine; PCP Internal Medicine
DX: R53.1 Weakness (principal); T50.905A Adverse effect of unspecified drugs, medicaments and biological substances, initial encounter; I12.9 Hypertensive chronic kidney disease with stage 1 through stage 4 chronic kidney disease, or unspecified chronic kidney disease; N18.9 Chronic kidney disease, unspecified; Z20.822 Contact with and (suspected) exposure to COVID-19
CPT/HCPCS: 36415; 70450; 71046; 80053; 83880; 84484; 85025; 87637; 93005; 99284